=== PATIENT | male | born 1950 | race Two or more races ===

== ENCOUNTER → 2020-07-26 16:05 | Outpatient (BNVA) | payer MEDICARE, MEDICAID, SELFPAY | PROVIDERS: PCP Internal Medicine; Referring Provider Internal Medicine; Visit Provider Urology | DX: Z76.89 Persons encountering health services in other specified circumstances (principal) | CPT/HCPCS: Q3014 ==

== ENCOUNTER 2020-08-31 20:38 | Emergency (ER) | payer MEDICARE, MEDICAID, SELFPAY | END 2020-08-31 21:08 | disposition left against medical advice (07) | PROVIDERS: Emergency Provider Emergency Medicine; PCP Internal Medicine | DX: B99.9 Unspecified infectious disease (principal) | CPT/HCPCS: 99281 ==

== ENCOUNTER → 2020-09-17 11:02 | Outpatient (BNVA) | payer MEDICARE, MEDICAID, SELFPAY | PROVIDERS: PCP Internal Medicine; Visit Provider Surgery | DX: K64.4 Residual hemorrhoidal skin tags (principal); K64.8 Other hemorrhoids | CPT/HCPCS: 46600; 99202 ==

== ENCOUNTER 2020-10-23 16:45 | Emergency (ER) | payer MEDICARE, MEDICAID, SELFPAY ==
--- NOTE | 2020-10-23 | ECG_ITS ---
Test Reason : CHEST PAIN Blood Pressure : / mmHG Vent. Rate : 077 BPM Atrial Rate : 077 BPM P-R Int : 158 ms QRS Dur : 088 ms QT Int : 374 ms P-R-T Axes : 047 -12 046 degrees QTc Int : 423 ms Normal sinus rhythm Voltage criteria for left ventricular hypertrophy Abnormal ECG When compared to the previous EKG of No significant changes seen Referred By: Generic ED Physician Electronically Signed By:JENNY PERRY MD
[2020-10-23 16:52] VITALS: BP 130/76; BP 142/74; PULSE 80; PULSE 81; RESP 15; TEMP 36.7; O2SAT 98; O2SAT 99; BMI 25.9
--- NOTE | 2020-10-23 17:03 | XR_ITS ---
EXAMINATION: XR CHEST CLINICAL INFORMATION: Chest pain. COMPARISON: CT chest 09/25/2019 TECHNIQUE: Frontal view of the chest was obtained. FINDINGS: The lungs are hypoexpanded with slight prominence of interstitial markings but no acute consolidation, groundglass density congestion. Heart size and pulmonary vascularity is normal. No gross bony abnormality seen. XR/XR chest 1V IMPRESSION: Unremarkable chest exam.
[2020-10-23 17:17] LABS: MANUAL DIFF FLAG NO
--- NOTE | 2020-10-23 17:18 | PC.NURSE ---
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
--- NOTE | 2020-10-23 17:23 | ED.CHESTPAIN ---
HPI - Chest Pain General Chief Complaint: Chest Pain Stated Complaint: INTERMITTENT CP Time Seen by Provider: 10/23/20 17:23 History of Present Illness HPI narrative: Patient suffers from dementia and is not a clear historian, history was obtained by his daughter who is his waxer floor The patient went to primary doctor today for complaint of some intermittent suprapubic pain , and at the doctor's office they asked where does it hurt any pointed at his chest, he was unable to give a description of the pain, the primary doctor called EMS and he was transported to the hospital Here when asked if anything hurts he shakes his head no His daughter says he has had no nausea no vomiting no sweating no shortness of breath, no complaints of chest pain or dizziness, he is eating and drinking normally and seems to be in his normal state of health She says he was recently treated for urinary tract infection and she said she does not want him catheterized or to have any other inspection of the urine done now and her concern is the chest pain He is on Coumadin for heart valve disease Related Data Home Medications Medication Instructions Recorded Confirmed albuterol sulfate 90 mcg/actuation 1 inh INHALATION QID 07/26/20 07/26/20 aerosol inhaler allopurinol 100 mg tablet 100 mg PO DAILY 07/26/20 07/26/20 atenolol 25 mg tablet 25 mg PO DAILY 07/26/20 07/26/20 bupropion HCl 300 mg 24 hr tablet, 300 mg PO QAM 07/26/20 07/26/20 extended release ciclopirox 0.77 % topical cream 1 applic TOPICAL BID 07/26/20 07/26/20 clonazepam 0.5 mg tablet 0.25 mg PO BEDTIME 07/26/20 07/26/20 gabapentin 300 mg capsule 300 mg PO BEDTIME 07/26/20 07/26/20 memantine 10 mg tablet 10 mg PO QPM 07/26/20 07/26/20 omeprazole 20 mg capsule,delayed 20 mg PO DAILY 07/26/20 07/26/20 release pravastatin 20 mg tablet 20 mg PO BEDTIME 07/26/20 07/26/20 warfarin 7.5 mg tablet 7.5 mg PO 2XW 07/26/20 07/26/20 alfuzosin 10 mg tablet,extended 10 mg PO DAILY 08/20/20 release 24 hr azithromycin 1 % eye drops 0 drp OPHTHALMIC (EYE) 08/20/20 finasteride 5 mg tablet 5 mg PO DAILY 08/20/20 lactulose 10 gram/15 mL oral ml PO 08/20/20 solution quetiapine 50 mg tablet 50 mg PO BID 08/20/20 spironolactone 25 mg tablet 25 mg PO DAILY 08/20/20 trazodone 50 mg tablet 50 mg PO BEDTIME PRN 08/20/20 Previous Rx's Medication Instructions Recorded diaper,brief,adult,disposable #60 ea 08/01/20 docusate sodium 100 mg capsule 100 mg PO DAILY #60 cap 09/17/20 psyllium seed (sugar) oral powder 1 tbsp PO DAILY #1254 g 09/17/20 Allergies Allergy/AdvReac Type Severity Reaction Status Date / Time oxycodone [OXYCODONE] Allergy Severe Decrease BP Verified 08/20/20 14:21 Iodinated Contrast Media Allergy Intermediate CKD PER Verified 08/20/20 14:21 [IVP DYE] DAUGHTER PT IS NOT TO HAVE DUE TO KIDNEYS tramadol [TRAMADOL] Allergy Intermediate PER Verified 08/20/20 14:21 DAUGHTER PT PASSED OUT, weakness Nuts Allergy Severe GI Stomach Uncoded 08/20/20 14:21 Bleed Review of Systems Review of Systems: History was taken with assistance of his daughter Positive for chest pain negative for shortness of breath sweating fever chills fainting vomiting anorexia leg swelling PMFSH Past Medical History Source: nursing notes reviewed Medical History Acute deep vein thrombosis (DVT) Bleeding hemorrhoids Chronic anticoagulation COPD (chronic obstructive pulmonary disease) Heart valve disease Surgical History History of inguinal hernia repair Family History Family History Father History of prostate cancer Social History Social History Alcohol intake: unknown Smoking Status: Unknown if ever smoked Use of substances other than those prescribed or required for medical reasons: Unknown Advance Directives: No Advance Directives Information Provided: No Physical Exam Vital Signs: Vital Signs: Last Vital Signs Temp 98.0 F 10/23/20 19:59 Pulse 91 01/12/21 19:59 Resp 20 10/23/20 19:59 BP 137/82 10/23/20 19:59 Pulse Ox 97 10/23/20 19:59 Body Mass Index 25.9 Patient is comfortable appearing no acute distress Head is normocephalic atraumatic The neck is supple and nontender The chest is clear to auscultation bilaterally with symmetric equal breath sounds, no respiratory distress The heart rate and rhythm regular abdomen is soft and nontender Extremities there is no calf swelling or tenderness, no edema The back has no CVA tenderness Neuro the patient is moving all extremities, pupils equal round reactive to light, extraocular motions are intact Course Course Course Narrative: Patient is comfortable throughout ER visit with no evidence of chest pain or shortness of breath or abdominal pain ED EKG did not show evidence of any acute ischemic disease Initial troponin was 4.5 Repeat troponin drawn 3 hours later was 4.6 Acute UT very unlikely and patient was discharged MDM - Chest Pain Lab Data Result diagrams: 10/23/20 17:13 10/23/20 17:13 Labs: Lab Results 10/23/20 10/23/20 10/23/20 Range/Units 17:13 17:13 17:13 WBC 8.0 (4.8-10.8) X10*3/uL RBC 5.39 (4.60-5.80) X10*6/uL Hgb 15.2 (14.0-18.0) g/dl Hct 46.5 (42-52) % MCV 86.3 (80-98) fL MCH 28.2 (27.0-33.0) pg MCHC 32.7 (31.0-36.0) g/dl RDW 14.8 (11.0-16.0) % Plt Count 156 L (160-400) X10*3/uL MPV 11.2 (9.4-12.4) fL Immature Gran % (Auto) 0.4 (0.0-0.4) % Neut % (Auto) 71.0 (45-73) % Lymph % (Auto) 21.8 (20-40) % [place] % (Auto) 5.8 (2-11) % Eos % (Auto) 0.9 (0-4) % Baso % (Auto) 0.1 (0-2) % Lymph # (Auto) 1.7 (1.2-4.9) X10*3/uL [place] # (Auto) 0.5 (0.1-1.2) X10*3/uL Eos # (Auto) 0.1 (0.0-0.4) X10*3/uL Baso # (Auto) 0.0 (0.0-0.2) X10*3/uL Abs Immat Gran (auto) 0.03 (0.00-0.03) X10*3/uL Absolute Neuts (auto) 5.7 (2.0-8.3) X10*3/uL Absolute Nucleated RBC 0.000 (0.0-0.012) X10*3/uL Nucleated RBC % (auto) 0.0 (0.0-0.2) /100WBC PT 28.5 H (10.8-13.0) SEC INR 2.4 H (0.9-1.1) Hold Blue Top SEE NOTE Sodium 145 (135-145) mmol/L Potassium 3.9 (3.3-5.1) mmol/l Chloride 109 H (96-108) mmol/L Carbon Dioxide 28 (22-29) mmol/L Anion Gap 12 (12-20) BUN 24 H (9-16) mg/dL Creatinine 1.29 (0.5-1.4) mg/dL Estim Creat Clear Calc 50.5 Estimated GFR 55 Random Glucose 112 (60-115) mg/dL Calcium 8.4 (8.4-10.2) mg/dL Troponin I High Sens (<3.5-35.0) ng/L 10/23/20 10/23/20 Range/Units 17:13 20:04 WBC (4.8-10.8) X10*3/uL RBC (4.60-5.80) X10*6/uL Hgb (14.0-18.0) g/dl Hct (42-52) % MCV (80-98) fL MCH (27.0-33.0) pg MCHC (31.0-36.0) g/dl RDW (11.0-16.0) % Plt Count (160-400) X10*3/uL MPV (9.4-12.4) fL Immature Gran % (Auto) (0.0-0.4) % Neut % (Auto) (45-73) % Lymph % (Auto) (20-40) % [place] % (Auto) (2-11) % Eos % (Auto) (0-4) % Baso % (Auto) (0-2) % Lymph # (Auto) (1.2-4.9) X10*3/uL [place] # (Auto) (0.1-1.2) X10*3/uL Eos # (Auto) (0.0-0.4) X10*3/uL Baso # (Auto) (0.0-0.2) X10*3/uL Abs Immat Gran (auto) (0.00-0.03) X10*3/uL Absolute Neuts (auto) (2.0-8.3) X10*3/uL Absolute Nucleated RBC (0.0-0.012) X10*3/uL Nucleated RBC % (auto) (0.0-0.2) /100WBC PT (10.8-13.0) SEC INR (0.9-1.1) Hold Blue Top Sodium (135-145) mmol/L Potassium (3.3-5.1) mmol/l Chloride (96-108) mmol/L Carbon Dioxide (22-29) mmol/L Anion Gap (12-20) BUN (9-16) mg/dL Creatinine (0.5-1.4) mg/dL Estim Creat Clear Calc Estimated GFR Random Glucose (60-115) mg/dL Calcium (8.4-10.2) mg/dL Troponin I High Sens 4.5 4.6 (<3.5-35.0) ng/L Discharge Plan Discharge Clinical Impression: Chest pain Qualifiers: Chest pain type: unspecified Qualified Code(s): R07.9 - Chest pain, unspecified Patient Disposition: Home, Self-Care Additional Instructions: Our testing did not show any signs of acute heart attack or any emergent problem Follow with primary doctor Return to ER any time for chest pain shortness of breath any worse condition or any concerns Prescriptions: No Action warfarin 7.5 mg tablet 7.5 mg PO 2XW RF: 0 omeprazole 20 mg capsule,delayed release(DR/EC) 20 mg PO DAILY RF: 0 memantine [Namenda] 10 mg tablet 10 mg PO QPM RF: 0 clonazepam 0.5 mg tablet 0.25 mg PO BEDTIME RF: 0 ciclopirox 0.77 % cream 1 applic topical BID RF: 0 bupropion HCl 300 mg tablet extended release 24 hr 300 mg PO QAM RF: 0 atenolol 25 mg tablet 25 mg PO DAILY RF: 0 gabapentin 300 mg capsule 300 mg PO BEDTIME RF: 0 pravastatin 20 mg tablet 20 mg PO BEDTIME RF: 0 albuterol sulfate 90 mcg/actuation HFA aerosol inhaler 1 inh inhalation QID RF: 0 allopurinol 100 mg tablet 100 mg PO DAILY RF: 0 (DME) diaper,brief,adult,disposable Misc See Rx Instructions .ROUTE .MEDSUPPLY Qty: 60 RF: 11 docusate sodium [Colace] 100 mg capsule 100 mg PO DAILY Qty: 60 RF: 0 Metamucil (sugar) Powder 1 tbsp PO DAILY Qty: 1254 RF: 0
[2020-10-23 17:32] LABS: Basophils Percent Auto 0.1 % (0-2); Eosinophils Absolute Auto 0.1 X10*3/uL (0.0-0.4); Eosinophils Percent Auto 0.9 % (0-4); Hematocrit 46.5 % (42-52); Hemoglobin 15.2 g/dl (14.0-18.0); Imm Gran Abs Auto 0.03 X10*3/uL (0.00-0.03); Imm Gran Pct Auto 0.4 % (0.0-0.4); Lymphocytes Absolute Auto 1.7 X10*3/uL (1.2-4.9); Lymphocytes Percent Auto 21.8 % (20-40); Mean Corpuscular HGB Conc 32.7 g/dl (31.0-36.0); Mean Corpuscular Hemoglobin 28.2 pg (27.0-33.0); Mean Corpuscular Volume 86.3 fL (80-98); Mean Platelet Volume 11.2 fL (9.4-12.4); Monocytes Absolute Auto 0.5 X10*3/uL (0.1-1.2); Monocytes Percent Auto 5.8 % (2-11); Neutrophils Absolute Auto 5.7 X10*3/uL (2.0-8.3); Platelet Count 156 X10*3/uL (160-400); Red Blood Count 5.39 X10*6/uL (4.60-5.80); Red Cell Distribution Width 14.8 % (11.0-16.0)
[2020-10-23 17:58] LABS: Anion Gap 12 (12-20); Blood Urea Nitrogen 24 mg/dL (9-16); Calcium 8.4 mg/dL (8.4-10.2); Carbon Dioxide 28 mmol/L (22-29); Chloride 109 mmol/L (96-108); Creatinine Clr Calc Pharmacy 50.5; Estimated Glomerular Filt Rate 55; Glucose Random 112 mg/dL (60-115); Potassium 3.9 mmol/l (3.3-5.1); Sodium 145 mmol/L (135-145)
[2020-10-23 18:05] LABS: Troponin-I High Sensitivity 4.5 ng/L (<3.5-35.0)
--- NOTE | 2020-10-23 18:43 | PC.NURSE ---
lab was called to add on PTINR since blue top was already drawn
[2020-10-23 18:49] VITALS: BP 124/65; PULSE 78; RESP 18; TEMP 36.7; O2SAT 95
--- NOTE | 2020-10-23 18:50 | PC.NURSE ---
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
[2020-10-23 18:54] LABS: INTERNATIONAL NORM RATIO 2.4 (0.9-1.1); Prothrombin Time 28.5 SEC (10.8-13.0)
--- NOTE | 2020-10-23 19:14 | PC.NURSE ---
brief changed with assistance of tech
[2020-10-23 19:59] VITALS: BP 137/82; PULSE 91; RESP 20; TEMP 36.7; O2SAT 97
--- NOTE | 2020-10-23 20:16 | PC.NURSE ---
daughter was updated
[2020-10-23 20:40] LABS: Troponin-I High Sensitivity 4.6 ng/L (<3.5-35.0)
== END 2020-10-23 21:26 | disposition home or self-care (01) ==
PROVIDERS: Physician Assistant Medical; Emergency Provider Internal Medicine; PCP Internal Medicine
DX: R07.9 Chest pain, unspecified (principal); F03.90 Unspecified dementia, unspecified severity, without behavioral disturbance, psychotic disturbance, mood disturbance, and anxiety; Z86.718 Personal history of other venous thrombosis and embolism; Z79.01 Long term (current) use of anticoagulants; Z79.899 Other long term (current) drug therapy
CPT/HCPCS: 36415; 71045; 80048; 84484; 85025; 85610; 93005; 99283; 99284

== ENCOUNTER → 2020-10-29 10:31 | Outpatient (BNV) | payer MEDICARE, OTHER, MEDICAID, SELFPAY | PROVIDERS: PCP Internal Medicine; Visit Provider Internal Medicine Medical Oncology | DX: I82.401 Acute embolism and thrombosis of unspecified deep veins of right lower extremity (principal) | CPT/HCPCS: 99214; 99443 ==

== ENCOUNTER 2020-11-02 12:39 | Outpatient (REF) | payer MEDICARE, MEDICAID, SELFPAY ==
--- NOTE | 2020-11-02 12:41 | CT_ITS ---
EXAMINATION: CT CHEST WITHOUT CONTRAST CLINICAL INFORMATION: Follow-up abdominal aortic aneurysm COMPARISON: Previous chest CT September 2019 and chest x-ray October 2020 TECHNIQUE: Multidetector volumetric CT imaging of the chest was done. Axial MIP volume rendering provided. Sagittal and coronal reformatted images were obtained. This CT examination was performed using dose optimization techniques as appropriate, variously including the following: *Automated exposure control *Adjustment of mA and/or kV according to patient size (this includes techniques or standardized protocols for targeted exams where dose is matched to indication/reason for exam; i.e. extremities or head) *Use of iterative reconstruction technique DLP: 198 mGy-cm FINDINGS: LUNGS: The lungs are clear with no evidence of inflammation or nodules. MEDIASTINUM: The ascending thoracic aorta is slightly dilated measuring 4.3 cm in diameter. The aortic arch is upper normal in size measuring 3 cm. The proximal descending thoracic aorta is slightly dilated measuring 3.4 x 3.8 cm. The descending thoracic aorta is tortuous. This does not appear appreciably changed from previous exam September 2019. The heart is enlarged. There is mild coronary artery calcification. There is no pericardial effusion. The visualized thyroid gland is unremarkable. PLEURA: There is no pleural effusion. No pleural mass or thickening. AXILLA: No lymphadenopathy. UPPER ABDOMEN: The gallbladder has been removed. There are bilateral renal cysts. There is an IVC filter. OSSEOUS STRUCTURES: There are degenerative changes of the spine. CT/CT chest wo con IMPRESSION: Ectatic tortuous thoracic aorta. This is similar to September 2019 exam. Enlarged heart. Mild coronary artery patient. Stable abdominal findings.
== END 2020-11-02 12:40 | disposition home or self-care (01) ==
LOC: HO.CT 12:39
PROVIDERS: PCP Internal Medicine; Visit Provider Internal Medicine Medical Oncology
DX: I71.9 Aortic aneurysm of unspecified site, without rupture (principal)
CPT/HCPCS: 71250

== ENCOUNTER → 2021-01-09 09:40 | Outpatient (BNVA) | payer MEDICARE, MEDICAID, SELFPAY | PROVIDERS: PCP Internal Medicine; Visit Provider Hospitalist | DX: J41.0 Simple chronic bronchitis (principal); G30.9 Alzheimer's disease, unspecified; F02.80 Dementia in other diseases classified elsewhere, unspecified severity, without behavioral disturbance, psychotic disturbance, mood disturbance, and anxiety | CPT/HCPCS: Q3014 ==

== ENCOUNTER → 2021-01-10 12:06 | Outpatient (BNVA) | payer MEDICARE, MEDICAID, SELFPAY | PROVIDERS: PCP Internal Medicine; Visit Provider Internal Medicine | DX: I71.2 Thoracic aortic aneurysm, without rupture (principal); I35.1 Nonrheumatic aortic (valve) insufficiency; G30.9 Alzheimer's disease, unspecified; F02.80 Dementia in other diseases classified elsewhere, unspecified severity, without behavioral disturbance, psychotic disturbance, mood disturbance, and anxiety | CPT/HCPCS: 99202 ==

== ENCOUNTER → 2021-02-21 10:20 | Outpatient (REF) | payer MEDICARE, MEDICAID, SELFPAY ==
--- NOTE | 2021-02-21 10:25 | CA_ITS ---
Transthoracic Echocardiogram Patient (Last, First, Middle): Antoni Arriola, Gender: Male Date of : 1950 Age: 70 Procedure Date: 02/21/2021 Procedure Type: Transthoracic Echocardiogram Location: OP Height: 167.64 cm Weight: 71.22 kg BSA: 1.80 m2 Heart Rate: bpm BP: 123 / 81 mmHg Director Of Media: СЕРГЕЙ Anderson MD: Gamal Calles MD Audit Control Clerk: Lyndon King MD Symptoms: I35.1 - Nonrheumatic aortic (valve) insufficiency Study Quality: Fair ECG Rhythm: Sinus Conclusions: - 1. Normal LV systolic function with grade 1 diastolic dysfunction 2. Mild to moderate eccentric aortic regurgitation 3. Mildly dilated ascending aorta 4. No gross pericardial effusion Findings Left Ventricle Normal left ventricular size, thickness, and systolic function. The visually estimated ejection fraction is between 55-60%. Spectral Doppler is indicative of an impaired relaxation filling pattern. E/E prime ratio is <8, consistent with normal filling pressures. Evidence suggests grade I (mild) diastolic dysfunction. Right Ventricle Normal right ventricular cavity size and systolic function. Atria Both atria are normal in size. Interatrial shunt cannot be excluded. Aortic Valve The aortic valve was not well visualized. There is no aortic valve stenosis. There is mild to moderate aortic valve regurgitation. Mitral Valve Likely normal mitral valve structure and function. There is trace mitral valve regurgitation. There is no mitral valve stenosis. Pulmonic Valve The pulmonic valve was not well visualized. Tricuspid Valve The tricuspid valve was not well visualized. The right ventricular systolic pressure is not calculated. Great Vessels The pulmonary artery was not well visualized. There is mild dilatation of the ascending aorta. Venous The inferior vena cava is normal in size and collapses greater than 50% with inspiration. Pericardium/Pleural There is no evidence of pericardial effusion. Prior Study Comparison No previous study in the last 5 years for comparison Measurements 2D Linear Measurements IVSd: 0.92 0.6-0.9/0.6-1.0 cm LVIDd: 5.12 3.9-5.3/4.2-5.9 cm LVIDd Index: 2.84 2.4-3.2/2.2-3.1 cm/m2 LVIDs: 3.90 2.0-3.6 cm LVPWd: 0.92 0.7-1.1 cm Ao Root: 4.10 2.1-3.5 cm LA Diam: 2.30 2.7-3.8/3.0-4.0 cm LAIDs Index: 1.28 1.5-2.3 cm/m2 LV Mass: 210.75 67-162/88-224 g LV Mass Index: 117.08 43-95/49-115 g/m2 LVOT Diam: 2.00 3.0+(-)1.3 cm 2D Systolic Function EF 4C: 54.30 >55% EF 2C: 55.90 >55% Mitral Valve E'Lateral: 7.83 E'Medial: 6.31 Aortic Valve AoV Pk Brent: 1.49 AoV Mn Brent: 0.96 AoV VTI: 0.28 AoV Pk Grad: 9.00 Aov Mn Grad: 4.00 MINH Cont.VTI: 2.27 AI Pk Brent: 4.36 AI [place]: 3.84 LVOT LVOT Pk Brent: 1.02 LVOT Mn Brent: 0.71 LVOT VTI: 0.21 LVOT Pk Grad: 4.00 LVOT Mn Grad: 2.00 LVOT Diam: 2.00 LVOT Area: 3.14 Diastolic Function E'Medial: 6.31 E' Laterial: 7.83 Great Vessels Aorta Ao Root-2D: 4.10 2.0-3.7 cm Ao Asc: 4.10 2.1-3.4 cm Updated in Other Vendor System with Status of Final Lyndon King MD electronically signed on 02/22/2021 3:44:25 PM with status of Final
== END ==
LOC: HO.CARD 10:20
PROVIDERS: PCP Internal Medicine; Visit Provider Internal Medicine
DX: I35.1 Nonrheumatic aortic (valve) insufficiency (principal); I71.2 Thoracic aortic aneurysm, without rupture
CPT/HCPCS: 93306

== ENCOUNTER → 2021-02-28 11:35 | Outpatient (BNVA) | payer MEDICARE, MEDICAID, SELFPAY | PROVIDERS: PCP Internal Medicine; Visit Provider Internal Medicine | DX: I71.2 Thoracic aortic aneurysm, without rupture (principal); I35.1 Nonrheumatic aortic (valve) insufficiency; G30.9 Alzheimer's disease, unspecified; F02.80 Dementia in other diseases classified elsewhere, unspecified severity, without behavioral disturbance, psychotic disturbance, mood disturbance, and anxiety | CPT/HCPCS: 99212 ==

== ENCOUNTER 2021-05-03 08:14 | Outpatient (REF) | payer MEDICARE, MEDICAID, SELFPAY ==
[2021-05-03 10:56] LABS: MANUAL DIFF FLAG NO
[2021-05-03 11:03] LABS: Basophils Percent Auto 0.4 % (0-2); Eosinophils Absolute Auto 0.2 X10*3/uL (0.0-0.4); Eosinophils Percent Auto 1.9 % (0-4); Hematocrit 51.2 % (42-52); Hemoglobin 16.6 g/dl (14.0-18.0); Imm Gran Abs Auto 0.02 X10*3/uL (0.00-0.03); Imm Gran Pct Auto 0.2 % (0.0-0.4); Lymphocytes Absolute Auto 2.4 X10*3/uL (1.2-4.9); Lymphocytes Percent Auto 28.6 % (20-40); Mean Corpuscular HGB Conc 32.4 g/dl (31.0-36.0); Mean Corpuscular Hemoglobin 27.1 pg (27.0-33.0); Mean Corpuscular Volume 83.5 fL (80-98); Mean Platelet Volume 11.3 fL (9.4-12.4); Monocytes Absolute Auto 0.5 X10*3/uL (0.1-1.2); Monocytes Percent Auto 6.2 % (2-11); Neutrophils Absolute Auto 5.4 X10*3/uL (2.0-8.3); Neutrophils Percent Auto 62.7 % (45-73); Platelet Count 192 X10*3/uL (160-400); Red Blood Count 6.13 X10*6/uL (4.60-5.80); Red Cell Distribution Width 14.9 % (11.0-16.0); White Blood Count 8.5 X10*3/uL (4.8-10.8)
[2021-05-03 11:19] LABS: D Dimer < 200 NG/ML
[2021-05-03 12:00] LABS: Alanine Aminotransferase 18 U/L (0-40); Albumin Level 3.7 g/dL (3.5-5.0); Alkaline Phosphatase 61 U/L (39-117); Anion Gap 14 (12-20); Aspartate Amino Transferase 24 U/L (5-37); Bilirubin Total 0.6 mg/dL (0.0-1.0); Blood Urea Nitrogen 19 mg/dL (9-16); Calcium 9.1 mg/dL (8.4-10.2); Carbon Dioxide 25 mmol/L (22-29); Chloride 106 mmol/L (96-108); Estimated Glomerular Filt Rate 48; Glucose Random 79 mg/dL (60-115); Sodium 141 mmol/L (135-145); Total Protein 7.3 g/dL (6.5-8.0)
[2021-05-03 12:24] LABS: Prostate Specific Antigen 3.27 ng/mL (<0.05-4.0)
== END 2021-05-03 08:15 | disposition home or self-care (01) ==
LOC: HO.LHD 08:14
PROVIDERS: Visit Provider Internal Medicine Medical Oncology
DX: D64.9 Anemia, unspecified (principal); I82.401 Acute embolism and thrombosis of unspecified deep veins of right lower extremity
CPT/HCPCS: 36415; 80053; 84153; 85025; 85379

== ENCOUNTER → 2021-07-02 10:33 | Outpatient (BNVA) | payer MEDICARE, MEDICAID, SELFPAY | PROVIDERS: PCP Internal Medicine; Visit Provider Urology | DX: N40.1 Benign prostatic hyperplasia with lower urinary tract symptoms (principal); N13.8 Other obstructive and reflux uropathy; R32 Unspecified urinary incontinence | CPT/HCPCS: Q3014 ==

== ENCOUNTER 2021-10-01 06:37 | Outpatient (REF) | payer MEDICARE, MEDICAID, SELFPAY ==
[2021-10-01 09:41] LABS: MANUAL DIFF FLAG NO
[2021-10-01 09:44] LABS: Basophils Percent Auto 0.4 % (0-2); Eosinophils Absolute Auto 0.2 X10*3/uL (0.0-0.4); Eosinophils Percent Auto 1.9 % (0-4); Hematocrit 50.6 % (42.0-52.0); Hemoglobin 16.9 g/dl (14.0-18.0); Imm Gran Abs Auto 0.03 X10*3/uL (0.00-0.03); Imm Gran Pct Auto 0.4 % (0.0-0.4); Lymphocytes Absolute Auto 2.5 X10*3/uL (1.2-4.9); Lymphocytes Percent Auto 30.4 % (20-40); Mean Corpuscular HGB Conc 33.4 g/dl (31.0-36.0); Mean Corpuscular Hemoglobin 26.4 pg (27.0-33.0); Mean Corpuscular Volume 79.1 fL (80.0-98.0); Mean Platelet Volume 11.3 fL (9.4-12.4); Monocytes Absolute Auto 0.5 X10*3/uL (0.1-1.2); Monocytes Percent Auto 5.8 % (2-11); Neutrophils Percent Auto 61.1 % (45-73); Platelet Count 208 X10*3/uL (160-400); Red Cell Distribution Width 16.7 % (11.0-16.0); White Blood Count 8.1 X10*3/uL (4.8-10.8)
[2021-10-01 10:07] LABS: Alanine Aminotransferase 18 U/L (0-40); Albumin Level 3.4 g/dL (3.5-5.0); Alkaline Phosphatase 60 U/L (39-117); Anion Gap 11 (12-20); Aspartate Amino Transferase 22 U/L (5-37); Bilirubin Total 0.7 mg/dL (0.0-1.0); Blood Urea Nitrogen 17 mg/dL (9-16); Calcium 8.7 mg/dL (8.4-10.2); Carbon Dioxide 22 mmol/L (22-29); Chloride 109 mmol/L (96-108); Estimated Glomerular Filt Rate 53; Glucose Random 102 mg/dL (60-115); Potassium 4.2 mmol/L (3.3-5.1); Sodium 138 mmol/L (135-145); Total Protein 7.1 g/dL (6.5-8.0)
[2021-10-01 10:09] LABS: Cholesterol 163 mg/dL; HDL Cholesterol 34 mg/dL; LDL Cholesterol Calculated 103 mg/dl; Triglycerides 131 mg/dL
[2021-10-01 10:30] LABS: Prostate Specific Antigen 3.64 ng/mL (<0.05-4.0)
== END 2021-10-01 06:38 | disposition home or self-care (01) ==
LOC: HO.LHD 06:37
PROVIDERS: Visit Provider Internal Medicine Medical Oncology
DX: I82.401 Acute embolism and thrombosis of unspecified deep veins of right lower extremity (principal); Z12.5 Encounter for screening for malignant neoplasm of prostate
CPT/HCPCS: 36415; 80053; 80061; 84153; 85025

== ENCOUNTER 2022-04-04 15:09 | Outpatient (REF) | payer OTHER, SELFPAY ==
[2022-04-04 10:52] LABS: MANUAL DIFF FLAG NO
[2022-04-04 11:01] LABS: Basophils Percent Auto 0.3 % (0-2); Eosinophils Absolute Auto 0.1 X10*3/uL (0.0-0.4); Eosinophils Percent Auto 1.7 % (0-4); Hemoglobin 17.2 g/dl (14.0-18.0); Imm Gran Abs Auto 0.02 X10*3/uL (0.00-0.03); Imm Gran Pct Auto 0.3 % (0.0-0.4); Lymphocytes Absolute Auto 2.1 X10*3/uL (1.2-4.9); Lymphocytes Percent Auto 27.3 % (20-40); Mean Corpuscular HGB Conc 33.7 g/dl (31.0-36.0); Mean Corpuscular Hemoglobin 27.6 pg (27.0-33.0); Mean Corpuscular Volume 81.9 fL (80.0-98.0); Monocytes Absolute Auto 0.4 X10*3/uL (0.1-1.2); Monocytes Percent Auto 4.8 % (2-11); Neutrophils Absolute Auto 5.1 x10*3/uL (2.0-8.3); Neutrophils Percent Auto 65.6 % (45-73); Platelet Count 191 X10*3/uL (160-400); Red Blood Count 6.23 X10*6/uL (4.60-5.80); Red Cell Distribution Width 15.4 % (11.0-16.0); White Blood Count 7.7 X10*3/uL (4.8-10.8)
[2022-04-04 11:32] LABS: Alanine Aminotransferase 14 U/L (0-40); Albumin Level 3.5 g/dL (3.5-5.0); Alkaline Phosphatase 60 U/L (39-117); Anion Gap 15 (12-20); Aspartate Amino Transferase 21 U/L (5-37); Blood Urea Nitrogen 15 mg/dL (9-16); Calcium 8.8 mg/dL (8.4-10.2); Carbon Dioxide 19 mmol/L (22-29); Chloride 109 mmol/L (96-108); Estimated Glomerular Filt Rate 59; Glucose Random 136 mg/dL (60-115); Potassium 3.5 mmol/L (3.3-5.1); Sodium 139 mmol/L (135-145); Total Protein 6.9 g/dL (6.5-8.0)
[2022-04-04 11:55] LABS: Prostate Specific Antigen 3.56 ng/mL (<0.05-4.0)
== END 2022-04-04 15:10 | disposition home or self-care (01) ==
LOC: HO.LHD 15:09
PROVIDERS: Visit Provider Internal Medicine Medical Oncology
DX: I82.401 Acute embolism and thrombosis of unspecified deep veins of right lower extremity (principal); Z12.5 Encounter for screening for malignant neoplasm of prostate
CPT/HCPCS: 36415; 80053; 84153; 85025

== ENCOUNTER 2022-04-22 03:11 | Inpatient (IN) | payer OTHER, SELFPAY ==
[2022-04-22] VITALS (10 sets, daily range): BP systolic 98–137; BP diastolic 50–75; PULSE 84–107; RESP 18–31; TEMP 36.1–38.7; O2SAT 91–98; BMI 23.7
--- NOTE | ~2022-04-22 | CT_ITS ---
EXAMINATION: CT CHEST, ABDOMEN AND PELVIS WITHOUT CONTRAST CLINICAL INFORMATION: Fever and hypoxia COMPARISON: CT abdomen and pelvis without contrast 04/17/2020, chest CT 11/02/2020 TECHNIQUE: Multidetector volumetric imaging was performed from the thoracic inlet through the pubic symphysis. Sagittal and coronal reformatted images were obtained on the technologist's workstation. Axial MIP volume rendering provided. This CT examination was performed using dose optimization techniques as appropriate, variously including the following: *Automated exposure control *Adjustment of mA and/or kV according to patient size (this includes techniques or standardized protocols for targeted exams where dose is matched to indication/reason for exam; i.e. extremities or head) *Use of iterative reconstruction technique DLP: 1392 mGy-cm FINDINGS: CHEST: Lungs: Somewhat limited assessment due to extensive respiratory motion artifact. Mild dependent subsegmental bibasilar atelectasis. No appreciable pulmonary nodule or mass. No airspace consolidation. Central airways appear grossly clear. Mediastinum: No cardiomegaly. Three-vessel coronary artery vascular calcifications. Borderline dilated ascending thoracic aorta measuring approximately 4 cm in diameter, unchanged. Normal caliber central pulmonary trunk. No mediastinal or hilar lymphadenopathy. Pericardium/Pleura: There is no significant effusion. No pleural mass or thickening. Chest Wall/Axilla: Unremarkable. ABDOMEN/PELVIS: Liver, Gallbladder, Biliary Tree: Unchanged small low-density lesions, likely cysts in the medial segment left liver lobe and anterior segment right liver lobe. No obvious new liver lesion. Normal hepatic attenuation. Status post cholecystectomy. No biliary ductal dilation. Pancreas: Unremarkable. Spleen: Unremarkable. Adrenal Glands: Unremarkable. Kidneys and Ureters: No hydronephrosis or radiodense urinary tract calculi. No perinephric collections. Multiple bilateral low-density renal cysts, similar to prior. Largest cyst is exophytic from the left kidney measuring approximately 8.1 cm in size. Bladder: Unremarkable. Gastrointestinal Tract: No dilated bowel loops. No bowel wall thickening. Suspected small hiatal hernia. Normal appendix. No ascites or free air. Abdominal Wall: Fat-containing left inguinal hernia. Lymphovascular Structures: Lymph nodes: No lymphadenopathy. Vascular: Normal caliber abdominal aorta with mild vascular calcifications. IVC filter in place. Pelvic Viscera: Mildly enlarged prostate gland. Unremarkable seminal vesicles. OSSEOUS STRUCTURES: No acute fracture or suspicious osseous lesion. Moderate disc degenerative change at L5-S1. Mild retrolisthesis at L1-L2. Otherwise, mild multilevel degenerative disc disease throughout the thoracic and lumbar spine. 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 CT/CT abdomen pelvis wo con IMPRESSION: 1. Assessment of the lungs limited due to respiratory motion artifact. Mild bibasilar atelectasis. No consolidation or pleural effusions. 2. Borderline mild dilation of the ascending thoracic aorta measuring 4 cm in diameter, unchanged. 3. No acute intra-abdominal process. 4. Multiple additional ancillary findings, as described.
--- NOTE | ~2022-04-22 | CT_ITS ---
EXAMINATION: CT HEAD WITHOUT CONTRAST CLINICAL INFORMATION: Altered mental status COMPARISON: CT 07/01/2020 TECHNIQUE: Contiguous axial imaging was performed from the skull base to vertex without intravenous administration of contrast. This CT examination was performed using dose optimization techniques as appropriate, variously including the following: *Automated exposure control *Adjustment of mA and/or kV according to patient size (this includes techniques or standardized protocols for targeted exams where dose is matched to indication/reason for exam; i.e. extremities or head) *Use of iterative reconstruction technique DLP: 695 mGy-cm FINDINGS: There is no evidence of acute intracranial hemorrhage or territorial infarction. No abnormal mass effect or midline shift is seen. Herbert to white matter differentiation is well preserved. No extra-axial fluid collections are identified. The ventricles are moderately enlarged, appearing slightly more prominent as compared to previous. There is moderate prominence of the cortical sulci. The ventricles are enlarged slightly out of proportion to the atrophy. . Patchy deep white matter hypodensities likely reflecting chronic microangiopathic changes. No acute calvarial fracture. Sinuses and mastoid air cells evaluated. CT/CT head/brain wo con Impression: 1. No evidence of acute intracranial hemorrhage or edematous territorial infarction. 2. Atrophy with chronic small vessel ischemic changes. 3. Dilatation of the ventricles representing either cerebral atrophy or normal pressure hydrocephalus. Degree of ventricular dilatation is slightly more prominent as compared to previous. Clinically correlate
--- NOTE | ~2022-04-22 | XR_ITS ---
EXAMINATION: XR CHEST CLINICAL INFORMATION: Shortness of breath COMPARISON: Previous chest x-ray and chest CT October 2020 TECHNIQUE: Frontal view of the chest was obtained. FINDINGS: The cardiac and mediastinal contours are stable. The lung volumes are low. The lungs are clear. There is no pleural effusion or pneumothorax. There is distended bowel below the diaphragm. Visualized bony structures are unremarkable. XR/XR chest 1V IMPRESSION: Low lung volumes. Distended bowel below the diaphragm.
--- NOTE | 2022-04-22 05:56 | ECG_ITS ---
Test Reason : SOB Blood Pressure : / mmHG Vent. Rate : 105 BPM Atrial Rate : 105 BPM P-R Int : 156 ms QRS Dur : 086 ms QT Int : 326 ms P-R-T Axes : 034 -22 084 degrees QTc Int : 430 ms Sinus tachycardia Moderate voltage criteria for LVH, may be normal variant ( R in aVL , [place] product ) Nonspecific T wave abnormality Abnormal ECG When compared with ECG of 23-OCT-2020 16:59, Nonspecific T wave abnormality, worse in Lateral leads Referred By: Shanon Camacho Electronically Signed By:JENNY PERRY MD
[2022-04-22 06:16] LABS: MANUAL DIFF FLAG NO
[2022-04-22 06:19] LABS: Basophils Percent Auto 0.2 % (0-2); Eosinophils Percent Auto 0.1 % (0-4); Hemoglobin 16.7 g/dl (14.0-18.0); Imm Gran Abs Auto 0.03 X10*3/uL (0.00-0.03); Imm Gran Pct Auto 0.4 % (0.0-0.4); Lymphocytes Absolute Auto 0.6 X10*3/uL (1.2-4.9); Lymphocytes Percent Auto 6.9 % (20-40); Mean Corpuscular HGB Conc 34.1 g/dl (31.0-36.0); Mean Corpuscular Hemoglobin 27.4 pg (27.0-33.0); Mean Corpuscular Volume 80.3 fL (80.0-98.0); Mean Platelet Volume 10.5 fL (9.4-12.4); Monocytes Absolute Auto 0.8 X10*3/uL (0.1-1.2); Monocytes Percent Auto 9.6 % (2-11); Neutrophils Absolute Auto 6.8 x10*3/uL (2.0-8.3); Neutrophils Percent Auto 82.8 % (45-73); Platelet Count 177 X10*3/uL (160-400); White Blood Count 8.3 X10*3/uL (4.8-10.8)
[2022-04-22 06:34] LABS: Anion Gap 13 (12-20); Blood Urea Nitrogen 19 mg/dL (9-16); Calcium 8.5 mg/dL (8.4-10.2); Carbon Dioxide 23 mmol/L (22-29); Chloride 105 mmol/L (96-108); Creatinine Clr Calc Pharmacy 44.9; Estimated Glomerular Filt Rate 47; Glucose Random 135 mg/dL (60-115); Magnesium 1.6 mg/dL (1.6-2.6); Phosphorus 3.8 mg/dL (2.7-4.5); Potassium 3.8 mmol/L (3.3-5.1); Sodium 137 mmol/L (135-145)
[2022-04-22] MEDS: 0.9 % Sodium Chloride 1,000 ML 999 ML IV (06:35)
[2022-04-22 06:40] LABS: Troponin-I High Sensitivity 13.9 ng/L (<3.5-35.0)
[2022-04-22] MEDS: Acetaminophen Supp 650 MG SUPP.RECT PR ×2 (06:40→14:23)
[2022-04-22 06:53] LABS: Glucose, Whole Blood 136 mg/dL (60-115)
[2022-04-22 06:55] LABS: Influenza A PCR NEGATIVE (Negative); Influenza B PCR NEGATIVE (Negative); Resp Syncy Virus RNA Qual PCR NEGATIVE (Negative); SARS COV2 PCR INHOUSE POSITIVE (Negative)
--- NOTE | 2022-04-22 07:06 | ED_ITS ---
HPI - Altered Mental Status General Chief Complaint: Altered Mental Status Stated Complaint: FAMILY ?'S SZ W/VOMITING,H/O NONVERBAL DEMENTIA Time Seen by Provider: 04/22/22 05:39 History of Present Illness HPI narrative: patient is a 71-year-old male with a long history of dementia. Baseline awake alert oriented times 0. History of DVT currently on Coumadin. History of BPH with urinary obstructions in the past. Family noted an episode with the patient eyes rolled backwards. Subsequently collapsed. Then was noted to have shaking like movements. Patient was then sent to the emergency department for further evaluation. He is not vaccinated for COVID. History of COPD. History of valvular heart disease. History of ascending aortic aneurysm at 4.3 cm. Patient from home. Lives with daughter. Related Data Home Medications Medication Instructions Recorded Confirmed albuterol sulfate 90 mcg/actuation 1 inh inhalation QID 07/26/20 06/27/21 aerosol inhaler atenolol 25 mg tablet 25 mg PO DAILY 07/26/20 06/27/21 bupropion HCl 300 mg 24 hr tablet, 300 mg PO QAM 07/26/20 06/27/21 extended release ciclopirox 0.77 % topical cream 1 applic topical BID 07/26/20 06/27/21 memantine 10 mg tablet (Namenda) 10 mg PO QPM 07/26/20 06/27/21 omeprazole 20 mg capsule,delayed 20 mg PO DAILY 07/26/20 06/27/21 release azithromycin 1 % eye drops 0 drp ophthalmic (eye) NEEDED 08/20/20 06/27/21 spironolactone 25 mg tablet 25 mg PO DAILY 08/20/20 06/27/21 risperidone 0.25 mg tablet 0.5 mg PO BID 01/09/21 06/27/21 warfarin 5 mg tablet 1 tab PO DAILY 05/02/21 06/27/21 diaper,brief,adult,disposable 06/27/21 06/27/21 (Select Briefs) betamethasone valerate 0.1 % topical BID 07/02/21 topical ointment clotrimazole 1 % topical cream appl topical BID 07/02/21 naftifine 2 % topical gel (Naftin) 2 topical DAILY mycosis 07/02/21 Previous Rx's Medication Instructions Recorded docusate sodium 100 mg capsule 100 mg PO DAILY #60 caps 09/17/20 (Colace) ipratropium 0.5 mg-albuterol 3 mg 3 ml inhalation BID #60 mL 11/12/20 (2.5 mg base)/3 mL nebulization soln alfuzosin 10 mg tablet,extended 10 mg PO DAILY 90 days #90 tabs 07/02/21 release 24 hr finasteride 5 mg tablet 5 mg PO DAILY 90 days #90 tabs 07/02/21 Allergies Allergy/AdvReac Type Severity Reaction Status Date / Time oxycodone [OXYCODONE] Allergy Severe Decrease BP Verified 04/22/22 03:33 Iodinated Contrast Media Allergy Intermediate CKD PER Verified 04/22/22 03:33 [IVP DYE] DAUGHTER PT IS NOT TO HAVE DUE TO KIDNEYS tramadol [TRAMADOL] Allergy Intermediate PER Verified 04/22/22 03:33 DAUGHTER PT PASSED OUT, weakness Nuts Allergy Severe GI Stomach Uncoded 04/22/22 03:33 Bleed Review of Systems Review of Systems: Unable to obtain full review systems secondary to patient's mental condition Yes Unobtainable due to mental condition and Unobtainable due to mental status [facility] Past Medical History Attestation statement: The following information was validated with the patient. Medical History Acute deep vein thrombosis (DVT) Ascending aortic aneurysm Bleeding hemorrhoids Chronic anticoagulation CKD (chronic kidney disease) COPD (chronic obstructive pulmonary disease) Depression Heart valve disease Non-rheumatic aortic regurgitation Surgical History History of inguinal hernia repair Hx of cholecystectomy Family History Family History Father History of prostate cancer Social History Social History Alcohol intake: never Advance Directives: No Physical Exam ED Vital Signs: Vital Signs - 24 hr 04/22/22 03:28 04/22/22 04:52 04/22/22 06:02 Temperature 96.9 F 97.8 F 100.8 F H Pulse Rate 98 107 H 101 H Respiratory Rate 20 18 18 Blood Pressure 106/60 119/73 131/70 Pulse Oximetry 94 95 97 Oxygen Delivery Method Room Air Room Air Room Air BMI result Body Mass Index 23.7 Appearance: Alert. Oriented X0 . No acute distress. Eyes: Pupils equal, round and reactive to light. ENT: Pharynx normal. dry mucous membrane Neck: Normal inspection. Neck supple. No lymph nodes noted. No crepitus CVS: Normal heart rate and rhythm. Pulses normal. Normal S1 and S2 Respiratory: No respiratory distress. Breath sounds normal. increased respiratory rate.No Wheezing. No rales Abdomen: Soft and nontender. No rigidity. No distention. good BS x4 Skin: Skin warm and dry. Normal skin color. Normal skin turgor. Extremities: No lower extremity edema. Neurovascular intact to all extremities. No Lacerations. No Rash Neuro: Oriented X 0. No motor deficit. No sensory deficit. Moving all extremities MDM - Altered Mental Status MDM Narrative Medical decision making narrative: Patient had a low-grade fever of 100.8 on rectal exam. Increased respiratory rate. Chest x-ray ordered. Patient is not vaccinated for COVID. A COVID flu RSV screen was ordered. Cultures obtained patient's lactate is 2.0. No evidence for severe sepsis. 30 cc/kilos IV fluid was given because patient had increased respiratory rate and also a temperature. Will start patient on Rocephin. INR is pending. CT scan of the head is being read by Radiology. There is no gross bleeding noted. Will obtain urine to check for UTI as patie nt had a previous history of urinary tract infection in the past. Will obtain ABG to check for CO2 retention. Currently in guarded condition. Differential Diagnosis Differential diagnosis: Likely altered mental status Lab Data Result diagrams: 04/22/22 06:12 04/22/22 06:12 Labs: Lab Results 04/22/22 04/22/22 04/22/22 Range/Units 06:12 06:12 06:12 WBC 8.3 (4.8-10.8) X10*3/uL RBC 6.10 H (4.60-5.80) X10*6/uL Hgb 16.7 (14.0-18.0) g/dl Hct 49.0 (42.0-52.0) % MCV 80.3 (80.0-98.0) fL MCH 27.4 (27.0-33.0) pg MCHC 34.1 (31.0-36.0) g/dl RDW 15.0 (11.0-16.0) % Plt Count 177 (160-400) X10*3/uL MPV 10.5 (9.4-12.4) fL Immature Gran % (Auto) 0.4 (0.0-0.4) % Neut % (Auto) 82.8 H (45-73) % Lymph % (Auto) 6.9 L (20-40) % [place] % (Auto) 9.6 (2-11) % Eos % (Auto) 0.1 (0-4) % Baso % (Auto) 0.2 (0-2) % Lymph # (Auto) 0.6 L (1.2-4.9) X10*3/uL [place] # (Auto) 0.8 (0.1-1.2) X10*3/uL Eos # (Auto) 0.0 (0.0-0.4) X10*3/uL Baso # (Auto) 0.0 (0.0-0.2) X10*3/uL Abs Immat Gran (auto) 0.03 (0.00-0.03) X10*3/uL Absolute Neuts (auto) 6.8 (2.0-8.3) x10*3/uL Absolute Nucleated RBC 0.000 (0.0-0.012) X10*3/uL Nucleated RBC % (auto) 0.0 (0.0-0.2) /100WBC Sodium 137 (135-145) mmol/L Potassium 3.8 (3.3-5.1) mmol/L Chloride 105 (96-108) mmol/L Carbon Dioxide 23 (22-29) mmol/L Anion Gap 13 (12-20) BUN 19 H (9-16) mg/dL Creatinine 1.48 H (0.5-1.4) mg/dL Estim Creat Clear Calc 44.9 Estimated GFR 47 POC Glucose (60-115) mg/dL Random Glucose 135 H (60-115) mg/dL Lactic Acid (0.5-2.0) mmol/L Calcium 8.5 (8.4-10.2) mg/dL Phosphorus 3.8 (2.7-4.5) mg/dL Magnesium 1.6 (1.6-2.6) mg/dL Troponin I High Sens 13.9 (<3.5-35.0) ng/L 04/22/22 04/22/22 Range/Units 06:27 06:49 WBC (4.8-10.8) X10*3/uL RBC (4.60-5.80) X10*6/uL Hgb (14.0-18.0) g/dl Hct (42.0-52.0) % MCV (80.0-98.0) fL MCH (27.0-33.0) pg MCHC (31.0-36.0) g/dl RDW (11.0-16.0) % Plt Count (160-400) X10*3/uL MPV (9.4-12.4) fL Immature Gran % (Auto) (0.0-0.4) % Neut % (Auto) (45-73) % Lymph % (Auto) (20-40) % [place] % (Auto) (2-11) % Eos % (Auto) (0-4) % Baso % (Auto) (0-2) % Lymph # (Auto) (1.2-4.9) X10*3/uL [place] # (Auto) (0.1-1.2) X10*3/uL Eos # (Auto) (0.0-0.4) X10*3/uL Baso # (Auto) (0.0-0.2) X10*3/uL Abs Immat Gran (auto) (0.00-0.03) X10*3/uL Absolute Neuts (auto) (2.0-8.3) x10*3/uL Absolute Nucleated RBC (0.0-0.012) X10*3/uL Nucleated RBC % (auto) (0.0-0.2) /100WBC Sodium (135-145) mmol/L Potassium (3.3-5.1) mmol/L Chloride (96-108) mmol/L Carbon Dioxide (22-29) mmol/L Anion Gap (12-20) BUN (9-16) mg/dL Creatinine (0.5-1.4) mg/dL Estim Creat Clear Calc Estimated GFR POC Glucose 136 H (60-115) mg/dL Random Glucose (60-115) mg/dL Lactic Acid 2.0 (0.5-2.0) mmol/L Calcium (8.4-10.2) mg/dL Phosphorus (2.7-4.5) mg/dL Magnesium (1.6-2.6) mg/dL Troponin I High Sens (<3.5-35.0) ng/L Discharge Plan Discharge Clinical Impression: Altered mental status Patient Disposition: Still a Patient Prescriptions: No Action ipratropium-albuterol 0.5 mg-3 mg(2.5 mg base)/3 mL solution for nebulization 3 ml inhalation BID Qty: 60 11RF warfarin 5 mg tablet 1 tab PO DAILY Rx Instructions: warfarin 5mg Thursday and Thursday, 2.5mg Sat,Thu,,Thursday, (DME) Select Briefs Misc See Rx Instructions .ROUTE .MEDSUPPLY Rx Instructions: As directed- adult disposable diapers weight 162 lbs spironolactone 25 mg tablet 25 mg PO DAILY Azasite 1 % drops 0 drp ophthalmic (eye) NEEDED omeprazole 20 mg capsule,delayed release(DR/EC) 20 mg PO DAILY memantine [Namenda] 10 mg tablet 10 mg PO QPM ciclopirox 0.77 % cream 1 applic topical BID bupropion HCl 300 mg tablet extended release 24 hr 300 mg PO QAM atenolol 25 mg tablet 25 mg PO DAILY albuterol sulfate 90 mcg/actuation HFA aerosol inhaler 1 inh inhalation QID docusate sodium [Colace] 100 mg capsule 100 mg PO DAILY Qty: 60 0RF risperidone 0.25 mg tablet 0.5 mg PO BID alfuzosin 10 mg tablet extended release 24 hr 10 mg PO DAILY 90 Days Qty: 90 3RF Rx Instructions: administer after the same meal each day finasteride 5 mg tablet 5 mg PO DAILY 90 Days Qty: 90 3RF
[2022-04-22 07:47] LABS: ABG Base Excess -4.7 mmol/L; ABG HCO3 19 mmol/L (22-26); ABG pCO2 31 mmHg (32-45); ABG pH 7.38 (7.35-7.45); ABG pO2 103 mmHg (83-108)
[2022-04-22 07:48] LABS: ABG Refer to POC result
[2022-04-22 09:21] LABS: INTERNATIONAL NORM RATIO 2.1 (0.9-1.1); Prothrombin Time 25.2 SEC (10.0-13.1)
[2022-04-22] MEDS: cefTRIAXone sodium 1 GM in 0.9 % Sodium Chloride 50 ML IV (10:33)
[2022-04-22] MEDS: 0.9 % Sodium Chloride 2,121 ML 2121 ML IV (10:36)
--- NOTE | 2022-04-22 12:39 | PHA.MEDREC ---
MED REC COMPLETE, NO ISSUES Pharmacy Consult ? Medication Reconciliation Pharmacy has completed the medication reconciliation.
--- NOTE | 2022-04-22 16:49 | PC.NURSE ---
Pt nonverbal, able to track this RN in room, moaning with positional changes. Repeat temp 101.4, Dr Huffman notified at this this time. Skin is flushed, warm to touch. Sat 97% on 2lpm via nc. Tachypenic 22-26. NSR on tele rate 80s. Daughter/primary caregiver at bedside. Cleaned for urine incontinence, moderate amt.
--- NOTE | 2022-04-22 17:36 | PM.IMHP ---
History of Present Illness Date of Service: 04/22/22 Chief Complaint: hypoxic, AMS this is a 71-year-old male with past medical history of advanced Alzheimer's dementia, incontinence, history of DVT on Coumadin, ascending aortic aneurysm, CKD, COPD, heart valve disease, who presents to the hospital brought in by his daughter with altered mental status, hypoxia and tachycardia. Patient is nonverbal at baseline per daughter, he is A&Ox0 at baseline and currently pt is opbtunded and does not respond to verbal stimuli, barely grimaces on sternal rub. according to the daughter who lives with the pt and is his primary caregiver as well as HCP, at around 2 am, she was changing him when she felt that pt was having trouble breathing and noted him to be breathing too fast. She checked him with an at home oxymeter and found him to be 70% on RA with a HR in the 130s. Immediately after she noted that pt had rolling of his eyes and passed out compeltely. She reports that upon arrival of EMSpt was awake again. she was not aware of any acute illness prior to this and reports that he usually sleeps all day and is awake at night and was watching tv prior to this incident. He is not vaccinated against covid and neither is daughter. she reports that there is no way of communicating with pt and he usually unable to communicate if he has any pain or has any acute issues. vitals on 1st arrival were stable but patient is subsequently developed a fever on became tachycardic with a heart rate of 107. Patient found to be satting 94% on room air. Labs sig for WBC count of 8.3, INR of 2.1, pH of 7.38, bicarb of 23, BUN of 19, creatinine of 1.48 with baseline around 1.22, glucose of 136, lactic acid of 2.0, COVID 19 positive chest x-ray was negative for any lung pathology but did show distended bowel below the diaphragm Head CT shows no evidence of acute intracranial hemorrhage dried metastatic otorrhea infarction, there is atrophy with chronic small-vessel ischemic changes, is also dilatation of the ventricles representing either cerebral atrophy or normal pressure hydrocephalus Review of Systems Review of Systems: Yes Unobtainable due to mental condition and Unobtainable due to mental status [facility] Medical History Acute deep vein thrombosis (DVT) Ascending aortic aneurysm Bleeding hemorrhoids Chronic anticoagulation CKD (chronic kidney disease) COPD (chronic obstructive pulmonary disease) Depression Heart valve disease Non-rheumatic aortic regurgitation Family History Father History of prostate cancer Surgical History History of inguinal hernia repair Hx of cholecystectomy Social History Alcohol intake: never Advance Directives: No Meds Allergies Allergy/AdvReac Type Severity Reaction Status Date / Time oxycodone [OXYCODONE] Allergy Severe Decrease BP Verified 04/22/22 03:33 Iodinated Contrast Media Allergy Intermediate CKD PER Verified 04/22/22 03:33 [IVP DYE] DAUGHTER PT IS NOT TO HAVE DUE TO KIDNEYS tramadol [TRAMADOL] Allergy Intermediate PER Verified 04/22/22 03:33 DAUGHTER PT PASSED OUT, weakness Nuts Allergy Severe GI Stomach Uncoded 04/22/22 03:33 Bleed Home Medications Medication Instructions Recorded Confirmed Last Taken Type atenolol 25 mg tablet 25 mg PO DAILY 07/26/20 04/22/22 04/21/22 History omeprazole 20 mg capsule,delayed 20 mg PO DAILY 07/26/20 04/22/22 04/21/22 History release spironolactone 25 mg tablet 25 mg PO DAILY 08/20/20 04/22/22 04/21/22 History warfarin 5 mg tablet 5 mg PO MOFR@1800 05/02/21 04/22/22 04/21/22 History diaper,brief,adult,disposable 06/27/21 06/27/21 Unknown History (Select Briefs) naftifine 2 % topical gel (Naftin) 1 appl topical DAILY mycosis 07/02/21 04/22/22 Unknown History albuterol sulfate 2.5 mg inhalation Q4H PRN 04/22/22 04/22/22 Unknown History Respiratory Distress allopurinol 100 mg tablet 100 mg PO DAILY 04/22/22 04/22/22 04/21/22 History warfarin 2.5 mg tablet 2.5 mg PO SUTUWETHSA@1800 04/22/22 04/22/22 Unknown History Physical Exam Vital Signs and Narrative: Vital Signs: Last Vital Signs Temp 101.4 F H 04/22/22 15:46 Pulse 87 04/22/22 15:46 Resp 24 H 04/22/22 15:46 BP 115/67 04/22/22 15:46 Pulse Ox 97 04/22/22 15:46 O2 Del Method 04/22/22 15:46 O2 Flow Rate 2 04/22/22 15:46 BMI result Body Mass Index 23.7 Const: Other: patient is somnolent, groans in response to sternal rub Eyes: General: appearance normal, both eyes and all related structures Resp: Effort & Inspection: normal respiratory effort Auscultation: clear to auscultation bilaterally Cardio: Rate: regular rate Rhythm: regular rhythm GI: Other: abdomen is soft, nontender, no rebound or guarding Palpation (GI): Soft to palpation Auscultation: normal bowel sounds Skin: General skin exam: no rashes or lesions noted Extrem: General: Yes normal to inspection and Yes no pedal edema Results Labs CBC and Chem 7: 04/22/22 06:12 04/22/22 06:12 Labs: Laboratory Results - last 24 hr 04/22/22 04/22/22 04/22/22 06:12 06:12 06:12 MCV 80.3 MCH 27.4 MCHC 34.1 RDW 15.0 Plt Count 177 MPV 10.5 Immature Gran % (Auto) 0.4 Neut % (Auto) 82.8 H Lymph % (Auto) 6.9 L [place] % (Auto) 9.6 Eos % (Auto) 0.1 Baso % (Auto) 0.2 Lymph # (Auto) 0.6 L [place] # (Auto) 0.8 Eos # (Auto) 0.0 Baso # (Auto) 0.0 Abs Immat Gran (auto) 0.03 Absolute Neuts (auto) 6.8 Absolute Nucleated RBC 0.000 Nucleated RBC % (auto) 0.0 PT INR O2 Saturation ABG pH at Pt Temp ABG pCO2 at Pt Temp ABG pO2 at Pt Temp ABG HCO3 ABG Base Excess (Actual) Anion Gap 13 Estim Creat Clear Calc 44.9 Estimated GFR 47 POC Glucose Random Glucose 135 H Lactic Acid Calcium 8.5 Phosphorus 3.8 Magnesium 1.6 Troponin I High Sens 13.9 Influenza Type A (PCR) Influenza Type B (PCR) RSV RNA Qual (PCR) SARS-CoV-2 RNA (RT-PCR) 04/22/22 04/22/22 04/22/22 06:12 06:27 06:49 MCV MCH MCHC RDW Plt Count MPV Immature Gran % (Auto) Neut % (Auto) Lymph % (Auto) [place] % (Auto) Eos % (Auto) Baso % (Auto) Lymph # (Auto) [place] # (Auto) Eos # (Auto) Baso # (Auto) Abs Immat Gran (auto) Absolute Neuts (auto) Absolute Nucleated RBC Nucleated RBC % (auto) PT INR O2 Saturation ABG pH at Pt Temp ABG pCO2 at Pt Temp ABG pO2 at Pt Temp ABG HCO3 ABG Base Excess (Actual) Anion Gap Estim Creat Clear Calc Estimated GFR POC Glucose 136 H Random Glucose Lactic Acid 2.0 Calcium Phosphorus Magnesium Troponin I High Sens Influenza Type A (PCR) NEGATIVE Influenza Type B (PCR) NEGATIVE RSV RNA Qual (PCR) NEGATIVE SARS-CoV-2 RNA (RT-PCR) POSITIVE A 04/22/22 04/22/22 07:43 09:09 MCV MCH MCHC RDW Plt Count MPV Immature Gran % (Auto) Neut % (Auto) Lymph % (Auto) [place] % (Auto) Eos % (Auto) Baso % (Auto) Lymph # (Auto) [place] # (Auto) Eos # (Auto) Baso # (Auto) Abs Immat Gran (auto) Absolute Neuts (auto) Absolute Nucleated RBC Nucleated RBC % (auto) PT 25.2 H INR 2.1 H O2 Saturation 100.0 ABG pH at Pt Temp 7.38 ABG pCO2 at Pt Temp 31 L ABG pO2 at Pt Temp 103 ABG HCO3 19 L ABG Base Excess (Actual) -4.7 Anion Gap Estim Creat Clear Calc Estimated GFR POC Glucose Random Glucose Lactic Acid Calcium Phosphorus Magnesium Troponin I High Sens Influenza Type A (PCR) Influenza Type B (PCR) RSV RNA Qual (PCR) SARS-CoV-2 RNA (RT-PCR) Imaging Radiologist's Impressions: Impressions Head CT 04/22/22 06:45 Impression: 1. No evidence of acute intracranial hemorrhage or edematous territorial infarction. 2. Atrophy with chronic small vessel ischemic changes. 3. Dilatation of the ventricles representing either cerebral atrophy or normal pressure hydrocephalus. Degree of ventricular dilatation is slightly more prominent as compared to previous. Clinically correlate Chest X-Ray 04/22/22 08:17 IMPRESSION: Low lung volumes. Distended bowel below the diaphragm. 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 - baseline is A&O times 0, but daughter reports that he is usually awake, he is now more sleepy and lethargic - head CT negative for any acute pathology, abdominal CT negative, chest x-ray shows no acute findings - has no evidence of acute infection with negative UA, no CXR evidence of PNA - will treat COVID infection, IV fluids - urine drug screen, ammonia level - continue to monitor # COVID infection - not vaccinated - although daughter reports hypoxia at home, has not been hypoxic inpatient - 90% on RA - will give dexamethasone - no evidence of PNA on xray anf chest CT - conitnue to monitor resp status # Febrile - Likely due to Covid - UA negative, Chest CT shows no PNA - Tylenol PRN # [place] - likely pre-renal due to dehydraion - iv fluids - follow bmp # Alzheimers dementia - continue home meds - follow neurology op as pt has evicence of increased enlargement of ventricles concerning for normal pressure hydrocephalus DVT ppx: heparin subq Quality Stroke Does the patient have a stroke diagnosis?: No VTE Prior VTE?: No VTE Risk Level:: Medical - moderate - high VTE Device Contraindication: Treatment Not Indicated VTE Drug Contraindication: N/A - Med Ordered
[2022-04-22 18:12] LABS: ABG Refer to POC result
[2022-04-22 18:14] LABS: ABG Base Excess -6.4 mmol/L; ABG HCO3 17 mmol/L (22-26); ABG pCO2 28 mmHg (32-45); ABG pH 7.38 (7.35-7.45); ABG pO2 109 mmHg (83-108)
--- NOTE | 2022-04-22 18:15 | PC.NURSE ---
out of room for CT scan
[2022-04-22] MEDS: Heparin Sodium,Porcine 5,000 UNIT/ML VIAL 5000 UNIT SUBCUT (18:42)
[2022-04-22 18:49] LABS: Appearance Urine CLEAR; Color Urine YELLOW; Glucose Urine UA 100 MG/DL (NEG); Leukocyte Esterase Urine NEG (NEG); Nitrite Urine NEG (NEG); Urine Blood NEG (NEG); Urine Ketones NEG (NEG); Urine Protein TRACE MG/DL (NEG-TRACE)
[2022-04-22 18:52] LABS: Ammonia 28 umol/L (13-55)
--- NOTE | 2022-04-22 18:57 | PHA.PROG ---
Admission Date/Time: April 22, 2022 17:28 Indication: Sepsis Weight in k.7 kg Adjusted body weight in K.32 [place] body weight in Kg: Obesity Dosing Indication % IBW: Serum Creatinine - Last 168 Hours 04/22/22 06:12 Creatinine 1.48 H Estimated CrCl and GFR - Last 168 Hours 04/22/22 06:12 Estim Creat Clear Calc 44.9 Estimated GFR 47 Vancomycin Loading Dose: 1500mg X1 Current Vancomycin Dosing Regimen: 1000mg Q24H Vancomycin Monitoring using AUC goal of 400 - 600 range with trough as surrogate marker: 463 mg/L Date and Time for next Vancomycin Level to be drawn: true trough due 04/25/22 @1800 Pharmacist Comments on Vancomycin Plan: Pt has poor renal function and is small, want to err on the side of caution. Will continue to monitor creatinine daily and adjust dose as needed; may need to increase dose if renal function improves. Vancomycin dosing will take advantage of Ripl as a clinical decision support tool that uses Bayesian modeling to calculate individual patient's pharmacokinetic parameters and forecast the patient's drug concentration time course with the target goal AUC 24 range of 400 - 600 mg/L/hr.
[2022-04-22 19:06] LABS: Alanine Aminotransferase 30 U/L (0-40); Alkaline Phosphatase 50 U/L (39-117); Aspartate Amino Transferase 34 U/L (5-37); Bilirubin Direct 0.2 mg/dL (0.0-0.5); Bilirubin Total 0.5 mg/dL (0.0-1.0)
[2022-04-22] MEDS: Warfarin Sodium 2.5 MG TABLET PO (19:33)
[2022-04-22] MEDS: Piperacillin Sodium/Tazobactam 3.375 GM in 0.9 % Sodium Chloride 50 ML IV (19:33)
[2022-04-22] MEDS: dexAMETHasone sod phosphate 4 MG/ML VIAL 6 MG IVPUSH (19:33)
[2022-04-22] MEDS: ondansetron HCL 4 MG/2 ML VIAL IVPUSH (19:45)
[2022-04-22] MEDS: vancomycin HCL 1,500 MG in 0.9 % Sodium Chloride 500 ML 333.33 MG IV (20:29)
[2022-04-23] VITALS (9 sets, daily range): BP systolic 110–145; BP diastolic 47–80; PULSE 57–91; RESP 14–28; TEMP 36.4–37.7; O2SAT 95–100
[2022-04-23] MEDS: Piperacillin Sodium/Tazobactam 3.375 GM in 0.9 % Sodium Chloride 50 ML IV ×4 (01:28→21:28)
[2022-04-23] MEDS: 0.9 % Sodium Chloride Flush 3 ML SYRINGE IVFLUSH ×3 (01:28→16:21)
--- NOTE | 2022-04-23 02:19 | PC.NURSE ---
Changed pt from incontinence. Tried to put on a condom cath with RAJIV Johnson but was unsuccessful. Will continue to monitor for incontinence.
[2022-04-23 04:14] LABS: MANUAL DIFF FLAG NO
[2022-04-23 04:15] LABS: Hemoglobin 14.9 g/dl (14.0-18.0); Imm Gran Abs Auto 0.01 X10*3/uL (0.00-0.03); Imm Gran Pct Auto 0.2 % (0.0-0.4); Lymphocytes Absolute Auto 0.4 X10*3/uL (1.2-4.9); Mean Corpuscular HGB Conc 33.1 g/dl (31.0-36.0); Mean Corpuscular Hemoglobin 27.3 pg (27.0-33.0); Mean Corpuscular Volume 82.6 fL (80.0-98.0); Mean Platelet Volume 10.6 fL (9.4-12.4); Monocytes Absolute Auto 0.2 X10*3/uL (0.1-1.2); Monocytes Percent Auto 3.5 % (2-11); Neutrophils Absolute Auto 3.7 x10*3/uL (2.0-8.3); Neutrophils Percent Auto 86.3 % (45-73); Platelet Count 131 X10*3/uL (160-400); Red Blood Count 5.45 X10*6/uL (4.60-5.80); Red Cell Distribution Width 15.3 % (11.0-16.0); White Blood Count 4.3 X10*3/uL (4.8-10.8)
[2022-04-23 04:29] LABS: INTERNATIONAL NORM RATIO 1.8 (0.9-1.1); Prothrombin Time 21.3 SEC (10.0-13.1)
[2022-04-23 04:37] LABS: Anion Gap 12 (12-20); Blood Urea Nitrogen 16 mg/dL (9-16); Calcium 7.7 mg/dL (8.4-10.2); Carbon Dioxide 20 mmol/L (22-29); Chloride 113 mmol/L (96-108); Estimated Glomerular Filt Rate 58; Glucose Random 98 mg/dL (60-115); Sodium 141 mmol/L (135-145)
[2022-04-23] MEDS: Heparin Sodium,Porcine 5,000 UNIT/ML VIAL 5000 UNIT SUBCUT (05:46)
[2022-04-23] MEDS: Omeprazole 20 MG CAPSULE.DR PO (05:46)
--- NOTE | 2022-04-23 07:20 | HE.PHANOTE ---
DRAKE PEGUERO Continue current dose, next trough due 04/25 @1800
[2022-04-23 08:18] LABS: Amphetamine Screen Urine Not Detected (Not Detect); Barbiturates, Urine Not Detected (Not Detect); Benzodiazepines Screen Urine Not Detected (Not Detect); Cannabinoid Screen Urine Not Detected (Not Detect); Cocaine Screen Urine Not Detected (Not Detect); Fentanyl, urine Not Detected (Not Detect); Opiate Screen Urine Not Detected (Not Detect); Phencyclidine Screen Urine Not Detected (Not Detect)
[2022-04-23] MEDS: Acetaminophen Supp 650 MG SUPP.RECT PR (08:44)
[2022-04-23] MEDS: dexAMETHasone sod phosphate 4 MG/ML VIAL 6 MG IVPUSH (08:45)
[2022-04-23] MEDS: Spironolactone 25 MG TABLET PO (08:45)
[2022-04-23] MEDS: Docusate Sodium 100 MG CAPSULE PO (08:45)
[2022-04-23] MEDS: atenoloL 25 MG TABLET PO (09:31)
--- NOTE | 2022-04-23 09:31 | PC.NURSE ---
patient visibly uncomfortable , face red and grimecing . arousalable to stimuli . rectal temp 99.9 , vss . patient incontinent of urine changed and reposition . patient history of dementia appears at baseline . took medication PO with pudding . bed at lowest position .
[2022-04-23] MEDS: Clotrimazole 1 % Cream 15 GM TUBE 1 APPL TOPICAL (10:57)
--- NOTE | 2022-04-23 13:57 | HO.PM.IMPN ---
Subjective Subjective Date of Service: 04/23/22 Interval History: seen and examined asked him his name in Swedish, but does not know unable to ROS Physical Exam Vital Signs: Vital Signs: Last Vital Signs Temp 99.9 F 04/23/22 09:00 Pulse 57 04/23/22 11:56 Resp 14 04/23/22 11:56 BP 110/47 L 04/23/22 11:56 Pulse Ox 96 04/23/22 11:56 O2 Del Method 04/23/22 11:56 O2 Flow Rate 2 04/23/22 11:56 BMI result Body Mass Index 23.7 Const: Other: General - no acute distress, appears comfortable Cardiovascular - regular rate and rhythm, S1-S2 Lungs - normal respiratory effort, clear to auscultation bilaterally, no wheezing Abdomen - soft, nontender, no rebound or guarding Extremities - no edema bilaterally Neuro - disoriented to person, place and time; moving all 4 limbs on his own but unable to follow simple commands (in Swedish) Objective Data Active Medications Acetaminophen (Acetaminophen Supp 650 Mg Supp.Rect) 650 mg RI Q8H PRN PRN Reason: Pain, Mild (Pain Scale 1-3) Last Admin: 04/23/22 08:44 Dose: 650 mg Documented By: DIONISIO Atenolol (Atenolol 25 Mg Tablet) 25 mg PO DAILY [facility]; Protocol Last Admin: 04/23/22 09:31 Dose: 25 mg Documented By: DIONISIO Clotrimazole (Clotrimazole 1 % Cream 15 Gm Tube) 1 appl TOPICAL DAILY [facility] Last Admin: 04/23/22 10:57 Dose: 1 appl Documented By: DIONISIO Dexamethasone Sodium Phosphate (Dexamethasone Sod Phosphate 4 Mg/Ml Vial) 6 mg IVPUSH DAILY [facility] Last Admin: 04/23/22 08:45 Dose: 6 mg Documented By: DIONISIO Docusate Sodium (Docusate Sodium 100 Mg Capsule) 100 mg PO DAILY [facility] Last Admin: 04/23/22 08:45 Dose: 100 mg Documented By: DIONISIO Piperacillin Sod/Tazobactam (Sod 3.375 gm/ Sodium Chloride) 50 mls @ 100 mls/hr IV Q6H [facility] Last Admin: 04/23/22 13:43 Dose: 100 mls/hr Documented By: DIONISIO Vancomycin HCl 1,000 mg/ (Sodium Chloride) 270 mls @ 270 mls/hr IV Q24H [facility] Omeprazole (Omeprazole 20 Mg Capsule.Dr) 20 mg PO DAILY@0630 [facility] Last Admin: 04/23/22 05:46 Dose: 20 mg Documented By: ELIZABETH Ondansetron HCl (Ondansetron Hcl 4 Mg/2 Ml Vial) 4 mg IVPUSH Q8H PRN PRN Reason: Nausea and Vomiting Last Admin: 04/22/22 19:45 Dose: 4 mg Documented By: ELIZABETH Pharmacy Consult (Consult Rx Vancomycin Dosing) 1 each MISCELLANE DAILY PRN PRN Reason: Consult order Sodium Chloride (0.9 % Sodium Chloride Flush 3 Ml Syringe) 3 ml IVFLUSH QSHIFT [facility] Last Admin: 04/23/22 09:30 Dose: 3 ml Documented By: DIONISIO Spironolactone (Spironolactone 25 Mg Tablet) 25 mg PO DAILY [facility]; Protocol Last Admin: 04/23/22 08:45 Dose: 25 mg Documented By: DIONISIO Warfarin Sodium (Warfarin Sodium 2.5 Mg Tablet) 2.5 mg PO SUTUWETHSA@1800 [facility] Last Admin: 04/22/22 19:33 Dose: 2.5 mg Documented By: ELIZABETH Warfarin Sodium (Warfarin Sodium 5 Mg Tablet) 5 mg PO MOFR@1800 [facility] Warfarin Sodium (Warfarin Sodium 2.5 Mg Tablet) 2.5 mg PO ONCE@1800 ONE Stop: 04/23/22 18:01 Labs CBC & Chem 7: 04/23/22 03:27 04/23/22 03:27 Labs: Laboratory Results - last 24 hr 04/22/22 04/22/22 04/22/22 18:09 18:37 18:38 MCV MCH MCHC RDW Plt Count MPV Immature Gran % (Auto) Neut % (Auto) Lymph % (Auto) Simpson % (Auto) Eos % (Auto) Baso % (Auto) Lymph # (Auto) Simpson # (Auto) Eos # (Auto) Baso # (Auto) Abs Immat Gran (auto) Absolute Neuts (auto) Absolute Nucleated RBC Nucleated RBC % (auto) PT INR O2 Saturation 99.0 ABG pH at Pt Temp 7.38 ABG pCO2 at Pt Temp 28 L ABG pO2 at Pt Temp 109 H ABG HCO3 17 L ABG Base Excess (Actual) -6.4 Anion Gap Estim Creat Clear Calc Estimated GFR Random Glucose Calcium Total Bilirubin 0.5 Direct Bilirubin 0.2 AST 34 D ALT 30 Alkaline Phosphatase 50 Ammonia Total Protein 6.0 L Albumin 3.0 L Urine Color YELLOW Urine Appearance CLEAR Urine pH 6.0 Ur Specific [place] 1.020 Urine Protein TRACE Urine Glucose (UA) 100 H Urine Ketones NEG Urine Blood NEG Urine Nitrite NEG Ur Leukocyte Esterase NEG Urine RBC Cancelled Urine WBC Cancelled Urine WBC Clumps Cancelled Ur Squamous Epith Cells Cancelled Ur Renal Epithelial Cell Cancelled [place] Biurate Crystals Cancelled Calcium Carbonate Cryst Cancelled Calcium Phosphate Cryst Cancelled Calcium Oxalate Crystal Cancelled Leucine Crystals Cancelled Cystine Crystals Cancelled Uric Acid Crystals Cancelled Triple Phos Crystals Cancelled Talc Crystals Cancelled Tyrosine Crystals Cancelled Other Crystals Cancelled Amorphous Sediment Cancelled Urine Bacteria Cancelled Epithelial Casts Cancelled Fatty Casts Cancelled Hyaline Casts Cancelled Granular Casts Cancelled Waxy Casts Cancelled RBC Casts Cancelled WBC Casts Cancelled Other Casts Cancelled Urine Mucus Cancelled Urine Trichomonas Cancelled Urine Yeast Cancelled Urine Sperm Cancelled Ur Oval Fat Bodies Cancelled Urine Opiates Screen Urine Fentanyl Screen Ur Barbiturates Screen Ur Phencyclidine Scrn Ur Amphetamines Screen U Benzodiazepines Scrn Urine Cocaine Screen U Marijuana (THC) Screen 04/22/22 04/22/22 04/23/22 18:38 18:42 03:27 MCV MCH MCHC RDW Plt Count MPV Immature Gran % (Auto) Neut % (Auto) Lymph % (Auto) Simpson % (Auto) Eos % (Auto) Baso % (Auto) Lymph # (Auto) Simpson # (Auto) Eos # (Auto) Baso # (Auto) Abs Immat Gran (auto) Absolute Neuts (auto) Absolute Nucleated RBC Nucleated RBC % (auto) PT 21.3 H INR 1.8 H O2 Saturation ABG pH at Pt Temp ABG pCO2 at Pt Temp ABG pO2 at Pt Temp ABG HCO3 ABG Base Excess (Actual) Anion Gap Estim Creat Clear Calc Estimated GFR Random Glucose Calcium Total Bilirubin Direct Bilirubin AST ALT Alkaline Phosphatase Ammonia 28 Total Protein Albumin Urine Color Urine Appearance Urine pH Ur Specific [place] Urine Protein Urine Glucose (UA) Urine Ketones Urine Blood Urine Nitrite Ur Leukocyte Esterase Urine RBC Urine WBC Urine WBC Clumps Ur Squamous Epith Cells Ur Renal Epithelial Cell Neo Biurate Crystals Calcium Carbonate Cryst Calcium Phosphate Cryst Calcium Oxalate Crystal Leucine Crystals Cystine Crystals Uric Acid Crystals Triple Phos Crystals Talc Crystals Tyrosine Crystals Other Crystals Amorphous Sediment Urine Bacteria Epithelial Casts Fatty Casts Hyaline Casts Granular Casts Waxy Casts RBC Casts WBC Casts Other Casts Urine Mucus Urine Trichomonas Urine Yeast Urine Sperm Ur Oval Fat Bodies Urine Opiates Screen Not Detected Urine Fentanyl Screen Not Detected Ur Barbiturates Screen Not Detected Ur Phencyclidine Scrn Not Detected Ur Amphetamines Screen Not Detected U Benzodiazepines Scrn Not Detected Urine Cocaine Screen Not Detected U Marijuana (THC) Screen Not Detected 04/23/22 04/23/22 03:27 03:27 MCV 82.6 MCH 27.3 MCHC 33.1 RDW 15.3 Plt Count 131 L D MPV 10.6 Immature Gran % (Auto) 0.2 Neut % (Auto) 86.3 H Lymph % (Auto) 10.0 L Simpson % (Auto) 3.5 Eos % (Auto) 0.0 Baso % (Auto) 0.0 Lymph # (Auto) 0.4 L Simpson # (Auto) 0.2 Eos # (Auto) 0.0 Baso # (Auto) 0.0 Abs Immat Gran (auto) 0.01 Absolute Neuts (auto) 3.7 Absolute Nucleated RBC 0.000 Nucleated RBC % (auto) 0.0 PT INR O2 Saturation ABG pH at Pt Temp ABG pCO2 at Pt Temp ABG pO2 at Pt Temp ABG HCO3 ABG Base Excess (Actual) Anion Gap 12 Estim Creat Clear Calc 54.0 Estimated GFR 58 Random Glucose 98 Calcium 7.7 L D Total Bilirubin Direct Bilirubin AST ALT Alkaline Phosphatase Ammonia Total Protein Albumin Urine Color Urine Appearance Urine pH Ur Specific [place] Urine Protein Urine Glucose (UA) Urine Ketones Urine Blood Urine Nitrite Ur Leukocyte Esterase Urine RBC Urine WBC Urine WBC Clumps Ur Squamous Epith Cells Ur Renal Epithelial Cell [place] Biurate Crystals Calcium Carbonate Cryst Calcium Phosphate Cryst Calcium Oxalate Crystal Leucine Crystals Cystine Crystals Uric Acid Crystals Triple Phos Crystals Talc Crystals Tyrosine Crystals Other Crystals Amorphous Sediment Urine Bacteria Epithelial Casts Fatty Casts Hyaline Casts Granular Casts Waxy Casts RBC Casts WBC Casts Other Casts Urine Mucus Urine Trichomonas Urine Yeast Urine Sperm Ur Oval Fat Bodies Urine Opiates Screen Urine Fentanyl Screen Ur Barbiturates Screen Ur Phencyclidine Scrn Ur Amphetamines Screen U Benzodiazepines Scrn Urine Cocaine Screen U Marijuana (THC) Screen Microbiology Microbiology Results: Microbiology 04/22/22 06:32 Blood Culture - Preliminary Blood - Venous No growth after 24 hours. Blood Culture - Preliminary No growth after 24 hours. 04/22/22 06:32 Blood Culture - Preliminary Blood - Venous No growth after 24 hours. 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 He is noted to be febrile and covid positive. 1. Acute Respiratoray Failure with hypoxia likely due to covid / aspiration saturations in the 70s prior to ED arrival, in the 90s on 2L continue oxygen, wean as tolerated 2. COVID19 [address] due to motion artifact IV decadron d/w daughter re: remdesivir (risks/benefits/alternatives given). She is agreeable -- will start 5 day course 3. Possible aspiration pneumonia had possible syncope / seizure prior to EMS arrival -- favor syncope; empiric zosyn; on vancomcyin -- will d/c once cultures neg 4. Acute toxic/metabolic encephalopathy secondary to infectious etiology monitor 5. Renal insuffiency SCr baseline around 1.2 and presented with around 1.48 -- not a rise of 0.3, hence no [place] improved with hydration monitor 6. Advanced alzheimer's dementia baseline meds 7. HTN BP soft, hold antihyertensives 8. History of DVT on coumadin, continue -- give total 5mg today (INR 1.8) DNR/DNI (reaffirmed with daughter) DVT pptx -- coumadin Quality Stroke Does the patient have a stroke diagnosis?: No VTE Prior VTE?: No VTE Risk Level:: Medical - moderate - high VTE Device Contraindication: Treatment Not Indicated VTE Drug Contraindication: N/A - Med Ordered
[2022-04-23] MEDS: Remdesivir 200 MG in 0.9 % Sodium Chloride 210 ML 105 MG IV (16:12)
--- NOTE | 2022-04-23 18:23 | PC.NURSE ---
patient removed oxygen and maintained therapeutic level at 96 % ra . no signs or symptoms of distress noted . remains at baseline .
[2022-04-23] MEDS: Warfarin Sodium 2.5 MG TABLET PO (19:17)
--- NOTE | 2022-04-23 20:57 | PC.NURSE ---
Report given to Ying VANCE in [facility].
[2022-04-23] MEDS: vancomycin HCL 1,000 MG in 0.9 % Sodium Chloride 250 ML 270 MG IV (21:38)
--- NOTE | 2022-04-23 22:12 | PC.NURSE ---
pt provided perineal care & linen change
[2022-04-24] MEDS: Piperacillin Sodium/Tazobactam 3.375 GM in 0.9 % Sodium Chloride 50 ML IV ×4 (01:15→18:19)
--- NOTE | 2022-04-24 01:22 | PC.NURSE ---
pt provided perineal care & linen change
--- NOTE | 2022-04-24 03:01 | PC.NURSE ---
pt provided perineal care & linen change
--- NOTE | 2022-04-24 03:43 | PC.NURSE ---
pt assisted with bedpan, pt provided perineal care & line change
--- NOTE | 2022-04-24 07:09 | PC.NURSE ---
Assumed care of this pt. at 0700 and received report from Alexia Donaldson RN
[2022-04-24 07:47] LABS: Creatinine Clr Calc Pharmacy 52.7; Estimated Glomerular Filt Rate 57
--- NOTE | 2022-04-24 07:47 | PC.NURSE ---
Assisted patient with breakfast, pt ate about 75% of morning breakfast tray.
--- NOTE | 2022-04-24 07:55 | HE.PHANOTE ---
RE MARIELENA CONTINUE CURRENT DOSE. PUT IN A RANDOM FOR 1800 DUE TO AGE
[2022-04-24] MEDS: Spironolactone 25 MG TABLET PO (08:19)
[2022-04-24] MEDS: Docusate Sodium 100 MG CAPSULE PO (08:19)
[2022-04-24] MEDS: dexAMETHasone sod phosphate 4 MG/ML VIAL 6 MG IVPUSH (08:20)
[2022-04-24] MEDS: 0.9 % Sodium Chloride Flush 3 ML SYRINGE IVFLUSH ×2 (08:20→20:02)
[2022-04-24 08:31] VITALS: BP 164/86
[2022-04-24 09:17] VITALS: BP 178/85; PULSE 94; RESP 36; TEMP 36.6; O2SAT 93
[2022-04-24 10:14] LABS: INTERNATIONAL NORM RATIO 2.2 (0.9-1.1); Prothrombin Time 26.7 SEC (10.0-13.1)
--- NOTE | 2022-04-24 11:28 | HO.PM.IMPN ---
Subjective Subjective Date of Service: 04/24/22 Interval History: seen and examined spoken with in Marshallese says (translated) I'm here when asked if he knew where he is does not respond when asked his name, but shakes head yes when asked if his name is Antoni Review of Systems negative except HPI Physical Exam Vital Signs: Vital Signs: Last Vital Signs Temp 97.9 F 04/24/22 09:17 Pulse 94 04/24/22 09:17 Resp 36 H 04/24/22 09:17 BP 178/85 H 04/24/22 09:17 Pulse Ox 93 04/24/22 09:17 O2 Del Method 04/24/22 09:17 O2 Flow Rate 2 04/23/22 11:56 BMI result Body Mass Index 23.7 Const: Other: ?General - no acute distress, appears comfortable Cardiovascular - regular rate and rhythm, S1-S2 Lungs - normal respiratory effort, clear to auscultation bilaterally, no wheezing Abdomen - soft, nontender, no rebound or guarding Extremities - no edema bilaterally Neuro - disoriented to person, place and time; moving all 4 limbs on his own but unable to follow simple commands (in Marshallese) Objective Data Active Medications Acetaminophen (Acetaminophen Supp 650 Mg Supp.Rect) 650 mg MO Q8H PRN PRN Reason: Pain, Mild (Pain Scale 1-3) Last Admin: 04/23/22 08:44 Dose: 650 mg Documented By: DIONISIO Atenolol (Atenolol 25 Mg Tablet) 25 mg PO DAILY [facility]; Protocol Last Admin: 04/23/22 09:31 Dose: 25 mg Documented By: DIONISIO Clotrimazole (Clotrimazole 1 % Cream 15 Gm Tube) 1 appl TOPICAL DAILY [facility] Last Admin: 04/23/22 10:57 Dose: 1 appl Documented By: DIONISIO Dexamethasone Sodium Phosphate (Dexamethasone Sod Phosphate 4 Mg/Ml Vial) 6 mg IVPUSH DAILY [facility] Last Admin: 04/24/22 08:20 Dose: 6 mg Documented By: FRANDY Docusate Sodium (Docusate Sodium 100 Mg Capsule) 100 mg PO DAILY [facility] Last Admin: 04/24/22 08:19 Dose: 100 mg Documented By: FRANDY Piperacillin Sod/Tazobactam (Sod 3.375 gm/ Sodium Chloride) 50 mls @ 100 mls/hr IV Q6H [facility] Last Infusion: 04/24/22 09:32 Dose: 0 mls/hr Documented By: FRANDY Vancomycin HCl 1,000 mg/ (Sodium Chloride) 270 mls @ 270 mls/hr IV Q24H [facility] Last Infusion: 04/23/22 22:39 Dose: 0 mls/hr Documented By: KEEGAN Remdesivir 100 mg/ Sodium (Chloride) 230 mls @ 115 mls/hr IV Q24H [facility] Stop: 04/27/22 17:59 Omeprazole (Omeprazole 20 Mg Capsule.Dr) 20 mg PO DAILY@0630 [facility] Last Admin: 04/24/22 06:25 Dose: Not Given Documented By: KEEGAN Non-Admin Reason: Patient Refused Ondansetron HCl (Ondansetron Hcl 4 Mg/2 Ml Vial) 4 mg IVPUSH Q8H PRN PRN Reason: Nausea and Vomiting Last Admin: 04/22/22 19:45 Dose: 4 mg Documented By: ELIZABETH Pharmacy Consult (Consult Rx Vancomycin Dosing) 1 each MISCELLANE DAILY PRN PRN Reason: Consult order Sodium Chloride (0.9 % Sodium Chloride Flush 3 Ml Syringe) 3 ml IVFLUSH QSHIFT [facility] Last Admin: 04/24/22 08:20 Dose: 3 ml Documented By: FRANDY Spironolactone (Spironolactone 25 Mg Tablet) 25 mg PO DAILY [facility]; Protocol Last Admin: 04/24/22 08:19 Dose: 25 mg Documented By: FRANDY Warfarin Sodium (Warfarin Sodium 2.5 Mg Tablet) 2.5 mg PO SUTUWETHSA@1800 [facility] Last Admin: 04/23/22 19:27 Dose: Not Given Documented By: CAROLINE Non-Admin Reason: Previously Administered Warfarin Sodium (Warfarin Sodium 5 Mg Tablet) 5 mg PO MOFR@1800 [facility] Labs CBC & Chem 7: 04/23/22 03:27 04/24/22 07:14 Labs: Laboratory Results - last 24 hr 04/24/22 04/24/22 07:14 09:58 PT 26.7 H INR 2.2 H Estim Creat Clear Calc 52.7 Estimated GFR 57 Microbiology Microbiology Results: Microbiology 04/22/22 06:32 Blood Culture - Preliminary Blood - Venous No growth after 48 hours. Blood Culture - Preliminary No growth after 48 hours. 04/22/22 06:32 Blood Culture - Preliminary Blood - Venous No growth after 48 hours. 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 He is noted to be febrile and covid positive. 1. Acute Respiratoray Failure with hypoxia likely due to covid / aspiration saturations in the 70s prior to ED arrival, required 2-4L; now on RA 2. COVID19 poor [address] due to motion artifact IV decadron - day #3 Remdesivir 2 3. Possible aspiration pneumonia had possible syncope / seizure prior to EMS arrival -- favor syncope; continue zosyn d/c vancomcyin (blood cx neg @ 48h) 4. Acute toxic/metabolic encephalopathy secondary to infectious etiology monitor -- appears to be improving towards baseline 5. Renal insuffiency SCr baseline around 1.2 and presented with around 1.48 -- not a rise of 0.3, hence no [place] improved with hydration monitor 6. Advanced alzheimer's dementia baseline meds 7. HTN BP rebounding, restart home meds 8. History of DVT on coumadin, continue DNR/DNI (reaffirmed with daughter) DVT pptx -- coumadin Patient requires continued hospitalization for treatment of his COVID and aspiration. Will monitor off oxygen for 24 hours as he has just come off oxygen this morning. Quality Stroke Does the patient have a stroke diagnosis?: No VTE Prior VTE?: No VTE Risk Level:: Medical - moderate - high VTE Device Contraindication: Treatment Not Indicated VTE Drug Contraindication: N/A - Med Ordered
[2022-04-24 14:51] VITALS: BP 160/79; PULSE 87; RESP 22; TEMP 36.9; O2SAT 94
--- NOTE | 2022-04-24 15:16 | MHC.CM.PN ---
IMM addressed 04/24 with patient's daughter/HCP Devi Cruz [phone], original mailed certified mail and copy filed in chart. IMM addendum completed. Information per patient's daughter, Devi. Patient lives with his daughter, Devi and son Cedrick in an apartment. Pt has hospital bed, transport wheelchair, and bath bench. Pt is with [facility] under their Adult Foster Care program. A nurse and social work reach out to family monthly, via video chat to ensure patient is well and inquire about any needs he may have. A copy of the HCP form has been requested. PCP: Stanton Clemons. Pt not COVID vax'd, and will need BLS ambulance transport home. D/C Plan: Home without services vs Home with [facility]
[2022-04-24 16:00] VITALS: BP 172/97; PULSE 101; RESP 16; TEMP 36.6; O2SAT 97
[2022-04-24] MEDS: Remdesivir 100 MG in 0.9 % Sodium Chloride 230 ML 115 MG IV (16:27)
[2022-04-24] MEDS: Warfarin Sodium 2.5 MG TABLET PO (18:18)
[2022-04-24 18:25] LABS: Vancomycin Random 8.8 mcg/mL (15-20)
[2022-04-24 20:00] VITALS: BP 176/82; PULSE 97; RESP 19; TEMP 36.8; O2SAT 97
[2022-04-24 20:15] VITALS: BMI 25.2
[2022-04-24 20:22] LABS: Glucose, Whole Blood 117 mg/dL (60-115)
[2022-04-25] VITALS: BP 137/76; PULSE 108; RESP 16; TEMP 37; O2SAT 93
[2022-04-25] MEDS: Piperacillin Sodium/Tazobactam 3.375 GM in 0.9 % Sodium Chloride 50 ML IV ×4 (01:33→18:32)
[2022-04-25 04:00] VITALS: BP 175/90; PULSE 117; RESP 17; TEMP 37.2; O2SAT 93
[2022-04-25] MEDS: Omeprazole 20 MG CAPSULE.DR PO (05:23)
[2022-04-25 08:00] VITALS: BP 174/95; PULSE 118; RESP 17; TEMP 37.3; O2SAT 95
[2022-04-25 08:01] LABS: Glucose, Whole Blood 141 mg/dL (60-115)
[2022-04-25] MEDS: 0.9 % Sodium Chloride Flush 3 ML SYRINGE IVFLUSH ×3 (09:30→20:41)
[2022-04-25] MEDS: dexAMETHasone sod phosphate 4 MG/ML VIAL 6 MG IVPUSH (09:30)
[2022-04-25] MEDS: Spironolactone 25 MG TABLET PO (09:30)
[2022-04-25] MEDS: atenoloL 25 MG TABLET PO (09:30)
[2022-04-25 10:44] LABS: Hemoglobin 17.2 g/dl (14.0-18.0); Mean Corpuscular HGB Conc 34.4 g/dl (31.0-36.0); Mean Corpuscular Hemoglobin 27.7 pg (27.0-33.0); Mean Corpuscular Volume 80.5 fL (80.0-98.0); Mean Platelet Volume 10.5 fL (9.4-12.4); Platelet Count 141 X10*3/uL (160-400); Red Blood Count 6.21 X10*6/uL (4.60-5.80); Red Cell Distribution Width 15.7 % (11.0-16.0); White Blood Count 8.1 X10*3/uL (4.8-10.8)
[2022-04-25 11:09] LABS: C Reactive Protein 2.66 mg/dL (< or = 0.50)
[2022-04-25 11:12] LABS: Anion Gap 14 (12-20); Blood Urea Nitrogen 19 mg/dL (9-16); Calcium 8.3 mg/dL (8.4-10.2); Carbon Dioxide 20 mmol/L (22-29); Chloride 115 mmol/L (96-108); Creatinine Clr Calc Pharmacy 47.1; Estimated Glomerular Filt Rate 50; Glucose Random 160 mg/dL (60-115); Potassium 3.5 mmol/L (3.3-5.1); Sodium 145 mmol/L (135-145)
[2022-04-25 11:36] LABS: INTERNATIONAL NORM RATIO 2.7 (0.9-1.1); Prothrombin Time 32.2 SEC (10.0-13.1)
--- NOTE | 2022-04-25 11:53 | HO.PM.IMPN ---
Subjective Subjective Date of Service: 04/25/22 Interval History: seen and examined this AM no new issues reproted Physical Exam Vital Signs: Vital Signs: Last Vital Signs Temp 98.1 F 04/25/22 11:16 Pulse 106 H 04/25/22 11:16 Resp 17 04/25/22 11:16 BP 158/91 H 04/25/22 11:16 Pulse Ox 95 04/25/22 11:16 O2 Del Method 04/25/22 11:16 O2 Flow Rate 2 04/23/22 11:56 BMI result Body Mass Index 25.2 Const: Other: ?General - no acute distress, appears comfortable Cardiovascular - regular rate and rhythm, S1-S2 Lungs - normal respiratory effort, clear to auscultation bilaterally, no wheezing Abdomen - soft, nontender, no rebound or guarding Extremities - no edema bilaterally Neuro - disoriented to person, place and time; moving all 4 limbs on his own but unable to follow simple commands (in Jamaican) Objective Data Active Medications Acetaminophen (Acetaminophen Supp 650 Mg Supp.Rect) 650 mg MS Q8H PRN PRN Reason: Pain, Mild (Pain Scale 1-3) Last Admin: 04/23/22 08:44 Dose: 650 mg Documented By: DIONISIO Atenolol (Atenolol 25 Mg Tablet) 25 mg PO DAILY [facility]; Protocol Last Admin: 04/25/22 09:30 Dose: 25 mg Documented By: NACHO Clotrimazole (Clotrimazole 1 % Cream 15 Gm Tube) 1 appl TOPICAL DAILY [facility] Last Admin: 04/25/22 09:31 Dose: Not Given Documented By: ANCHO Non-Admin Reason: Med Not Available Dexamethasone Sodium Phosphate (Dexamethasone Sod Phosphate 4 Mg/Ml Vial) 6 mg IVPUSH DAILY [facility] Last Admin: 04/25/22 09:30 Dose: 6 mg Documented By: NACHO Docusate Sodium (Docusate Sodium 100 Mg Capsule) 100 mg PO DAILY [facility] Last Admin: 04/25/22 09:31 Dose: Not Given Documented By: NACHO Non-Admin Reason: cannot be crushed Piperacillin Sod/Tazobactam (Sod 3.375 gm/ Sodium Chloride) 50 mls @ 100 mls/hr IV Q6H [facility] Last Infusion: 04/25/22 09:31 Dose: 0 mls/hr Documented By: NACHO Remdesivir 100 mg/ Sodium (Chloride) 230 mls @ 115 mls/hr IV Q24H [facility] Stop: 04/27/22 17:59 Last Infusion: 04/24/22 23:11 Dose: 0 mls/hr Documented By: APURVA Omeprazole (Omeprazole 20 Mg Capsule.Dr) 20 mg PO DAILY@0630 [facility] Last Admin: 04/25/22 05:23 Dose: 20 mg Documented By: APURVA Ondansetron HCl (Ondansetron Hcl 4 Mg/2 Ml Vial) 4 mg IVPUSH Q8H PRN PRN Reason: Nausea and Vomiting Last Admin: 04/22/22 19:45 Dose: 4 mg Documented By: ELIZABETH Pharmacy Consult (Consult Rx Vancomycin Dosing) 1 each MISCELLANE DAILY PRN PRN Reason: Consult order Sodium Chloride (0.9 % Sodium Chloride Flush 3 Ml Syringe) 3 ml IVFLUSH QSHIFT [facility] Last Admin: 04/25/22 09:30 Dose: 3 ml Documented By: NACHO Spironolactone (Spironolactone 25 Mg Tablet) 25 mg PO DAILY [facility]; Protocol Last Admin: 04/25/22 09:30 Dose: 25 mg Documented By: NACHO Warfarin Sodium (Warfarin Sodium 2.5 Mg Tablet) 2.5 mg PO SUTUWETHSA@1800 [facility] Last Admin: 04/24/22 18:18 Dose: 2.5 mg Documented By: FRANDY Warfarin Sodium (Warfarin Sodium 5 Mg Tablet) 5 mg PO MOFR@1800 [facility] Labs CBC & Chem 7: 04/25/22 10:34 04/25/22 10:34 Labs: Laboratory Results - last 24 hr 04/24/22 04/24/22 04/25/22 17:38 19:56 07:48 MCV MCH MCHC RDW Plt Count MPV Absolute Nucleated RBC Nucleated RBC % (auto) PT INR Anion Gap Estim Creat Clear Calc Estimated GFR POC Glucose 117 H 141 H Random Glucose Calcium C-Reactive Protein Random Vancomycin 8.8 L 04/25/22 04/25/22 04/25/22 10:34 10:34 10:34 MCV 80.5 MCH 27.7 MCHC 34.4 RDW 15.7 Plt Count 141 L MPV 10.5 Absolute Nucleated RBC 0.000 Nucleated RBC % (auto) 0.0 PT INR Anion Gap 14 Estim Creat Clear Calc 47.1 Estimated GFR 50 POC Glucose Random Glucose 160 H D Calcium 8.3 L D C-Reactive Protein 2.66 H Random Vancomycin 04/25/22 10:34 MCV MCH MCHC RDW Plt Count MPV Absolute Nucleated RBC Nucleated RBC % (auto) PT 32.2 H INR 2.7 H Anion Gap Estim Creat Clear Calc Estimated GFR POC Glucose Random Glucose Calcium C-Reactive Protein Random Vancomycin Microbiology Microbiology Results: Microbiology 04/22/22 06:32 Blood Culture - Preliminary Blood - Venous No growth after 48 hours. Blood Culture - Preliminary No growth after 48 hours. 04/22/22 06:32 Blood Culture - Preliminary Blood - Venous No growth after 48 hours. 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 He is noted to be febrile and covid positive. 1. Acute Respiratoray Failure with hypoxia likely due to covid / aspiration saturations in the 70s prior to ED arrival, required 2-4L; now on RA 2. COVID19 poor quality CT due to motion artifact IV decadron - day #4 Remdesivir 3/ 3. Possible aspiration pneumonia had possible syncope / seizure prior to EMS arrival -- favor syncope; continue zosyn - day #4 4. Acute toxic/metabolic encephalopathy secondary to infectious etiology monitor -- appears to be improving towards baseline 5. Renal insuffiency SCr baseline around 1.2 and presented with around 1.48 -- not a rise of 0.3, hence no TR[place] improved with hydration monitor 6. Advanced alzheimer's dementia baseline meds 7. HTN BP rebounding, restart home meds 8. History of DVT on coumadin, continue DNR/DNI (reaffirmed with daughter) DVT pptx -- coumadin Patient requires continued hospitalization for treatment of his COVID and aspiration pnuemonia. Quality Stroke Does the patient have a stroke diagnosis?: No VTE Prior VTE?: No VTE Risk Level:: Medical - moderate - high VTE Device Contraindication: Treatment Not Indicated VTE Drug Contraindication: N/A - Med Ordered
[2022-04-25 12:05] VITALS: BP 158/91; PULSE 106; RESP 17; TEMP 36.7; O2SAT 95
--- NOTE | 2022-04-25 14:09 | MHC.CM.PN ---
Per ROUNDS discussion, patient not medically cleared for discharge due to COVID and Aspiration Pneumonia. D/C plan is home with or without [facility].
[2022-04-25 16:00] VITALS: BP 154/87; PULSE 92; RESP 18; TEMP 36.6; O2SAT 97
[2022-04-25] MEDS: Remdesivir 100 MG in 0.9 % Sodium Chloride 230 ML 115 MG IV (16:06)
[2022-04-25] MEDS: Warfarin Sodium 5 MG TABLET PO (18:33)
[2022-04-25 18:37] LABS: Vancomycin Trough 3.6 mcg/mL (10.0-20.0)
[2022-04-25 20:00] VITALS: BP 152/76; PULSE 76; RESP 18; TEMP 36.4; O2SAT 97
[2022-04-25 23:08] LABS: Glucose, Whole Blood 174 mg/dL (60-115)
[2022-04-26] VITALS (7 sets, daily range): BP systolic 133–157; BP diastolic 60–82; PULSE 68–102; RESP 17–20; TEMP 36.4–37.2; O2SAT 94–97
[2022-04-26] MEDS: Piperacillin Sodium/Tazobactam 3.375 GM in 0.9 % Sodium Chloride 50 ML IV ×4 (01:21→20:42)
[2022-04-26 06:36] LABS: INTERNATIONAL NORM RATIO 3.2 (0.9-1.1); Prothrombin Time 38.9 SEC (10.0-13.1)
[2022-04-26] MEDS: Spironolactone 25 MG TABLET PO (07:49)
[2022-04-26] MEDS: dexAMETHasone sod phosphate 4 MG/ML VIAL 6 MG IVPUSH (07:49)
[2022-04-26] MEDS: atenoloL 25 MG TABLET PO (07:49)
[2022-04-26] MEDS: 0.9 % Sodium Chloride Flush 3 ML SYRINGE IVFLUSH ×3 (07:50→20:42)
[2022-04-26] MEDS: Clotrimazole 1 % Cream 15 GM TUBE 1 APPL TOPICAL (07:54)
[2022-04-26] MEDS: Docusate Sodium 100 MG CAPSULE PO (09:01)
--- NOTE | 2022-04-26 12:17 | P.PNIM_ITS ---
Subjective Subjective Date of Service: 04/26/22 Interval History: seen and examined this AM no new issues reported appears comfortable Review of Systems negative except HPI Physical Exam Vital Signs: Vital Signs: Last Vital Signs Temp 97.8 F 04/26/22 11:47 Pulse 89 04/26/22 11:47 Resp 18 04/26/22 11:47 BP 142/78 H 04/26/22 11:47 Pulse Ox 97 04/26/22 11:47 O2 Del Method 04/26/22 11:47 O2 Flow Rate 2 04/23/22 11:56 BMI result Body Mass Index 25.2 Const: Other: ?General - no acute distress, appears comfortable Cardiovascular - regular rate and rhythm, S1-S2 Lungs - normal respiratory effort, clear to auscultation bilaterally, no wheezing Abdomen - soft, nontender, no rebound or guarding Extremities - no edema bilaterally Neuro - disoriented to person, place and time; moving all 4 limbs on his own but unable to follow simple commands (in Serbian) Objective Data Active Medications Acetaminophen (Acetaminophen Supp 650 Mg Supp.Rect) 650 mg MS Q8H PRN PRN Reason: Pain, Mild (Pain Scale 1-3) Last Admin: 04/23/22 08:44 Dose: 650 mg Documented By: DIONISIO Atenolol (Atenolol 25 Mg Tablet) 25 mg PO DAILY [facility]; Protocol Last Admin: 04/26/22 07:49 Dose: 25 mg Documented By: MARIFER Clotrimazole (Clotrimazole 1 % Cream 15 Gm Tube) 1 appl TOPICAL DAILY [facility] Last Admin: 04/26/22 07:54 Dose: 1 appl Documented By: MARIFER Dexamethasone Sodium Phosphate (Dexamethasone Sod Phosphate 4 Mg/Ml Vial) 6 mg IVPUSH DAILY [facility] Last Admin: 04/26/22 07:49 Dose: 6 mg Documented By: MARIFER Docusate Sodium (Docusate Sodium 100 Mg Capsule) 100 mg PO DAILY [facility] Last Admin: 04/26/22 09:01 Dose: 100 mg Documented By: MARIFER Piperacillin Sod/Tazobactam (Sod 3.375 gm/ Sodium Chloride) 50 mls @ 100 mls/hr IV Q6H [facility] Last Infusion: 04/26/22 09:29 Dose: 0 mls/hr Documented By: MARIFER Remdesivir 100 mg/ Sodium (Chloride) 230 mls @ 115 mls/hr IV Q24H [facility] Stop: 04/27/22 17:59 Last Infusion: 04/25/22 21:42 Dose: 0 mls/hr Documented By: CATHY Omeprazole (Omeprazole 20 Mg Capsule.Dr) 20 mg PO DAILY@0630 [facility] Last Admin: 04/26/22 05:23 Dose: Not Given Documented By: CATHY Non-Admin Reason: Unable to crush Ondansetron HCl (Ondansetron Hcl 4 Mg/2 Ml Vial) 4 mg IVPUSH Q8H PRN PRN Reason: Nausea and Vomiting Last Admin: 04/22/22 19:45 Dose: 4 mg Documented By: ELIZABETH Pharmacy Consult (Consult Rx Vancomycin Dosing) 1 each MISCELLANE DAILY PRN PRN Reason: Consult order Sodium Chloride (0.9 % Sodium Chloride Flush 3 Ml Syringe) 3 ml IVFLUSH QSHIFT [facility] Last Admin: 04/26/22 07:50 Dose: 3 ml Documented By: MARIFER Spironolactone (Spironolactone 25 Mg Tablet) 25 mg PO DAILY [facility]; Protocol Last Admin: 04/26/22 07:49 Dose: 25 mg Documented By: MARIFER Warfarin Sodium (Warfarin Sodium 2.5 Mg Tablet) 2.5 mg PO SUTUWETHSA@1800 [facility] Last Admin: 04/24/22 18:18 Dose: 2.5 mg Documented By: FRANDY Warfarin Sodium (Warfarin Sodium 5 Mg Tablet) 5 mg PO MOFR@1800 [facility] Last Admin: 04/25/22 18:33 Dose: 5 mg Documented By: NACHO Labs CBC & Chem 7: 04/25/22 10:34 04/25/22 10:34 Labs: Laboratory Results - last 24 hr 04/25/22 04/25/22 04/26/22 17:58 21:18 06:17 PT 38.9 H INR 3.2 H POC Glucose 174 H Vancomycin Trough 3.6 L Assessment and Plan (1) COVID: Status: Acute Plan This is a 71 M with a PMH of advanced Alzheimer's dementia, 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 He is noted to be febrile and covid positive. 1. Acute Respiratoray Failure with hypoxia likely due to covid / aspiration saturations in the 70s prior to ED arrival, required 2-4L; now on RA 2. COVID19 poor quality CT due to motion artifact IV decadron - day #5 Remdesivir 01/14 3. Possible aspiration pneumonia had possible syncope / seizure prior to EMS arrival -- favor syncope; continue zosyn - complete 5 days of therapy 4. Acute toxic/metabolic encephalopathy resolved 5. Renal insuffiency SCr baseline around 1.2 and presented with around 1.48 -- not a rise of 0.3, hence no [place] improved with hydration monitor 6. Advanced alzheimer's dementia baseline meds 7. HTN contiue meds 8. History of DVT on coumadin -- INR rising, each today; hold coumadin today and recheck INR tomorrow 9. KEHINDE on cpap at night, which the patient does not use due to his advanced dementia -- will see if we can check overnight oximetry and qualify him for o2 DNR/DNI (reaffirmed with daughter) DVT pptx -- coumadin Patient requires continued hospitalization for treatment of his COVID and aspiration pnuemonia. Quality Stroke Does the patient have a stroke diagnosis?: No VTE Prior VTE?: No VTE Risk Level:: Medical - moderate - high VTE Device Contraindication: Treatment Not Indicated VTE Drug Contraindication: N/A - Med Ordered
[2022-04-26] MEDS: Remdesivir 100 MG in 0.9 % Sodium Chloride 230 ML 115 MG IV (15:54)
[2022-04-27] VITALS (7 sets, daily range): BP systolic 112–159; BP diastolic 52–76; PULSE 76–89; RESP 18–20; TEMP 36.2–38.2; O2SAT 95–98
[2022-04-27] MEDS: Piperacillin Sodium/Tazobactam 3.375 GM in 0.9 % Sodium Chloride 50 ML IV ×3 (02:18→13:52)
[2022-04-27] MEDS: Omeprazole 20 MG CAPSULE.DR PO (05:47)
[2022-04-27 06:23] LABS: ABG Refer to POC result
[2022-04-27 06:24] LABS: ABG Base Excess 2.4 mmol/L; ABG HCO3 25 mmol/L (22-26); ABG pCO2 32 mmHg (32-45); ABG pH 7.48 (7.35-7.45); ABG pO2 90 mmHg (83-108)
[2022-04-27 07:07] LABS: INTERNATIONAL NORM RATIO 3.8 (0.9-1.1)
[2022-04-27] MEDS: Spironolactone 25 MG TABLET PO (07:55)
[2022-04-27] MEDS: Docusate Sodium 100 MG CAPSULE PO (07:56)
[2022-04-27] MEDS: 0.9 % Sodium Chloride Flush 3 ML SYRINGE IVFLUSH ×3 (07:56→22:24)
[2022-04-27] MEDS: atenoloL 25 MG TABLET PO (07:56)
[2022-04-27] MEDS: Clotrimazole 1 % Cream 15 GM TUBE 1 APPL TOPICAL (07:56)
[2022-04-27] MEDS: dexAMETHasone sod phosphate 4 MG/ML VIAL 6 MG IVPUSH (07:57)
--- NOTE | 2022-04-27 08:54 | HO.PM.IMPN ---
Subjective Subjective Date of Service: 04/27/22 Interval History: seen and examined this AM no issues reported Review of Systems negative except HPI Physical Exam Vital Signs: Vital Signs: Last Vital Signs Temp 97.8 F 04/27/22 04:00 Pulse 76 04/27/22 04:00 Resp 20 04/27/22 04:00 BP 136/72 04/27/22 04:00 Pulse Ox 98 04/27/22 04:00 O2 Del Method 04/27/22 04:00 O2 Flow Rate 2 04/23/22 11:56 BMI result Body Mass Index 25.2 Const: Other: ?General - no acute distress, appears comfortable Cardiovascular - regular rate and rhythm, S1-S2 Lungs - normal respiratory effort, clear to auscultation bilaterally, no wheezing Abdomen - soft, nontender, no rebound or guarding Extremities - no edema bilaterally Neuro - disoriented to person, place and time; moving all 4 limbs on his own but unable to follow simple commands (in [place]ibian) Objective Data Active Medications Acetaminophen (Acetaminophen Supp 650 Mg Supp.Rect) 650 mg CO Q8H PRN PRN Reason: Pain, Mild (Pain Scale 1-3) Last Admin: 04/23/22 08:44 Dose: 650 mg Documented By: DIONISIO Atenolol (Atenolol 25 Mg Tablet) 25 mg PO DAILY [facility]; Protocol Last Admin: 04/27/22 07:56 Dose: 25 mg Documented By: MARIFER Clotrimazole (Clotrimazole 1 % Cream 15 Gm Tube) 1 appl TOPICAL DAILY [facility] Last Admin: 04/27/22 07:56 Dose: 1 appl Documented By: MARIFER Dexamethasone Sodium Phosphate (Dexamethasone Sod Phosphate 4 Mg/Ml Vial) 6 mg IVPUSH DAILY [facility] Last Admin: 04/27/22 07:57 Dose: 6 mg Documented By: MARIFER Docusate Sodium (Docusate Sodium 100 Mg Capsule) 100 mg PO DAILY [facility] Last Admin: 04/27/22 07:56 Dose: 100 mg Documented By: MARIFER Piperacillin Sod/Tazobactam (Sod 3.375 gm/ Sodium Chloride) 50 mls @ 100 mls/hr IV Q6H [facility] Stop: 04/27/22 13:29 Last Infusion: 04/27/22 08:29 Dose: 0 mls/hr Documented By: MARIFER Remdesivir 100 mg/ Sodium (Chloride) 230 mls @ 115 mls/hr IV Q24H [facility] Stop: 04/27/22 17:59 Last Infusion: 04/26/22 18:45 Dose: 0 mls/hr Documented By: MARIFER Omeprazole (Omeprazole 20 Mg Capsule.) 20 mg PO DAILY@0630 [facility] Last Admin: 04/27/22 05:47 Dose: 20 mg Documented By: CNADICE Ondansetron HCl (Ondansetron Hcl 4 Mg/2 Ml Vial) 4 mg IVPUSH Q8H PRN PRN Reason: Nausea and Vomiting Last Admin: 04/22/22 19:45 Dose: 4 mg Documented By: ELIZABETH Pharmacy Consult (Consult Rx Vancomycin Dosing) 1 each MISCELLANE DAILY PRN PRN Reason: Consult order Sodium Chloride (0.9 % Sodium Chloride Flush 3 Ml Syringe) 3 ml IVFLUSH QSHIFT [facility] Last Admin: 04/27/22 07:56 Dose: 3 ml Documented By: MARIFER Spironolactone (Spironolactone 25 Mg Tablet) 25 mg PO DAILY [facility]; Protocol Last Admin: 04/27/22 07:55 Dose: 25 mg Documented By: MARIFER Warfarin Sodium (Warfarin Sodium 2.5 Mg Tablet) 2.5 mg PO SUTUWETHSA@1800 [facility] Last Admin: 04/24/22 18:18 Dose: 2.5 mg Documented By: FRANDY Warfarin Sodium (Warfarin Sodium 5 Mg Tablet) 5 mg PO MOFR@1800 [facility] Last Admin: 04/25/22 18:33 Dose: 5 mg Documented By: NACHO Labs CBC & Chem 7: 04/25/22 10:34 04/25/22 10:34 Labs: Laboratory Results - last 24 hr 04/27/22 04/27/22 05:33 06:19 PT 46.0 H INR 3.8 H O2 Saturation 98.0 ABG pH at Pt Temp 7.48 H ABG pCO2 at Pt Temp 32 ABG pO2 at Pt Temp 90 ABG HCO3 25 ABG Base Excess (Actual) 2.4 Microbiology Microbiology Results: Microbiology 04/22/22 06:32 Blood Culture - Final Blood - Venous No growth after 5 days. Blood Culture - Final No growth after 5 days. 04/22/22 06:32 Blood Culture - Final Blood - Venous No growth after 5 days. 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 He is noted to be febrile and covid positive. 1. Acute Respiratoray Failure with hypoxia likely due to covid / aspiration saturations in the 70s prior to ED arrival, required 2-4L; now on RA 2. COVID19 poor [address] due to motion artifact IV decadron - day #6 Remdesivir 02/13 3. Possible aspiration pneumonia had possible syncope / seizure prior to EMS arrival -- favor syncope; continue zosyn - complete 5 days of therapy (to be completed today) 4. Acute toxic/metabolic encephalopathy resolved 5. Renal insuffiency SCr baseline around 1.2 and presented with around 1.48 -- not a rise of 0.3, hence no [place] improved with hydration monitor 6. Advanced alzheimer's dementia baseline meds 7. HTN contiue meds 8. History of DVT INR continues to rise (likely due to med interaction) hold coumadin; daily INR 9. KEHINDE on cpap at night, which the patient does not use due to his advanced dementia -- will see if we can check overnight oximetry and qualify him for o2 DNR/DNI (reaffirmed with daughter) DVT pptx -- coumadin Patient requires continued hospitalization for treatment of his COVID and aspiration pnuemonia. Helen d/c tomorrow Quality Stroke Does the patient have a stroke diagnosis?: No VTE Prior VTE?: No VTE Risk Level:: Medical - moderate - high VTE Device Contraindication: Treatment Not Indicated VTE Drug Contraindication: N/A - Med Ordered
[2022-04-27] MEDS: Remdesivir 100 MG in 0.9 % Sodium Chloride 230 ML 115 MG IV (16:11)
[2022-04-28 03:50] VITALS: BP 139/72; PULSE 90; RESP 16; TEMP 36.9; O2SAT 97
[2022-04-28 07:13] LABS: INTERNATIONAL NORM RATIO 3.7 (0.9-1.1); Prothrombin Time 45.2 SEC (10.0-13.1)
[2022-04-28 07:52] VITALS: BP 158/83; PULSE 86; RESP 16; TEMP 36.1; O2SAT 97
[2022-04-28] MEDS: atenoloL 25 MG TABLET PO (09:49)
[2022-04-28] MEDS: dexAMETHasone sod phosphate 4 MG/ML VIAL 6 MG IVPUSH (09:49)
[2022-04-28] MEDS: 0.9 % Sodium Chloride Flush 3 ML SYRINGE IVFLUSH (09:49)
[2022-04-28] MEDS: Clotrimazole 1 % Cream 15 GM TUBE 1 APPL TOPICAL (09:49)
[2022-04-28] MEDS: Spironolactone 25 MG TABLET PO (09:49)
--- NOTE | 2022-04-28 11:06 | P.DS_ITS ---
DS: Providers Provider Date of Service: 04/28/22 Date of admission: 04/22/22 17:28 Primary care physician: Stanton Clemons III, MD DS: Diagnosis Discharge Diagnosis (1) COVID: Status: Acute DS: Summary Hospital Course Hospital Course: HPI From the admission H&P: 'this is a 71-year-old male with past medical history of advanced Alzheimer's dementia, incontinence, history of DVT on Coumadin, ascending aortic aneurysm, CKD, COPD, heart valve disease, who presents to the hospital brought in by his daughter with altered mental status, hypoxia and tachycardia.? Patient is nonverbal at baseline? per daughter, he is? A&Ox0 at baseline and currently pt is opbtunded and does not respond to verbal stimuli, barely grimaces on sternal rub. according to the daughter who lives with the pt and is his primary caregiver as well as HCP, at around 2 am, she was changing him when she felt that pt was having trouble breathing and noted him to be breathing too fast. She checked him with an at home oxymeter and found him to be 70% on RA with a HR in the 130s. Immediately after she noted that pt had rolling of his eyes and passed out compeltely. She reports that upon arrival of EMSpt was awake again. she was not aware of any acute illness prior to this and reports that he usually sleeps all day and is awake at night and was watching tv prior to this incident. He is not vaccinated against covid and neither is daughter. she reports that there is no way of communicating with pt and he usually unable to communicate if he has any pain or has any acute issues. ?vitals on 1st arrival were stable but patient is subsequently developed a fever on became tachycardic with a heart rate of 107.? Patient found to be satting? 94% on room air. Labs sig for ? WBC count of 8.3, INR of 2.1, pH of 7.38, bicarb of? 23, BUN of 19, creatinine of 1.48 with baseline around 1.22, glucose of 136, lactic acid of 2.0, COVID 19 positive ?chest x-ray was negative for any lung pathology but did show distended bowel below the diaphragm Head CT shows no evidence of acute intracranial hemorrhage dried metastatic otorrhea infarction, there is atrophy with chronic small-vessel ischemic changes,? is also dilatation of the ventricles representing either cerebral atrophy or normal pressure hydrocephalus Hospital Course: Patient was admitted for acute respiratory failure with hypoxia due to COVID-19 read pneumonia with the possibility of aspiration pneumonia as well. He was treated with 5 days remdesivir per protocol. He was also initiated on IV Decadron for total of 10 days. He has 3 more days of Decadron left. He completed 5 days IV Zosyn for his presumed aspiration pneumonia. The patient's hypoxia, during the daytime quickly resolved and he has been on room for greater than 3 days prior to discharge. The patient does have a history of KEHINDE and is noncompliant with his CPAP due to advanced dementia. Hence and overnight oximetry was completed in the hospital any qualified for 2L while asleep. Additionally patient's presentation of his eyes rolling and subsequent loss of consciousness in the setting of hypoxia was likely syncope due to hypoxia. There was no further evidence of the same in the hospital. There was no evidence of seizures in the hospital. Finally, on the evening prior to discharge, patient had a measured temperature of 100.7 degrees. This was a measurement error as a BP temperature within several minutes of this showed normal readings. Patient has been afebrile for multiple days prior to discharge. In regards to the patient's Coumadin, his INR was slowly rising and is 3.7 on the day of discharge. He has not received Coumadin for the previous 2 days. Likely cause of elevated INR was interactions with remdesivir and/or Zosyn. The patient's daughter reported that she checks his INR at home. She has been advised to repeat his INR when he arrives home and if it is between 2 and 3 to give half the dose of his usual amount. She should check his INR the day after discharge and discussed with the Coumadin team on dosing. Time Spent with Patient Time attestation: Total time spent providing and/or coordinating discharge services: Discharge coordination time: Greater than 30 minutes Quality: Safe Use of Opioids Does Pt have an Active Cancer Diagnosis on the Problem List?: No Quality: Stroke Does the patient have a stroke diagnosis?: No Physical Exam Vital Signs: Vital Signs: Last Vital Signs Temp 97.0 F 04/28/22 07:52 Pulse 86 04/28/22 07:52 Resp 16 04/28/22 07:52 BP 158/83 H 04/28/22 07:52 Pulse Ox 97 04/28/22 07:52 O2 Del Method 04/28/22 07:52 O2 Flow Rate 2 04/23/22 11:56 BMI result Body Mass Index 25.2 Const: Other: General - no acute distress, appears comfortable, minimally verbal Cardiovascular - regular rate and rhythm, S1-S2 Lungs - normal respiratory effort, clear to auscultation bilaterally, no wheezi ng Abdomen - soft, nontender, no rebound or guarding Extremities - no edema bilaterally Neuro - awake and alert, minimally verbal, unable to follow commands (which is baseline) DS: Data Data Completed and Pending Labs on day of discharge: Laboratory Results - last 24 hr 04/28/22 06:57 PT 45.2 H INR 3.7 H Discharge Plan Discharge Patient Disposition: Hospice - Home Discharge Diagnosis: COVID 19 Referrals: Stanton Clemons III, MD [Primary Care Provider] - 1 Week Discharge Medications: New dexamethasone [Decadron] 6 mg tablet 6 mg PO DAILY Qty: 3 0RF Continued warfarin 5 mg tablet 5 mg PO MOFR@1800 Rx Instructions: warfarin 5mg Thursday and Thursday, 2.5mg Sat,Sun,,Thursday, (DME) Select Briefs Misc See Rx Instructions .ROUTE .MEDSUPPLY Rx Instructions: As directed- adult disposable diapers weight 162 lbs allopurinol 100 mg Tablet 100 mg PO DAILY warfarin 2.5 mg Tablet 2.5 mg PO SUTUWETHSA@1800 albuterol sulfate 2.5 mg /3 mL (0.083 %) Solution For Nebulization 2.5 mg INHALATION Q4H PRN (Reason: Respiratory Distress) spironolactone 25 mg tablet 25 mg PO DAILY omeprazole 20 mg capsule,delayed release(DR/EC) 20 mg PO DAILY atenolol 25 mg tablet 25 mg PO DAILY docusate sodium [Colace] 100 mg capsule 100 mg PO DAILY Qty: 60 0RF Rx Instructions: HOLD FOR DIARRHEA Naftin 2 % gel 1 appl topical DAILY Discharge Orders: Discharge Order (Routine); Ordered 04/28/22 Ordered By: Tan Abel Diet: Advance to usual diet Activity on Discharge: As tolerated Stand Alone Forms: Patient Portal Discharge page Care Plan Goals: To stay healthy and out of the hospital. Health Concerns: COVID KEHINDE Plan of Treatment: Take 3 more days of decadron. Maintain self isolation per CDC guidelines Use 2 liters of oxygen while sleeping Your INR is slightly elevated at 3.7; When you get home today, check your INR. If it is between 2-3, take 1/2 the dose of coumadin that you normally take. Check your INR tomorrow and d/w your coumadin team on the dosing. Assessment: see discharge summary
[2022-04-28 11:50] VITALS: BP 137/74; PULSE 77; RESP 16; TEMP 36.9; O2SAT 99
--- NOTE | 2022-04-28 14:17 | MHC.CM.PN ---
PT MEDICALLY CLEARED FOR D/C HOME W/RESUMP OF ADULT [facility] CARE, [facility] AND NEW O2 AT [facility] W/APRBERTIN, ACTION FOR BLS TRANSPORT
[2022-04-28 16:00] VITALS: BP 185/86; PULSE 74; RESP 16; TEMP 36.2; O2SAT 96
--- NOTE | 2022-04-29 15:00 | W.MHC.F2F ---
Service Date Service Date: 04/29/22 Encounter Date of encounter: 04/28/22 Reasons for Services Signs and symptoms assessed: hypoxia, respiratory status, med mgmt Reason for correction: other (hypoxia, respiratory status, med mgmt) Overseeing Care: Stanton Clemons III Homebound: Leaving the home is medically contraindicated at this time without the asist of a device and/or another person due th the listed conditions above and below. Reason homebound: bedbound/chairbound and cognitively impaired / unsafe Certification: Based on the above findings, I certify that this patient is confined to the home and needs intermittent correction care, physical therapy and/or speech therapy, or continues to need occupational therapy. The patient is under my care, and I have initiated the establishment of the plan of care. The patient will be followed by a physician who will periodically review the plan of care.
--- NOTE | 2022-04-29 16:10 | MHC.CM.PN ---
POST D/C NOTE, CM SETTING UP [facility] FOR SN PER REQUEST OF HOSPITALIST AND DTR DEMARYS, [facility] TO PROVIDE SERVICE FOR PT.
== END 2022-04-28 18:25 | disposition home or self-care (01) | DRG 177 ==
LOC: HO.ED 11:27 → HO.EDOVER 17:40 → HO.IMC 04-24 12:06 → HO.EDOVER 04-24 12:14 → HO.IMC 04-24 17:21
PROVIDERS: Admitting Provider Internal Medicine; Emergency Provider Emergency Medicine Emergency Medical Services; PCP Internal Medicine; Visit Provider Family Medicine
DX: U07.1 COVID-19 (principal); G92.8 Other toxic encephalopathy; J69.0 Pneumonitis due to inhalation of food and vomit; J96.01 Acute respiratory failure with hypoxia; Z66 Do not resuscitate; G30.9 Alzheimer's disease, unspecified; F02.80 Dementia in other diseases classified elsewhere, unspecified severity, without behavioral disturbance, psychotic disturbance, mood disturbance, and anxiety; E86.0 Dehydration; N28.9 Disorder of kidney and ureter, unspecified; N18.30 Chronic kidney disease, stage 3 unspecified; F32.A Depression, unspecified; I35.1 Nonrheumatic aortic (valve) insufficiency; G47.33 Obstructive sleep apnea (adult) (pediatric); Z28.310 Unvaccinated for COVID-19; Z86.718 Personal history of other venous thrombosis and embolism; Z91.041 Radiographic dye allergy status; Z88.5 Allergy status to narcotic agent; Z79.01 Long term (current) use of anticoagulants; Z79.899 Other long term (current) drug therapy
CPT/HCPCS: 0241U; 36415; 36600; 51798; 70450; 71045; 71250; 74176; 80048; 80076; 80202; 80307; 81003; 82140; 82565; 82803; 82947; 83605; 83735; 84100; 84484; 85025; 85027; 85610; 86140; 87040; 93005; 94762; 96361; 96374; 99285; J0248; J0696; J1100; J2405; J2543; J3370

== ENCOUNTER 2022-05-13 15:20 | Outpatient (REF) | payer MEDICARE, MEDICAID, SELFPAY ==
[2022-05-13 15:30] LABS: MANUAL DIFF FLAG NO
[2022-05-13 15:36] LABS: Basophils Percent Auto 0.3 % (0-2); Eosinophils Absolute Auto 0.1 X10*3/uL (0.0-0.4); Eosinophils Percent Auto 1.3 % (0-4); Hematocrit 45.6 % (42.0-52.0); Hemoglobin 15.6 g/dl (14.0-18.0); Imm Gran Abs Auto 0.04 X10*3/uL (0.00-0.03); Imm Gran Pct Auto 0.4 % (0.0-0.4); Lymphocytes Absolute Auto 1.2 X10*3/uL (1.2-4.9); Lymphocytes Percent Auto 11.8 % (20-40); Mean Corpuscular HGB Conc 34.2 g/dl (31.0-36.0); Mean Corpuscular Hemoglobin 28.9 pg (27.0-33.0); Mean Corpuscular Volume 84.6 fL (80.0-98.0); Monocytes Absolute Auto 0.8 X10*3/uL (0.1-1.2); Monocytes Percent Auto 7.5 % (2-11); Neutrophils Percent Auto 78.7 % (45-73); Platelet Count 160 X10*3/uL (160-400); Red Blood Count 5.39 X10*6/uL (4.60-5.80); Red Cell Distribution Width 18.1 % (11.0-16.0); White Blood Count 10.1 X10*3/uL (4.8-10.8)
[2022-05-13 17:16] LABS: Alanine Aminotransferase 35 U/L (0-40); Albumin Level 2.9 g/dL (3.5-5.0); Alkaline Phosphatase 71 U/L (39-117); Anion Gap 15 (12-20); Aspartate Amino Transferase 26 U/L (5-37); Bilirubin Total 1.1 mg/dL (0.0-1.0); Blood Urea Nitrogen 23 mg/dL (9-16); Carbon Dioxide 23 mmol/L (22-29); Chloride 100 mmol/L (96-108); Estimated Glomerular Filt Rate > 60; Glucose Random 102 mg/dL (60-115); Potassium 4.4 mmol/L (3.3-5.1); Sodium 134 mmol/L (135-145); Total Protein 5.9 g/dL (6.5-8.0)
== END 2022-05-13 15:21 | disposition home or self-care (01) ==
LOC: HO.HVNA 15:20
PROVIDERS: Visit Provider Internal Medicine Medical Oncology
DX: J44.0 Chronic obstructive pulmonary disease with (acute) lower respiratory infection (principal); U07.1 COVID-19; J12.82 Pneumonia due to coronavirus disease 2019; G47.34 Idiopathic sleep related nonobstructive alveolar hypoventilation
CPT/HCPCS: 36415; 80053; 85025

== ENCOUNTER 2022-05-21 07:40 | Emergency (ER) | payer MEDICARE, MEDICAID, SELFPAY ==
--- NOTE | ~2022-05-21 | XR_ITS ---
EXAMINATION: XR CHEST CLINICAL INFORMATION: Fever. COMPARISON: 04/22/[address] CT scan. TECHNIQUE: Frontal view of the chest was obtained. Kyphotic positioning and low lung volumes limit evaluation. FINDINGS: No significant abnormality is noted involving the heart, lungs, mediastinum, bony thorax or soft tissues. XR/XR chest 1V IMPRESSION: No acute cardiopulmonary process. If symptoms persist or worsen, PA and lateral views of the chest are recommended.
[2022-05-21 07:49] VITALS: BP 137/80; BP 146/92; PULSE 86; PULSE 88; RESP 20; TEMP 37.2; O2SAT 98; O2SAT 99; BMI 25.2
--- NOTE | 2022-05-21 08:09 | ED_ITS ---
HPI - General Adult General Chief complaint: Weakness Stated complaint: GENERAL WEAKNESS Time Seen by Provider: 05/21/22 07:59 Source: family Mode of arrival: EMS Limitations: altered mental status History of Present Illness HPI narrative: Patient has severe dementia nonverbal brought by his daughter for fever off and on for last 1 week with increased lethargic and weakness. No significant cough patient was seen by home dispatcher footed the urine which shows UTI started on Keflex last week last intake called and told them that patient has a different bacteria and wanted to give him ciprofloxacin which she has not received yet. Daughter noted patient has fever off and on T-max was 102 degrees no vomiting patient was COVID positive on 04/22 Related Data Home Medications Medication Instructions Recorded Confirmed atenolol 25 mg tablet 25 mg PO BEDTIME 07/26/20 05/21/22 omeprazole 20 mg capsule,delayed 20 mg PO DAILY@0630 07/26/20 05/21/22 release spironolactone 25 mg tablet 25 mg PO DAILY 08/20/20 05/21/22 warfarin 5 mg tablet 5 mg PO SUTUFRSA@1800 05/02/21 05/21/22 naftifine 2 % topical gel (Naftin) 1 appl topical DAILY mycosis 07/02/21 05/21/22 albuterol sulfate 2.5 mg/3 mL 2.5 mg inhalation Q4H PRN 04/22/22 05/21/22 (0.083 %) solution for nebulization Respiratory Distress allopurinol 100 mg tablet 100 mg PO DAILY 04/22/22 05/21/22 warfarin 2.5 mg tablet 2.5 mg PO MOWETH@1800 04/22/22 05/21/22 diaper,brief,adult,disposable 05/12/22 (Select Briefs) acetaminophen 325 mg tablet 650 mg PO Q6H PRN Fever 05/21/22 05/21/22 (Tylenol) docusate sodium 50 mg capsule 50 mg PO DAILY PRN Constipation 05/21/22 05/21/22 Allergies Allergy/AdvReac Type Severity Reaction Status Date / Time oxycodone [OXYCODONE] Allergy Severe Decrease BP Verified 04/22/22 03:33 Iodinated Contrast Media Allergy Intermediate CKD PER Verified 04/22/22 03:33 [IVP DYE] DAUGHTER PT IS NOT TO HAVE DUE TO KIDNEYS tramadol [TRAMADOL] Allergy Intermediate PER Verified 04/22/22 03:33 DAUGHTER PT PASSED OUT, weakness Nuts Allergy Severe GI Stomach Uncoded 04/22/22 03:33 Bleed Review of Systems Review of Systems: Yes Unobtainable due to mental status [facility] Past Medical History Medical History Acute deep vein thrombosis (DVT) Altered mental status Ascending aortic aneurysm Bleeding hemorrhoids Chronic anticoagulation CKD (chronic kidney disease) COPD (chronic obstructive pulmonary disease) COVID Depression Encephalopathy Febrile Heart valve disease Non-rheumatic aortic regurgitation Surgical History History of inguinal hernia repair Hx of cholecystectomy Family History Family History Father History of prostate cancer Social History Social History Household Members: Unknown / Unable to assess Unable to assess alcohol history related to: Unable to respond Alcohol intake: never Patient Tobacco Use Status: Tobacco use Unknown Smoked in Last 30 Days: No Use of substances other than those prescribed or required for medical reasons: No Advance Directives: No service: No Current occupational status: disabled Physical Exam ED Vital Signs: Vital Signs - 24 hr 05/21/22 07:49 05/21/22 09:19 05/21/22 10:24 Temperature 99.0 F 97.2 F Pulse Rate 86 84 81 Respiratory Rate 20 19 22 H Blood Pressure 137/80 156/75 H 135/71 Pulse Oximetry 99 96 98 Oxygen Delivery Method Nasal Cannula Room Air Nasal Cannula Oxygen Flow Rate 2 05/21/22 12:01 Temperature 99.0 F Pulse Rate 84 Respiratory Rate 28 H Blood Pressure 124/66 Pulse Oximetry 98 Oxygen Delivery Method Nasal Cannula Oxygen Flow Rate 2 BMI result Body Mass Index 25.2 Appearance: Alert. Nonverbal No acute distress. Eyes: Pupils normal size and reaction, No Nystagmus ENT: Pharynx normal. Oral Mucosa moist no significant dental caries or gum swelling Neck: Normal inspection. Neck supple. CVS: Normal heart rate and rhythm. Pulses normal. Respiratory: No respiratory distress. Equal air entry bilateral, no wheezing/rales/rhonchi Abdomen: Soft and nontender. Bowel sounds are present, Skin: Skin warm and dry. Normal skin color. Normal skin turgor. Extremities: No lower extremity edema. No calf tenderness Neuro: Alert and awake. Contracted posture moving all 4 extremities Medical Decision Making MDM Narrative Medical decision making narrative: 10:15 Patient has increased weakness with fever for last few days urine culture report reviewed which was done as outpatient on 05/15/2022 grew 2 bacteria C coli and enterococcal faecalis both sensitive to Levaquin patient still tested positive for COVID-19 chest x-ray without any acute infiltrate 10;40 patient daughter prefer patient to be discharged does not want to keep the patient in the hospital patient vitals are stable will re-evaluate after IV Levaquin Lab Data Lab results reviewed: Yes I reviewed the patient's lab results. Result diagrams: 05/21/22 08:20 05/21/22 08:20 Labs: Lab Results 05/21/22 05/21/22 05/21/22 Range/Units 08:14 08:20 08:20 WBC 8.2 (4.8-10.8) X10*3/uL RBC 5.86 H (4.60-5.80) X10*6/uL Hgb 16.5 (14.0-18.0) g/dl Hct 48.8 (42.0-52.0) % MCV 83.3 (80.0-98.0) fL MCH 28.2 (27.0-33.0) pg MCHC 33.8 (31.0-36.0) g/dl RDW 17.2 H (11.0-16.0) % Plt Count 228 D (160-400) X10*3/uL MPV 10.0 (9.4-12.4) fL Immature Gran % (Auto) 1.6 H (0.0-0.4) % Neut % (Auto) 65.6 (45-73) % Lymph % (Auto) 23.4 (20-40) % [place] % (Auto) 6.7 (2-11) % Eos % (Auto) 2.3 (0-4) % Baso % (Auto) 0.4 (0-2) % Lymph # (Auto) 1.9 (1.2-4.9) X10*3/uL [place] # (Auto) 0.6 (0.1-1.2) X10*3/uL Eos # (Auto) 0.2 (0.0-0.4) X10*3/uL Baso # (Auto) 0.0 (0.0-0.2) X10*3/uL Abs Immat Gran (auto) 0.13 H (0.00-0.03) X10*3/uL Absolute Neuts (auto) 5.4 (2.0-8.3) x10*3/uL Absolute Nucleated RBC 0.000 (0.0-0.012) X10*3/uL Nucleated RBC % (auto) 0.0 (0.0-0.2) /100WBC Sodium 138 (135-145) mmol/L Potassium 4.7 D (3.3-5.1) mmol/L Chloride 104 (96-108) mmol/L Carbon Dioxide 24 (22-29) mmol/L Anion Gap 15 (12-20) BUN 25 H (9-16) mg/dL Creatinine 0.89 (0.5-1.4) mg/dL Estim Creat Clear Calc 69.6 Estimated GFR > 60 Random Glucose 108 (60-115) mg/dL Lactic Acid (0.5-2.0) mmol/L Calcium 8.7 (8.4-10.2) mg/dL Total Bilirubin 0.4 (0.0-1.0) mg/dL AST 39 H (5-37) U/L ALT 53 H (0-40) U/L Alkaline Phosphatase 84 D (39-117) U/L Total Protein 6.7 (6.5-8.0) g/dL Albumin 3.0 L (3.5-5.0) g/dL Urine Color Urine Appearance Urine pH (5.0-8.0) Ur Specific [place] (1.005-1.025) Urine Protein (NEG-TRACE) MG/DL Urine Glucose (UA) (NEG) MG/DL Urine Ketones (NEG) MG/DL Urine Blood (NEG) Urine Nitrite (NEG) Ur Leukocyte Esterase (NEG) Urine RBC (0) /HPF Urine WBC (0-4) /HPF Urine WBC Clumps Ur Squamous Epith Cells /LPF Urine Bacteria /LPF Ur Oval Fat Bodies (NONE) COVID-19 (KESHAV) Positive A (Negative) COVID-19 Clin Com See Note 05/21/22 05/21/22 Range/Units 08:20 10:46 WBC (4.8-10.8) X10*3/uL RBC (4.60-5.80) X10*6/uL Hgb (14.0-18.0) g/dl Hct (42.0-52.0) % MCV (80.0-98.0) fL MCH (27.0-33.0) pg MCHC (31.0-36.0) g/dl RDW (11.0-16.0) % Plt Count (160-400) X10*3/uL MPV (9.4-12.4) fL Immature Gran % (Auto) (0.0-0.4) % Neut % (Auto) (45-73) % Lymph % (Auto) (20-40) % [place] % (Auto) (2-11) % Eos % (Auto) (0-4) % Baso % (Auto) (0-2) % Lymph # (Auto) (1.2-4.9) X10*3/uL [place] # (Auto) (0.1-1.2) X10*3/uL Eos # (Auto) (0.0-0.4) X10*3/uL Baso # (Auto) (0.0-0.2) X10*3/uL Abs Immat Gran (auto) (0.00-0.03) X10*3/uL Absolute Neuts (auto) (2.0-8.3) x10*3/uL Absolute Nucleated RBC (0.0-0.012) X10*3/uL Nucleated RBC % (auto) (0.0-0.2) /100WBC Sodium (135-145) mmol/L Potassium (3.3-5.1) mmol/L Chloride (96-108) mmol/L Carbon Dioxide (22-29) mmol/L Anion Gap (12-20) BUN (9-16) mg/dL Creatinine (0.5-1.4) mg/dL Estim Creat Clear Calc Estimated GFR Random Glucose (60-115) mg/dL Lactic Acid 1.2 (0.5-2.0) mmol/L Calcium (8.4-10.2) mg/dL Total Bilirubin (0.0-1.0) mg/dL AST (5-37) U/L ALT (0-40) U/L Alkaline Phosphatase (39-117) U/L Total Protein (6.5-8.0) g/dL Albumin (3.5-5.0) g/dL Urine Color YELLOW Urine Appearance CLEAR Urine pH 6.0 (5.0-8.0) Ur Specific [place] 1.010 (1.005-1.025) Urine Protein NEG (NEG-TRACE) MG/DL Urine Glucose (UA) NEG (NEG) MG/DL Urine Ketones NEG (NEG) MG/DL Urine Blood NEG (NEG) Urine Nitrite NEG (NEG) Ur Leukocyte Esterase 1+ H (NEG) Urine RBC 0 (0) /HPF Urine WBC 10-14 H (0-4) /HPF Urine WBC Clumps NOTED Ur Squamous Epith Cells NONE /LPF Urine Bacteria NONE /LPF Ur Oval Fat Bodies NOTED (NONE) COVID-19 (KESHAV) (Negative) COVID-19 Clin Com Discharge Plan Discharge Clinical Impression: UTI (urinary tract infection), Weakness Patient Disposition: Home, Self-Care Instructions: Urinary Tract Infection in Men (ED), Weakness (ED) Additional Instructions: Give patient a lot of fluids Continue Cipro as prescribed b yyour PCP Follow-up with PCP if not better Prescriptions: No [facility] (DME) Select Briefs Misc See Rx Instructions .ROUTE .MEDSUPPLY Label Comments: pt is requesting size XL diapers Rx Instructions: As directed- adult disposable diapers weight 162 lbs warfarin 5 mg tablet 5 mg PO SUTUFRSA@1800 allopurinol 100 mg Tablet 100 mg PO DAILY warfarin 2.5 mg Tablet 2.5 mg PO MOWETH@1800 albuterol sulfate 2.5 mg /3 mL (0.083 %) Solution For Nebulization 2.5 mg INHALATION Q4H PRN (Reason: Respiratory Distress) acetaminophen [Tylenol] 325 mg Tablet 650 mg PO Q6H PRN (Reason: Fever) docusate sodium 50 mg Capsule 50 mg PO DAILY PRN (Reason: Constipation) spironolactone 25 mg tablet 25 mg PO DAILY omeprazole 20 mg capsule,delayed release(DR/EC) 20 mg PO DAILY@0630 atenolol 25 mg tablet 25 mg PO BEDTIME Naftin 2 % gel 1 appl topical DAILY
[2022-05-21] MEDS: 0.9 % Sodium Chloride 1,000 ML 999 ML IV (08:23)
[2022-05-21 08:26] LABS: MANUAL DIFF FLAG NO
[2022-05-21 08:38] LABS: Lactic Acid 1.2 mmol/L (0.5-2.0)
[2022-05-21 08:41] LABS: Basophils Percent Auto 0.4 % (0-2); Eosinophils Absolute Auto 0.2 X10*3/uL (0.0-0.4); Eosinophils Percent Auto 2.3 % (0-4); Hematocrit 48.8 % (42.0-52.0); Hemoglobin 16.5 g/dl (14.0-18.0); Imm Gran Abs Auto 0.13 X10*3/uL (0.00-0.03); Imm Gran Pct Auto 1.6 % (0.0-0.4); Lymphocytes Absolute Auto 1.9 X10*3/uL (1.2-4.9); Lymphocytes Percent Auto 23.4 % (20-40); Mean Corpuscular HGB Conc 33.8 g/dl (31.0-36.0); Mean Corpuscular Hemoglobin 28.2 pg (27.0-33.0); Mean Corpuscular Volume 83.3 fL (80.0-98.0); Monocytes Absolute Auto 0.6 X10*3/uL (0.1-1.2); Monocytes Percent Auto 6.7 % (2-11); Neutrophils Absolute Auto 5.4 x10*3/uL (2.0-8.3); Neutrophils Percent Auto 65.6 % (45-73); Platelet Count 228 X10*3/uL (160-400); Red Blood Count 5.86 X10*6/uL (4.60-5.80); Red Cell Distribution Width 17.2 % (11.0-16.0); White Blood Count 8.2 X10*3/uL (4.8-10.8)
[2022-05-21 08:43] LABS: COVID-19 Test Positive (Negative); IDNOW Serial# 16C4AD1C
[2022-05-21 09:10] LABS: Alanine Aminotransferase 53 U/L (0-40); Alkaline Phosphatase 84 U/L (39-117); Anion Gap 15 (12-20); Aspartate Amino Transferase 39 U/L (5-37); Bilirubin Total 0.4 mg/dL (0.0-1.0); Blood Urea Nitrogen 25 mg/dL (9-16); Calcium 8.7 mg/dL (8.4-10.2); Carbon Dioxide 24 mmol/L (22-29); Chloride 104 mmol/L (96-108); Creatinine Clr Calc Pharmacy 69.6; Estimated Glomerular Filt Rate > 60; Glucose Random 108 mg/dL (60-115); Potassium 4.7 mmol/L (3.3-5.1); Sodium 138 mmol/L (135-145); Total Protein 6.7 g/dL (6.5-8.0)
[2022-05-21 09:19] VITALS: BP 156/75; PULSE 84; RESP 19; O2SAT 96
[2022-05-21] MEDS: levoFLOXacin/D5W 500 MG/100 ML PIGGYBACK 100 MG IV (10:21)
[2022-05-21 10:24] VITALS: BP 135/71; PULSE 81; RESP 22; TEMP 36.2; O2SAT 98
[2022-05-21 10:57] LABS: Appearance Urine CLEAR; Color Urine YELLOW; Glucose Urine UA NEG (NEG); Leukocyte Esterase Urine 1+ (NEG); Nitrite Urine NEG (NEG); UACC Culture Trigger YES; Urine Blood NEG (NEG); Urine Ketones NEG (NEG); Urine Protein NEG (NEG-TRACE)
--- NOTE | 2022-05-21 11:00 | PHA.MEDREC ---
Pharmacy Consult ? Medication Reconciliation Pharmacy has completed the medication reconciliation. Patient's daughter at bedside confirmed med list. Stated that she takes a daily INR and the coumadin clinic doses weekly. Patient currently on 2.5mg Mon, Wed, [place] and 5mg all other days. Patient's daughter stated ciproflocaxin was to be started tomorrow 05/22/22.
[2022-05-21 11:06] LABS: WBC Clumps Urine NOTED
[2022-05-21 11:07] LABS: Oval Fat Bodies Urine NOTED
[2022-05-21 11:08] LABS: RBC Urine 0 /HPF (0)
[2022-05-21 12:01] VITALS: BP 124/66; PULSE 84; RESP 28; TEMP 37.2; O2SAT 98
== END 2022-05-21 14:05 | disposition home or self-care (01) ==
PROVIDERS: Emergency Provider Internal Medicine; PCP Internal Medicine
DX: U07.1 COVID-19 (principal); N39.0 Urinary tract infection, site not specified; B96.5 Pseudomonas (aeruginosa) (mallei) (pseudomallei) as the cause of diseases classified elsewhere; R53.1 Weakness; G30.9 Alzheimer's disease, unspecified; Z86.718 Personal history of other venous thrombosis and embolism; Z79.01 Long term (current) use of anticoagulants
CPT/HCPCS: 36415; 71045; 80053; 81001; 83605; 85025; 87040; 87086; 87088; 87186; 87635; 96361; 96365; 99284; J1956

== ENCOUNTER 2022-05-28 20:53 | Emergency (ER) | payer MEDICARE, MEDICAID, SELFPAY ==
--- NOTE | ~2022-05-28 | XR_ITS ---
EXAMINATION: XR CHEST CLINICAL INFORMATION: Fever COMPARISON: None TECHNIQUE: Frontal view of the chest was obtained. FINDINGS: Cardiac leads overlie the chest. Lung volumes are low. No consolidation, edema, or effusion. No pneumothorax. The cardiomediastinal silhouette is normal in size. No acute osseous abnormality. XR/XR chest 1V IMPRESSION: No acute pulmonary finding.
--- NOTE | ~2022-05-28 | CT_ITS ---
EXAMINATION: CT ABDOMEN AND PELVIS WITHOUT CONTRAST CLINICAL INFORMATION: Abdominal distention and pain. COMPARISON: None TECHNIQUE: Multidetector volumetric imaging was performed from the superior aspect of the liver through the pubic symphysis. Sagittal and coronal reformatted images were obtained on the technologist's workstation. This CT examination was performed using dose optimization techniques as appropriate, variously including the following: *Automated exposure control *Adjustment of mA and/or kV according to patient size (this includes techniques or standardized protocols for targeted exams where dose is matched to indication/reason for exam; i.e. extremities or head) *Use of iterative reconstruction technique DLP: 805 mGy-cm FINDINGS: LUNG BASES: Minimal bibasilar atelectasis. Coronary artery calcifications. LIVER, GALLBLADDER, AND BILIARY TREE: The liver is normal in size, shape, and attenuation. No focal hepatic lesion or biliary ductal dilatation is present. Cholecystectomy. PANCREAS: Unremarkable. SPLEEN: Unremarkable. ADRENAL GLANDS: Unremarkable. KIDNEYS AND URETERS: The kidneys are normal in size, shape, and attenuation. No hydronephrosis, hydroureter, or calculi seen. No perinephric stranding. Bilateral simple renal cysts. No follow-up imaging recommended. BLADDER: Unremarkable. GASTROINTESTINAL TRACT: The stomach is unremarkable. Normal caliber small bowel. No obstruction. No colonic wall thickening or inflammation. Mild to moderate colonic stool burden. No free air or free fluid. ABDOMINAL WALL: There is a prominent fat-containing left inguinal hernia. LYMPH NODES: Normal. VASCULAR: Normal caliber aorta. IVC filter. PELVIC VISCERA: The prostate and seminal vesicles are unremarkable. OSSEOUS STRUCTURES: No acute or suspicious osseous abnormality. Mild degenerative change throughout the spine. Advanced degenerative change of the right hip. CT/CT abdomen pelvis wo con IMPRESSION: No acute finding in the abdomen or pelvis. No bowel obstruction. Mild to moderate colonic stool burden. Fleischner guidelines were followed.
[2022-05-28 21:06] VITALS: BP 146/74; BP 151/86; PULSE 104; PULSE 113; RESP 18; O2SAT 97; O2SAT 99; BMI 24.5
[2022-05-28 21:21] VITALS: BP 151/86; PULSE 104; RESP 16; TEMP 36.3; O2SAT 97
[2022-05-28] MEDS: 0.9 % Sodium Chloride 1,000 ML 999 ML IVCONT (22:18)
--- NOTE | 2022-05-28 22:19 | ED_ITS ---
HPI - General Adult General Chief complaint: General Medical Stated complaint: weakness Time Seen by Provider: 05/28/22 21:02 Source: family and EMS Mode of arrival: EMS Limitations: no limitations History of Present Illness HPI narrative: Patient comes to the emergency room via EMS accompanied by his daughter. Alo rosenberg has been treated for UTI for over a week, taking ciprofloxacin. The patient's daughter is concerned that the patient has abdominal distension, low- grade fever, clammy/diaphoretic at home. Also, patient had 1 episode of diarrhea. Patient has advanced Alzheimer's dementia and he is unable to provide any history. Related Data Previous Rx's Medication Instructions Recorded cephalexin 250 mg/5 mL oral 250 mg (5 mL) PO TID 10 days #150 05/29/22 suspension mL Allergies Allergy/AdvReac Type Severity Reaction Status Date / Time Unable to Assess Allergy Unverified 05/28/22 21:25 Review of Systems Review of Systems: Yes Unobtainable due to mental status [facility] Past Medical History Medical History (Updated 05/29/22 @ 01:28 by Chantal Echeverria MD) Alzheimer's dementia Social History Social History Advance Directives: No Advance Directives Information Provided: No Physical Exam ED Vital Signs: Vital Signs - 24 hr 05/28/22 21:06 05/28/22 21:21 Temperature 97.4 F Pulse Rate 104 H 104 H Respiratory Rate 18 16 Blood Pressure 151/86 H 151/86 H Pulse Oximetry 99 97 Oxygen Delivery Method Room Air Nasal Cannula Oxygen Flow Rate 2 BMI result Body Mass Index 24.5 Const Other: Appearance: Alert. No acute distress. Eyes: Pupils equal, round and reactive to light. ENT: Pharynx normal. Neck: Normal inspection. Neck supple. No lymph nodes noted. No crepitus CVS: Normal heart rate and rhythm. Pulses normal. Normal S1 and S2 Respiratory: No respiratory distress. Breath sounds normal. No Wheezing. No rales Abdomen: Soft , mildly distended, unclear if he has abdominal tenderness or not, but does not seem to have any significant pain when I press on his abdomen Skin: Skin warm and dry. Normal skin color. Normal skin turgor. Extremities: No lower extremity edema, chronic contracture of the right hip Neuro: No motor deficit. No sensory deficit. Moving all extremities. No slurred speech. CN 2 through 12 grossly intact Psych: calm, cooperative, normal affect Course Course Course Narrative: I discussed the labs and imaging with the patient's daughter, no significant acute findings. Patient has a very mild UTI. Patient just finished taking his last dose of ciprofloxacin. Patient being given 1 dose of ceftriaxone and patient discharged with liquid form of cephalexin , patient cannot swallow tablets Medical Decision Making Lab Data Result diagrams: 05/28/22 22:15 05/28/22 22:15 Labs: Lab Results 05/28/22 05/28/22 05/28/22 Range/Units 22:14 22:14 22:15 WBC 13.2 H (4.8-10.8) X10*3/uL RBC 5.40 (4.60-5.80) X10*6/uL Hgb 15.9 (14.0-18.0) g/dl Hct 46.0 (42.0-52.0) % MCV 85.2 (80.0-98.0) fL MCH 29.4 (27.0-33.0) pg MCHC 34.6 (31.0-36.0) g/dl RDW 18.0 H (11.0-16.0) % Plt Count 294 D (160-400) X10*3/uL MPV 10.0 (9.4-12.4) fL Immature Gran % (Auto) 0.6 H (0.0-0.4) % Neut % (Auto) 82.0 H (45-73) % Lymph % (Auto) 10.8 L (20-40) % [place] % (Auto) 5.9 (2-11) % Eos % (Auto) 0.4 (0-4) % Baso % (Auto) 0.3 (0-2) % Lymph # (Auto) 1.4 (1.2-4.9) X10*3/uL [place] # (Auto) 0.8 (0.1-1.2) X10*3/uL Eos # (Auto) 0.1 (0.0-0.4) X10*3/uL Baso # (Auto) 0.0 (0.0-0.2) X10*3/uL Abs Immat Gran (auto) 0.08 H (0.00-0.03) X10*3/uL Absolute Neuts (auto) 10.8 H (2.0-8.3) x10*3/uL Absolute Nucleated RBC 0.000 (0.0-0.012) X10*3/uL Nucleated RBC % (auto) 0.0 (0.0-0.2) /100WBC PT 26.8 H (10.0-13.1) SEC INR 2.3 H (0.9-1.1) Sodium (135-145) mmol/L Potassium (3.3-5.1) mmol/L Chloride (96-108) mmol/L Carbon Dioxide (22-29) mmol/L Anion Gap (12-20) BUN (9-16) mg/dL Creatinine (0.5-1.4) mg/dL Estim Creat Clear Calc Estimated GFR Random Glucose (60-115) mg/dL Lactic Acid 0.9 (0.5-2.0) mmol/L Calcium (8.4-10.2) mg/dL Magnesium (1.6-2.6) mg/dL Total Bilirubin (0.0-1.0) mg/dL Direct Bilirubin (0.0-0.5) mg/dL AST (5-37) U/L ALT (0-40) U/L Alkaline Phosphatase (39-117) U/L Total Protein (6.5-8.0) g/dL Albumin (3.5-5.0) g/dL Lipase (8-78) U/L Urine Color Urine Appearance Urine pH (5.0-8.0) Ur Specific [place] (1.005-1.025) Urine Protein (Neg-Trace) mg/dL Urine Glucose (UA) (Negative) mg/dL Urine Ketones (Negative) mg/dL Urine Blood (Negative) Urine Nitrite (Negative) Ur Leukocyte Esterase (Negative) Urine RBC (0-2) /HPF Urine WBC (0-5) /HPF Ur Squamous Epith Cells (0-2) /HPF Urine Bacteria (None Seen) Hyaline Casts (0-2) /LPF COVID-19 (KESHAV) (Negative) COVID-19 Clin Com 05/28/22 05/28/22 05/28/22 Range/Units 22:15 22:15 23:56 WBC (4.8-10.8) X10*3/uL RBC (4.60-5.80) X10*6/uL Hgb (14.0-18.0) g/dl Hct (42.0-52.0) % MCV (80.0-98.0) fL MCH (27.0-33.0) pg MCHC (31.0-36.0) g/dl RDW (11.0-16.0) % Plt Count (160-400) X10*3/uL MPV (9.4-12.4) fL Immature Gran % (Auto) (0.0-0.4) % Neut % (Auto) (45-73) % Lymph % (Auto) (20-40) % [place] % (Auto) (2-11) % Eos % (Auto) (0-4) % Baso % (Auto) (0-2) % Lymph # (Auto) (1.2-4.9) X10*3/uL [place] # (Auto) (0.1-1.2) X10*3/uL Eos # (Auto) (0.0-0.4) X10*3/uL Baso # (Auto) (0.0-0.2) X10*3/uL Abs Immat Gran (auto) (0.00-0.03) X10*3/uL Absolute Neuts (auto) (2.0-8.3) x10*3/uL Absolute Nucleated RBC (0.0-0.012) X10*3/uL Nucleated RBC % (auto) (0.0-0.2) /100WBC PT (10.0-13.1) SEC INR (0.9-1.1) Sodium 140 (135-145) mmol/L Potassium 4.2 (3.3-5.1) mmol/L Chloride 108 (96-108) mmol/L Carbon Dioxide 21 L (22-29) mmol/L Anion Gap 15 (12-20) BUN 24 H (9-16) mg/dL Creatinine 0.92 (0.5-1.4) mg/dL Estim Creat Clear Calc 67.4 Estimated GFR > 60 Random Glucose 109 (60-115) mg/dL Lactic Acid (0.5-2.0) mmol/L Calcium 8.3 L (8.4-10.2) mg/dL Magnesium 1.8 (1.6-2.6) mg/dL Total Bilirubin 0.7 (0.0-1.0) mg/dL Direct Bilirubin 0.4 (0.0-0.5) mg/dL AST 34 (5-37) U/L ALT 44 H (0-40) U/L Alkaline Phosphatase 63 (39-117) U/L Total Protein 6.6 (6.5-8.0) g/dL Albumin 3.1 L (3.5-5.0) g/dL Lipase 62 (8-78) U/L Urine Color Yellow Urine Appearance Clear Urine pH 5.5 (5.0-8.0) Ur Specific [place] 1.015 (1.005-1.025) Urine Protein Negative (Neg-Trace) mg/dL Urine Glucose (UA) Negative (Negative) mg/dL Urine Ketones Negative (Negative) mg/dL Urine Blood Negative (Negative) Urine Nitrite Negative (Negative) Ur Leukocyte Esterase Trace H (Negative) Urine RBC 0-2 (0-2) /HPF Urine WBC 6-10 H (0-5) /HPF Ur Squamous Epith Cells 0-2 (0-2) /HPF Urine Bacteria None Seen (None Seen) Hyaline Casts 3-5 (0-2) /LPF COVID-19 (KESHAV) Negative (Negative) COVID-19 Clin Com See Note Discharge Plan Discharge Clinical Impression: Acute UTI, Acute viral syndrome Patient Disposition: Home, Self-Care Instructions: Urinary Tract Infection in Men (ED) Additional Instructions: Please follow-up with your primary care physician tomorrow. If you have any worsening or new symptoms, please return to the emergency room or call 911 Prescriptions: New cephalexin 250 mg/5 mL suspension for reconstitution 250 mg PO TID 10 Days Qty: 150 0RF
[2022-05-28 22:20] LABS: MANUAL DIFF FLAG NO
[2022-05-28 22:22] LABS: Basophils Percent Auto 0.3 % (0-2); Eosinophils Absolute Auto 0.1 X10*3/uL (0.0-0.4); Eosinophils Percent Auto 0.4 % (0-4); Hemoglobin 15.9 g/dl (14.0-18.0); Imm Gran Abs Auto 0.08 X10*3/uL (0.00-0.03); Imm Gran Pct Auto 0.6 % (0.0-0.4); Lymphocytes Absolute Auto 1.4 X10*3/uL (1.2-4.9); Lymphocytes Percent Auto 10.8 % (20-40); Mean Corpuscular HGB Conc 34.6 g/dl (31.0-36.0); Mean Corpuscular Hemoglobin 29.4 pg (27.0-33.0); Mean Corpuscular Volume 85.2 fL (80.0-98.0); Monocytes Absolute Auto 0.8 X10*3/uL (0.1-1.2); Monocytes Percent Auto 5.9 % (2-11); Neutrophils Absolute Auto 10.8 x10*3/uL (2.0-8.3); Platelet Count 294 X10*3/uL (160-400); White Blood Count 13.2 X10*3/uL (4.8-10.8)
[2022-05-28 22:33] LABS: Lactic Acid 0.9 mmol/L (0.5-2.0)
[2022-05-28 22:38] LABS: COVID-19 Test Negative (Negative)
[2022-05-28 22:40] LABS: Alanine Aminotransferase 44 U/L (0-40); Albumin Level 3.1 g/dL (3.5-5.0); Alkaline Phosphatase 63 U/L (39-117); Anion Gap 15 (12-20); Aspartate Amino Transferase 34 U/L (5-37); Bilirubin Direct 0.4 mg/dL (0.0-0.5); Bilirubin Total 0.7 mg/dL (0.0-1.0); Blood Urea Nitrogen 24 mg/dL (9-16); Calcium 8.3 mg/dL (8.4-10.2); Carbon Dioxide 21 mmol/L (22-29); Chloride 108 mmol/L (96-108); Creatinine Clr Calc Pharmacy 67.4; Estimated Glomerular Filt Rate > 60; Glucose Random 109 mg/dL (60-115); Lipase 62 U/L (8-78); Magnesium 1.8 mg/dL (1.6-2.6); Potassium 4.2 mmol/L (3.3-5.1); Sodium 140 mmol/L (135-145); Total Protein 6.6 g/dL (6.5-8.0)
[2022-05-28 22:44] LABS: INTERNATIONAL NORM RATIO 2.3 (0.9-1.1); Prothrombin Time 26.8 SEC (10.0-13.1)
[2022-05-29 00:13] LABS: Appearance Urine Clear; Color Urine Yellow; Glucose Urine UA Negative (Negative); Leukocyte Esterase Urine Trace (Negative); Nitrite Urine Negative (Negative); PH 5.5 (5.0-8.0); Specific Gravity - Urine 1.015 (1.005-1.025); Urine Blood Negative (Negative); Urine Ketones Negative (Negative); Urine Protein Negative (Neg-Trace)
[2022-05-29 00:19] LABS: Bacteria Urine None Seen (None Seen); RBC Urine 0-2 /HPF (0-2); Squamous Epithelial Cell Urine 0-2 /HPF (0-2); UACC Culture Trigger YES
[2022-05-29] MEDS: cefTRIAXone sodium 1 GM in 0.9 % Sodium Chloride 50 ML IV (01:35)
--- NOTE | 2022-05-29 02:36 | PC.NURSE ---
This US/Pct called [facility] at 0214 for a BLS transfer home,ETA 30mins.RN and Charge Aware
[2022-05-29 02:42] VITALS: BP 155/107; PULSE 101; RESP 18; TEMP 37.6; O2SAT 98
== END 2022-05-29 02:44 | disposition home or self-care (01) ==
PROVIDERS: Emergency Provider Emergency Medicine; PCP Internal Medicine
DX: B34.9 Viral infection, unspecified (principal); N39.0 Urinary tract infection, site not specified; Z20.822 Contact with and (suspected) exposure to COVID-19; G30.9 Alzheimer's disease, unspecified; F02.80 Dementia in other diseases classified elsewhere, unspecified severity, without behavioral disturbance, psychotic disturbance, mood disturbance, and anxiety; Z86.718 Personal history of other venous thrombosis and embolism; Z79.01 Long term (current) use of anticoagulants
CPT/HCPCS: 36415; 71045; 74176; 80048; 80076; 81001; 83605; 83690; 83735; 85025; 85610; 87040; 87086; 87147; 87205; 87635; 96361; 96374; 99284; J0696

== ENCOUNTER 2022-06-20 12:51 | Outpatient (REF) | payer MEDICARE, MEDICAID, SELFPAY ==
[2022-06-20 13:28] LABS: Appearance Urine Cloudy; Color Urine Yellow; Glucose Urine UA Negative (Negative); Leukocyte Esterase Urine Large (3+) (Negative); Nitrite Urine Negative (Negative); PH 5.5 (5.0-9.0); Specific Gravity - Urine 1.015 (1.005-1.025); Urine Blood Trace (Negative); Urine Ketones Negative (Negative); Urine Protein Negative (Neg-Trace)
[2022-06-20 13:31] LABS: Bacteria Urine None Seen (None Seen); Hyaline Casts Urine 0-2 /LPF (0-2); RBC Urine 0-2 /HPF (0-2); Squamous Epithelial Cell Urine 0-2 /HPF (0-2); WBC Urine >50 /HPF (0-5)
== END 2022-06-20 12:52 | disposition home or self-care (01) ==
LOC: HO.LAB 12:51
PROVIDERS: Visit Provider Urology
DX: N40.1 Benign prostatic hyperplasia with lower urinary tract symptoms (principal); N13.8 Other obstructive and reflux uropathy
CPT/HCPCS: 81001; 87086; 87088; 87186

== ENCOUNTER 2022-06-25 21:54 | Inpatient (IN) | payer MEDICARE, MEDICAID, SELFPAY ==
--- NOTE | ~2022-06-25 | CT_ITS ---
EXAMINATION: CT CHEST WITHOUT CONTRAST CT ABDOMEN AND PELVIS WITHOUT CONTRAST CLINICAL INFORMATION: Fever. Altered mental status. UTI. Follow-up x-ray. COMPARISON: Radiograph 06/25/2022. CT 04/22/2022. TECHNIQUE: Multidetector volumetric imaging was performed through the chest, abdomen and pelvis without contrast. Sagittal and coronal reformatted images were obtained on the technologist's workstation. Axial MIP volume rendering provided. This CT examination was performed using dose optimization techniques as appropriate, variously including the following: *Automated exposure control *Adjustment of mA and/or kV according to patient size (this includes techniques or standardized protocols for targeted exams where dose is matched to indication/reason for exam; i.e. extremities or head) *Use of iterative reconstruction technique DLP: 1086 mGy-cm. FINDINGS: CHEST: Lungs: Motion limited evaluation of the lungs. The central airways are patent. Mild reticulation in the lungs with subtle groundglass opacities. No significant septal thickening seen. No pleural effusion or pneumothorax. There is a right upper lobe 0.3 cm nodule on series 7 image 135. This is not definitively seen on previous imaging. Mediastinum: The heart is prominent with coronary artery calcification. There is no pericardial effusion. Central vascular structures are unremarkable. No hilar or mediastinal lymphadenopathy. Chest Wall/Axilla: No lymphadenopathy. No chest wall mass. ABDOMEN/PELVIS: Liver, Gallbladder, Biliary Tree: The liver is normal in size, shape, and attenuation. Cyst noted at the dome of the right lobe. No biliary ductal dilatation is present. Cholecystectomy. Pancreas: Unremarkable. Spleen: Unremarkable. Adrenal Glands: Unremarkable. Kidneys and Ureters: The kidneys are normal in size, shape, and attenuation. No hydronephrosis, hydroureter or calculi seen. No perinephric stranding. Simple bilateral renal cysts. The largest is seen exophytic from the left kidney measuring 8.2 cm. No follow-up imaging specifically recommended. Bladder: Decompressed with no gross abnormality. Gastrointestinal Tract: The stomach and small bowel appear unremarkable. No dilated loops of bowel or evidence of obstruction. No diverticulosis. No colonic wall thickening or adjacent inflammatory changes. No free air or free fluid. The appendix is not seen. There is no pericecal inflammation to suggest acute appendicitis. Abdominal Wall: Fat-containing left inguinal hernia. Lymphovascular Structures: Lymph nodes: Normal. Vascular: Normal caliber aorta with minimal atherosclerotic calcification. IVC filter noted. Pelvic Viscera: The prostate and seminal vesicles are unremarkable. OSSEOUS STRUCTURES: No suspicious sclerotic or lytic bone lesions are identified. Severe degenerative changes of the right hip flattening of the femoral head and joint space narrowing. Irregularity along the articular surface. Mild degenerative change of the left hip. CT/CT abdomen pelvis wo IV con IMPRESSION: Scattered subtle groundglass opacity in the lungs with mild reticulation. No significant septal thickening. Motion in the lungs limits the evaluation. The appearance favors infectious/inflammatory process. Edema possible. 0.3 cm right upper lobe pulmonary nodule. According to the UPDATED 2017 Fleischner Society recommendations, the advised follow-up imaging for solid nodules < 6 mm is: LOW RISK PATIENT: No routine follow-up. HIGH RISK PATIENT: Optional CT at 12 months. No suspicious findings in the abdomen or pelvis.
--- NOTE | ~2022-06-25 | XR_ITS ---
EXAMINATION: XR CHEST CLINICAL INFORMATION: Shortness of breath COMPARISON: 06/25/2022 TECHNIQUE: Portable semiupright 8:30 AM view of the chest was obtained. FINDINGS: Heart size remains borderline prominent. Low lung volumes with diffuse increased lung markings. And correlated to older studies going back to 2019, this appears more prominent suggesting an acute atypical infectious pattern. No pleural effusion. No major zones of consolidation. No ectopic air. IVC stent noted as well as clips right upper quadrant. XR/XR chest 1V IMPRESSION: Findings favor atypical infection as above.
--- NOTE | ~2022-06-25 | US_ITS ---
EXAMINATION: US VENOUS ULTRASOUND WITH DOPPLER LOWER EXTREMITY, RIGHT CLINICAL INFORMATION: Edema COMPARISON: None TECHNIQUE: Ultrasound of the deep veins is performed from the hip to the calf with compression sonography and color and pulse Doppler assessment. Spectral analysis with color-flow imaging is performed. FINDINGS: This exam is nondiagnostic. Many of this patient's veins are not visualized including the common femoral vein, parts of the superficial femoral vein. Flow is seen within the popliteal. Peroneal and posterior tibial veins appear patent Note is made of superficial thrombophlebitis US/US venous duplex LE RT IMPRESSION: Nondiagnostic study. Many of this patient's deep veins are not adequately visualized. DVT cannot be excluded. There is superficial thrombophlebitis seen in the mid to distal calf
--- NOTE | ~2022-06-25 | XR_ITS ---
EXAMINATION: XR CHEST CLINICAL INFORMATION: Fever COMPARISON: Chest x-ray 06/27/2022 TECHNIQUE: Frontal view of the chest was obtained. FINDINGS: No airspace consolidation. No pleural effusion or pneumothorax. Increased reticular markings in both lungs, similar to prior. Unchanged cardiomediastinal silhouette. No acute osseous injury. Gaseous distention of bowel loops and the stomach noted. IVC filter an surgical clips project in the right upper quadrant. XR/XR chest 1V IMPRESSION: 1. No airspace consolidation or effusions. 2. Increased reticular markings within both lungs, similar to prior, possibly due to atypical infection.
--- NOTE | ~2022-06-25 | US_ITS ---
EXAMINATION: US RETROPERITONEAL LIMITED (RENAL ONLY) CLINICAL INFORMATION: UTI. COMPARISON: CT abdomen and pelvis 06/26/2022. Ultrasound abdomen complete 02/21/2019. X-ray abdomen 11/25/2016 and 11/24/2016. TECHNIQUE: Real-time imaging of the kidneys. Limited due to patient inability to suspend respirations. FINDINGS: RIGHT KIDNEY: 10.3 x 5.7 x 5.2 cm (SAG x AP x TRV). The kidney is normal in size, contour, and echogenicity. Renal cortical thickness is normal. There are multiple small cysts, largest measuring 2.3 x 2.4 cm. No renal calculi or hydronephrosis. LEFT KIDNEY: 8.2 x 6.5 x 2.1 cm (SAG x AP x TRV). The kidney is normal in size, contour, and echogenicity. Renal cortical thickness is normal. There is a 9.9 x 7.5 x 8.3 cm cyst in the upper pole. No renal calculi or hydronephrosis. US/US renal BI IMPRESSION: Bilateral renal cysts.
--- NOTE | ~2022-06-25 | XR_ITS ---
EXAMINATION: XR CHEST CLINICAL INFORMATION: Fever. COMPARISON: 05/28/2022 chest radiograph. TECHNIQUE: Frontal view of the chest was obtained. FINDINGS: Increased pulmonary vascular and interstitial markings are seen. The heart is mildly enlarged. The mediastinal structures are unremarkable. XR/XR chest 1V IMPRESSION: Cardiopulmonary findings are nonspecific, but suggest CHF. Atypical infection would be less likely but cannot be excluded given the patient's history. Correlate clinically. This represents interval worsening from the previous study.
[2022-06-25 21:44] VITALS: BP 129/80; PULSE 97; O2SAT 98
--- NOTE | 2022-06-25 22:01 | ED_ITS ---
HPI - General Adult General Chief complaint: Fever Stated complaint: fever Time Seen by Provider: 06/25/22 22:00 Source: family Mode of arrival: ambulatory Limitations: other (patient has a hx of alzheimer's, is nonverbal) History of Present Illness HPI narrative: 71-year-old male with a PMHx of Alzheimer's, aortic regurgitation, aortic aneurysm, COPD on oxygen presenting to the emergency department for evaluation of fever. Patient's daughter tells me the the patient has been dealing with a complicated UTI for the past few weeks. He has completed 2 courses of antibiotics, Keflex and ciprofloxacin, he is now on Levofloxacin. The patient had a fever tonight to 101 F and was treated with Tylenol but the fever did not break. The patient's daughter tells me that the patient is unable to communicate pain the by his facial expressions she thinks that he is in pain. He is on Coumadin. Related Data Home Medications Medication Instructions Recorded Confirmed atenolol 25 mg tablet 25 mg PO BEDTIME 07/26/20 06/09/22 omeprazole 20 mg capsule,delayed 20 mg PO DAILY@0630 07/26/20 06/09/22 release spironolactone 25 mg tablet 25 mg PO DAILY 08/20/20 06/09/22 warfarin 5 mg tablet 5 mg PO SUTUFRSA@1800 05/02/21 06/09/22 naftifine 2 % topical gel (Naftin) 1 appl topical DAILY mycosis 07/02/21 06/09/22 albuterol sulfate 2.5 mg/3 mL 2.5 mg inhalation Q4H PRN 04/22/22 06/09/22 (0.083 %) solution for nebulization Respiratory Distress allopurinol 100 mg tablet 100 mg PO DAILY 04/22/22 06/09/22 diaper,brief,adult,disposable 05/12/22 06/09/22 (Select Briefs) acetaminophen 325 mg tablet 650 mg PO Q6H PRN Fever 05/21/22 06/09/22 (Tylenol) docusate sodium 50 mg capsule 50 mg PO DAILY PRN Constipation 05/21/22 06/09/22 Previous Rx's Medication Instructions Recorded cephalexin 250 mg/5 mL oral 250 mg (5 mL) PO TID 10 days #150 05/29/22 suspension mL disposable gloves (Biobrane Gloves #200 ea 06/17/22 Medium) levofloxacin 500 mg tablet 500 mg PO DAILY 14 days #14 tabs 06/24/22 Allergies Allergy/AdvReac Type Severity Reaction Status Date / Time oxycodone [OXYCODONE] Allergy Severe Decrease BP Verified 05/29/22 07:01 Iodinated Contrast Media Allergy Intermediate CKD PER Verified 05/29/22 07:01 [IVP DYE] DAUGHTER PT IS NOT TO HAVE DUE TO KIDNEYS tramadol [TRAMADOL] Allergy Intermediate PER Verified 05/29/22 07:01 DAUGHTER PT PASSED OUT, weakness Nuts Allergy Severe GI Stomach Uncoded 05/29/22 07:01 Bleed Review of Systems Review of Systems: Yes Unobtainable due to mental status [facility] Past Medical History Attestation statement: The following information was validated with the patient. Source: old records reviewed and nursing notes reviewed Medical History Acute deep vein thrombosis (DVT) Altered mental status Ascending aortic aneurysm Bleeding hemorrhoids Chronic anticoagulation CKD (chronic kidney disease) COPD (chronic obstructive pulmonary disease) COVID Depression Encephalopathy Febrile Heart valve disease Non-rheumatic aortic regurgitation Surgical History History of inguinal hernia repair Hx of cholecystectomy Family History Family History Father History of prostate cancer Social History Social History (System 05/29/22 @ 07:01 by Cammy Franklin) Household Members: Unknown / Unable to assess Unable to assess alcohol history related to: Unable to respond Alcohol intake: never Patient Tobacco Use Status: Tobacco use Unknown Advance Directives: No Advance Directives Information Provided: No service: No Current occupational status: disabled Physical Exam ED Vital Signs: Vital Signs - 24 hr 06/25/22 22:17 06/25/22 23:31 Temperature 99.5 F 100.9 F H Pulse Rate 93 95 Respiratory Rate 16 18 Blood Pressure 149/87 H 133/70 Pulse Oximetry 93 98 Oxygen Delivery Method Nasal Cannula Nasal Cannula BMI result Body Mass Index 25.0 VSS Appearance: Alert. No acute distress.? Head: Normocephalic, atraumatic, no step-offs or deformities Eyes: Pupils equal, round and reactive to light.? Neck: Normal inspection.? Neck supple.? CVS: Normal heart rate and rhythm.? Pulses normal.? Respiratory: No respiratory distress.? Breath sounds normal.? Abdomen: Soft and nontender.? Skin: Skin warm and dry.? Normal skin color.? Normal skin turgor.? Extremities: No lower extremity edema.? No calf ttp. Global weakness. Back: No midline tenderness, no C-spine tenderness, full range of motion, no CVA tenderness bilaterally Neuro: Alert, awake. Nonverbal at baseline. No motor deficit.? No sensory deficit. Course Reevaluation(s) Reevaluation #1: CBC within normal limits. Chemistry with no acute findings, normal lactic. Troponin negative, BNP within normal limits, unlikely CHF. UTI on UA will give levofloxacin. CT of the abdomen pelvis with no acute findings, unlikely pyelon ephritis. No signs of obstructing uropathy. Chest CT with scattered subtle ground-glass opacities however patient without upper respiratory symptoms. At this time patient will be admitted to the hospitalist team for further intervention and treatment as he has has failed outpatient therapy of p.o. antibiotics. Time: 01:26 Medical Decision Making [facility] Narrative Medical decision making narrative: 22:05 71 y/o M presenting with fever, concern for ongoing UTI. Diagnosed with a UTI 2 weeks ago, completed a course of Keflex and Cipro, currently on Levaquin. PE appears to be at patient's baseline. Afebrile on arrival, will obtain rectal temperature. Upon chart review, patient's urine culture showed p. aeruginosa and e. faecalis, susceptible to levofloxacin. Likely UTI. I do not suspect pneumonia or PE on this patient, patient is anticoagulated. Patient not complaining of URI symptoms. Will rule out viral infection such as COVID. Unlikely pyelo based off of exam. Plan to obtain basic labs, UA, lactic acid, blood cultures, Mg, COVID-19 testing. Suspect persistent UTI, less likely sepsis, pyelonephritis, viral infection. Medical Records Medical records reviewed: Yes I reviewed the patient's medical records. Lab Data Lab results reviewed: Yes I reviewed the patient's lab results. Result diagrams: 06/25/22 22:09 06/25/22 22:09 Labs: Lab Results 06/25/22 06/25/22 06/25/22 Range/Units 22:09 22:09 22:09 WBC 8.2 (4.8-10.8) X10*3/uL RBC 5.60 (4.60-5.80) X10*6/uL Hgb 15.7 (14.0-18.0) g/dl Hct 47.0 (42.0-52.0) % MCV 83.9 (80.0-98.0) fL MCH 28.0 (27.0-33.0) pg MCHC 33.4 (31.0-36.0) g/dl RDW 16.6 H (11.0-16.0) % Plt Count 226 (160-400) X10*3/uL MPV 10.6 (9.4-12.4) fL Immature Gran % (Auto) 0.4 (0.0-0.4) % Neut % (Auto) 73.8 H (45-73) % Lymph % (Auto) 17.3 L (20-40) % [place] % (Auto) 6.6 (2-11) % Eos % (Auto) 1.5 (0-4) % Baso % (Auto) 0.4 (0-2) % Lymph # (Auto) 1.4 (1.2-4.9) X10*3/uL [place] # (Auto) 0.5 (0.1-1.2) X10*3/uL Eos # (Auto) 0.1 (0.0-0.4) X10*3/uL Baso # (Auto) 0.0 (0.0-0.2) X10*3/uL Abs Immat Gran (auto) 0.03 (0.00-0.03) X10*3/uL Absolute Neuts (auto) 6.0 (2.0-8.3) x10*3/uL Absolute Nucleated RBC 0.000 (0.0-0.012) X10*3/uL Nucleated RBC % (auto) 0.0 (0.0-0.2) /100WBC Sodium 138 (135-145) mmol/L Potassium 4.7 (3.3-5.1) mmol/L Chloride 102 (96-108) mmol/L Carbon Dioxide 26 (22-29) mmol/L Anion Gap 15 (12-20) BUN 16 (9-16) mg/dL Creatinine 0.92 (0.5-1.4) mg/dL Estim Creat Clear Calc 67.4 Estimated GFR > 60 Random Glucose 120 H (60-115) mg/dL Lactic Acid 1.5 (0.5-2.0) mmol/L Calcium 9.0 D (8.4-10.2) mg/dL Magnesium 1.6 (1.6-2.6) mg/dL Total Bilirubin 0.6 (0.0-1.0) mg/dL AST 28 (5-37) U/L ALT 22 (0-40) U/L Alkaline Phosphatase 61 (39-117) U/L Troponin I High Sens (<3.5-35.0) ng/L B-Natriuretic Peptide (<100) pg/mL Total Protein 6.9 (6.5-8.0) g/dL Albumin 3.1 L (3.5-5.0) g/dL Urine Color Urine Appearance Urine pH (5.0-9.0) Ur Specific [place] (1.005-1.025) Urine Protein (Neg-Trace) mg/dL Urine Glucose (UA) (Negative) mg/dL Urine Ketones (Negative) mg/dL Urine Blood (Negative) Urine Nitrite (Negative) Ur Leukocyte Esterase (Negative) COVID-19 (KESHAV) (Negative) COVID-19 Clin Com 06/25/22 06/25/22 06/26/22 Range/Units 22:09 22:09 00:48 WBC (4.8-10.8) X10*3/uL RBC (4.60-5.80) X10*6/uL Hgb (14.0-18.0) g/dl Hct (42.0-52.0) % MCV (80.0-98.0) fL MCH (27.0-33.0) pg MCHC (31.0-36.0) g/dl RDW (11.0-16.0) % Plt Count (160-400) X10*3/uL MPV (9.4-12.4) fL Immature Gran % (Auto) (0.0-0.4) % Neut % (Auto) (45-73) % Lymph % (Auto) (20-40) % [place] % (Auto) (2-11) % Eos % (Auto) (0-4) % Baso % (Auto) (0-2) % Lymph # (Auto) (1.2-4.9) X10*3/uL [place] # (Auto) (0.1-1.2) X10*3/uL Eos # (Auto) (0.0-0.4) X10*3/uL Baso # (Auto) (0.0-0.2) X10*3/uL Abs Immat Gran (auto) (0.00-0.03) X10*3/uL Absolute Neuts (auto) (2.0-8.3) x10*3/uL Absolute Nucleated RBC (0.0-0.012) X10*3/uL Nucleated RBC % (auto) (0.0-0.2) /100WBC Sodium (135-145) mmol/L Potassium (3.3-5.1) mmol/L Chloride (96-108) mmol/L Carbon Dioxide (22-29) mmol/L Anion Gap (12-20) BUN (9-16) mg/dL Creatinine (0.5-1.4) mg/dL Estim Creat Clear Calc Estimated GFR Random Glucose (60-115) mg/dL Lactic Acid (0.5-2.0) mmol/L Calcium (8.4-10.2) mg/dL Magnesium (1.6-2.6) mg/dL Total Bilirubin (0.0-1.0) mg/dL AST (5-37) U/L ALT (0-40) U/L Alkaline Phosphatase (39-117) U/L Troponin I High Sens 4.9 D (<3.5-35.0) ng/L B-Natriuretic Peptide 18 (<100) pg/mL Total Protein (6.5-8.0) g/dL Albumin (3.5-5.0) g/dL Urine Color Yellow Urine Appearance Turbid Urine pH 5.5 (5.0-9.0) Ur Specific [place] 1.015 (1.005-1.025) Urine Protein 30 (1+) H (Neg-Trace) mg/dL Urine Glucose (UA) Negative (Negative) mg/dL Urine Ketones Negative (Negative) mg/dL Urine Blood Moderate (2+) H (Negative) Urine Nitrite Negative (Negative) Ur Leukocyte Esterase Large (3+) H (Negative) COVID-19 (KESHAV) Negative (Negative) COVID-19 Clin Com See Note Critical Care Time Critical Care Time Critical Care Time: No Discharge Plan Discharge Clinical Impression: UTI (urinary tract infection), Weakness Patient Disposition: Admitted As Inpatient Prescriptions: No Action (DME) Select Briefs Misc See Rx Instructions .ROUTE .MEDSUPPLY Label Comments: pt is requesting size XL diapers Rx Instructions: As directed- adult disposable diapers weight 162 lbs (DME) disposable gloves [Biobrane Gloves Medium] Misc See Rx Instructions .Route Qty: 200 1RF Rx Instructions: As directed levofloxacin 500 mg tablet 500 mg PO DAILY 14 Days Qty: 14 0RF warfarin 5 mg tablet 5 mg PO SUTUFRSA@1800 allopurinol 100 mg Tablet 100 mg PO DAILY albuterol sulfate 2.5 mg /3 mL (0.083 %) Solution For Nebulization 2.5 mg INHALATION Q4H PRN (Reason: Respiratory Distress) acetaminophen [Tylenol] 325 mg Tablet 650 mg PO Q6H PRN (Reason: Fever) docusate sodium 50 mg Capsule 50 mg PO DAILY PRN (Reason: Constipation) cephalexin 250 mg/5 mL suspension for reconstitution 250 mg PO TID 10 Days Qty: 150 0RF spironolactone 25 mg tablet 25 mg PO DAILY omeprazole 20 mg capsule,delayed release(DR/EC) 20 mg PO DAILY@0630 atenolol 25 mg tablet 25 mg PO BEDTIME Naftin 2 % gel 1 appl topical DAILY
[2022-06-25 22:14] LABS: MANUAL DIFF FLAG NO
[2022-06-25 22:16] LABS: Basophils Percent Auto 0.4 % (0-2); Eosinophils Absolute Auto 0.1 X10*3/uL (0.0-0.4); Eosinophils Percent Auto 1.5 % (0-4); Hemoglobin 15.7 g/dl (14.0-18.0); Imm Gran Abs Auto 0.03 X10*3/uL (0.00-0.03); Imm Gran Pct Auto 0.4 % (0.0-0.4); Lymphocytes Absolute Auto 1.4 X10*3/uL (1.2-4.9); Lymphocytes Percent Auto 17.3 % (20-40); Mean Corpuscular HGB Conc 33.4 g/dl (31.0-36.0); Mean Corpuscular Volume 83.9 fL (80.0-98.0); Mean Platelet Volume 10.6 fL (9.4-12.4); Monocytes Absolute Auto 0.5 X10*3/uL (0.1-1.2); Monocytes Percent Auto 6.6 % (2-11); Neutrophils Percent Auto 73.8 % (45-73); Platelet Count 226 X10*3/uL (160-400); Red Cell Distribution Width 16.6 % (11.0-16.0); White Blood Count 8.2 X10*3/uL (4.8-10.8)
[2022-06-25 22:17] VITALS: BP 149/87; PULSE 93; RESP 16; TEMP 37.5; O2SAT 93; BMI 25.0
--- NOTE | 2022-06-25 22:19 | PC.NURSE ---
PATIENT IS UNABLE TO KEEP TERMOTHER IN HIS MOUTH ,AND DAUGHTER REFUSED RECTAL TEMP .
[2022-06-25 22:28] LABS: Lactic Acid 1.5 mmol/L (0.5-2.0)
[2022-06-25 22:32] LABS: Alanine Aminotransferase 22 U/L (0-40); Albumin Level 3.1 g/dL (3.5-5.0); Alkaline Phosphatase 61 U/L (39-117); Anion Gap 15 (12-20); Aspartate Amino Transferase 28 U/L (5-37); Bilirubin Total 0.6 mg/dL (0.0-1.0); Blood Urea Nitrogen 16 mg/dL (9-16); Carbon Dioxide 26 mmol/L (22-29); Chloride 102 mmol/L (96-108); Creatinine Clr Calc Pharmacy 67.4; Estimated Glomerular Filt Rate > 60; Glucose Random 120 mg/dL (60-115); Magnesium 1.6 mg/dL (1.6-2.6); Potassium 4.7 mmol/L (3.3-5.1); Sodium 138 mmol/L (135-145); Total Protein 6.9 g/dL (6.5-8.0)
[2022-06-25 22:39] LABS: COVID-19 Test Negative (Negative); IDNOW Serial# 55D5AD1C
[2022-06-25 23:28] LABS: B Type Natriuretic Peptide 18 pg/mL (<100); Troponin-I High Sensitivity 4.9 ng/L (<3.5-35.0)
[2022-06-25 23:31] VITALS: BP 133/70; PULSE 95; RESP 18; TEMP 38.3; O2SAT 98
--- NOTE | 2022-06-25 23:32 | PC.NURSE ---
PATIENT WAS CHANGE INTO HOSPITAL ATTIRE BY THIS PCT AND FAMILY MEMBER .
[2022-06-26] VITALS (10 sets, daily range): BP systolic 112–139; BP diastolic 61–79; PULSE 87–111; RESP 15–30; TEMP 36.3–37.8; O2SAT 96–99
[2022-06-26] MEDS: Acetaminophen 325 MG TABLET 650 MG PO ×3 (00:45→20:44)
[2022-06-26 01:06] LABS: Appearance Urine Turbid; Color Urine Yellow; Glucose Urine UA Negative (Negative); Leukocyte Esterase Urine Large (3+) (Negative); Nitrite Urine Negative (Negative); PH 5.5 (5.0-9.0); Specific Gravity - Urine 1.015 (1.005-1.025); UMIC TRIGGER UACC YES; Urine Blood Moderate (2+) (Negative); Urine Ketones Negative (Negative); Urine Protein 30 (1+) mg/dL (Neg-Trace)
[2022-06-26 01:20] LABS: Bacteria Urine 4+ (None Seen); Hyaline Casts Urine 0-2 /LPF (0-2); UACC Culture Trigger YES; WBC Urine >50 /HPF (0-5)
--- NOTE | 2022-06-26 01:26 | ECG_ITS ---
Test Reason : fever Blood Pressure : / mmHG Vent. Rate : 089 BPM Atrial Rate : 089 BPM P-R Int : 150 ms QRS Dur : 086 ms QT Int : 372 ms P-R-T Axes : 011 -33 037 degrees QTc Int : 452 ms Normal sinus rhythm Left axis deviation Moderate voltage criteria for LVH, may be normal variant ( R in aVL , [place] product ) Abnormal ECG When compared with ECG of 22-APR-2022 06:26, No significant change was found Referred By: Sonia Trejo Electronically Signed By:GILBERT YANES
[2022-06-26] MEDS: levoFLOXacin/D5W 750 MG/150 ML PIGGYBACK 100 MG IV (01:27)
[2022-06-26 01:28] LABS: INTERNATIONAL NORM RATIO 2.7 (0.9-1.1); Prothrombin Time 32.9 SEC (10.0-13.1)
[2022-06-26] MEDS: 0.9 % Sodium Chloride 1,000 ML 999 ML IV (01:29)
[2022-06-26 02:23] LABS: Amphetamine Screen Urine Not Detected (Not Detect); Barbiturates, Urine Not Detected (Not Detect); Benzodiazepines Screen Urine Not Detected (Not Detect); Cannabinoid Screen Urine Not Detected (Not Detect); Cocaine Screen Urine Not Detected (Not Detect); Fentanyl, urine Not Detected (Not Detect); Opiate Screen Urine Not Detected (Not Detect); Phencyclidine Screen Urine Not Detected (Not Detect)
--- NOTE | 2022-06-26 02:49 | PM.IMHP ---
History of Present Illness Date of Service: 06/26/22 Chief Complaint: Fever 71-year-old male with a past medical history of dementia, nonverbal, bedbound, history of recurrent UTIs, ascending aortic aneurysm, DVT on Coumadin, COPD, CKD stage 3, depression, history of valvular heart disease; presented to the hospital today with a chief complaint of fevers. Most of the history obtained from the patient's daughter at bedside. Reportedly patient has had recurrent urinary tract infections. Was on cephalexin about a week ago; over the past 2 days he started developed fevers again; was started on levofloxacin by his PCP. Even on levofloxacin for past 2 days he continued to have fevers; subsequently patient's PCP asked him to go to the ER for further evaluation. Denies patient complaining of any abdominal pain. Usually takes pureed diet. Denies having cough or sputum production. Denies any concerns for aspiration currently. Denies any decubitus ulcers. Denies any falls or trauma. Review of all other systems is negative except mentioned above ER course: Per ER team patient on presentation noted to be febrile; urinalysis abnormal consistent with UTI. Given levofloxacin. Admitted to the hospital for further management. [facility] Medical History Acute deep vein thrombosis (DVT) Altered mental status Ascending aortic aneurysm Bleeding hemorrhoids Chronic anticoagulation CKD (chronic kidney disease) COPD (chronic obstructive pulmonary disease) COVID Depression Encephalopathy Febrile Heart valve disease Non-rheumatic aortic regurgitation Family History Father History of prostate cancer Surgical History History of inguinal hernia repair Hx of cholecystectomy Social History (System 05/29/22 @ 07:01 by Cammy Franklin) Household Members: Unknown / Unable to assess Unable to assess alcohol history related to: Unable to respond Alcohol intake: never Patient Tobacco Use Status: Tobacco use Unknown Advance Directives: No Advance Directives Information Provided: No service: No Current occupational status: disabled Meds Allergies Allergy/AdvReac Type Severity Reaction Status Date / Time oxycodone [OXYCODONE] Allergy Severe Decrease BP Verified 05/29/22 07:01 Iodinated Contrast Media Allergy Intermediate CKD PER Verified 05/29/22 07:01 [IVP DYE] DAUGHTER PT IS NOT TO HAVE DUE TO KIDNEYS tramadol [TRAMADOL] Allergy Intermediate PER Verified 05/29/22 07:01 DAUGHTER PT PASSED OUT, weakness Nuts Allergy Severe GI Stomach Uncoded 05/29/22 07:01 Bleed Active Medications: Current Medications Acetaminophen (Acetaminophen 325 Mg Tablet) 650 mg PO Q6H PRN PRN Reason: Pain, Mild (Pain Scale 1-3) Heparin Sodium (Porcine) (Heparin Sodium,Porcine 5,000 Unit/Ml Vial) 5,000 unit SUBCUT Q12H THOMAS Levofloxacin (Levaquin) 750 mg in 150 mls @ 100 mls/hr IV ONCE ONE Stop: 06/26/22 02:50 Last Admin: 06/26/22 01:27 Dose: 100 mls/hr Dextrose/Sodium Chloride (D5ns) 1,000 mls @ 50 mls/hr IVCONT .Q20H [facility]OMAS Meropenem 1 gm/ Sodium (Chloride) 100 mls @ 200 mls/hr IV Q12H [facility]OMAS Melatonin (Melatonin 3 Mg Tablet) 6 mg PO BEDTIME PRN PRN Reason: Insomnia Pharmacy Consult (Consult Rx Perform Med Rec) 1 each MISCELLANE ONCE PRN PRN Reason: Consult order Senna (Sennosides 8.6 Mg Tablet) 17.2 mg PO BEDTIME PRN PRN Reason: Constipation Sodium Chloride (0.9 % Sodium Chloride Flush 3 Ml Syringe) 3 ml IVFLUSH QSHIFT [facility] Home Medications Medication Instructions Recorded Confirmed Last Taken Type atenolol 25 mg tablet 25 mg PO BEDTIME 07/26/20 06/09/22 05/20/22 History omeprazole 20 mg capsule,delayed 20 mg PO DAILY@0630 07/26/20 06/09/22 05/20/22 History release spironolactone 25 mg tablet 25 mg PO DAILY 08/20/20 06/09/22 05/20/22 History warfarin 5 mg tablet 5 mg PO SUTUFRSA@1800 05/02/21 06/09/22 05/20/22 History naftifine 2 % topical gel (Naftin) 1 appl topical DAILY mycosis 07/02/21 06/09/22 05/20/22 History albuterol sulfate 2.5 mg/3 mL 2.5 mg inhalation Q4H PRN 04/22/22 06/09/22 Unknown History (0.083 %) solution for nebulization Respiratory Distress allopurinol 100 mg tablet 100 mg PO DAILY 04/22/22 06/09/22 05/20/22 History diaper,brief,adult,disposable 05/12/22 06/09/22 Unknown History (Select Briefs) acetaminophen 325 mg tablet 650 mg PO Q6H PRN Fever 05/21/22 06/09/22 Unknown History (Tylenol) docusate sodium 50 mg capsule 50 mg PO DAILY PRN Constipation 05/21/22 06/09/22 Unknown History Physical Exam Vital Signs and Narrative: Vital Signs: Last Vital Signs Temp 99.3 F 06/26/22 02:00 Pulse 87 06/26/22 02:00 Resp 20 06/26/22 02:00 BP 121/65 06/26/22 02:00 Pulse Ox 99 06/26/22 02:00 O2 Del Method 06/26/22 02:00 O2 Flow Rate 2 06/26/22 02:00 Oxygen Flow Rate 2 06/25/22 22:17 BMI result Body Mass Index 25.0 Gen: Appears be in no acute distress. Lying comfortably in the bed. HEENT: NCAT, Moist mucosa. Pulmonary: Vesicular breath sounds, fair air entry CVS: Normal S1-S2 Abdomen: BS+, Soft, Nontender Extremities: Warm well perfused Neuro: Alert and awake. Contracted. Results Labs CBC and Chem 7: 06/25/22 22:09 06/25/22 22:09 Labs: Laboratory Results - last 24 hr 06/25/22 06/25/22 06/25/22 22:09 22:09 22:09 MCV 83.9 MCH 28.0 MCHC 33.4 RDW 16.6 H Plt Count 226 MPV 10.6 Immature Gran % (Auto) 0.4 Neut % (Auto) 73.8 H Lymph % (Auto) 17.3 L [place] % (Auto) 6.6 Eos % (Auto) 1.5 Baso % (Auto) 0.4 Lymph # (Auto) 1.4 [place] # (Auto) 0.5 Eos # (Auto) 0.1 Baso # (Auto) 0.0 Abs Immat Gran (auto) 0.03 Absolute Neuts (auto) 6.0 Absolute Nucleated RBC 0.000 Nucleated RBC % (auto) 0.0 PT INR Anion Gap 15 Estim Creat Clear Calc 67.4 Estimated GFR > 60 Random Glucose 120 H Lactic Acid 1.5 Calcium 9.0 D Magnesium 1.6 Total Bilirubin 0.6 AST 28 ALT 22 Alkaline Phosphatase 61 B-Natriuretic Peptide Total Protein 6.9 Albumin 3.1 L Urine Color Urine Appearance Urine pH Ur Specific [place] Urine Protein Urine Glucose (UA) Urine Ketones Urine Blood Urine Nitrite Ur Leukocyte Esterase Urine RBC Urine WBC Ur Squamous Epith Cells Urine Bacteria Hyaline Casts Urine Yeast Urine Opiates Screen Urine Fentanyl Screen Ur Barbiturates Screen Ur Phencyclidine Scrn Ur Amphetamines Screen U Benzodiazepines Scrn Urine Cocaine Screen U Marijuana (THC) Screen COVID-19 (KESHAV) COVID-19 TabUp Com 06/25/22 06/25/22 06/26/22 22:09 22:09 00:48 MCV MCH MCHC RDW Plt Count MPV Immature Gran % (Auto) Neut % (Auto) Lymph % (Auto) [place] % (Auto) Eos % (Auto) Baso % (Auto) Lymph # (Auto) [place] # (Auto) Eos # (Auto) Baso # (Auto) Abs Immat Gran (auto) Absolute Neuts (auto) Absolute Nucleated RBC Nucleated RBC % (auto) PT INR Anion Gap Estim Creat Clear Calc Estimated GFR Random Glucose Lactic Acid Calcium Magnesium Total Bilirubin AST ALT Alkaline Phosphatase B-Natriuretic Peptide 18 Total Protein Albumin Urine Color Yellow Urine Appearance Turbid Urine pH 5.5 Ur Specific [place] 1.015 Urine Protein 30 (1+) H Urine Glucose (UA) Negative Urine Ketones Negative Urine Blood Moderate (2+) H Urine Nitrite Negative Ur Leukocyte Esterase Large (3+) H Urine RBC 11-20 H Urine WBC >50 H Ur Squamous Epith Cells 3-5 Urine Bacteria 4+ Hyaline Casts 0-2 Urine Yeast Present Urine Opiates Screen Urine Fentanyl Screen Ur Barbiturates Screen Ur Phencyclidine Scrn Ur Amphetamines Screen U Benzodiazepines Scrn Urine Cocaine Screen U Marijuana (THC) Screen COVID-19 (KESHAV) Negative COVID-19 TabUp Com See Note 06/26/22 06/26/22 00:48 01:13 MCV MCH MCHC RDW Plt Count MPV Immature Gran % (Auto) Neut % (Auto) Lymph % (Auto) [place] % (Auto) Eos % (Auto) Baso % (Auto) Lymph # (Auto) [place] # (Auto) Eos # (Auto) Baso # (Auto) Abs Immat Gran (auto) Absolute Neuts (auto) Absolute Nucleated RBC Nucleated RBC % (auto) PT 32.9 H INR 2.7 H Anion Gap Estim Creat Clear Calc Estimated GFR Random Glucose Lactic Acid Calcium Magnesium Total Bilirubin AST ALT Alkaline Phosphatase B-Natriuretic Peptide Total Protein Albumin Urine Color Urine Appearance Urine pH Ur Specific [place] Urine Protein Urine Glucose (UA) Urine Ketones Urine Blood Urine Nitrite Ur Leukocyte Esterase Urine RBC Urine WBC Ur Squamous Epith Cells Urine Bacteria Hyaline Casts Urine Yeast Urine Opiates Screen Not Detected Urine Fentanyl Screen Not Detected Ur Barbiturates Screen Not Detected Ur Phencyclidine Scrn Not Detected Ur Amphetamines Screen Not Detected U Benzodiazepines Scrn Not Detected Urine Cocaine Screen Not Detected U Marijuana (THC) Screen Not Detected COVID-19 (KESHAV) COVID-19 Clin Com Imaging Radiologist's Impressions: Impressions Chest X-Ray 06/25/22 21:50 IMPRESSION: Cardiopulmonary findings are nonspecific, but suggest CHF. Atypical infection would be less likely but cannot be excluded given the patient's history. Correlate clinically. This represents interval worsening from the previous study. Abdomen/Pelvis CT 06/26/22 00:49 IMPRESSION: Scattered subtle groundglass opacity in the lungs with mild reticulation. No significant septal thickening. Motion in the lungs limits the evaluation. The appearance favors infectious/inflammatory process. Edema possible. 0.3 cm right upper lobe pulmonary nodule. According to the UPDATED 2017 Fleischner Society recommendations, the advised follow-up imaging for solid nodules < 6 mm is: LOW RISK PATIENT: No routine follow-up. HIGH RISK PATIENT: Optional CT at 12 months. No suspicious findings in the abdomen or pelvis. Chest CT 06/26/22 00:49 IMPRESSION: Scattered subtle groundglass opacity in the lungs with mild reticulation. No significant septal thickening. Motion in the lungs limits the evaluation. The appearance favors infectious/inflammatory process. Edema possible. 0.3 cm right upper lobe pulmonary nodule. According to the UPDATED 2017 Fleischner Society recommendations, the advised follow-up imaging for solid nodules < 6 mm is: LOW RISK PATIENT: No routine follow-up. HIGH RISK PATIENT: Optional CT at 12 months. No suspicious findings in the abdomen or pelvis. Assessment and Plan (1) UTI (urinary tract infection): Status: Acute Plan 71-year-old male with a past medical history of dementia, nonverbal, bedbound, history of recurrent UTIs, ascending aortic aneurysm, DVT on Coumadin, COPD, CKD stage 3, depression, history of valvular heart disease; presented to the hospital today with a chief complaint of fevers. Noted to have UTI. Admitted for further management. Recurrent UTI: Patient was on ciprofloxacin/cephalexin/levofloxacin recently. Patient developed fevers while on levofloxacin. Will give the patient on IV meropenem. Id consult Follow-up cultures Renal ultrasound History of dementia/nonverbal/bed-bound/dysphagia: Patient on pureed Diet. Aspiration precautions. Speech and swallow follow-up. History of DVT: Continue home Coumadin. Follow-up INR. DVT prophylaxis: Subcu heparin. Code status: DNR/DNI. Confirmed with the patient's daughter at bedside Quality Stroke Does the patient have a stroke diagnosis?: No VTE Prior VTE?: No VTE Risk Level:: Medical - moderate - high VTE Device Contraindication: Treatment Not Indicated VTE Drug Contraindication: N/A - Med Ordered
[2022-06-26] MEDS: Heparin Sodium,Porcine 5,000 UNIT/ML VIAL 5000 UNIT SUBCUT (03:28)
[2022-06-26] MEDS: Dextrose 5 % and 0.9 % NaCl 1,000 ML 50 ML IVCONT ×2 (03:29→21:15)
[2022-06-26 06:43] LABS: MANUAL DIFF FLAG NO
[2022-06-26 06:57] LABS: Basophils Percent Auto 0.1 % (0-2); Eosinophils Absolute Auto 0.1 X10*3/uL (0.0-0.4); Eosinophils Percent Auto 1.8 % (0-4); Hematocrit 43.2 % (42.0-52.0); Hemoglobin 14.3 g/dl (14.0-18.0); Imm Gran Abs Auto 0.03 X10*3/uL (0.00-0.03); Imm Gran Pct Auto 0.4 % (0.0-0.4); Lymphocytes Absolute Auto 1.3 X10*3/uL (1.2-4.9); Lymphocytes Percent Auto 18.2 % (20-40); Mean Corpuscular HGB Conc 33.1 g/dl (31.0-36.0); Mean Corpuscular Volume 84.7 fL (80.0-98.0); Mean Platelet Volume 11.3 fL (9.4-12.4); Monocytes Absolute Auto 0.6 X10*3/uL (0.1-1.2); Monocytes Percent Auto 7.8 % (2-11); Neutrophils Absolute Auto 5.1 x10*3/uL (2.0-8.3); Neutrophils Percent Auto 71.7 % (45-73); Platelet Count 211 X10*3/uL (160-400); Red Cell Distribution Width 16.2 % (11.0-16.0); White Blood Count 7.1 X10*3/uL (4.8-10.8)
[2022-06-26 07:00] LABS: INTERNATIONAL NORM RATIO 3.1 (0.9-1.1); Prothrombin Time 36.9 SEC (10.0-13.1)
[2022-06-26 07:07] LABS: Anion Gap 14 (12-20); Blood Urea Nitrogen 12 mg/dL (9-16); Calcium 8.4 mg/dL (8.4-10.2); Carbon Dioxide 23 mmol/L (22-29); Chloride 105 mmol/L (96-108); Creatinine Clr Calc Pharmacy 80.5; Estimated Glomerular Filt Rate > 60; Glucose Random 95 mg/dL (60-115); Potassium 4.1 mmol/L (3.3-5.1); Sodium 138 mmol/L (135-145)
--- NOTE | 2022-06-26 08:34 | PHA.MEDREC ---
Pharmacy Consult ? Medication Reconciliation Pharmacy has completed the medication reconciliation.
--- NOTE | 2022-06-26 12:00 | MHC.SL.SWA ---
Speech Pathologist Impression: Risk of Aspiration Due to: Medically Fragile Reduced Cognition Dysphasia Diet Status: Mild oral pharyngeal dysphagia. Ground/Mechanical/Altered (NDD2) with THIN liquids, Pills CRUSHED in puree. Liquid Consistency and Strategies for Safe Swallow: Liquid Intake Recommendation: Thin Liquid Intake Strategies: Small Sips Solid Food Consistency: Dietary Recommendations: Grnd/Mech Altered (NDD2) Additional Modifications to Solid Foods: Patient needs 1-1 assist with meals. Patient tolerates head of bed at 70 Degrees, evidences pain if head elevated any further. Patient is able to drink with straw, however closely monitor to keep from taking large chain sips. Oral Medication Intake: Crushed with Puree Please contact the pharmacy regarding appropriate crushable or liquid drug formulations that are available whenever modified delivery is recommended. Compensatory Strategies and Precautions to be Taken for Safe Swallow: Liquids from Cup Liquids from Straw Small Bites and Sips Alternate Liquids/Solids Supervision While Eating and Drinking for Safe Swallow: Total Assistance (1:1) Foods to Avoid: Avoid mixed consistencies (e.g. cereal and milk), blend in sauces and gravies. Swallowing Recommended Treatments: Compens. Strategy Educat. Recommendation for Speech: Inpatient Speech Therapy Comment: Patient presents with a mild oral pharyngeal dysphagia characterized by mild delay of oral phase and mild delay initiating swallow on solid consistencies. Patient tolerates thin liquids well, is able to tolerate by straw with supervision to keep from chain sipping/gulping liquid. Patient reportedly will pocket pills orally if given whole. Recommend UPGRADE/START diet of Ground/Mechanical/Altered (NDD2) with THIN liquids, Pills CRUSHED in puree. Per daughter this is patients baseline. NOTE: Patient is only able to tolerate head of bed at 70 degrees at maximum due to previous hip injure, contracted legs. Patient requires 1-1 feed. , RD notified of recommendations by secure text, discussed with RN in person. MCAT INSTRUCTOR will continue to follow to assess toleration of diet, re-assess swallow. Frequency/Duration: M-F while inpatient. Date Range for Service Req: Timeline to reassess: Phototypesetter Operator Clinican/Clinical Fellow: No Supervisory Statement: I have reviewed and agree with the student/clinical fellow's documentation: N/A Speech Language Pathologist: Sidra Mcclain M.A., [facility]-MCAT INSTRUCTOR
--- NOTE | 2022-06-26 12:08 | PM.EVENT ---
Event Note Date of Service: 06/26/22 Event Note: Patient seen and examined. Agree with the H&P as outlined. Await ID consult
[2022-06-26] MEDS: Warfarin Sodium 5 MG TABLET PO (18:16)
[2022-06-26] MEDS: atenoloL 25 MG TABLET PO (20:44)
[2022-06-26] MEDS: Melatonin 3 MG TABLET 6 MG PO (20:44)
[2022-06-27 03:39] VITALS: BP 114/68; PULSE 65; RESP 17; TEMP 36.5; O2SAT 96
[2022-06-27] MEDS: Omeprazole 20 MG CAPSULE.DR PO (05:58)
[2022-06-27 06:50] LABS: MANUAL DIFF FLAG NO
[2022-06-27 06:54] LABS: Basophils Percent Auto 0.3 % (0-2); Eosinophils Absolute Auto 0.1 X10*3/uL (0.0-0.4); Eosinophils Percent Auto 1.4 % (0-4); Hematocrit 42.1 % (42.0-52.0); Hemoglobin 14.2 g/dl (14.0-18.0); Imm Gran Abs Auto 0.03 X10*3/uL (0.00-0.03); Imm Gran Pct Auto 0.4 % (0.0-0.4); Lymphocytes Percent Auto 13.5 % (20-40); Mean Corpuscular HGB Conc 33.7 g/dl (31.0-36.0); Mean Corpuscular Hemoglobin 28.6 pg (27.0-33.0); Mean Corpuscular Volume 84.9 fL (80.0-98.0); Mean Platelet Volume 11.3 fL (9.4-12.4); Monocytes Absolute Auto 0.5 X10*3/uL (0.1-1.2); Monocytes Percent Auto 6.3 % (2-11); Neutrophils Percent Auto 78.1 % (45-73); Platelet Count 209 X10*3/uL (160-400); Red Blood Count 4.96 X10*6/uL (4.60-5.80); Red Cell Distribution Width 16.4 % (11.0-16.0); White Blood Count 7.6 X10*3/uL (4.8-10.8)
[2022-06-27 07:01] LABS: INTERNATIONAL NORM RATIO 4.2 (0.9-1.1); Prothrombin Time 51.5 SEC (10.0-13.1)
[2022-06-27 07:31] LABS: Alanine Aminotransferase 18 U/L (0-40); Albumin Level 2.7 g/dL (3.5-5.0); Alkaline Phosphatase 56 U/L (39-117); Anion Gap 14 (12-20); Aspartate Amino Transferase 22 U/L (5-37); Bilirubin Total 0.4 mg/dL (0.0-1.0); Blood Urea Nitrogen 12 mg/dL (9-16); Calcium 8.3 mg/dL (8.4-10.2); Carbon Dioxide 21 mmol/L (22-29); Chloride 108 mmol/L (96-108); Creatinine Clr Calc Pharmacy 81.6; Estimated Glomerular Filt Rate > 60; Glucose Fasting 142 mg/dL (60-99); Potassium 3.9 mmol/L (3.3-5.1); Sodium 139 mmol/L (135-145); Total Protein 5.9 g/dL (6.5-8.0)
[2022-06-27 08:00] VITALS: BP 132/71; PULSE 97; RESP 13; TEMP 37; O2SAT 97
--- NOTE | 2022-06-27 10:01 | MHC.SL.SWA ---
Speech Pathologist Impression: Oropharyngeal dysphagia Risk of Aspiration Due to: Medically Fragile Reduced Cognition Dysphasia Diet Status: Upgrade liquids, maintain pureed recc Liquid Consistency and Strategies for Safe Swallow: Liquid Intake Recommendation: Thin Liquid Intake Strategies: Small Sips No Straws Solid Food Consistency: Dietary Recommendations: Pureed (NDD1) Additional Modifications to Solid Foods: Pt to be seated in utmost position pt can tolerate for intake of PO. Pt requires total 1:1 assistance feeding, close monitoring for any s/s of aspiration, strict aspiration precautions. Oral Medication Intake: Crushed with Puree Please contact the pharmacy regarding appropriate crushable or liquid drug formulations that are available whenever modified delivery is recommended. Compensatory Strategies and Precautions to be Taken for Safe Swallow: Sitting Upright (90 deg) No Straw Liquids from Cup Liquids from Spoon Small Bites and Sips Rate of Ingestion Change Oral Check Supervision While Eating and Drinking for Safe Swallow: Total Assistance (1:1) Foods to Avoid: Avoid mixed consistencies (e.g. cereal and milk) Swallowing Recommended Treatments: Compens. Strategy Educat. Recommendation for Speech: Inpatient Speech Therapy Stencil Typist Clinican/Clinical Fellow: No Supervisory Statement: I have reviewed and agree with the student/clinical fellow's documentation: N/A Speech Language Pathologist: Ginny Wright M.A., CCC-[employer]ER
[2022-06-27] MEDS: allopurinoL 100 MG TABLET PO (11:11)
[2022-06-27] MEDS: Spironolactone 25 MG TABLET PO (11:11)
--- NOTE | 2022-06-27 12:39 | P.PNIM_ITS ---
Subjective Subjective Date of Service: 06/27/22 Interval History: No acute issues overnight Review of Systems Unable to obtain Physical Exam Vital Signs: Vital Signs: Last Vital Signs Temp 98.6 F 06/27/22 08:00 Pulse 97 06/27/22 08:00 Resp 13 06/27/22 08:00 BP 132/71 06/27/22 08:00 Pulse Ox 97 06/27/22 08:00 O2 Del Method 06/27/22 08:00 O2 Flow Rate 2.0 06/27/22 08:00 Oxygen Flow Rate 2 06/25/22 22:17 BMI result Body Mass Index 25.0 Const: Other: Awake nonverbal Resp: Other: Scant crackles left base Cardio: Other: No S4; positive S1-S2; no S3 murmurs rubs or gallops GI: Other: Soft nontender nondistended normoactive bowel sounds Extrem: Other: No edema bilaterally Objective Data Active Medications Acetaminophen (Acetaminophen 325 Mg Tablet) 650 mg PO Q6H PRN PRN Reason: Pain, Mild (Pain Scale 1-3) Last Admin: 06/26/22 20:44 Dose: 650 mg Documented By: LEE ANN Acetaminophen (Acetaminophen 325 Mg Tablet) 650 mg PO Q6H PRN PRN Reason: Fever Albuterol Sulfate (Albuterol Sulfate (0.083%) 2.5 Mg/3 Ml Vial.Neb) 2.5 mg INHALE Q4H PRN PRN Reason: Respiratory Distress Allopurinol (Allopurinol 100 Mg Tablet) 100 mg PO DAILY [facility] Last Admin: 06/27/22 11:11 Dose: 100 mg Documented By: VICENTE Atenolol (Atenolol 25 Mg Tablet) 25 mg PO BEDTIME [facility]; Protocol Last Admin: 06/26/22 20:44 Dose: 25 mg Documented By: LEE ANN Docusate Sodium (Docusate Sodium 100 Mg/10 Ml Liquid) 50 mg PO DAILY PRN PRN Reason: Constipation Dextrose/Sodium Chloride (D5ns) 1,000 mls @ 50 mls/hr IVCONT .Q20H [facility] Last Admin: 06/26/22 21:15 Dose: 50 mls/hr Documented By: LEE ANN Meropenem 1 gm/ Sodium (Chloride) 100 mls @ 200 mls/hr IV Q12H [facility] Last Infusion: 06/27/22 05:01 Dose: 0 mls/hr Documented By: LEE ANN Melatonin (Melatonin 3 Mg Tablet) 6 mg PO BEDTIME PRN PRN Reason: Insomnia Last Admin: 06/26/22 20:44 Dose: 6 mg Documented By: LEE ANN Omeprazole (Omeprazole 20 Mg Capsule.Dr) 20 mg PO DAILY@0630 [facility] Last Admin: 06/27/22 05:58 Dose: 20 mg Documented By: LEE ANN Pharmacy Consult (Consult Rx Perform Med Rec) 1 each MISCELLANE ONCE PRN PRN Reason: Consult order Senna (Sennosides 8.6 Mg Tablet) 17.2 mg PO BEDTIME PRN PRN Reason: Constipation Sodium Chloride (0.9 % Sodium Chloride Flush 3 Ml Syringe) 3 ml IVFLUSH QSHIFT [facility] Last Admin: 06/27/22 07:57 Dose: Not Given Documented By: VICENTE Non-Admin Reason: IV Running Spironolactone (Spironolactone 25 Mg Tablet) 25 mg PO DAILY [facility]; Protocol Last Admin: 06/27/22 11:11 Dose: 25 mg Documented By: VICENTE Warfarin Sodium (Warfarin Sodium 5 Mg Tablet) 5 mg PO SuTuThSa@1800 [facility] Last Admin: 06/26/22 18:16 Dose: 5 mg Documented By: REGIS Labs CBC & Chem 7: 06/27/22 05:56 06/27/22 05:56 Labs: Laboratory Results - last 24 hr 06/27/22 06/27/22 06/27/22 05:56 05:56 05:56 MCV 84.9 MCH 28.6 MCHC 33.7 RDW 16.4 H Plt Count 209 MPV 11.3 Immature Gran % (Auto) 0.4 Neut % (Auto) 78.1 H Lymph % (Auto) 13.5 L [place] % (Auto) 6.3 Eos % (Auto) 1.4 Baso % (Auto) 0.3 Lymph # (Auto) 1.0 L [place] # (Auto) 0.5 Eos # (Auto) 0.1 Baso # (Auto) 0.0 Abs Immat Gran (auto) 0.03 Absolute Neuts (auto) 6.0 Absolute Nucleated RBC 0.000 Nucleated RBC % (auto) 0.0 PT 51.5 H INR 4.2 H Anion Gap 14 Estim Creat Clear Calc 81.6 Estimated GFR > 60 Fasting Glucose 142 H Calcium 8.3 L Total Bilirubin 0.4 AST 22 ALT 18 Alkaline Phosphatase 56 Total Protein 5.9 L Albumin 2.7 L Microbiology Microbiology Results: Microbiology 06/26/22 08:11 Urine Culture - Preliminary Urine clean catch - Clean Catch Midstream Yeast 06/25/22 22:09 Blood Culture - Preliminary Blood - Venous Prelim: GPC Gram Stain only 06/25/22 22:09 Blood Culture - Preliminary Blood - Venous No growth after 24 hours. Assessment and Plan (1) UTI (urinary tract infection): Status: Acute (2) Alzheimer's dementia: Status: Acute (3) Right leg DVT: Status: Acute Plan 71-year-old male with a past medical history of dementia, nonverbal, bedbound, history of recurrent UTIs, ascending aortic aneurysm, DVT on Coumadin, COPD, CKD stage 3, depression, history of valvular heart disease; presented to the hospital today with a chief complaint of fevers. Noted to have UTI. Admitted for further management. 1.Recurrent UTI: -continue meropenem pending cultures -await ID input 2.Dementia(Alzheimer's type) -pureed diet/thin liquids per daughter -continue conservative care (patient bedbound nonverbal) 3.History of DVT -Coumadin as ordered -daily INRs 4.Atypical infiltrates -empirical Azithomycin Coumadin DNR DNI Patient requires ongoing hospitalization for IV antibiotics to treat urine pending culture an ID Quality Stroke Does the patient have a stroke diagnosis?: No VTE Prior VTE?: No VTE Risk Level:: Medical - moderate - high VTE Device Contraindication: Treatment Not Indicated VTE Drug Contraindication: N/A - Med Ordered
--- NOTE | 2022-06-27 12:41 | MHC.CM.PN ---
CM MET WITH PTS DAUGHTER, RIANA, AT BEDSIDE SHE REPORTS SHE AND HER BROTHER PROVIDE 24 HOUR CARE FOR THE PT PART OF THE [employer] PROGRAM SHE REPORTS THERE IS ALSO A NURSE AND STUNT PERFORMER THAT CHECK IN AT LEAST ONCE MONTHLY SHE SAYS HER FATHER IS NOW BED BOUND HCP ON FILE NOT COVID VACCINATED PCP: ROBYN DANIELS IMM DELIVERED CURRENT DC PLAN IS HOME WITH RESUMPTION OF SERVICES BLS TRANSPORT NEEDED
[2022-06-27 15:33] VITALS: BP 151/74; PULSE 97; RESP 16; TEMP 36.7; O2SAT 98
--- NOTE | 2022-06-27 16:12 | MHC.CLN ---
NUTRITION CONSULT FOR IMPAIRED SKIN INTEGRITY. ONEYDA=15. REDNESS TO GROIN, DRY HEELS. NO OPEN AREAS NOTED. DIET=PUREE. INTAKE VARIABLE. NO ADDITIONAL NUTRITION INTERVENTIONS AT THIS TIME.
[2022-06-27] MEDS: Azithromycin 500 MG in 0.9 % Sodium Chloride 250 ML 125 MG IV (16:18)
--- NOTE | 2022-06-27 16:24 | P.CNID_ITS ---
History of Present Illness Data of Consult Service Date: 06/27/22 Requesting physician: Leonard Jewell Primary Care Provider: Sara Joel MD HPI Reason for consult: fever of unknown origin He presents with fever of unknown origin to ER. He has been treated with Keflex reportedly for reported UTI. He has some lower areas lung bases atelectasis/infiltrate Review of Systems Review of Systems: Yes Unobtainable due to mental status PMFSH Past Medical History Medical History Acute deep vein thrombosis (DVT) Altered mental status Alzheimer's dementia Ascending aortic aneurysm Bleeding hemorrhoids Chronic anticoagulation CKD (chronic kidney disease) COPD (chronic obstructive pulmonary disease) COVID Depression Encephalopathy Febrile Heart valve disease Non-rheumatic aortic regurgitation Family History Family History Father History of prostate cancer Family history: reviewed and not pertinent Surgical History Surgical History History of inguinal hernia repair Hx of cholecystectomy Social History Social History Household Members: Family Housing: Apartment Do you presently have visiting nurse or other home services: No Unable to assess alcohol history related to: Unable to respond Alcohol intake: never Patient Tobacco Use Status: Tobacco use Unknown service: No Current occupational status: disabled Meds Allergies Allergy/AdvReac Type Severity Reaction Status Date / Time nut - unspecified Allergy Severe GI Stomach Verified 06/27/22 10:58 Bleed oxycodone [OXYCODONE] Allergy Severe Decrease BP Verified 05/29/22 07:01 Iodinated Contrast Media Allergy Intermediate CKD PER Verified 05/29/22 07:01 [IVP DYE] DAUGHTER PT IS NOT TO HAVE DUE TO KIDNEYS Sulfa (Sulfonamide Allergy Intermediate Rash Verified 06/26/22 10:37 Antibiotics) tramadol [TRAMADOL] Allergy Intermediate PER Verified 05/29/22 07:01 DAUGHTER PT PASSED OUT, weakness Active Medications: Current Medications Acetaminophen (Acetaminophen 325 Mg Tablet) 650 mg PO Q6H PRN PRN Reason: Pain, Mild (Pain Scale 1-3) Last Admin: 06/26/22 20:44 Dose: 650 mg Acetaminophen (Acetaminophen 325 Mg Tablet) 650 mg PO Q6H PRN PRN Reason: Fever Albuterol Sulfate (Albuterol Sulfate (0.083%) 2.5 Mg/3 Ml Vial.Neb) 2.5 mg INHALE Q4H PRN PRN Reason: Respiratory Distress Allopurinol (Allopurinol 100 Mg Tablet) 100 mg PO DAILY [facility] Last Admin: 06/27/22 11:11 Dose: 100 mg Atenolol (Atenolol 25 Mg Tablet) 25 mg PO BEDTIME [facility]; Protocol Last Admin: 06/26/22 20:44 Dose: 25 mg Docusate Sodium (Docusate Sodium 100 Mg/10 Ml Liquid) 50 mg PO DAILY PRN PRN Reason: Constipation Dextrose/Sodium Chloride (D5ns) 1,000 mls @ 50 mls/hr IVCONT .Q20H [facility] Last Admin: 06/26/22 21:15 Dose: 50 mls/hr Azithromycin 500 mg/ Sodium (Chloride) 250 mls @ 125 mls/hr IV ONCE ONE Stop: 06/27/22 17:33 Melatonin (Melatonin 3 Mg Tablet) 6 mg PO BEDTIME PRN PRN Reason: Insomnia Last Admin: 06/26/22 20:44 Dose: 6 mg Omeprazole (Omeprazole 20 Mg Capsule.) 20 mg PO DAILY@0630 [facility] Last Admin: 06/27/22 05:58 Dose: 20 mg Pharmacy Consult (Consult Rx Perform Med Rec) 1 each MISCELLANE ONCE PRN PRN Reason: Consult order Senna (Sennosides 8.6 Mg Tablet) 17.2 mg PO BEDTIME PRN PRN Reason: Constipation Sodium Chloride (0.9 % Sodium Chloride Flush 3 Ml Syringe) 3 ml IVFLUSH QSHIFT [facility] Last Admin: 06/27/22 15:33 Dose: Not Given Spironolactone (Spironolactone 25 Mg Tablet) 25 mg PO DAILY [facility]; Protocol Last Admin: 06/27/22 11:11 Dose: 25 mg Warfarin Sodium (Warfarin Sodium 5 Mg Tablet) 5 mg PO SuTuThSa@1800 [facility] Last Admin: 06/26/22 18:16 Dose: 5 mg Home Medications Medication Instructions Recorded Confirmed Last Taken Type atenolol 25 mg tablet 25 mg PO BEDTIME 07/26/20 06/26/22 05/20/22 History omeprazole 20 mg capsule,delayed 20 mg PO DAILY@0630 07/26/20 06/26/22 05/20/22 History release spironolactone 25 mg tablet 25 mg PO DAILY 08/20/20 06/26/22 05/20/22 History warfarin 5 mg tablet 5 mg PO SUTUFRSA@1800 05/02/21 06/26/22 05/20/22 History naftifine 2 % topical gel (Naftin) 1 appl topical DAILY mycosis 07/02/21 06/26/22 05/20/22 History albuterol sulfate 2.5 mg/3 mL 2.5 mg inhalation Q4H PRN 04/22/22 06/26/22 Unknown History (0.083 %) solution for nebulization Respiratory Distress allopurinol 100 mg tablet 100 mg PO DAILY 04/22/22 06/26/22 05/20/22 History diaper,brief,adult,disposable 05/12/22 06/26/22 Unknown History (Select Briefs) acetaminophen 325 mg tablet 650 mg PO Q6H PRN Fever 05/21/22 06/26/22 Unknown History (Tylenol) docusate sodium 50 mg capsule 50 mg PO DAILY PRN Constipation 05/21/22 06/26/22 Unknown History levofloxacin 250 mg/10 mL oral 20 ml PO DAILY 06/26/22 06/26/22 Unknown History solution Physical Exam Vital Signs: Vital Signs: Last Vital Signs Temp 98.1 F 06/27/22 15:33 Pulse 97 06/27/22 15:33 Resp 16 06/27/22 15:33 BP 151/74 H 06/27/22 15:33 Pulse Ox 98 06/27/22 15:33 O2 Del Method 06/27/22 15:33 O2 Flow Rate 2 06/27/22 15:33 Oxygen Flow Rate 2 06/25/22 22:17 BMI result Body Mass Index 25.0 Const: General: cooperative HEENT: Head: Yes normal to inspection Face and sinus: Yes normal facial exam Mouth: Normal oral and palatal mucosa present Teeth and gingiva: dentition normal Eyes: General: appearance normal, both eyes and all related structures Pupils: Equal, round and reactive pupils present Resp: Effort & Inspection: normal respiratory effort Cardio: Rate: regular rate Rhythm: regular rhythm GI: Palpation (GI): Soft to palpation and nontender : General: Yes no CVA tenderness Back/Spine/Pelvis: Back: no CVA tenderness Skin: General skin exam: no rashes or lesions noted Neuro: General: moves all extremities Cranial nerves: Yes Equal, round and reactive pupils present Extrem: General: Yes normal to inspection Psych: Other: mute Appearance: grossly normal Results Labs CBC & Chem 7: 06/27/22 05:56 06/27/22 05:56 Labs: Short CBC 06/27/22 Range/Units 05:56 WBC 7.6 (4.8-10.8) X10*3/uL Hgb 14.2 (14.0-18.0) g/dl Hct 42.1 (42.0-52.0) % Plt Count 209 (160-400) X10*3/uL BMP 06/27/22 05:56 Sodium 139 Potassium 3.9 Chloride 108 Carbon Dioxide 21 L BUN 12 Creatinine 0.76 Calcium 8.3 L Liver Function 06/27/22 Range/Units 05:56 Total Bilirubin 0.4 (0.0-1.0) mg/dL AST 22 (5-37) U/L ALT 18 (0-40) U/L Alkaline Phosphatase 56 (39-117) U/L Albumin 2.7 L (3.5-5.0) g/dL Microbiology Microbiology Results: Microbiology 06/26/22 08:11 Urine clean catch - Clean Catch Midstream Urine Culture - Preliminary Yeast 06/25/22 22:09 Blood - Venous Blood Culture - Preliminary Prelim: GPC Gram Stain only 06/25/22 22:09 Blood - Venous Blood Culture - Preliminary No growth after 24 hours. Assessment and Plan (1) Weakness: Status: Acute Likely he has some basilar pneumonia/aspiration He has also received multiple antibiotics and they and the aspiration may be causing fevers (2) COPD (chronic obstructive pulmonary disease): Qualifiers: COPD type: chronic bronchitis Chronic bronchitis type: simple Qualified Code(s): J41.0 - Simple chronic bronchitis Status: Acute Plan Continue Merem for 3-5 days and then po Doxycycline 100 mg po bid for seven days or zithromax cover atypical also.
[2022-06-27] MEDS: Dextrose 5 % and 0.9 % NaCl 1,000 ML 50 ML IVCONT (18:23)
[2022-06-27 19:45] VITALS: BP 155/79; PULSE 104; RESP 16; TEMP 37.1; O2SAT 97
[2022-06-27] MEDS: atenoloL 25 MG TABLET PO (20:43)
[2022-06-27] MEDS: Docusate Sodium 100 MG/10 ML LIQUID 50 MG PO (20:43)
[2022-06-27] MEDS: Acetaminophen 325 MG TABLET 650 MG PO (20:43)
[2022-06-28] VITALS: BP 158/67; PULSE 98; RESP 18; TEMP 36.9; O2SAT 98
[2022-06-28] MEDS: Acetaminophen 325 MG TABLET 650 MG PO ×2 (05:51→19:58)
[2022-06-28] MEDS: Omeprazole 20 MG CAPSULE.DR PO (05:51)
[2022-06-28 06:07] LABS: MANUAL DIFF FLAG NO
[2022-06-28 06:11] LABS: Basophils Percent Auto 0.3 % (0-2); Eosinophils Absolute Auto 0.1 X10*3/uL (0.0-0.4); Eosinophils Percent Auto 1.8 % (0-4); Hematocrit 43.4 % (42.0-52.0); Hemoglobin 14.3 g/dl (14.0-18.0); Imm Gran Abs Auto 0.04 X10*3/uL (0.00-0.03); Imm Gran Pct Auto 0.5 % (0.0-0.4); Lymphocytes Absolute Auto 1.7 X10*3/uL (1.2-4.9); Lymphocytes Percent Auto 21.8 % (20-40); Mean Corpuscular HGB Conc 32.9 g/dl (31.0-36.0); Mean Corpuscular Hemoglobin 27.6 pg (27.0-33.0); Mean Corpuscular Volume 83.6 fL (80.0-98.0); Monocytes Absolute Auto 0.6 X10*3/uL (0.1-1.2); Monocytes Percent Auto 7.4 % (2-11); Neutrophils Absolute Auto 5.3 x10*3/uL (2.0-8.3); Neutrophils Percent Auto 68.2 % (45-73); Platelet Count 207 X10*3/uL (160-400); Red Blood Count 5.19 X10*6/uL (4.60-5.80); Red Cell Distribution Width 16.3 % (11.0-16.0); White Blood Count 7.8 X10*3/uL (4.8-10.8)
[2022-06-28 06:18] LABS: INTERNATIONAL NORM RATIO 3.6 (0.9-1.1); Prothrombin Time 43.1 SEC (10.0-13.1)
[2022-06-28 06:33] LABS: Alanine Aminotransferase 19 U/L (0-40); Albumin Level 2.8 g/dL (3.5-5.0); Alkaline Phosphatase 52 U/L (39-117); Anion Gap 13 (12-20); Aspartate Amino Transferase 23 U/L (5-37); Bilirubin Total 0.7 mg/dL (0.0-1.0); Blood Urea Nitrogen 9 mg/dL (9-16); Calcium 8.3 mg/dL (8.4-10.2); Carbon Dioxide 22 mmol/L (22-29); Chloride 110 mmol/L (96-108); Creatinine Clr Calc Pharmacy 82.7; Estimated Glomerular Filt Rate > 60; Glucose Fasting 115 mg/dL (60-99); Sodium 141 mmol/L (135-145)
[2022-06-28 07:37] VITALS: BP 137/74; PULSE 97; RESP 18; TEMP 36.6; O2SAT 99
[2022-06-28] MEDS: Spironolactone 25 MG TABLET PO (09:43)
[2022-06-28] MEDS: allopurinoL 100 MG TABLET PO (09:43)
--- NOTE | 2022-06-28 11:29 | P.PNIM_ITS ---
Subjective Subjective Date of Service: 06/28/22 Interval History: Remains afebrile. Review of Systems Unable to obtain Physical Exam Vital Signs: Vital Signs: Last Vital Signs Temp 97.9 F 06/28/22 07:37 Pulse 97 06/28/22 07:37 Resp 18 06/28/22 07:37 BP 137/74 06/28/22 07:37 Pulse Ox 99 06/28/22 07:37 O2 Del Method 06/28/22 07:37 O2 Flow Rate 2 06/28/22 07:37 Oxygen Flow Rate 2 06/25/22 22:17 BMI result Body Mass Index 25.0 Const: Other: Awake nonverbal Resp: Other: Scant crackles left base Cardio: Other: No S4; positive S1-S2; no S3 murmurs rubs or gallops GI: Other: Soft nontender nondistended normoactive bowel sounds Extrem: Other: No edema bilaterally Objective Data Active Medications Acetaminophen (Acetaminophen 325 Mg Tablet) 650 mg PO Q6H PRN PRN Reason: Pain, Mild (Pain Scale 1-3) Last Admin: 06/28/22 05:51 Dose: 650 mg Documented By: EVA Acetaminophen (Acetaminophen 325 Mg Tablet) 650 mg PO Q6H PRN PRN Reason: Fever Albuterol Sulfate (Albuterol Sulfate (0.083%) 2.5 Mg/3 Ml Vial.Neb) 2.5 mg INHALE Q4H PRN PRN Reason: Respiratory Distress Allopurinol (Allopurinol 100 Mg Tablet) 100 mg PO DAILY [facility] Last Admin: 06/28/22 09:43 Dose: 100 mg Documented By: KRISTAN Atenolol (Atenolol 25 Mg Tablet) 25 mg PO BEDTIME [facility]; Protocol Last Admin: 06/27/22 20:43 Dose: 25 mg Documented By: EVA Docusate Sodium (Docusate Sodium 100 Mg/10 Ml Liquid) 50 mg PO DAILY PRN PRN Reason: Constipation Last Admin: 06/27/22 20:43 Dose: 50 mg Documented By: EVA Meropenem 1 gm/ Sodium (Chloride) 100 mls @ 200 mls/hr IV Q8H [facility] Last Infusion: 06/28/22 10:24 Dose: 0 mls/hr Documented By: SACHIN Melatonin (Melatonin 3 Mg Tablet) 6 mg PO BEDTIME PRN PRN Reason: Insomnia Last Admin: 06/26/22 20:44 Dose: 6 mg Documented By: LEE ANN Omeprazole (Omeprazole 20 Mg Capsule.) 20 mg PO DAILY@0630 [facility] Last Admin: 06/28/22 05:51 Dose: 20 mg Documented By: EVA Pharmacy Consult (Consult Rx Perform Med Rec) 1 each MISCELLANE ONCE PRN PRN Reason: Consult order Senna (Sennosides 8.6 Mg Tablet) 17.2 mg PO BEDTIME PRN PRN Reason: Constipation Sodium Chloride (0.9 % Sodium Chloride Flush 3 Ml Syringe) 3 ml IVFLUSH QSHIFT [facility] Last Admin: 06/28/22 09:45 Dose: Not Given Documented By: KRISTAN Non-Admin Reason: IV Running Spironolactone (Spironolactone 25 Mg Tablet) 25 mg PO DAILY [facility]; Protocol Last Admin: 06/28/22 09:43 Dose: 25 mg Documented By: KRISTAN Warfarin Sodium (Warfarin Sodium 5 Mg Tablet) 5 mg PO SuTuThSa@1800 [facility] Last Admin: 06/26/22 18:16 Dose: 5 mg Documented By: REGIS Labs CBC & Chem 7: 06/28/22 06:03 06/28/22 06:03 Labs: Laboratory Results - last 24 hr 06/28/22 06/28/22 06/28/22 06:03 06:03 06:03 MCV 83.6 MCH 27.6 MCHC 32.9 RDW 16.3 H Plt Count 207 MPV 10.0 Immature Gran % (Auto) 0.5 H Neut % (Auto) 68.2 Lymph % (Auto) 21.8 [place] % (Auto) 7.4 Eos % (Auto) 1.8 Baso % (Auto) 0.3 Lymph # (Auto) 1.7 [place] # (Auto) 0.6 Eos # (Auto) 0.1 Baso # (Auto) 0.0 Abs Immat Gran (auto) 0.04 H Absolute Neuts (auto) 5.3 Absolute Nucleated RBC 0.000 Nucleated RBC % (auto) 0.0 PT 43.1 H INR 3.6 H Anion Gap 13 Estim Creat Clear Calc 82.7 Estimated GFR > 60 Fasting Glucose 115 H Calcium 8.3 L Total Bilirubin 0.7 AST 23 ALT 19 Alkaline Phosphatase 52 Total Protein 6.0 L Albumin 2.8 L Microbiology Microbiology Results: Microbiology 06/25/22 22:09 Blood Culture - Final Blood - Venous Coag negative Staphylococcus 06/25/22 22:09 Blood Culture - Preliminary Blood - Venous No growth after 48 hours. 06/26/22 08:11 Urine Culture - Preliminary Urine clean catch - Clean Catch Midstream Yeast Assessment and Plan (1) UTI (urinary tract infection): Status: Acute (2) Alzheimer's dementia: Status: Acute (3) Right leg DVT: Status: Acute Plan 71-year-old male with a past medical history of dementia, nonverbal, bedbound, history of recurrent UTIs, ascending aortic aneurysm, DVT on Coumadin, COPD, CKD stage 3, depression, history of valvular heart disease; presented to the hospital today with a chief complaint of fevers. Noted to have UTI. Admitted for further management. 1.Recurrent UTI: -continue meropenem ...LD 06/30/22 -switch to Doxy upon DC 2.Dementia(Alzheimer's type) -pureed diet/thin liquids per daughter -continue conservative care (patient bedbound nonverbal) 3.History of DVT -Coumadin as ordered -daily INRs 4.Atypical infiltrates -empirical Azithomycin Coumadin DNR DNI Patient requires ongoing hospitalization for IV antibiotics to treat urine pending culture an ID Quality Stroke Does the patient have a stroke diagnosis?: No VTE Prior VTE?: No VTE Risk Level:: Medical - moderate - high VTE Device Contraindication: Treatment Not Indicated VTE Drug Contraindication: N/A - Med Ordered
[2022-06-28 15:49] VITALS: BP 118/71; PULSE 100; RESP 20; TEMP 37.1; O2SAT 97
[2022-06-28] MEDS: Lactated Ringers 1,000 ML 100 ML IVCONT (16:45)
[2022-06-28] MEDS: atenoloL 25 MG TABLET PO (19:57)
[2022-06-28] MEDS: Docusate Sodium 100 MG/10 ML LIQUID 50 MG PO (19:57)
[2022-06-28 21:07] VITALS: BP 127/79; PULSE 115; RESP 20; TEMP 37.1; O2SAT 95
[2022-06-28] MEDS: 0.9 % Sodium Chloride Flush 3 ML SYRINGE IVFLUSH (23:51)
[2022-06-29] VITALS: BP 133/61; PULSE 110; RESP 18; TEMP 36.8; O2SAT 97
[2022-06-29] MEDS: Lactated Ringers 1,000 ML 100 ML IVCONT ×3 (03:18→21:24)
[2022-06-29] MEDS: Omeprazole 20 MG CAPSULE.DR PO (05:49)
[2022-06-29 06:19] LABS: MANUAL DIFF FLAG NO
[2022-06-29 06:21] LABS: Basophils Percent Auto 0.3 % (0-2); Eosinophils Absolute Auto 0.2 X10*3/uL (0.0-0.4); Eosinophils Percent Auto 2.7 % (0-4); Hematocrit 40.7 % (42.0-52.0); Hemoglobin 13.9 g/dl (14.0-18.0); Imm Gran Abs Auto 0.02 X10*3/uL (0.00-0.03); Imm Gran Pct Auto 0.3 % (0.0-0.4); Lymphocytes Absolute Auto 1.5 X10*3/uL (1.2-4.9); Lymphocytes Percent Auto 20.3 % (20-40); Mean Corpuscular HGB Conc 34.2 g/dl (31.0-36.0); Mean Corpuscular Hemoglobin 28.5 pg (27.0-33.0); Mean Corpuscular Volume 83.4 fL (80.0-98.0); Mean Platelet Volume 10.2 fL (9.4-12.4); Monocytes Absolute Auto 0.5 X10*3/uL (0.1-1.2); Monocytes Percent Auto 6.8 % (2-11); Neutrophils Absolute Auto 5.1 x10*3/uL (2.0-8.3); Neutrophils Percent Auto 69.6 % (45-73); Platelet Count 208 X10*3/uL (160-400); Red Blood Count 4.88 X10*6/uL (4.60-5.80); White Blood Count 7.3 X10*3/uL (4.8-10.8)
[2022-06-29 06:26] LABS: INTERNATIONAL NORM RATIO 2.8 (0.9-1.1); Prothrombin Time 33.9 SEC (10.0-13.1)
[2022-06-29 06:47] LABS: Alanine Aminotransferase 27 U/L (0-40); Albumin Level 2.7 g/dL (3.5-5.0); Alkaline Phosphatase 52 U/L (39-117); Anion Gap 13 (12-20); Aspartate Amino Transferase 29 U/L (5-37); Bilirubin Total 0.7 mg/dL (0.0-1.0); Blood Urea Nitrogen 12 mg/dL (9-16); Calcium 8.2 mg/dL (8.4-10.2); Carbon Dioxide 23 mmol/L (22-29); Chloride 109 mmol/L (96-108); Creatinine Clr Calc Pharmacy 88.6; Estimated Glomerular Filt Rate > 60; Glucose Fasting 101 mg/dL (60-99); Potassium 3.9 mmol/L (3.3-5.1); Sodium 141 mmol/L (135-145); Total Protein 5.8 g/dL (6.5-8.0)
[2022-06-29] MEDS: allopurinoL 100 MG TABLET PO (07:42)
[2022-06-29] MEDS: 0.9 % Sodium Chloride Flush 3 ML SYRINGE IVFLUSH (07:43)
[2022-06-29] MEDS: Spironolactone 25 MG TABLET PO (07:43)
[2022-06-29 08:00] VITALS: BP 149/77; PULSE 96; RESP 18; TEMP 36.8; O2SAT 97
--- NOTE | 2022-06-29 14:04 | P.PNIM_ITS ---
Subjective Subjective Date of Service: 06/29/22 Interval History: Remains afebrile. Review of Systems Unable to obtain Physical Exam Vital Signs: Vital Signs: Last Vital Signs Temp 98.3 F 06/29/22 08:00 Pulse 96 06/29/22 08:00 Resp 18 06/29/22 08:00 BP 149/77 H 06/29/22 08:00 Pulse Ox 97 06/29/22 08:00 O2 Del Method 06/29/22 08:00 O2 Flow Rate 2 06/29/22 08:00 Oxygen Flow Rate 2 06/25/22 22:17 BMI result Body Mass Index 25.0 Const: Other: Awake nonverbal Resp: Other: Scant crackles left base Cardio: Other: No S4; positive S1-S2; no S3 murmurs rubs or gallops GI: Other: Soft nontender nondistended normoactive bowel sounds Extrem: Other: No edema bilaterally Objective Data Active Medications Acetaminophen (Acetaminophen 325 Mg Tablet) 650 mg PO Q6H PRN PRN Reason: Pain, Mild (Pain Scale 1-3) Last Admin: 06/28/22 19:58 Dose: 650 mg Documented By: EVA Acetaminophen (Acetaminophen 325 Mg Tablet) 650 mg PO Q6H PRN PRN Reason: Fever Albuterol Sulfate (Albuterol Sulfate (0.083%) 2.5 Mg/3 Ml Vial.Neb) 2.5 mg INHALE Q4H PRN PRN Reason: Respiratory Distress Allopurinol (Allopurinol 100 Mg Tablet) 100 mg PO DAILY [facility] Last Admin: 06/29/22 07:42 Dose: 100 mg Documented By: KRISTAN Atenolol (Atenolol 25 Mg Tablet) 25 mg PO BEDTIME [facility]; Protocol Last Admin: 06/28/22 19:57 Dose: 25 mg Documented By: EVA Docusate Sodium (Docusate Sodium 100 Mg/10 Ml Liquid) 50 mg PO DAILY PRN PRN Reason: Constipation Last Admin: 06/28/22 19:57 Dose: 50 mg Documented By: EVA Meropenem 1 gm/ Sodium (Chloride) 100 mls @ 200 mls/hr IV Q8H [facility] Last Infusion: 06/29/22 08:37 Dose: 0 mls/hr Documented By: KRISTAN Lactated Ringer's (Lr) 1,000 mls @ 100 mls/hr IVCONT .Q10H [facility] Last Admin: 06/29/22 12:32 Dose: 100 mls/hr Documented By: KRISTAN Melatonin (Melatonin 3 Mg Tablet) 6 mg PO BEDTIME PRN PRN Reason: Insomnia Last Admin: 06/26/22 20:44 Dose: 6 mg Documented By: LEE ANN Omeprazole (Omeprazole 20 Mg Capsule.Dr) 20 mg PO DAILY@0630 [facility] Last Admin: 06/29/22 05:49 Dose: 20 mg Documented By: EVA Pharmacy Consult (Consult Rx Perform Med Rec) 1 each MISCELLANE ONCE PRN PRN Reason: Consult order Senna (Sennosides 8.6 Mg Tablet) 17.2 mg PO BEDTIME PRN PRN Reason: Constipation Sodium Chloride (0.9 % Sodium Chloride Flush 3 Ml Syringe) 3 ml IVFLUSH QSHIFT [facility] Last Admin: 06/29/22 07:43 Dose: 3 ml Documented By: KRISTAN Spironolactone (Spironolactone 25 Mg Tablet) 25 mg PO DAILY [facility]; Protocol Last Admin: 06/29/22 07:43 Dose: 25 mg Documented By: KRISTAN Warfarin Sodium (Warfarin Sodium 5 Mg Tablet) 5 mg PO SuTuThSa@1800 [facility] Last Admin: 06/26/22 18:16 Dose: 5 mg Documented By: REGIS Labs CBC & Chem 7: 06/29/22 06:00 06/29/22 06:00 Labs: Laboratory Results - last 24 hr 06/29/22 06/29/22 06/29/22 06:00 06:00 06:00 MCV 83.4 MCH 28.5 MCHC 34.2 RDW 16.0 Plt Count 208 MPV 10.2 Immature Gran % (Auto) 0.3 Neut % (Auto) 69.6 Lymph % (Auto) 20.3 [place] % (Auto) 6.8 Eos % (Auto) 2.7 Baso % (Auto) 0.3 Lymph # (Auto) 1.5 [place] # (Auto) 0.5 Eos # (Auto) 0.2 Baso # (Auto) 0.0 Abs Immat Gran (auto) 0.02 Absolute Neuts (auto) 5.1 Absolute Nucleated RBC 0.000 Nucleated RBC % (auto) 0.0 PT 33.9 H INR 2.8 H Anion Gap 13 Estim Creat Clear Calc 88.6 Estimated GFR > 60 Fasting Glucose 101 H Calcium 8.2 L Total Bilirubin 0.7 AST 29 ALT 27 Alkaline Phosphatase 52 Total Protein 5.8 L Albumin 2.7 L Microbiology Microbiology Results: Microbiology 06/26/22 08:11 Urine Culture - Final Urine clean catch - Clean Catch Midstream Tash tropicalis 06/25/22 22:09 Blood Culture - Preliminary Blood - Venous Prelim: GPC Gram Stain only Assessment and Plan (1) UTI (urinary tract infection): Status: Acute (2) Alzheimer's dementia: Status: Acute (3) Right leg DVT: Status: Acute Plan 71-year-old male with a past medical history of dementia, nonverbal, bedbound, history of recurrent UTIs, ascending aortic aneurysm, DVT on Coumadin, COPD, CKD stage 3, depression, history of valvular heart disease; presented to the hospital today with a chief complaint of fevers. Noted to have UTI. Admitted for further management. 1.Recurrent UTI: -continue meropenem ...LD 06/30/22 -switch to Doxy upon DC 2.Dementia(Alzheimer's type) -pureed diet/thin liquids per daughter -continue conservative care (patient bedbound nonverbal) 3.History of DVT -Coumadin as ordered -daily INRs...stable 4.Atypical infiltrates -empirical Azithomycin Coumadin DNR DNI Patient requires ongoing hospitalization for IV antibiotics to treat urine pending culture an ID Quality Stroke Does the patient have a stroke diagnosis?: No VTE Prior VTE?: No VTE Risk Level:: Medical - moderate - high VTE Device Contraindication: Treatment Not Indicated VTE Drug Contraindication: N/A - Med Ordered
[2022-06-29 16:00] VITALS: BP 135/89; PULSE 95; RESP 16; TEMP 37.2; O2SAT 99
[2022-06-29] MEDS: Warfarin Sodium 2.5 MG TABLET PO (17:44)
[2022-06-29 21:21] VITALS: BP 131/75; PULSE 100; RESP 20; TEMP 38.2; O2SAT 97
[2022-06-29] MEDS: atenoloL 25 MG TABLET PO (21:23)
[2022-06-29] MEDS: Acetaminophen 325 MG TABLET 650 MG PO (21:29)
[2022-06-29 23:56] VITALS: BP 156/70; PULSE 94; RESP 18; TEMP 37.1; O2SAT 98
[2022-06-30] MEDS: Omeprazole 20 MG CAPSULE.DR PO (05:26)
[2022-06-30 06:34] LABS: Prothrombin Time 23.3 SEC (10.0-13.1)
[2022-06-30 07:05] VITALS: BP 146/76; PULSE 94; RESP 18; TEMP 36.1; O2SAT 96
[2022-06-30] MEDS: allopurinoL 100 MG TABLET PO (08:43)
[2022-06-30] MEDS: Spironolactone 25 MG TABLET PO (08:43)
[2022-06-30] MEDS: 0.9 % Sodium Chloride Flush 3 ML SYRINGE IVFLUSH ×2 (08:44→15:53)
--- NOTE | 2022-06-30 09:14 | PM.DS ---
DS: Providers Provider Date of Service: 06/30/22 Date of admission: 06/26/22 01:25 Date of discharge: 06/30/22 Primary care physician: Sara Joel MD Consults: 06/26/22 01:23 Consult to Infectious Diseases Routine Consulting Provider: Aracelis Koo Reason for consultation: Rec UTI 06/26/22 02:48 Consult to Infectious Diseases Routine Consulting Provider: Aracelis Koo Reason for consultation: Rec UTI; 06/28/22 07:36 Consult to Infectious Diseases Routine Consulting Provider: Aracelis Koo Reason for consultation: pneumonia Has provider been notified: Yes DS: Diagnosis Discharge Diagnosis (1) UTI (urinary tract infection): Status: Acute (2) Alzheimer's dementia: Status: Acute (3) Right leg DVT: Status: Acute DS: Summary Hospital Course Hospital Course: 71-year-old male with a past medical history of dementia, nonverbal, bedbound, history of recurrent UTIs, ascending aortic aneurysm, DVT on Coumadin, COPD, CKD stage 3, depression, history of valvular heart disease; presented to the hospital today with a chief complaint of fevers.? Most of the history obtained from the patient's daughter at bedside.? Reportedly patient has had recurrent urinary tract infections.? Was on cephalexin about a week ago; over the past 2 days he started developed fevers again; was started on levofloxacin by his PCP.? Even on levofloxacin for past 2 days he continued to have fevers; subsequently patient's PCP asked him to go to the ER for further evaluation.? Hospital Course Admitted to general medical floor placed on meropenem. Urine culture grew out yeast; repeat blood cultures were negative. On 06/27 chest x-ray demonstrated atypical pneumonia. Id was consulted who is stated to complete 3-5 days of meropenem and discharged with doxycycline. He has completed his meropenem his exam has improved and he will be discharged home with his family on doxycycline 100 mg twice daily for 1 week. Time Spent with Patient Time attestation: Total time spent providing and/or coordinating discharge services: Discharge coordination time: Greater than 30 minutes Quality: Safe Use of Opioids Does Pt have an Active Cancer Diagnosis on the Problem List?: No Quality: Stroke Does the patient have a stroke diagnosis?: No Physical Exam Vital Signs: Vital Signs: Last Vital Signs Temp 97 F 06/30/22 07:05 Pulse 94 06/30/22 07:05 Resp 18 06/30/22 07:05 BP 146/76 H 06/30/22 07:05 Pulse Ox 96 06/30/22 07:05 O2 Del Method 06/30/22 07:05 O2 Flow Rate 3 06/30/22 07:05 Oxygen Flow Rate 2 06/25/22 22:17 BMI result Body Mass Index 25.0 Const: Other: Awake nonverbal Resp: Other: Clear to auscultation bilaterally no rales rhonchi or wheezes Cardio: Other: No S4; positive S1-S2; no S3 murmurs rubs or gallops GI: Other: Soft nontender nondistended normoactive bowel sounds Extrem: Other: No edema bilaterally DS: Data Data Completed and Pending Completed studies during hospitalization [Text1]: Procedures Introduction of Remdesivir Anti-infective into Peripheral Vein, Percutaneous Approach, [employer] 5 (04/22/22) Labs on day of discharge: Laboratory Results - last 24 hr 06/30/22 05:17 PT 23.3 H INR 2.0 H Preliminary micro results at discharge 06/25/22 22:09 Blood Culture - Preliminary Blood - Venous Prelim: GPC Gram Stain only Discharge Plan Discharge Patient Disposition: Home, Self-Care Discharge Diagnosis: Recurrent UTI Referrals: Sara Joel MD [Primary Care Provider] - 1 Week Discharge Medications: New doxycycline hyclate 100 mg tablet 100 mg PO BID Qty: 14 0RF Continued (DME) Select Briefs Misc See Rx Instructions .ROUTE .MEDSUPPLY Label Comments: pt is requesting size XL diapers Rx Instructions: As directed- adult disposable diapers weight 162 lbs (DME) disposable gloves [Biobrane Gloves Medium] Misc See Rx Instructions .Route Qty: 200 1RF Rx Instructions: As directed warfarin 5 mg tablet 5 mg PO DIRECTED Rx Instructions: Thursday and Thursday allopurinol 100 mg Tablet 100 mg PO DAILY albuterol sulfate 2.5 mg /3 mL (0.083 %) Solution For Nebulization 2.5 mg INHALATION Q4H PRN (Reason: Respiratory Distress) warfarin 2.5 mg 2.5 mg PO DIRECTED Rx Instructions: Sun, Tues, Weds, Th, Fri acetaminophen [Tylenol] 325 mg Tablet 650 mg PO Q6H PRN (Reason: Fever) docusate sodium 50 mg Capsule 50 mg PO DAILY PRN (Reason: Constipation) spironolactone 25 mg tablet 25 mg PO DAILY omeprazole 20 mg capsule,delayed release(DR/EC) 20 mg PO DAILY@0630 atenolol 25 mg tablet 25 mg PO BEDTIME Naftin 2 % gel 1 appl topical DAILY Discontinued levofloxacin 250 mg/10 mL solution 20 ml PO DAILY Discharge Orders: Discharge Order (Routine); Ordered 06/30/22 Ordered By: Leonard Jewell Diet: Advance to usual diet Activity on Discharge: As tolerated Stand Alone Forms: Patient Portal Discharge page Care Plan Goals: Complete course of doxycycline twice daily for 7 days Health Concerns: Resume all previous medicines Plan of Treatment: Resume Coumadin dosing as before hospital. Assessment: See discharge summary
--- NOTE | 2022-06-30 10:19 | MHC.CM.PN ---
Addendum entered by Libra Rincon 06/30/22 13:38: PT IS BOOKED NEXT AVAILABLE WITH [facility] DAUGHTER IS AWARE WELL NURSE Original Note: PT CLEARED TO DC HOME TODAY WITH RESUMPTION OF HIS ADULT [facility] PT WILL NEED BLS TRANSPORT HOME HOWEVER AND THUS FAR THERE ARE NO COMPANIES THAT CAN ACCOMMODATE
--- NOTE | 2022-06-30 13:49 | MHC.SLORD ---
Speech Language Pathology Order Status: Checked in with RN- RN reported pt tolerating diet without concerns. Recommend continue PUREED diet (NDD1) and thin liquids. Pt's daughter was present when pt was last seen by UNDERGROUND REPAIRER and reported this is his baseline. Per CM note, pt cleared to be discharged today.
--- NOTE | 2022-06-30 15:33 | PM.EVENT ---
Event Note Date of Service: 06/30/22 Event Note: Patient developed low-grade fever prior to discharge. Blood work drawn along with blood cultures time 2. Portable chest x-ray taken. Asked Dr. Koo to take another look at patient. Continue meropenem until she sees patient
[2022-06-30 15:57] VITALS: BP 160/106; PULSE 111; RESP 18; TEMP 36.6; O2SAT 97
[2022-06-30 16:07] LABS: MANUAL DIFF FLAG NO
[2022-06-30 16:10] LABS: Basophils Percent Auto 0.2 % (0-2); Eosinophils Absolute Auto 0.2 X10*3/uL (0.0-0.4); Eosinophils Percent Auto 2.1 % (0-4); Hematocrit 41.9 % (42.0-52.0); Hemoglobin 14.3 g/dl (14.0-18.0); Imm Gran Abs Auto 0.02 X10*3/uL (0.00-0.03); Imm Gran Pct Auto 0.2 % (0.0-0.4); Lymphocytes Absolute Auto 1.2 X10*3/uL (1.2-4.9); Lymphocytes Percent Auto 12.7 % (20-40); Mean Corpuscular HGB Conc 34.1 g/dl (31.0-36.0); Mean Corpuscular Hemoglobin 28.7 pg (27.0-33.0); Mean Platelet Volume 10.1 fL (9.4-12.4); Monocytes Absolute Auto 0.6 X10*3/uL (0.1-1.2); Monocytes Percent Auto 6.9 % (2-11); Neutrophils Absolute Auto 7.1 x10*3/uL (2.0-8.3); Neutrophils Percent Auto 77.9 % (45-73); Platelet Count 236 X10*3/uL (160-400); Red Blood Count 4.99 X10*6/uL (4.60-5.80); White Blood Count 9.1 X10*3/uL (4.8-10.8)
[2022-06-30 16:27] LABS: Alanine Aminotransferase 24 U/L (0-40); Albumin Level 2.8 g/dL (3.5-5.0); Alkaline Phosphatase 57 U/L (39-117); Anion Gap 15 (12-20); Aspartate Amino Transferase 26 U/L (5-37); Bilirubin Total 0.8 mg/dL (0.0-1.0); Blood Urea Nitrogen 9 mg/dL (9-16); Calcium 8.8 mg/dL (8.4-10.2); Carbon Dioxide 22 mmol/L (22-29); Chloride 105 mmol/L (96-108); Creatinine Clr Calc Pharmacy 86.1; Estimated Glomerular Filt Rate > 60; Glucose Fasting 114 mg/dL (60-99); Potassium 3.8 mmol/L (3.3-5.1); Sodium 138 mmol/L (135-145); Total Protein 6.2 g/dL (6.5-8.0)
[2022-06-30] MEDS: Lactated Ringers 1,000 ML 100 ML IVCONT (16:35)
--- NOTE | 2022-06-30 16:40 | PM.EVENT ---
Event Note Date of Service: 06/30/22 Event Note: patient temperature before discharge on Doxycycline Would continue Merem Check another COVID test
[2022-06-30] MEDS: Warfarin Sodium 5 MG TABLET PO (18:35)
[2022-06-30 19:39] LABS: COVID-19 Test Negative (Negative); IDNOW Serial# 55D5AD1C
[2022-06-30 19:53] VITALS: BP 142/79; PULSE 104; RESP 19; TEMP 38.6; O2SAT 98
[2022-06-30] MEDS: atenoloL 25 MG TABLET PO (20:24)
[2022-06-30] MEDS: Fluconazole in NaCl,Iso-Osm 200 MG/100 ML PIGGYBACK 100 MG IV (23:38)
[2022-07-01] VITALS: BP 117/58; PULSE 98; RESP 18; TEMP 36.6; O2SAT 98
[2022-07-01] MEDS: 0.9 % Sodium Chloride Flush 3 ML SYRINGE IVFLUSH ×4 (00:59→23:47)
[2022-07-01] MEDS: Lactated Ringers 1,000 ML 100 ML IVCONT ×2 (01:38→12:57)
[2022-07-01] MEDS: Omeprazole 20 MG CAPSULE.DR PO (06:31)
[2022-07-01 06:59] VITALS: BP 137/65; PULSE 86; RESP 18; TEMP 36.6; O2SAT 96
[2022-07-01] MEDS: Spironolactone 25 MG TABLET PO (08:43)
[2022-07-01] MEDS: allopurinoL 100 MG TABLET PO (08:43)
[2022-07-01 10:30] LABS: INTERNATIONAL NORM RATIO 1.8 (0.9-1.1); Prothrombin Time 20.7 SEC (10.0-13.1)
[2022-07-01 11:07] VITALS: BMI 25.0
[2022-07-01 14:06] LABS: Adenovirus PCR Not Detected (Not Detect.); Bordetella parapertussis PCR Not Detected (Not Detect.); Bordetella pertussis PCR Not Detected (Not Detect.); Chlamydia pneumoniae PCR Not Detected (Not Detect.); Coronavirus 229E PCR Not Detected (Not Detect.); Coronavirus HKU1 PCR Not Detected (Not Detect.); Coronavirus NL63 PCR Not Detected (Not Detect.); Coronavirus OC43 PCR Not Detected (Not Detect.); Human metapneumovirus PCR Not Detected (Not Detect.); Influenza A PCR Not Detected (Not Detect.); Influenza B PCR Not Detected (Not Detect.); Mycoplasma pneumoniae PCR Not Detected (Not Detect.); Parainfluenza 1 PCR Not Detected (Not Detect.); Parainfluenza 2 PCR Not Detected (Not Detect.); Parainfluenza 3 PCR Not Detected (Not Detect.); Parainfluenza 4 PCR Not Detected (Not Detect.); RSV PCR Not Detected (Not Detect.); Rhino/Enterovirus PCR Not Detected (Not Detect.); SARS-CoV-2 PCR Not Detected (Not Detect.)
[2022-07-01 15:36] VITALS: BP 142/63; PULSE 96; RESP 19; TEMP 36.4; O2SAT 98
--- NOTE | 2022-07-01 15:58 | P.PNIM_ITS ---
Subjective Subjective Date of Service: 07/02/22 Interval History: intermittent fevers Review of Systems seems improving Physical Exam Vital Signs: Vital Signs: Last Vital Signs Temp 97.5 F 07/01/22 15:36 Pulse 96 07/01/22 15:36 Resp 19 07/01/22 15:36 BP 142/63 H 07/01/22 15:36 Pulse Ox 98 07/01/22 15:36 O2 Del Method 07/01/22 15:36 O2 Flow Rate 1.5 07/01/22 15:36 Oxygen Flow Rate 2 06/25/22 22:17 BMI result Body Mass Index 25.0 Appearance: Awake ,nonverbal cvs: rrr, [id number] . res: clear to auscultation ,no rhonchii or wheezing abd: no rebound or guarding ,nt, bs present. ext pulses present , no cyanosis . neuro: axo3 , nonfocal. Objective Data Active Medications Acetaminophen (Acetaminophen 325 Mg Tablet) 650 mg PO Q6H PRN PRN Reason: Pain, Mild (Pain Scale 1-3) Last Admin: 06/28/22 19:58 Dose: 650 mg Documented By: EVA Acetaminophen (Acetaminophen 325 Mg Tablet) 650 mg PO Q6H PRN PRN Reason: Fever Last Admin: 06/29/22 21:29 Dose: 650 mg Documented By: CASTILBoogie Albuterol Sulfate (Albuterol Sulfate (0.083%) 2.5 Mg/3 Ml Vial.Neb) 2.5 mg INHALE Q4H PRN PRN Reason: Respiratory Distress Allopurinol (Allopurinol 100 Mg Tablet) 100 mg PO DAILY [facility] Last Admin: 07/01/22 08:43 Dose: 100 mg Documented By: GEOFF Atenolol (Atenolol 25 Mg Tablet) 25 mg PO BEDTIME [facility]; Protocol Last Admin: 06/30/22 20:24 Dose: 25 mg Documented By: CHAD Docusate Sodium (Docusate Sodium 100 Mg/10 Ml Liquid) 50 mg PO DAILY PRN PRN Reason: Constipation Last Admin: 06/28/22 19:57 Dose: 50 mg Documented By: EVA Meropenem 1 gm/ Sodium (Chloride) 100 mls @ 200 mls/hr IV Q8H [facility] Last Infusion: 07/01/22 09:25 Dose: 0 mls/hr Documented By: ALISA Lactated Ringer's (Lr) 1,000 mls @ 100 mls/hr IVCONT .Q10H [facility] Last Admin: 07/01/22 12:57 Dose: 100 mls/hr Documented By: GEOFF Fluconazole (Diflucan) 200 mg in 100 mls @ 100 mls/hr IV Q24H [facility] Last Infusion: 07/01/22 00:51 Dose: 0 mls/hr Documented By: ANDRE Melatonin (Melatonin 3 Mg Tablet) 6 mg PO BEDTIME PRN PRN Reason: Insomnia Last Admin: 06/26/22 20:44 Dose: 6 mg Documented By: LEE ANN Omeprazole (Omeprazole 20 Mg Capsule.) 20 mg PO DAILY@0630 [facility] Last Admin: 07/01/22 06:31 Dose: 20 mg Documented By: ANDRE Pharmacy Consult (Consult Rx Perform Med Rec) 1 each MISCELLANE ONCE PRN PRN Reason: Consult order Senna (Sennosides 8.6 Mg Tablet) 17.2 mg PO BEDTIME PRN PRN Reason: Constipation Sodium Chloride (0.9 % Sodium Chloride Flush 3 Ml Syringe) 3 ml IVFLUSH QSHIFT [facility] Last Admin: 07/01/22 08:45 Dose: 3 ml Documented By: GEOFF Spironolactone (Spironolactone 25 Mg Tablet) 25 mg PO DAILY [facility]; Protocol Last Admin: 07/01/22 08:43 Dose: 25 mg Documented By: GEOFF Warfarin Sodium (Warfarin Sodium 5 Mg Tablet) 5 mg PO MOSA@1800 [facility] Last Admin: 06/30/22 18:35 Dose: 5 mg Documented By: CHAD Warfarin Sodium (Warfarin Sodium 3 Mg Tablet) 3 mg PO SUTUWETHFR@1800 [facility] Labs CBC & Chem 7: 06/30/22 16:01 06/30/22 16:01 Labs: Laboratory Results - last 24 hr 06/30/22 06/30/22 06/30/22 16:01 16:01 18:40 MCV 84.0 MCH 28.7 MCHC 34.1 RDW 16.0 Plt Count 236 MPV 10.1 Immature Gran % (Auto) 0.2 Neut % (Auto) 77.9 H Lymph % (Auto) 12.7 L [place] % (Auto) 6.9 Eos % (Auto) 2.1 Baso % (Auto) 0.2 Lymph # (Auto) 1.2 [place] # (Auto) 0.6 Eos # (Auto) 0.2 Baso # (Auto) 0.0 Abs Immat Gran (auto) 0.02 Absolute Neuts (auto) 7.1 Absolute Nucleated RBC 0.000 Nucleated RBC % (auto) 0.0 PT INR Anion Gap 15 Estim Creat Clear Calc 86.1 Estimated GFR > 60 Fasting Glucose 114 H Calcium 8.8 D Total Bilirubin 0.8 AST 26 ALT 24 Alkaline Phosphatase 57 Total Protein 6.2 L Albumin 2.8 L Respiratory Panel [place] Adenovirus (Rapid PCR) B.pert (TEM-PCR) B.parapertussis DNA PCR C. pneumoniae DNA (PCR) Coronavirus OC43 (PCR) Coronavirus HKU1 (PCR) Coronavirus 229E (PCR) COVID-19 (KESHAV) Negative COVID-19 Clin Com See Note Coronavirus NL63 (PCR) Human Metapneumovir PCR Influenza A (RT-PCR) Influenza B (RT-PCR) M. pneumoniae (PCR) Parainfluenza 1 (PCR) Parainfluenza 2 (PCR) Parainfluenza 3 (PCR) Parainfluenza 4 (PCR) RSV (PCR) Entero/Rhino (PCR) SARS-CoV-2 RNA (RT-PCR) 07/01/22 07/01/22 09:59 11:24 MCV MCH MCHC RDW Plt Count MPV Immature Gran % (Auto) Neut % (Auto) Lymph % (Auto) [place] % (Auto) Eos % (Auto) Baso % (Auto) Lymph # (Auto) [place] # (Auto) Eos # (Auto) Baso # (Auto) Abs Immat Gran (auto) Absolute Neuts (auto) Absolute Nucleated RBC Nucleated RBC % (auto) PT 20.7 H INR 1.8 H Anion Gap Estim Creat Clear Calc Estimated GFR Fasting Glucose Calcium Total Bilirubin AST ALT Alkaline Phosphatase Total Protein Albumin Respiratory Panel [place] See Note Adenovirus (Rapid PCR) Not Detected B.pert (TEM-PCR) Not Detected B.parapertussis DNA PCR Not Detected C. pneumoniae DNA (PCR) Not Detected Coronavirus OC43 (PCR) Not Detected Coronavirus HKU1 (PCR) Not Detected Coronavirus 229E (PCR) Not Detected COVID-19 (KESHAV) COVID-19 Clin Com Coronavirus NL63 (PCR) Not Detected Human Metapneumovir PCR Not Detected Influenza A (RT-PCR) Not Detected Influenza B (RT-PCR) Not Detected M. pneumoniae (PCR) Not Detected Parainfluenza 1 (PCR) Not Detected Parainfluenza 2 (PCR) Not Detected Parainfluenza 3 (PCR) Not Detected Parainfluenza 4 (PCR) Not Detected RSV (PCR) Not Detected Entero/Rhino (PCR) Not Detected SARS-CoV-2 RNA (RT-PCR) Not Detected Microbiology Microbiology Results: Microbiology 06/25/22 22:09 Blood Culture - Final Blood - Venous Coag negative Staphylococcus 06/25/22 22:09 Blood Culture - Final Blood - Venous Coag negative Staphylococcus Assessment and Plan (1) UTI (urinary tract infection): Status: Acute (2) Aspiration pneumonia: Status: Acute (3) Right leg DVT: Status: Acute Plan 71-year-old male with a past medical history of dementia, nonverbal, bedbound, history of recurrent UTIs, ascending aortic aneurysm, DVT on Coumadin, COPD, CKD stage 3, depression, history of valvular heart disease; presented to the hospital today with a chief complaint of fevers.? Noted to have UTI.? Admitted for further management.? 1.Recurrent UTI and possible bibasilar aspiration pneumonia: -continue doxy and meropenem .LD 06/30/22 fevers improving blood culture pending swallow saw the patient-pureed diet/thin liquids. 2.Dementia(Alzheimer's type) -pureed diet/thin liquids per daughter -continue conservative care (patient bedbound nonverbal) 3.History of DVT dupplex on 06/28/22?There is superficial thrombophlebitis seen in the mid to distal calf. -Coumadin as ordered -daily INRs-slightly boderline 1.8 ,continue to moniter 4.Atypical infiltrates -empirical Azithomycin 5. scrotal swellin:seems to be improving added urology eval Coumadin DNR DNI Quality Stroke Does the patient have a stroke diagnosis?: No VTE Prior VTE?: No VTE Risk Level:: Medical - moderate - high VTE Device Contraindication: Treatment Not Indicated VTE Drug Contraindication: N/A - Med Ordered
[2022-07-01] MEDS: Warfarin Sodium 3 MG TABLET PO (17:44)
[2022-07-01 19:37] VITALS: BP 147/71; PULSE 117; RESP 19; TEMP 36.7; O2SAT 99
[2022-07-01] MEDS: atenoloL 25 MG TABLET PO (19:46)
[2022-07-01 22:02] VITALS: PULSE 87
[2022-07-01] MEDS: Fluconazole in NaCl,Iso-Osm 200 MG/100 ML PIGGYBACK 100 MG IV (22:03)
[2022-07-02] VITALS: BP 146/69; PULSE 100; RESP 18; TEMP 36.4; O2SAT 99
[2022-07-02] MEDS: Lactated Ringers 1,000 ML 100 ML IVCONT ×2 (00:22→11:58)
[2022-07-02] MEDS: Omeprazole 20 MG CAPSULE.DR PO (06:00)
[2022-07-02 06:51] VITALS: BP 149/72; PULSE 96; RESP 16; TEMP 36.6; O2SAT 98
[2022-07-02] MEDS: 0.9 % Sodium Chloride Flush 3 ML SYRINGE IVFLUSH ×2 (07:49→21:14)
[2022-07-02] MEDS: Spironolactone 25 MG TABLET PO (07:49)
[2022-07-02] MEDS: allopurinoL 100 MG TABLET PO (07:49)
--- NOTE | 2022-07-02 10:00 | MHC.SLORD ---
Speech Language Pathology Order Status: Per MD, order for COLD MEAT CHEF consult entered in error this morning. MD stated he will d/c.
--- NOTE | 2022-07-02 13:20 | P.CONWO_ITS ---
History of Present Illness Data of Consult Service Date: 07/02/22 Requesting physician: Harjinder Mancera Primary Care Provider: Stanton Clemons III, MD HPI Reason for consult: Heel pressure injury 71-year-old male with complicated past medical history including dementia, nonverbal, ascending aortic aneurysm, COPD, aortic regurgitation, admitted for treatment of a recurrent UTI. He was noted to have a right heel pressure injury and evaluation was requested. As noted, he is nonverbal. His son was present during my visit and reported that a right heel pressure injury was noted during this hospitalization and that it has improved. Review of Systems Review of Systems: Yes Unobtainable due to mental condition [facility] Medical History Acute deep vein thrombosis (DVT) Altered mental status Alzheimer's dementia Ascending aortic aneurysm Bleeding hemorrhoids Chronic anticoagulation CKD (chronic kidney disease) COPD (chronic obstructive pulmonary disease) COVID Depression Encephalopathy Febrile Heart valve disease Non-rheumatic aortic regurgitation Family History Father History of prostate cancer Surgical History History of inguinal hernia repair Hx of cholecystectomy Social History Household Members: Family Housing: Apartment Do you presently have visiting nurse or other home services: No Unable to assess alcohol history related to: Unable to respond Alcohol intake: never Patient Tobacco Use Status: Tobacco use Unknown service: No Current occupational status: disabled Meds Allergies Allergy/AdvReac Type Severity Reaction Status Date / Time nut - unspecified Allergy Severe GI Stomach Verified 06/27/22 10:58 Bleed oxycodone [OXYCODONE] Allergy Severe Decrease BP Verified 05/29/22 07:01 Iodinated Contrast Media Allergy Intermediate CKD PER Verified 05/29/22 07:01 [IVP DYE] DAUGHTER PT IS NOT TO HAVE DUE TO KIDNEYS Sulfa (Sulfonamide Allergy Intermediate Rash Verified 06/26/22 10:37 Antibiotics) tramadol [TRAMADOL] Allergy Intermediate PER Verified 05/29/22 07:01 DAUGHTER PT PASSED OUT, weakness Active Medications: Current Medications Acetaminophen (Acetaminophen 325 Mg Tablet) 650 mg PO Q6H PRN PRN Reason: Pain, Mild (Pain Scale 1-3) Last Admin: 06/28/22 19:58 Dose: 650 mg Acetaminophen (Acetaminophen 325 Mg Tablet) 650 mg PO Q6H PRN PRN Reason: Fever Last Admin: 06/29/22 21:29 Dose: 650 mg Albuterol Sulfate (Albuterol Sulfate (0.083%) 2.5 Mg/3 Ml Vial.Neb) 2.5 mg INHALE Q4H PRN PRN Reason: Respiratory Distress Allopurinol (Allopurinol 100 Mg Tablet) 100 mg PO DAILY [facility] Last Admin: 07/02/22 07:49 Dose: 100 mg Atenolol (Atenolol 25 Mg Tablet) 25 mg PO BEDTIME [facility]; Protocol Last Admin: 07/01/22 19:46 Dose: 25 mg Docusate Sodium (Docusate Sodium 100 Mg/10 Ml Liquid) 50 mg PO DAILY PRN PRN Reason: Constipation Last Admin: 06/28/22 19:57 Dose: 50 mg Meropenem 1 gm/ Sodium (Chloride) 100 mls @ 200 mls/hr IV Q8H [facility] Last Infusion: 07/02/22 09:38 Dose: Infused Lactated Ringer's (Lr) 1,000 mls @ 100 mls/hr IVCONT .Q10H [facility] Last Admin: 07/02/22 11:58 Dose: 100 mls/hr Fluconazole (Diflucan) 200 mg in 100 mls @ 100 mls/hr IV Q24H [facility] Last Infusion: 07/01/22 23:05 Dose: Infused Melatonin (Melatonin 3 Mg Tablet) 6 mg PO BEDTIME PRN PRN Reason: Insomnia Last Admin: 06/26/22 20:44 Dose: 6 mg Omeprazole (Omeprazole 20 Mg Capsule.Dr) 20 mg PO DAILY@0630 [facility] Last Admin: 07/02/22 06:00 Dose: 20 mg Pharmacy Consult (Consult Rx Perform Med Rec) 1 each MISCELLANE ONCE PRN PRN Reason: Consult order Senna (Sennosides 8.6 Mg Tablet) 17.2 mg PO BEDTIME PRN PRN Reason: Constipation Sodium Chloride (0.9 % Sodium Chloride Flush 3 Ml Syringe) 3 ml IVFLUSH QSHIFT [facility] Last Admin: 07/02/22 07:49 Dose: 3 ml Spironolactone (Spironolactone 25 Mg Tablet) 25 mg PO DAILY [facility]; Protocol Last Admin: 07/02/22 07:49 Dose: 25 mg Warfarin Sodium (Warfarin Sodium 5 Mg Tablet) 5 mg PO MOSA@1800 [facility] Last Admin: 06/30/22 18:35 Dose: 5 mg Warfarin Sodium (Warfarin Sodium 3 Mg Tablet) 3 mg PO SUTUWETHFR@1800 [facility] Last Admin: 07/01/22 17:44 Dose: 3 mg Home Medications Medication Instructions Recorded Confirmed Last Taken Type atenolol 25 mg tablet 25 mg PO BEDTIME 07/26/20 06/26/22 05/20/22 History omeprazole 20 mg capsule,delayed 20 mg PO DAILY@0630 07/26/20 06/26/22 05/20/22 History release spironolactone 25 mg tablet 25 mg PO DAILY 08/20/20 06/26/22 05/20/22 History warfarin 5 mg tablet 5 mg PO DIRECTED 05/02/21 06/28/22 05/20/22 History naftifine 2 % topical gel (Naftin) 1 appl topical DAILY mycosis 07/02/21 06/26/22 05/20/22 History albuterol sulfate 2.5 mg/3 mL 2.5 mg inhalation Q4H PRN 04/22/22 06/26/22 Unknown History (0.083 %) solution for nebulization Respiratory Distress allopurinol 100 mg tablet 100 mg PO DAILY 04/22/22 06/26/22 05/20/22 History diaper,brief,adult,disposable 05/12/22 06/26/22 Unknown History (Select Briefs) acetaminophen 325 mg tablet 650 mg PO Q6H PRN Fever 05/21/22 06/26/22 Unknown History (Tylenol) docusate sodium 50 mg capsule 50 mg PO DAILY PRN Constipation 05/21/22 06/26/22 Unknown History warfarin 2.5 mg PO DIRECTED 06/28/22 06/28/22 Unknown History Physical Exam Vital Signs and Narrative: Vital Signs: Last Vital Signs Temp 98 F 07/02/22 06:51 Pulse 96 07/02/22 06:51 Resp 16 07/02/22 06:51 BP 149/72 H 07/02/22 06:51 Pulse Ox 98 07/02/22 06:51 O2 Del Method 07/02/22 06:51 O2 Flow Rate 2 07/02/22 00:00 Oxygen Flow Rate 2 06/25/22 22:17 BMI result Body Mass Index 25.0 Const: Other: Awake, calm, maintains eye contact but does not respond to questions. Skin: Other: Right foot is warm, no edema or erythema. Along the posterior medial aspect, a rim of superficial eschar remain. The skin is intact. Results Labs CBC and Chem 7: 06/30/22 16:01 06/30/22 16:01 Labs: Laboratory Results - last 24 hr 07/01/22 07/02/22 11:24 06:05 PT 24.0 H INR 2.0 H Respiratory Panel [place] See Note Adenovirus (Rapid PCR) Not Detected B.pert (TEM-PCR) Not Detected B.parapertussis DNA PCR Not Detected C. pneumoniae DNA (PCR) Not Detected Coronavirus OC43 (PCR) Not Detected Coronavirus HKU1 (PCR) Not Detected Coronavirus 229E (PCR) Not Detected Coronavirus NL63 (PCR) Not Detected Human Metapneumovir PCR Not Detected Influenza A (RT-PCR) Not Detected Influenza B (RT-PCR) Not Detected M. pneumoniae (PCR) Not Detected Parainfluenza 1 (PCR) Not Detected Parainfluenza 2 (PCR) Not Detected Parainfluenza 3 (PCR) Not Detected Parainfluenza 4 (PCR) Not Detected RSV (PCR) Not Detected Entero/Rhino (PCR) Not Detected SARS-CoV-2 RNA (RT-PCR) Not Detected Assessment and Plan (1) Pressure ulcer, heel: Status: Acute (2) Alzheimer's dementia: Status: Acute Plan 71-year-old male with Alzheimer's dementia, nonverbal, admitted for treatment of recurrent UTI and noted to have an eschar of the medial aspect of the right heel. The eschar is lifting off and only a small portion remains. The underlying skin is intact. Recommend protective cream, Alevyn foam dressings until eschar completely resolved, Foam boots. Will sign off. Please call if Wound Care service can be of further assistance.
--- NOTE | 2022-07-02 14:20 | HO.PM.IMPN ---
Subjective Subjective Date of Service: 07/02/22 Interval History: no new c/o from yesterday Review of Systems no fevers overnight Physical Exam Vital Signs: Vital Signs: Last Vital Signs Temp 98 F 07/02/22 06:51 Pulse 96 07/02/22 06:51 Resp 16 07/02/22 06:51 BP 149/72 H 07/02/22 06:51 Pulse Ox 98 07/02/22 06:51 O2 Del Method 07/02/22 06:51 O2 Flow Rate 2 07/02/22 00:00 Oxygen Flow Rate 2 06/25/22 22:17 BMI result Body Mass Index 25.0 Appearance: Awake ,nonverbal cvs: rrr, [id number] . res: clear to auscultation ,no rhonchii or wheezing abd: no rebound or guarding ,nt, bs present. ext pulses present , no cyanosis . heel -mostly dry , no discharge Objective Data Active Medications Acetaminophen (Acetaminophen 325 Mg Tablet) 650 mg PO Q6H PRN PRN Reason: Pain, Mild (Pain Scale 1-3) Last Admin: 06/28/22 19:58 Dose: 650 mg Documented By: EVA Acetaminophen (Acetaminophen 325 Mg Tablet) 650 mg PO Q6H PRN PRN Reason: Fever Last Admin: 06/29/22 21:29 Dose: 650 mg Documented By: DUANE Albuterol Sulfate (Albuterol Sulfate (0.083%) 2.5 Mg/3 Ml Vial.Neb) 2.5 mg INHALE Q4H PRN PRN Reason: Respiratory Distress Allopurinol (Allopurinol 100 Mg Tablet) 100 mg PO DAILY [facility] Last Admin: 07/02/22 07:49 Dose: 100 mg Documented By: SANDY Atenolol (Atenolol 25 Mg Tablet) 25 mg PO BEDTIME [facility]; Protocol Last Admin: 07/01/22 19:46 Dose: 25 mg Documented By: CHAD Docusate Sodium (Docusate Sodium 100 Mg/10 Ml Liquid) 50 mg PO DAILY PRN PRN Reason: Constipation Last Admin: 06/28/22 19:57 Dose: 50 mg Documented By: EVA Meropenem 1 gm/ Sodium (Chloride) 100 mls @ 200 mls/hr IV Q8H [facility] Last Infusion: 07/02/22 09:38 Dose: 0 mls/hr Documented By: SANDY Lactated Ringer's (Lr) 1,000 mls @ 100 mls/hr IVCONT .Q10H [facility] Last Admin: 07/02/22 11:58 Dose: 100 mls/hr Documented By: SANDY Fluconazole (Diflucan) 200 mg in 100 mls @ 100 mls/hr IV Q24H [facility] Last Infusion: 07/01/22 23:05 Dose: 0 mls/hr Documented By: ANDRE Melatonin (Melatonin 3 Mg Tablet) 6 mg PO BEDTIME PRN PRN Reason: Insomnia Last Admin: 06/26/22 20:44 Dose: 6 mg Documented By: LEE ANN Omeprazole (Omeprazole 20 Mg Capsule.) 20 mg PO DAILY@0630 [facility] Last Admin: 07/02/22 06:00 Dose: 20 mg Documented By: ANDRE Pharmacy Consult (Consult Rx Perform Med Rec) 1 each MISCELLANE ONCE PRN PRN Reason: Consult order Senna (Sennosides 8.6 Mg Tablet) 17.2 mg PO BEDTIME PRN PRN Reason: Constipation Sodium Chloride (0.9 % Sodium Chloride Flush 3 Ml Syringe) 3 ml IVFLUSH QSHIFT [facility] Last Admin: 07/02/22 07:49 Dose: 3 ml Documented By: SANDY Spironolactone (Spironolactone 25 Mg Tablet) 25 mg PO DAILY [facility]; Protocol Last Admin: 07/02/22 07:49 Dose: 25 mg Documented By: SANDY Warfarin Sodium (Warfarin Sodium 5 Mg Tablet) 5 mg PO MOSA@1800 [facility] Last Admin: 06/30/22 18:35 Dose: 5 mg Documented By: CHAD Warfarin Sodium (Warfarin Sodium 3 Mg Tablet) 3 mg PO SUTUWETHFR@1800 [facility] Last Admin: 07/01/22 17:44 Dose: 3 mg Documented By: CHAD Labs CBC & Chem 7: 06/30/22 16:01 06/30/22 16:01 Labs: Laboratory Results - last 24 hr 07/02/22 06:05 PT 24.0 H INR 2.0 H Microbiology Microbiology Results: Microbiology 06/30/22 16:01 Blood Culture - Preliminary Blood - Venous No growth after 24 hours. 06/30/22 16:01 Blood Culture - Preliminary Blood - Venous No growth after 24 hours. Assessment and Plan (1) Pressure ulcer, heel: Status: Acute (2) Aspiration pneumonia: Status: Acute (3) Right leg DVT: Status: Acute (4) Scrotal swelling: Status: Acute Plan 71-year-old male with a past medical history of dementia, nonverbal, bedbound, history of recurrent UTIs, ascending aortic aneurysm, DVT on Coumadin, COPD, CKD stage 3, depression, history of valvular heart disease; presented to the hospital today with a chief complaint of fevers.? Noted to have UTI.? Admitted for further management.? 1.Recurrent UTI and possible bibasilar aspiration pneumonia: -continue doxy and meropenem .LD 06/30/22 fevers improving blood culture pending swallow saw the patient-pureed diet/thin liquids. 2.Dementia(Alzheimer's type) -pureed diet/thin liquids per daughter -continue conservative care (patient bedbound nonverbal) 3.History of DVT dupplex on 06/28/22?There is superficial thrombophlebitis seen in the mid to distal calf. -Coumadin as ordered -daily INRs-2 ,continue to moniter 4. scrotal swellin:seems to be improving urology eval pending 5. Right heel ulcer -continue wound care, added wound care eval Coumadin DNR DNI inpatient need:Recurrent UTI and possible bibasilar aspiration pneumonia-need iv antibiotics ,blood culture pending, Quality Stroke Does the patient have a stroke diagnosis?: No VTE Prior VTE?: No VTE Risk Level:: Medical - moderate - high VTE Device Contraindication: Treatment Not Indicated VTE Drug Contraindication: N/A - Med Ordered
--- NOTE | 2022-07-02 14:45 | MHC.CM.PN ---
UROLOGY CONSULT PENDING NO PLAN FOR DC TODAY
[2022-07-02 15:27] VITALS: BP 104/62; PULSE 72; RESP 18; TEMP 36.5; O2SAT 94
--- NOTE | 2022-07-02 15:52 | MHC.CLN ---
F/U PATIENT WITH STAGE II PI TO RIGHT HEEL. DIET=2 GRAM SODIUM, PUREE. SUPPLEMENT ENSURE TID PROVIDES ADDITIONAL 1050 KCALS, 60 G PROTEIN. SUPPLEMENT TO PROMOTE WOUND HEALING. INTAKE APPEARS GOOD, WITH MOST MEALS 50-100%. FOLLOW FOR INTAKE AND WOUND HEALING.
[2022-07-02] MEDS: Warfarin Sodium 3 MG TABLET PO (17:19)
[2022-07-02] MEDS: Doxycycline Hyclate 100 MG in 0.9 % Sodium Chloride 250 ML 166.67 MG IV (17:19)
[2022-07-02 19:13] VITALS: BP 131/76; PULSE 105; RESP 18; TEMP 36.5; O2SAT 96
[2022-07-02] MEDS: diphenhydrAMINE HCL 50 MG/ML VIAL 25 MG IVPUSH (19:28)
--- NOTE | 2022-07-02 19:54 | PC.NURSE ---
Pt family reported pt not looking well at 1845. Pt noted to have redness on chest and upper extremities, diaphoretic, and tremors to fallon upper extremities. Infusion was stopped. VS were WNL except for a HR of 103. POC BG was 117. MDs made aware and received order for IV benedryl. Pt appears to be improving since infusion was stopped except had an episode of diarrhea.
[2022-07-02 20:24] LABS: Glucose, Whole Blood 117 mg/dL (60-115)
[2022-07-02] MEDS: atenoloL 25 MG TABLET PO (21:11)
[2022-07-02 21:14] VITALS: BP 133/73; PULSE 96; RESP 16
[2022-07-03] VITALS: BP 116/74; PULSE 91; RESP 18; TEMP 36.6; O2SAT 98
[2022-07-03] MEDS: Fluconazole in NaCl,Iso-Osm 200 MG/100 ML PIGGYBACK 100 MG IV (00:06)
[2022-07-03] MEDS: Omeprazole 20 MG CAPSULE.DR PO (06:08)
[2022-07-03 06:33] LABS: INTERNATIONAL NORM RATIO 2.2 (0.9-1.1); Prothrombin Time 25.6 SEC (10.0-13.1)
[2022-07-03 07:49] VITALS: BP 133/72; PULSE 90; RESP 20; TEMP 36.2; O2SAT 98
[2022-07-03] MEDS: allopurinoL 100 MG TABLET PO (08:19)
[2022-07-03] MEDS: 0.9 % Sodium Chloride Flush 3 ML SYRINGE IVFLUSH (08:19)
[2022-07-03] MEDS: Spironolactone 25 MG TABLET PO (08:19)
[2022-07-03 10:22] LABS: Blood Urea Nitrogen 12 mg/dL (9-16); Creatinine Clr Calc Pharmacy 76.5; Estimated Glomerular Filt Rate > 60
--- NOTE | 2022-07-03 10:56 | MHC.CDI.CONC ---
CDI Concurrent Query Documentation Clarification: PHYSICIAN'S DOCUMENTATION REQUEST Date of Query: 07/03/22 1058 Patient Name: Antoni Kitchen Admit Date: 06/26/22 Dear Doctor, A review of the medical record indicates additional documentation may be needed. Please review below and update the documentation accordingly. Clinical Indicators: Is there a diagnosis that correlates with these lab findings: Risk Factors/Clinical Indicators/Treatments Lab findings: Albumin 2.7 L 2.8 L Based on the above, could you clarify in the Progress Notes the appropriate diagnosis, if significant, that supports the above abnormalities and additional evaluation, monitoring, and/or treatment rendered: Hypoalbuminemia or other etiology of lab findings Labs indicate a diagnosis of (please specify) Other (please specify) Unable to determine Use of terms such as suspected, likely, concern for, or probable (associated with a specific diagnosis that is being evaluated, monitored, or treated as if it exists) are acceptable and can be coded in the inpatient setting, when documented at the time of discharge. Thank you, Alexandria Peña [facility], [facility]IS Extension: [phone] Please use your independent medical judgment in providing your response. THIS QUERY IS PART OF THE PERMANENT MEDICAL RECORD Provider Response: Other Other Diagnosis: Hypo albuminemia possibly related to poor oral intake.
--- NOTE | 2022-07-03 13:56 | HO.PM.IMPN ---
Subjective Subjective Date of Service: 07/03/22 Interval History: Possible allergic reaction to to doxycycline. Review of Systems seems somewhat improvin itching/red area on ext -seems imprving Physical Exam Vital Signs: Vital Signs: Last Vital Signs Temp 97.2 F 07/03/22 07:49 Pulse 90 07/03/22 07:49 Resp 20 07/03/22 07:49 BP 133/72 07/03/22 07:49 Pulse Ox 98 07/03/22 07:49 O2 Del Method 07/03/22 07:49 O2 Flow Rate 2 07/03/22 00:00 Oxygen Flow Rate 2 06/25/22 22:17 BMI result Body Mass Index 25.0 Appearance: Awake ,nonverbal cvs: rrr, [id number] . res: clear to auscultation ,no rhonchii or wheezing abd: no rebound or guarding ,nt, bs present. ext pulses present , no cyanosis red patches-ext -seems improving scrotalswelling improving heel -mostly dry , no discharge Objective Data Active Medications Acetaminophen (Acetaminophen 325 Mg Tablet) 650 mg PO Q6H PRN PRN Reason: Pain, Mild (Pain Scale 1-3) Last Admin: 06/28/22 19:58 Dose: 650 mg Documented By: EVA Acetaminophen (Acetaminophen 325 Mg Tablet) 650 mg PO Q6H PRN PRN Reason: Fever Last Admin: 06/29/22 21:29 Dose: 650 mg Documented By: DUANE Albuterol Sulfate (Albuterol Sulfate (0.083%) 2.5 Mg/3 Ml Vial.Neb) 2.5 mg INHALE Q4H PRN PRN Reason: Respiratory Distress Allopurinol (Allopurinol 100 Mg Tablet) 100 mg PO DAILY [facility] Last Admin: 07/03/22 08:19 Dose: 100 mg Documented By: SANDY Atenolol (Atenolol 25 Mg Tablet) 25 mg PO BEDTIME [facility]; Protocol Last Admin: 07/02/22 21:11 Dose: 25 mg Documented By: APURVA Diphenhydramine HCl (Diphenhydramine Hcl 50 Mg/Ml Vial) 25 mg IVPUSH Q6H PRN PRN Reason: Allergic Reaction Last Admin: 07/02/22 19:28 Dose: 25 mg Documented By: SANDY Docusate Sodium (Docusate Sodium 100 Mg/10 Ml Liquid) 50 mg PO DAILY PRN PRN Reason: Constipation Last Admin: 06/28/22 19:57 Dose: 50 mg Documented By: EVA Meropenem 1 gm/ Sodium (Chloride) 100 mls @ 200 mls/hr IV Q8H [facility] Last Infusion: 07/03/22 09:30 Dose: 0 mls/hr Documented By: SANDY Fluconazole (Diflucan) 200 mg in 100 mls @ 100 mls/hr IV Q24H [facility] Last Infusion: 07/03/22 02:16 Dose: 0 mls/hr Documented By: YOU Melatonin (Melatonin 3 Mg Tablet) 6 mg PO BEDTIME PRN PRN Reason: Insomnia Last Admin: 06/26/22 20:44 Dose: 6 mg Documented By: LEE ANN Omeprazole (Omeprazole 20 Mg Capsule.) 20 mg PO DAILY@0630 [facility] Last Admin: 07/03/22 06:08 Dose: 20 mg Documented By: BERTHA Pharmacy Consult (Consult Rx Perform Med Rec) 1 each MISCELLANE ONCE PRN PRN Reason: Consult order Prednisone (Prednisone 20 Mg Tablet) 40 mg PO DAILY [facility] Last Admin: 07/03/22 08:37 Dose: Not Given Documented By: SANDY Non-Admin Reason: Physician Held Med Senna (Sennosides 8.6 Mg Tablet) 17.2 mg PO BEDTIME PRN PRN Reason: Constipation Sodium Chloride (0.9 % Sodium Chloride Flush 3 Ml Syringe) 3 ml IVFLUSH QSHIFT [facility] Last Admin: 07/03/22 08:19 Dose: 3 ml Documented By: SANDY Spironolactone (Spironolactone 25 Mg Tablet) 25 mg PO DAILY [facility]; Protocol Last Admin: 07/03/22 08:19 Dose: 25 mg Documented By: SANDY Warfarin Sodium (Warfarin Sodium 5 Mg Tablet) 5 mg PO MOSA@1800 [facility] Last Admin: 06/30/22 18:35 Dose: 5 mg Documented By: CHAD Warfarin Sodium (Warfarin Sodium 3 Mg Tablet) 3 mg PO SUTUWETHFR@1800 [facility] Last Admin: 07/02/22 17:19 Dose: 3 mg Documented By: SANDY Labs CBC & Chem 7: 06/30/22 16:01 07/03/22 05:33 Labs: Laboratory Results - last 24 hr 07/02/22 07/03/22 07/03/22 18:59 05:33 05:33 PT 25.6 H INR 2.2 H Estim Creat Clear Calc 76.5 Estimated GFR > 60 POC Glucose 117 H Microbiology Microbiology Results: Microbiology 06/30/22 16:01 Blood Culture - Preliminary Blood - Venous No growth after 48 hours. 06/30/22 16:01 Blood Culture - Preliminary Blood - Venous No growth after 48 hours. Assessment and Plan (1) Scrotal swelling: Status: Acute (2) Pressure ulcer, heel: Status: Acute (3) Aspiration pneumonia: Status: Acute (4) UTI (urinary tract infection): Status: Acute (5) Allergic reaction: Status: Acute Plan 71-year-old male with a past medical history of dementia, nonverbal, bedbound, history of recurrent UTIs, ascending aortic aneurysm, DVT on Coumadin, COPD, CKD stage 3, depression, history of valvular heart disease; presented to the hospital today with a chief complaint of fevers.? Noted to have UTI.? Admitted for further management.? 1.Recurrent UTI and possible bibasilar aspiration pneumonia: -continue doxy and meropenem .LD 06/30/22 fevers improving blood culture neg @48hrs swallow saw the patient-pureed diet/thin liquids. Id follow up 2.Dementia(Alzheimer's type) -pureed diet/thin liquids per daughter -continue conservative care (patient bedbound nonverbal) 3.History of DVT dupplex on 06/28/22?There is superficial thrombophlebitis seen in the mid to distal calf. -Coumadin as ordered -daily INRs-2 ,continue to moniter 4. scrotal swellin: d/w urology-no new symptoms ,swelling improved ,no intervention . 5. Right heel ulcer -continue wound care input apreciated. 6.possible allergic reaction to possible doxycycline: Continue Benadryl Family defer steroids currently. Coumadin DNR DNI inpatient need:Recurrent UTI and possible bibasilar aspiration pneumonia-need iv antibiotics ,allergic recation to doxy Quality Stroke Does the patient have a stroke diagnosis?: No VTE Prior VTE?: No VTE Risk Level:: Medical - moderate - high VTE Device Contraindication: Treatment Not Indicated VTE Drug Contraindication: N/A - Med Ordered
--- NOTE | 2022-07-03 14:13 | PM.UROCN ---
History of Present Illness Consult details Consult date: 07/02/22 Narrative: 71-year-old male with a PMHx of Alzheimer's, aortic regurgitation, aortic aneurysm, He is on Coumadin, COPD on oxygen admitted to the hospital 06/25/22 for fever.? He has been on antibiotics for complicated UTI for the past few weeks.? He has completed 2 courses of antibiotics, Keflex and ciprofloxacin, he is now on Levofloxacin.? Called to evaluate for scrotal swelling. The patient was evaluated on 07/02/22, the exam and history reviewed with the patient's son who was at the bedside. On exam there was mild erythema, mild swelling, no evidence of cellulitis. Recommend continue to elevate and follow in the urology office post discharge as scheduled. Review of Systems Review of Systems: 10 point ROS negative other than stated in the [facility] Past Medical History Medical History Acute deep vein thrombosis (DVT) Altered mental status Alzheimer's dementia Ascending aortic aneurysm Bleeding hemorrhoids Chronic anticoagulation CKD (chronic kidney disease) COPD (chronic obstructive pulmonary disease) COVID Depression Encephalopathy Febrile Heart valve disease Non-rheumatic aortic regurgitation Family History Family History Father History of prostate cancer Family history: reviewed and not pertinent Surgical History Surgical History History of inguinal hernia repair Hx of cholecystectomy Social History Social History Household Members: Family Housing: Apartment Do you presently have visiting nurse or other home services: No Unable to assess alcohol history related to: Unable to respond Alcohol intake: never Patient Tobacco Use Status: Tobacco use Unknown service: No Current occupational status: disabled Meds Allergies Allergy/AdvReac Type Severity Reaction Status Date / Time doxycycline Allergy Severe Rash Verified 07/03/22 14:13 nut - unspecified Allergy Severe GI Stomach Verified 06/27/22 10:58 Bleed oxycodone [OXYCODONE] Allergy Severe Decrease BP Verified 05/29/22 07:01 Iodinated Contrast Media Allergy Intermediate CKD PER Verified 05/29/22 07:01 [IVP DYE] DAUGHTER PT IS NOT TO HAVE DUE TO KIDNEYS Sulfa (Sulfonamide Allergy Intermediate Rash Verified 06/26/22 10:37 Antibiotics) tramadol [TRAMADOL] Allergy Intermediate PER Verified 05/29/22 07:01 DAUGHTER PT PASSED OUT, weakness Active Medications: Current Medications Acetaminophen (Acetaminophen 325 Mg Tablet) 650 mg PO Q6H PRN PRN Reason: Pain, Mild (Pain Scale 1-3) Last Admin: 06/28/22 19:58 Dose: 650 mg Acetaminophen (Acetaminophen 325 Mg Tablet) 650 mg PO Q6H PRN PRN Reason: Fever Last Admin: 06/29/22 21:29 Dose: 650 mg Albuterol Sulfate (Albuterol Sulfate (0.083%) 2.5 Mg/3 Ml Vial.Neb) 2.5 mg INHALE Q4H PRN PRN Reason: Respiratory Distress Allopurinol (Allopurinol 100 Mg Tablet) 100 mg PO DAILY [facility] Last Admin: 07/03/22 08:19 Dose: 100 mg Atenolol (Atenolol 25 Mg Tablet) 25 mg PO BEDTIME [facility]; Protocol Last Admin: 07/02/22 21:11 Dose: 25 mg Diphenhydramine HCl (Diphenhydramine Hcl 50 Mg/Ml Vial) 25 mg IVPUSH Q6H PRN PRN Reason: Allergic Reaction Last Admin: 07/02/22 19:28 Dose: 25 mg Docusate Sodium (Docusate Sodium 100 Mg/10 Ml Liquid) 50 mg PO DAILY PRN PRN Reason: Constipation Last Admin: 06/28/22 19:57 Dose: 50 mg Meropenem 1 gm/ Sodium (Chloride) 100 mls @ 200 mls/hr IV Q8H [facility] Last Infusion: 07/03/22 09:30 Dose: Infused Fluconazole (Diflucan) 200 mg in 100 mls @ 100 mls/hr IV Q24H [facility] Last Infusion: 07/03/22 02:16 Dose: Infused Melatonin (Melatonin 3 Mg Tablet) 6 mg PO BEDTIME PRN PRN Reason: Insomnia Last Admin: 06/26/22 20:44 Dose: 6 mg Omeprazole (Omeprazole 20 Mg Capsule.) 20 mg PO DAILY@0630 [facility] Last Admin: 07/03/22 06:08 Dose: 20 mg Pharmacy Consult (Consult Rx Perform Med Rec) 1 each MISCELLANE ONCE PRN PRN Reason: Consult order Prednisone (Prednisone 20 Mg Tablet) 40 mg PO DAILY [facility] Last Admin: 07/03/22 08:37 Dose: Not Given Senna (Sennosides 8.6 Mg Tablet) 17.2 mg PO BEDTIME PRN PRN Reason: Constipation Sodium Chloride (0.9 % Sodium Chloride Flush 3 Ml Syringe) 3 ml IVFLUSH QSHIFT [facility] Last Admin: 07/03/22 08:19 Dose: 3 ml Spironolactone (Spironolactone 25 Mg Tablet) 25 mg PO DAILY [facility]; Protocol Last Admin: 07/03/22 08:19 Dose: 25 mg Warfarin Sodium (Warfarin Sodium 5 Mg Tablet) 5 mg PO MOSA@1800 [facility] Last Admin: 06/30/22 18:35 Dose: 5 mg Warfarin Sodium (Warfarin Sodium 3 Mg Tablet) 3 mg PO SUTUWETHFR@1800 [facility] Last Admin: 07/02/22 17:19 Dose: 3 mg Home Medications Medication Instructions Recorded Confirmed Last Taken Type atenolol 25 mg tablet 25 mg PO BEDTIME 07/26/20 06/26/22 05/20/22 History omeprazole 20 mg capsule,delayed 20 mg PO DAILY@0630 07/26/20 06/26/22 05/20/22 History release spironolactone 25 mg tablet 25 mg PO DAILY 08/20/20 06/26/22 05/20/22 History warfarin 5 mg tablet 5 mg PO DIRECTED 05/02/21 06/28/22 05/20/22 History naftifine 2 % topical gel (Naftin) 1 appl topical DAILY mycosis 07/02/21 06/26/22 05/20/22 History albuterol sulfate 2.5 mg/3 mL 2.5 mg inhalation Q4H PRN 04/22/22 06/26/22 Unknown History (0.083 %) solution for nebulization Respiratory Distress allopurinol 100 mg tablet 100 mg PO DAILY 04/22/22 06/26/22 05/20/22 History diaper,brief,adult,disposable 05/12/22 06/26/22 Unknown History (Select Briefs) acetaminophen 325 mg tablet 650 mg PO Q6H PRN Fever 05/21/22 06/26/22 Unknown History (Tylenol) docusate sodium 50 mg capsule 50 mg PO DAILY PRN Constipation 05/21/22 06/26/22 Unknown History warfarin 2.5 mg PO DIRECTED 06/28/22 06/28/22 Unknown History Physical Exam Vital Signs: Vital Signs: Last Vital Signs Temp 97.2 F 07/03/22 07:49 Pulse 90 07/03/22 07:49 Resp 20 07/03/22 07:49 BP 133/72 07/03/22 07:49 Pulse Ox 98 07/03/22 07:49 O2 Del Method 07/03/22 07:49 O2 Flow Rate 2 07/03/22 00:00 Oxygen Flow Rate 2 06/25/22 22:17 BMI result Body Mass Index 25.0 Const: General: no acute distress and alert Orientation/consciousness: oriented to person HEENT: Head: Yes normocephalic Eyes: Conjunctivae: conjunctivae normal Neck: Neck: Yes normal visual inspection Chest: Chest palpation & inspection: normal inspection of the chest Resp: Effort & Inspection: normal respiratory effort Cardio: Rate: regular rate : General: No CVA tenderness and Yes no CVA tenderness Back/Spine/Pelvis: Back: no CVA tenderness and No CVA tenderness Skin: General skin exam: no rashes or lesions noted Neuro: General: oriented to person Results Labs Result diagrams: 06/30/22 16:01 07/03/22 05:33 Labs: Abnormal lab results 07/02/22 07/03/22 Range/Units 18:59 05:33 PT 25.6 H (10.0-13.1) SEC INR 2.2 H (0.9-1.1) POC Glucose 117 H (60-115) mg/dL BMP 07/03/22 05:33 BUN 12 Creatinine 0.81 Urine 06/26/22 Range/Units 00:48 Urine Color Yellow Urine Appearance Turbid Urine pH 5.5 (5.0-9.0) Ur Specific [place] 1.015 (1.005-1.025) Urine Protein 30 (1+) H (Neg-Trace) mg/dL Urine Glucose (UA) Negative (Negative) mg/dL All other labs normal. Imaging Additional studies: CT Chest/abd/pelvis 06/26/22: Pertinent findings: ABDOMEN/PELVIS: Adrenal Glands: Unremarkable.? Kidneys and Ureters: The kidneys are normal in size, shape, and attenuation. No hydronephrosis, hydroureter or calculi seen. No perinephric stranding. Simple bilateral renal cysts. The largest is seen exophytic from the left kidney measuring 8.2 cm. No follow-up imaging specifically recommended. Bladder: Decompressed with no gross abnormality.? Gastrointestinal Tract: The stomach and small bowel appear unremarkable. No dilated loops of bowel or evidence of obstruction. No diverticulosis. No colonic wall thickening or adjacent inflammatory changes. No free air or free fluid. The appendix is not seen. There is no pericecal inflammation to suggest acute appendicitis.? Abdominal Wall: Fat-containing left inguinal hernia.? Lymphovascular Structures:? Lymph nodes: Normal. Vascular: Normal caliber aorta with minimal atherosclerotic calcification. IVC filter noted. Pelvic Viscera: The prostate and seminal vesicles are unremarkable.? No suspicious findings in the abdomen or pelvis. ? Assessment and Plan (1) Scrotal swelling: Status: Acute Plan Conservative Therapy, scrotal elevation, keep scheduled out patient appointment with Urology dept. Procedures Date of Service Date of Service: 07/02/22
[2022-07-03 15:21] VITALS: BP 129/71; PULSE 109; RESP 16; TEMP 37.6; O2SAT 97
[2022-07-03] MEDS: Warfarin Sodium 3 MG TABLET PO (17:51)
[2022-07-03] MEDS: atenoloL 25 MG TABLET PO (21:29)
[2022-07-03] MEDS: Fluconazole in NaCl,Iso-Osm 100 MG in Container,Empty 0 ML 50 MG IV (23:00)
[2022-07-03 23:30] VITALS: BP 129/92; PULSE 107; RESP 17; TEMP 37.4; O2SAT 98
[2022-07-04] MEDS: 0.9 % Sodium Chloride Flush 3 ML SYRINGE IVFLUSH ×2 (00:16→09:25)
[2022-07-04] MEDS: Omeprazole 20 MG CAPSULE.DR PO (05:33)
[2022-07-04 06:55] LABS: INTERNATIONAL NORM RATIO 2.2 (0.9-1.1); Prothrombin Time 26.4 SEC (10.0-13.1)
[2022-07-04 07:50] VITALS: BP 132/71; PULSE 97; RESP 18; TEMP 36.3; O2SAT 100
[2022-07-04] MEDS: allopurinoL 100 MG TABLET PO (09:24)
[2022-07-04] MEDS: Spironolactone 25 MG TABLET PO (09:24)
--- NOTE | 2022-07-04 09:34 | MHC.CM.PN ---
PT CLEARED TO DC HOME TODAY WITH RESUMPTION OF 24/7 CARE AND NEW [facility] FOR WOUND CARE CM MET WITH PTS DAUGHTER AT [facility] WHO REPORTS SHE CAN MANAGE THE WOUND CARE BUT WOULD NEED A NURSE FOR TEACHINGS SHE REPORTS SHE WOULD NOT WANT ANYTHING MORE THAN THE WOUND CARE DUE TO POTENTIAL COVID EXPOSURE. REFERRAL PLACED TO COMFORT PLUS PT WILL NEED BLS TRANSPORT
[2022-07-04] MEDS: Amoxicillin/Potassium Clav 875 MG TABLET PO (11:11)
--- NOTE | 2022-07-04 12:32 | W.MHC.F2F ---
Service Date Service Date: 07/04/22 Encounter Date of encounter: 07/04/22 Encounter: heel ulcer , pneumonia ,uti Reasons for Services Signs and symptoms assessed: Shortness of breath or abdominal pain or fever. Reason for snf: monitoring of PT/INR, medication management, medication treatment and teach disease management MD Overseeing Care: Stanton Clemons III Homebound: Leaving the home is medically contraindicated at this time without the asist of a device and/or another person due th the listed conditions above and below. Reason homebound: weakness related to hospital stay Homebound supporting statement: Patient is generalized weak has multiple comorbidities including aspiration pneumonia, UTI, also need help to go to appointments. Certification: Based on the above findings, I certify that this patient is confined to the home and needs intermittent snf care, physical therapy and/or speech therapy, or continues to need occupational therapy. The patient is under my care, and I have initiated the establishment of the plan of care. The patient will be followed by a physician who will periodically review the plan of care.
--- NOTE | 2022-07-04 12:34 | PM.DS ---
DS: Providers Provider Date of Service: 07/04/22 Date of admission: 06/26/22 01:25 Primary care physician: Stanton Clemons III, MD Consults: 06/26/22 01:23 Consult to Infectious Diseases Routine Consulting Provider: Aracelis Koo Reason for consultation: Rec UTI 06/26/22 02:48 Consult to Infectious Diseases Routine Consulting Provider: Aracelis Koo Reason for consultation: Rec UTI; 06/28/22 07:36 Consult to Infectious Diseases Routine Consulting Provider: Aracelis Koo Reason for consultation: pneumonia Has provider been notified: Yes 07/02/22 07:34 Consult to Urology Routine Consulting Provider: Myles Gomez Reason for consultation: scrotal /penis swelling Has provider been notified: No 07/02/22 09:34 Consult to Wound Care Routine Consulting Provider: [facility] Wound Care Management Reason for consultation: heel pressure injury Has provider been notified: No DS: Diagnosis Discharge Diagnosis (1) Scrotal swelling: Status: Acute (2) Allergic reaction: Status: Acute (3) Pressure ulcer, heel: Status: Acute (4) Aspiration pneumonia: Status: Acute (5) UTI (urinary tract infection): Status: Acute DS: Summary Hospital Course Hospital Course: 71-year-old male with a past medical history of dementia, nonverbal, bedbound, history of recurrent UTIs, ascending aortic aneurysm, DVT on Coumadin, COPD, CKD stage 3, depression, history of valvular heart disease; presented to the hospital today with a chief complaint of fevers.? Most of the history obtained from the patient's daughter at bedside.? Reportedly patient has had recurrent urinary tract infections.? Was on cephalexin about a week ago; over the past 2 days he started developed fevers again; was started on levofloxacin by his PCP.? Even on levofloxacin for past 2 days he continued to have fevers; subsequently patient's PCP asked him to go to the ER for further evaluation.? Hospital Course: Admitted to hospital -concern of reccurrent uti -started on iv antiobiotics ,blood and urine culture sent, Urine culture grew out yeast; intial blood cultures -coagulase negative staph but repeat blood cultures were negative. On 06/27 chest x-ray demonstrated atypical pneumonia. Id was consulted who is stated to complete 3-5 days of meropenem -seems to be improved significantly now patient is going home with p.o. antibiotics. intial blood cultures coagulase neg staph and repeated Blood culture negative.patient developed allergic recation to doxycline -which improved with benadryl. d/w ID -going home with fluconazole and augmentin. in addition venous dupplex of leg was done due to swleling-There is superficial thrombophlebitis seen in the mid to distal calf. continue warfarin ,inr therpeutic ,leg swelling seems improved significantly. scrotal swelling is improved, asymptomatic, use scrotalelevation. Urology recommended no acute intervention.follow up outpatient. Patient heel ulcer navarro continue current dressing and going home with VNA, follow-up outpatient wound care as per pcp. wound care Recommend protective cream, Alevyn foam dressings until eschar completely resolved,? Foam boots. in addition Cta incidental findin.3 cm right upper lobe pulmonary nodule. According to the UPDATED 2017 Fleischner Society recommendations, the advised follow-up imaging for solid nodules < 6 mm is: ?? LOW RISK PATIENT: No routine follow-up. ?? HIGH RISK PATIENT: Optional CT at 12 months. follow up with pcp outpatient. assessment and plan coodination time spent 50min , above is d/w his daughter in detail at bedside. Time Spent with Patient Time attestation: Total time spent providing and/or coordinating discharge services: Discharge coordination time: Greater than 30 minutes Quality: Safe Use of Opioids Does Pt have an Active Cancer Diagnosis on the Problem List?: No Quality: Stroke Does the patient have a stroke diagnosis?: No Physical Exam Vital Signs: Vital Signs: Last Vital Signs Temp 97.4 F 07/04/22 07:50 Pulse 97 07/04/22 07:50 Resp 18 07/04/22 07:50 BP 132/71 07/04/22 07:50 Pulse Ox 100 07/04/22 07:50 O2 Del Method 07/04/22 07:50 O2 Flow Rate 2 07/04/22 07:50 Oxygen Flow Rate 2 06/25/22 22:17 BMI result Body Mass Index 25.0 Appearance: Awake ,nonverbal cvs: rrr, [id number] . res: clear to auscultation ,no rhonchii or wheezing abd: no rebound or guarding ,nt, bs present. ext pulses present , no cyanosis, no rash scrotalswelling improving heel -mostly dry , no discharge DS: Data Data Completed and Pending Completed studies during hospitalization [Text1]: Procedures Introduction of Remdesivir Anti-infective into Peripheral Vein, Percutaneous Approach, [employer] 5 (04/22/22) Labs on day of discharge: Laboratory Results - last 24 hr 07/04/22 05:50 PT 26.4 H INR 2.2 H Preliminary micro results at discharge 06/30/22 16:01 Blood Culture - Preliminary Blood - Venous No growth after 48 hours. 06/30/22 16:01 Blood Culture - Preliminary Blood - Venous No growth after 48 hours. US/US venous duplex LE RT IMPRESSION: Nondiagnostic study. Many of this patient's deep veins are not adequately visualized. DVT cannot be excluded. There is superficial thrombophlebitis seen in the mid to distal calf. ?XR/XR chest 1V IMPRESSION: ? 1. No airspace consolidation or effusions. 2. Increased reticular markings within both lungs, similar to prior, possibly due to atypical infection. ?CT/CT chest wo IV con IMPRESSION: Scattered subtle groundglass opacity in the lungs with mild reticulation. No significant septal thickening. Motion in the lungs limits the evaluation. The appearance favors infectious/inflammatory process. Edema possible.? ? 0.3 cm right upper lobe pulmonary nodule. According to the UPDATED 2017 Fleischner Society recommendations, the advised follow-up imaging for solid nodules < 6 mm is: ?? LOW RISK PATIENT: No routine follow-up. ?? HIGH RISK PATIENT: Optional CT at 12 months. Discharge Plan Discharge Patient Disposition: Home Health Service Discharge Diagnosis: Recurrent UTI, aspiritional penumonia Referrals: [facility] [Outside] - 1 Week Sara Joel MD [Physician] - 1 Week Discharge Medications: New fluconazole 100 mg Tablet 100 mg PO Q24H Qty: 4 0RF amoxicillin-pot clavulanate 875-125 mg tablet 1 tab PO BID Qty: 6 0RF Continued (DME) Select Briefs Misc See Rx Instructions .ROUTE .MEDSUPPLY Label Comments: pt is requesting size XL diapers Rx Instructions: As directed- adult disposable diapers weight 162 lbs (DME) disposable gloves [Biobrane Gloves Medium] Misc See Rx Instructions .Route Qty: 200 1RF Rx Instructions: As directed warfarin 5 mg tablet 5 mg PO DIRECTED Rx Instructions: Thursday and Thursday allopurinol 100 mg Tablet 100 mg PO DAILY albuterol sulfate 2.5 mg /3 mL (0.083 %) Solution For Nebulization 2.5 mg INHALATION Q4H PRN (Reason: Respiratory Distress) warfarin 2.5 mg 2.5 mg PO DIRECTED Rx Instructions: Sun, , Weds, Th, Fri acetaminophen [Tylenol] 325 mg Tablet 650 mg PO Q6H PRN (Reason: Fever) docusate sodium 50 mg Capsule 50 mg PO DAILY PRN (Reason: Constipation) spironolactone 25 mg tablet 25 mg PO DAILY omeprazole 20 mg capsule,delayed release(DR/EC) 20 mg PO DAILY@0630 atenolol 25 mg tablet 25 mg PO BEDTIME Naftin 2 % gel 1 appl topical DAILY Discontinued levofloxacin 250 mg/10 mL solution 20 ml PO DAILY Discharge Orders: Discharge Order (Routine); Ordered 07/04/22 Ordered By: Harjinder Mancera Diet: Advance to usual diet Activity on Discharge: As tolerated Stand Alone Forms: Patient Portal Discharge page Care Plan Goals: Patient came to the hospital-initially admitted for concern of UTI-started on IV antibiotics, in hospital course also found to have possible aspiration pneumonia-received antibiotics IV for pneumonia also-seems to be improved significantly now patient is going home with p.o. antibiotics. intial blood cultures coagulase neg staph and repeated Blood culture negative. scrotal swelling is improved, asymptomatic. Urology recommended no acute intervention. Patient heel ulcer navarro continue current dressing and going home with VNA, follow-up outpatient wound care. wound care Recommend protective cream, Alevyn foam dressings until eschar completely resolved,? Foam boots. Health Concerns: Resume all previous medicines, a patient condition worsen or new fever or new symptoms abdominal pain or for shortness of breath go to nearest emergency room for further evaluation. Plan of Treatment: Resume Coumadin dosing . Monitor INR Monitor CBC, BMP, LFTs in 1 week with PCP. Follow-up outpatient with PCP Assessment: See discharge summary
--- NOTE | 2022-07-04 13:12 | MHC.CM.PN ---
PATIENT WILL NOW BE TRANSPORTED HOME [facility] FOR 1600 RN AWARE DAUGHTER (IN ROOM) ALSO AWARE.
== END 2022-07-04 16:52 | disposition home health service (06) | DRG 727 ==
LOC: HO.ED 06-26 01:28 → HO.EDOVER 06-26 01:46 → HO.S3 06-26 08:08
PROVIDERS: Hospitalist; Internal Medicine; Physician Assistant; Admitting Provider Hospitalist; Emergency Provider Emergency Medicine Emergency Medical Services; PCP Internal Medicine; Visit Provider Internal Medicine
DX: B37.41 Candidal cystitis and urethritis (principal); J69.0 Pneumonitis due to inhalation of food and vomit; F32.A Depression, unspecified; Z66 Do not resuscitate; E88.09 Other disorders of plasma-protein metabolism, not elsewhere classified; I71.2 Thoracic aortic aneurysm, without rupture; G30.9 Alzheimer's disease, unspecified; F02.80 Dementia in other diseases classified elsewhere, unspecified severity, without behavioral disturbance, psychotic disturbance, mood disturbance, and anxiety; J41.0 Simple chronic bronchitis; N18.30 Chronic kidney disease, stage 3 unspecified; R91.1 Solitary pulmonary nodule; R23.4 Changes in skin texture; N50.89 Other specified disorders of the male genital organs; L29.9 Pruritus, unspecified; T36.4X5A Adverse effect of tetracyclines, initial encounter; I35.1 Nonrheumatic aortic (valve) insufficiency; Z20.822 Contact with and (suspected) exposure to COVID-19; Z99.81 Dependence on supplemental oxygen; Z74.01 Bed confinement status; Z87.440 Personal history of urinary (tract) infections; Z86.718 Personal history of other venous thrombosis and embolism; Z91.041 Radiographic dye allergy status; Z88.1 Allergy status to other antibiotic agents; Z88.2 Allergy status to sulfonamides; Z88.5 Allergy status to narcotic agent; Z79.01 Long term (current) use of anticoagulants; Z79.899 Other long term (current) drug therapy
CPT/HCPCS: 36415; 71045; 71250; 74176; 76775; 80048; 80053; 80307; 81001; 81003; 82565; 82947; 83605; 83735; 83880; 84484; 84520; 85025; 85610; 87040; 87086; 87088; 87147; 87205; 87633; 87635; 92526; 92610; 93005; 93971; 99285; J0456; J1200; J1450; J1956; J2185

== ENCOUNTER 2022-06-27 06:24 | Outpatient (REF) | payer MEDICARE, MEDICAID, SELFPAY | END 2022-06-27 06:25 | disposition home or self-care (01) | LOC: HO.LHD 06:24 | PROVIDERS: Visit Provider Internal Medicine Medical Oncology | DX: Z13.89 Encounter for screening for other disorder (principal) ==

== ENCOUNTER 2022-07-10 08:36 | Outpatient (REF) | payer MEDICARE, MEDICAID, SELFPAY | END 2022-07-10 08:37 | disposition home or self-care (01) | LOC: HO.LAB 08:36 | PROVIDERS: PCP Internal Medicine; Visit Provider Urology | DX: Z13.89 Encounter for screening for other disorder (principal) | CPT/HCPCS: Q3014 ==

== ENCOUNTER 2022-07-18 13:18 | Outpatient (REF) | payer MEDICARE, MEDICAID, SELFPAY ==
[2022-07-18 13:40] LABS: Appearance Urine Cloudy; Color Urine Yellow; Glucose Urine UA Negative (Negative); Leukocyte Esterase Urine Large (3+) (Negative); Nitrite Urine Negative (Negative); PH 5.5 (5.0-9.0); Specific Gravity - Urine 1.015 (1.005-1.025); UMIC TRIGGER UA YES; Urine Blood Negative (Negative); Urine Ketones Negative (Negative); Urine Protein Negative (Neg-Trace)
[2022-07-18 13:45] LABS: Bacteria Urine None Seen (None Seen); Hyaline Casts Urine 0-2 /LPF (0-2); RBC Urine 0-2 /HPF (0-2); Squamous Epithelial Cell Urine 0-2 /HPF (0-2); WBC Urine >50 /HPF (0-5)
== END 2022-07-18 13:19 | disposition home or self-care (01) ==
LOC: HO.LNP 13:18
PROVIDERS: Visit Provider Urology
DX: Z13.89 Encounter for screening for other disorder (principal)
CPT/HCPCS: 81001; 87086

== ENCOUNTER 2022-07-21 00:56 | Inpatient (IN) | payer MEDICARE, MEDICAID, SELFPAY ==
[2022-07-21] VITALS (12 sets, daily range): BP systolic 106–133; BP diastolic 68–86; PULSE 96–117; RESP 16–35; TEMP 36.2–37.7; O2SAT 93–100; BMI 24.8
--- NOTE | ~2022-07-21 | XR_ITS ---
EXAMINATION: XR ABDOMEN KUB CLINICAL INDICATION: Nausea and vomiting COMPARISON: Previous CT of the abdomen and pelvis most recent June 2022 TECHNIQUE: AP view of the abdomen. FINDINGS: The stomach is slightly distended and filled with air. There are air-filled distended loops of small bowel. Small bowel loops appear more dilated than previous CT 06/26/2022. There is air in normal caliber colon. No free air is seen. There is an IVC filter. No suspicious calcifications. Degenerative changes of the spine and hip joints. XR/XR KUB IMPRESSION: Increasing stomach and small bowel dilatation probably representing an ileus.
--- NOTE | ~2022-07-21 | XR_ITS ---
EXAMINATION: XR CHEST CLINICAL INFORMATION: Question aspiration pneumonia COMPARISON: 06/30/2022 TECHNIQUE: Frontal view of the chest was obtained. FINDINGS: Lungs are mildly hypoinflated. No focal consolidation is seen. No evidence of pneumothorax, significant pleural effusion, or overt pulmonary edema. Central peribronchial thickening is noted. The cardiomediastinal contour is unremarkable. No acute osseous findings are seen. Gaseous distention of stomach and bowel in the upper abdomen, similar to prior. XR/XR chest 1V IMPRESSION: No focal consolidation identified. Central peribronchial thickening suggesting airways disease.
--- NOTE | ~2022-07-21 | CT_ITS ---
EXAMINATION: CT ABDOMEN AND PELVIS WITHOUT CONTRAST CLINICAL INFORMATION: Abdominal swelling, question obstruction COMPARISON: 06/26/2022 TECHNIQUE: Multidetector volumetric imaging was performed from the superior aspect of the liver through the pubic symphysis. Sagittal and coronal reformatted images were obtained on the technologist's workstation. This CT examination was performed using dose optimization techniques as appropriate, variously including the following: *Automated exposure control *Adjustment of mA and/or kV according to patient size (this includes techniques or standardized protocols for targeted exams where dose is matched to indication/reason for exam; i.e. extremities or head) *Use of iterative reconstruction technique DLP: 708 mGy-cm FINDINGS: LUNG BASES: The visualized lung bases are unremarkable. LIVER, GALLBLADDER, AND BILIARY TREE: The liver is normal in size, shape, and attenuation. No focal hepatic lesion or biliary ductal dilatation is identified. Status post cholecystectomy. PANCREAS: Unremarkable. SPLEEN: Unremarkable. ADRENAL GLANDS: Unremarkable. KIDNEYS AND URETERS: No hydronephrosis or obstructing calculus bilaterally. Redemonstrated bilateral renal cysts, largest on the left; no follow-up recommended. BLADDER: Collapsed and not adequately evaluated. GASTROINTESTINAL TRACT: The stomach is distended with gas and fluid. Gas is present in the wall of the stomach, seen most prominently at the gastric body and fundus. There is distention of multiple segments of small bowel with gas and fluid, without convincing evidence for obstruction, as there is also gas within segments of large bowel. No significant bowel wall thickening is seen. No free fluid or free air is seen. ABDOMINAL WALL: Fat-containing left inguinal hernia. LYMPH NODES: Normal. VASCULAR: Scattered atherosclerotic calcifications. Suprarenal IVC filter noted. PELVIC VISCERA: Unremarkable. OSSEOUS STRUCTURES: Scattered degenerative changes in the spine. Degenerative changes are present in the spine and hips. CT/CT abdomen pelvis wo IV con IMPRESSION: 1. Gas within the wall of the stomach consistent with gastric emphysema. Possible etiologies include emphysematous gastritis, ischemia, perforated gastric ulcer, or sequelae of increased intraluminal pressure given the history of recent vomiting. 2. Moderately distended bowel loops without convincing evidence for obstruction. Ileus is a possibility. This critical result was discussed with Kay Gonzales on 07/22/2022 12:51 AM, and it was ascertained that the content and urgency of the report was understood at the time of direct communication.
--- NOTE | 2022-07-21 01:40 | ECG_ITS ---
Test Reason : N/V Blood Pressure : / mmHG Vent. Rate : 115 BPM Atrial Rate : 115 BPM P-R Int : 158 ms QRS Dur : 078 ms QT Int : 318 ms P-R-T Axes : 047 -26 080 degrees QTc Int : 439 ms Sinus tachycardia Moderate voltage criteria for LVH, may be normal variant ( R in aVL , Cal product ) RSR' or QR pattern in V1 suggests right ventricular conduction delay Abnormal ECG When compared with ECG of 26-JUN-2022 02:35, Nonspecific T wave abnormality no longer evident in Inferior leads Referred By: Chantal Echeverria Electronically Signed By:TAM CUNNINGHAM MD
--- NOTE | 2022-07-21 01:45 | ED.NAVMDI ---
HPI - Nausea/Vomiting/Diarrhea General Chief complaint: Nausea/Vomiting/Diarrhea Stated complaint: N/V/D Time Seen by Provider: 07/21/22 01:23 Source: family Mode of arrival: EMS Limitations: no limitations History of Present Illness HPI Narrative: Patient comes to the emergency room via EMS. Patient is nonverbal. Patient comes because earlier today patient had 1 episode of brown vomitus, patient's daughter is concerned he may have aspirated patient was recently admitted in the last month for pneumonia and complicated UTI. Patient's oxygen saturation has remained stable according to the family. Patient uses oxygen at home. Family reports that the patient had a normal bowel movement today, no black stool or blood. Related Data Home Medications Medication Instructions Recorded Confirmed atenolol 25 mg tablet 25 mg PO BEDTIME 07/26/20 07/10/22 omeprazole 20 mg capsule,delayed 20 mg PO DAILY@0630 07/26/20 07/10/22 release spironolactone 25 mg tablet 25 mg PO DAILY 08/20/20 07/10/22 warfarin 5 mg tablet 5 mg PO DIRECTED 05/02/21 07/10/22 naftifine 2 % topical gel (Naftin) 1 appl topical DAILY mycosis 07/02/21 07/10/22 albuterol sulfate 2.5 mg/3 mL 2.5 mg inhalation Q4H PRN 04/22/22 07/10/22 (0.083 %) solution for nebulization Respiratory Distress allopurinol 100 mg tablet 100 mg PO DAILY 04/22/22 07/10/22 diaper,brief,adult,disposable 05/12/22 07/10/22 (Select Briefs) acetaminophen 325 mg tablet 650 mg PO Q6H PRN Fever 05/21/22 07/10/22 (Tylenol) docusate sodium 50 mg capsule 50 mg PO DAILY PRN Constipation 05/21/22 07/10/22 warfarin 2.5 mg PO DIRECTED 06/28/22 07/10/22 levofloxacin 500 mg tablet 500 mg PO DAILY 07/07/22 07/10/22 Previous Rx's Medication Instructions Recorded disposable gloves (Biobrane Gloves #200 ea 06/17/22 Medium) amoxicillin 875 mg-potassium 1 tab PO BID #6 tabs 07/04/22 clavulanate 125 mg tablet fluconazole 100 mg tablet 100 mg PO Q24H #4 tabs 07/04/22 finasteride 5 mg tablet 5 mg PO DAILY 90 days #90 tabs 07/10/22 Allergies Allergy/AdvReac Type Severity Reaction Status Date / Time doxycycline Allergy Severe Rash Verified 07/07/22 12:54 nut - unspecified Allergy Severe GI Stomach Verified 07/07/22 12:54 Bleed oxycodone [OXYCODONE] Allergy Severe Decrease BP Verified 07/07/22 12:54 Iodinated Contrast Media Allergy Intermediate CKD PER Verified 07/07/22 12:54 [IVP DYE] DAUGHTER PT IS NOT TO HAVE DUE TO KIDNEYS Sulfa (Sulfonamide Allergy Intermediate Rash Verified 07/07/22 12:54 Antibiotics) tramadol [TRAMADOL] Allergy Intermediate PER Verified 07/07/22 12:54 DAUGHTER PT PASSED OUT, weakness Review of Systems Review of Systems: Yes Unobtainable due to mental condition [facility] Past Medical History Medical History Acute deep vein thrombosis (DVT) Altered mental status Alzheimer's dementia Ascending aortic aneurysm Bleeding hemorrhoids Chronic anticoagulation CKD (chronic kidney disease) COPD (chronic obstructive pulmonary disease) COVID Depression Encephalopathy Febrile Heart valve disease Non-rheumatic aortic regurgitation Surgical History History of inguinal hernia repair Hx of cholecystectomy Family History Family History Father History of prostate cancer Social History Social History Household Members: Family Housing: Apartment Do you presently have visiting nurse or other home services: No Unable to assess alcohol history related to: Unable to respond Alcohol intake: never Patient Tobacco Use Status: Tobacco use Unknown Advance Directives: No Advance Directives Information Provided: No service: No Current occupational status: disabled Physical Exam Vital Signs: Vital Signs: Last Vital Signs Temp 98.2 F 07/21/22 02:22 Pulse 117 H 07/21/22 02:22 Resp 35 H 07/21/22 02:22 BP 133/86 07/21/22 02:22 Pulse Ox 100 07/21/22 02:22 O2 Del Method 07/21/22 02:22 O2 Flow Rate 2 07/21/22 02:22 Oxygen Flow Rate 2 07/21/22 01:15 BMI result Body Mass Index 24.8 Const: Other: Appearance: Alert. No acute distress. Nonverbal, ill-appearing, weak Eyes: Pupils equal, round and reactive to light. ENT: Pharynx normal. Neck: Normal inspection. Neck supple. No lymph nodes noted. No crepitus CVS: Normal heart rate and rhythm. Pulses normal. Normal S1 and S2 Respiratory: No respiratory distress. Breath sounds normal. No Wheezing. No rales Abdomen: Soft and nontender. No rigidity. No distention. Skin: Skin warm and dry. Normal skin color. Normal skin turgor. Extremities: No lower extremity edema. No Lacerations. No Rash Neuro unable to participating cranial nerve assessment Psych: calm Course Course Course Narrative: Patient was discharged from the hospital 2 weeks ago, patient was diagnosed with scrotal swelling, pressure ulcer in the heel, aspiration pneumonia and UTI. Of patient's labs and imaging pending. Given the report the patient was throwing up possible coffee-ground emesis. We will go ahead and obtain a guaiac test. Wake test was negative. Patient's white blood cell count is elevated 16.6 likely secondary to diarrhea. At this time, C diff PCR test is pending. Respiratory navarro, patient has no shortness of breath, chest x-ray does not show pneumonia. However, patient did test positive for COVID-19. Oxygen saturation remains 99% room air. Lactic acid, blood pressure within normal limits, no fever. Sepsis not suspected. Diarrhea is likely secondary to viral infection/COVID. PCR for C diff still pending Patient has significant past medical history, he has fragile looking. At this time, I do not think it would be safe to discharge patient, as he is at high risk of decompensating. Patient being slowly hydrated. I discussed the patient with Dr. Dowd, pt being admitted MDM - Nausea/Vomiting/Diarrhea Lab Data Result diagrams: 07/21/22 02:38 07/21/22 02:33 Labs: Lab Results 07/21/22 07/21/22 07/21/22 Range/Units 02:33 02:33 02:33 WBC (4.8-10.8) X10*3/uL RBC (4.60-5.80) X10*6/uL Hgb (14.0-18.0) g/dl Hct (42.0-52.0) % MCV (80.0-98.0) fL MCH (27.0-33.0) pg MCHC (31.0-36.0) g/dl RDW (11.0-16.0) % Plt Count (160-400) X10*3/uL MPV (9.4-12.4) fL Immature Gran % (Auto) (0.0-0.4) % Neut % (Auto) (45-73) % Lymph % (Auto) (20-40) % Glynn % (Auto) (2-11) % Eos % (Auto) (0-4) % Baso % (Auto) (0-2) % Lymph # (Auto) (1.2-4.9) X10*3/uL Glynn # (Auto) (0.1-1.2) X10*3/uL Eos # (Auto) (0.0-0.4) X10*3/uL Baso # (Auto) (0.0-0.2) X10*3/uL Abs Immat Gran (auto) (0.00-0.03) X10*3/uL Absolute Neuts (auto) (2.0-8.3) x10*3/uL Absolute Nucleated RBC (0.0-0.012) X10*3/uL Nucleated RBC % (auto) (0.0-0.2) /100WBC PT (10.0-13.1) SEC INR (0.9-1.1) Sodium 137 (135-145) mmol/L Potassium 4.6 D (3.3-5.1) mmol/L Chloride 102 (96-108) mmol/L Carbon Dioxide 21 L (22-29) mmol/L Anion Gap 19 (12-20) BUN 23 H D (9-16) mg/dL Creatinine 1.03 (0.5-1.4) mg/dL Estim Creat Clear Calc 59.3 Estimated GFR > 60 Random Glucose 124 H (60-115) mg/dL Lactic Acid (0.5-2.0) mmol/L Calcium 9.8 D (8.4-10.2) mg/dL Total Bilirubin 1.0 (0.0-1.0) mg/dL Direct Bilirubin 0.4 (0.0-0.5) mg/dL AST 26 (5-37) U/L ALT 24 (0-40) U/L Alkaline Phosphatase 70 D (39-117) U/L Troponin I High Sens 4.9 (<3.5-35.0) ng/L Total Protein 7.9 D (6.5-8.0) g/dL Albumin 3.8 D (3.5-5.0) g/dL Lipase 59 (8-78) U/L Stool Occult Blood (NEGATIVE) COVID-19 ([facility]) Positive A (Negative) COVID-19 Clin Com See Note 07/21/22 07/21/22 07/21/22 Range/Units 02:33 02:38 02:38 WBC 16.6 H (4.8-10.8) X10*3/uL RBC 6.01 H D (4.60-5.80) X10*6/uL Hgb 17.2 D (14.0-18.0) g/dl Hct 49.7 (42.0-52.0) % MCV 82.7 (80.0-98.0) fL MCH 28.6 (27.0-33.0) pg MCHC 34.6 (31.0-36.0) g/dl RDW 16.7 H (11.0-16.0) % Plt Count 304 D (160-400) X10*3/uL MPV 10.8 (9.4-12.4) fL Immature Gran % (Auto) 0.5 H (0.0-0.4) % Neut % (Auto) 85.5 H (45-73) % Lymph % (Auto) 8.7 L (20-40) % Glynn % (Auto) 5.0 (2-11) % Eos % (Auto) 0.1 (0-4) % Baso % (Auto) 0.2 (0-2) % Lymph # (Auto) 1.4 (1.2-4.9) X10*3/uL Glynn # (Auto) 0.8 (0.1-1.2) X10*3/uL Eos # (Auto) 0.0 (0.0-0.4) X10*3/uL Baso # (Auto) 0.0 (0.0-0.2) X10*3/uL Abs Immat Gran (auto) 0.09 H (0.00-0.03) X10*3/uL Absolute Neuts (auto) 14.2 H (2.0-8.3) x10*3/uL Absolute Nucleated RBC 0.000 (0.0-0.012) X10*3/uL Nucleated RBC % (auto) 0.0 (0.0-0.2) /100WBC PT 22.3 H (10.0-13.1) SEC INR 1.9 H (0.9-1.1) Sodium (135-145) mmol/L Potassium (3.3-5.1) mmol/L Chloride (96-108) mmol/L Carbon Dioxide (22-29) mmol/L Anion Gap (12-20) BUN (9-16) mg/dL Creatinine (0.5-1.4) mg/dL Estim Creat Clear Calc Estimated GFR Random Glucose (60-115) mg/dL Lactic Acid 1.5 (0.5-2.0) mmol/L Calcium (8.4-10.2) mg/dL Total Bilirubin (0.0-1.0) mg/dL Direct Bilirubin (0.0-0.5) mg/dL AST (5-37) U/L ALT (0-40) U/L Alkaline Phosphatase (39-117) U/L Troponin I High Sens (<3.5-35.0) ng/L Total Protein (6.5-8.0) g/dL Albumin (3.5-5.0) g/dL Lipase (8-78) U/L Stool Occult Blood (NEGATIVE) COVID-19 ([facility]) (Negative) COVID-19 Clin Com 07/21/22 Range/Units 03:29 WBC (4.8-10.8) X10*3/uL RBC (4.60-5.80) X10*6/uL Hgb (14.0-18.0) g/dl Hct (42.0-52.0) % MCV (80.0-98.0) fL MCH (27.0-33.0) pg MCHC (31.0-36.0) g/dl RDW (11.0-16.0) % Plt Count (160-400) X10*3/uL MPV (9.4-12.4) fL Immature Gran % (Auto) (0.0-0.4) % Neut % (Auto) (45-73) % Lymph % (Auto) (20-40) % Glynn % (Auto) (2-11) % Eos % (Auto) (0-4) % Baso % (Auto) (0-2) % Lymph # (Auto) (1.2-4.9) X10*3/uL Glynn # (Auto) (0.1-1.2) X10*3/uL Eos # (Auto) (0.0-0.4) X10*3/uL Baso # (Auto) (0.0-0.2) X10*3/uL Abs Immat Gran (auto) (0.00-0.03) X10*3/uL Absolute Neuts (auto) (2.0-8.3) x10*3/uL Absolute Nucleated RBC (0.0-0.012) X10*3/uL Nucleated RBC % (auto) (0.0-0.2) /100WBC PT (10.0-13.1) SEC INR (0.9-1.1) Sodium (135-145) mmol/L Potassium (3.3-5.1) mmol/L Chloride (96-108) mmol/L Carbon Dioxide (22-29) mmol/L Anion Gap (12-20) BUN (9-16) mg/dL Creatinine (0.5-1.4) mg/dL Estim Creat Clear Calc Estimated GFR Random Glucose (60-115) mg/dL Lactic Acid (0.5-2.0) mmol/L Calcium (8.4-10.2) mg/dL Total Bilirubin (0.0-1.0) mg/dL Direct Bilirubin (0.0-0.5) mg/dL AST (5-37) U/L ALT (0-40) U/L Alkaline Phosphatase (39-117) U/L Troponin I High Sens (<3.5-35.0) ng/L Total Protein (6.5-8.0) g/dL Albumin (3.5-5.0) g/dL Lipase (8-78) U/L Stool Occult Blood NEGATIVE (NEGATIVE) COVID-19 ([facility]) (Negative) COVID-19 Clin Com Discharge Plan Discharge Clinical Impression: COVID-19, Diarrhea, Acute dehydration Patient Disposition: Admitted As Inpatient Prescriptions: No Action (DME) Select Briefs Misc See Rx Instructions .ROUTE .MEDSUPPLY Label Comments: pt is requesting size XL diapers Rx Instructions: As directed- adult disposable diapers weight 162 lbs (DME) disposable gloves [Biobrane Gloves Medium] Misc See Rx Instructions .Route Qty: 200 1RF Rx Instructions: As directed warfarin 5 mg tablet 5 mg PO DIRECTED Rx Instructions: Thursday and Thursday allopurinol 100 mg Tablet 100 mg PO DAILY albuterol sulfate 2.5 mg /3 mL (0.083 %) Solution For Nebulization 2.5 mg INHALATION Q4H PRN (Reason: Respiratory Distress) warfarin 2.5 mg 2.5 mg PO DIRECTED Rx Instructions: Sun, , Thus, , Thu fluconazole 100 mg Tablet 100 mg PO Q24H Qty: 4 0RF amoxicillin-pot clavulanate 875-125 mg tablet 1 tab PO BID Qty: 6 0RF acetaminophen [Tylenol] 325 mg Tablet 650 mg PO Q6H PRN (Reason: Fever) docusate sodium 50 mg Capsule 50 mg PO DAILY PRN (Reason: Constipation) spironolactone 25 mg tablet 25 mg PO DAILY omeprazole 20 mg capsule,delayed release(DR/EC) 20 mg PO DAILY@0630 atenolol 25 mg tablet 25 mg PO BEDTIME Naftin 2 % gel 1 appl topical DAILY levofloxacin 500 mg tablet 500 mg PO DAILY finasteride 5 mg tablet 5 mg PO DAILY 90 Days Qty: 90 3RF
[2022-07-21 02:42] LABS: MANUAL DIFF FLAG NO
[2022-07-21 02:48] LABS: Basophils Percent Auto 0.2 % (0-2); Eosinophils Percent Auto 0.1 % (0-4); Hematocrit 49.7 % (42.0-52.0); Hemoglobin 17.2 g/dl (14.0-18.0); Imm Gran Abs Auto 0.09 X10*3/uL (0.00-0.03); Imm Gran Pct Auto 0.5 % (0.0-0.4); Lymphocytes Absolute Auto 1.4 X10*3/uL (1.2-4.9); Lymphocytes Percent Auto 8.7 % (20-40); Mean Corpuscular HGB Conc 34.6 g/dl (31.0-36.0); Mean Corpuscular Hemoglobin 28.6 pg (27.0-33.0); Mean Corpuscular Volume 82.7 fL (80.0-98.0); Mean Platelet Volume 10.8 fL (9.4-12.4); Monocytes Absolute Auto 0.8 X10*3/uL (0.1-1.2); Neutrophils Absolute Auto 14.2 x10*3/uL (2.0-8.3); Neutrophils Percent Auto 85.5 % (45-73); Platelet Count 304 X10*3/uL (160-400); Red Blood Count 6.01 X10*6/uL (4.60-5.80); Red Cell Distribution Width 16.7 % (11.0-16.0); White Blood Count 16.6 X10*3/uL (4.8-10.8)
[2022-07-21 02:51] LABS: INTERNATIONAL NORM RATIO 1.9 (0.9-1.1); Prothrombin Time 22.3 SEC (10.0-13.1)
[2022-07-21 02:55] LABS: Lactic Acid 1.5 mmol/L (0.5-2.0)
[2022-07-21 02:58] LABS: COVID-19 Test Positive (Negative)
[2022-07-21 03:01] LABS: Alanine Aminotransferase 24 U/L (0-40); Albumin Level 3.8 g/dL (3.5-5.0); Alkaline Phosphatase 70 U/L (39-117); Anion Gap 19 (12-20); Aspartate Amino Transferase 26 U/L (5-37); Bilirubin Direct 0.4 mg/dL (0.0-0.5); Blood Urea Nitrogen 23 mg/dL (9-16); Calcium 9.8 mg/dL (8.4-10.2); Carbon Dioxide 21 mmol/L (22-29); Chloride 102 mmol/L (96-108); Creatinine Clr Calc Pharmacy 59.3; Estimated Glomerular Filt Rate > 60; Glucose Random 124 mg/dL (60-115); Lipase 59 U/L (8-78); Potassium 4.6 mmol/L (3.3-5.1); Sodium 137 mmol/L (135-145); Total Protein 7.9 g/dL (6.5-8.0)
[2022-07-21 03:03] LABS: Troponin-I High Sensitivity 4.9 ng/L (<3.5-35.0)
[2022-07-21 03:36] LABS: OBS Int Ctl Valid YES; OBS1 NEGATIVE (NEGATIVE)
[2022-07-21] MEDS: ondansetron HCL 4 MG/2 ML VIAL IVPUSH (03:37)
[2022-07-21] MEDS: 0.9 % Sodium Chloride 1,000 ML 999 ML IVCONT (03:38)
--- NOTE | 2022-07-21 06:46 | P.HPHOSP_ITS ---
History of Present Illness Date of Service: 07/21/22 Chief Complaint: N/V, weakness 72-year-old female with an extensive past medical history including DVT, Alzheimer's dementia, nonverbal at baseline, bed-bound, CKD, COPD on chronic oxygen 2 L, COVID infection in April, brought in by his daughter who is his health lacquer machine feeder and is very involved in her health due to cough, nausea, vomiting, episode of diarrhea that all occurred the night prior, patient's daughter is very concerned because she she feels that has increased weakness, and that he may contracted COVID from his recent admission to the hospital. He is A&O times 0 a baseline Patient is nonverbal, is drowsy but arousable, unable to give much history or review of system. Of note patient was recently discharged from the hospital on after being managed for UTI and atypical pneumonia On arrival to the ED patient hemodynamically stable with no significant abnormal vitals satting 96% on 2 L of oxygen baseline oxygen requirement with a respir atory rate of 26 Labs are significant for WBC count of 16.6, hemoglobin of 17.2, hematocrit foot 9.7, INR of 1.9, BUN of 23, creatinine of 1.03 with a baseline of 0.8, COVID-19 positive Review of Systems Review of Systems: Yes Unobtainable due to mental status [facility] Medical History Acute deep vein thrombosis (DVT) Altered mental status Alzheimer's dementia Ascending aortic aneurysm Bleeding hemorrhoids Chronic anticoagulation CKD (chronic kidney disease) COPD (chronic obstructive pulmonary disease) COVID Depression Encephalopathy Febrile Heart valve disease Non-rheumatic aortic regurgitation Family History Father History of prostate cancer Surgical History History of inguinal hernia repair Hx of cholecystectomy Social History Household Members: Family Housing: Apartment Do you presently have visiting nurse or other home services: No Unable to assess alcohol history related to: Unable to respond Alcohol intake: never Patient Tobacco Use Status: Tobacco use Unknown Advance Directives: No Advance Directives Information Provided: No service: No Current occupational status: disabled Meds Allergies Allergy/AdvReac Type Severity Reaction Status Date / Time doxycycline Allergy Severe Rash Verified 07/07/22 12:54 nut - unspecified Allergy Severe GI Stomach Verified 07/07/22 12:54 Bleed oxycodone [OXYCODONE] Allergy Severe Decrease BP Verified 07/07/22 12:54 Iodinated Contrast Media Allergy Intermediate CKD PER Verified 07/07/22 12:54 [IVP DYE] DAUGHTER PT IS NOT TO HAVE DUE TO KIDNEYS Sulfa (Sulfonamide Allergy Intermediate Rash Verified 07/07/22 12:54 Antibiotics) tramadol [TRAMADOL] Allergy Intermediate PER Verified 07/07/22 12:54 DAUGHTER PT PASSED OUT, weakness Active Medications: Current Medications Acetaminophen (Acetaminophen 325 Mg Tablet) 650 mg PO Q6H PRN PRN Reason: Pain, Mild (Pain Scale 1-3) Docusate Sodium (Docusate Sodium 100 Mg Capsule) 100 mg PO DAILY PRN PRN Reason: Constipation Heparin Sodium (Porcine) (Heparin Sodium,Porcine 5,000 Unit/Ml Vial) 5,000 unit SUBCUT Q12H [facility] Ondansetron HCl (Ondansetron Hcl 4 Mg/2 Ml Vial) 4 mg IVPUSH Q8H PRN PRN Reason: Nausea and Vomiting Sodium Chloride (0.9 % Sodium Chloride Flush 3 Ml Syringe) [facility] Medications Medication Instructions Recorded Confirmed Last Taken Type atenolol 25 mg tablet 25 mg PO BEDTIME 07/26/20 07/10/22 05/20/22 History omeprazole 20 mg capsule,delayed 20 mg PO DAILY@0630 07/26/20 07/10/22 05/20/22 History release spironolactone 25 mg tablet 25 mg PO DAILY 08/20/20 07/10/22 05/20/22 History warfarin 5 mg tablet 5 mg PO DIRECTED 05/02/21 07/10/22 05/20/22 History naftifine 2 % topical gel (Naftin) 1 appl topical DAILY mycosis 07/02/21 07/10/22 05/20/22 History albuterol sulfate 2.5 mg/3 mL 2.5 mg inhalation Q4H PRN 04/22/22 07/10/22 Unknown History (0.083 %) solution for nebulization Respiratory Distress allopurinol 100 mg tablet 100 mg PO DAILY 04/22/22 07/10/22 05/20/22 History diaper,brief,adult,disposable 05/12/22 07/10/22 Unknown History (Select Briefs) acetaminophen 325 mg tablet 650 mg PO Q6H PRN Fever 05/21/22 07/10/22 Unknown History (Tylenol) docusate sodium 50 mg capsule 50 mg PO DAILY PRN Constipation 05/21/22 07/10/22 Unknown History warfarin 2.5 mg PO DIRECTED 06/28/22 07/10/22 Unknown History levofloxacin 500 mg tablet 500 mg PO DAILY 07/07/22 07/10/22 Unknown History Physical Exam Vital Signs and Narrative: Vital Signs: Last Vital Signs Temp 99.5 F 07/21/22 03:51 Pulse 108 H 07/21/22 05:22 Resp 27 H 07/21/22 05:22 BP 126/75 07/21/22 05:22 Pulse Ox 95 07/21/22 05:22 O2 Del Method 07/21/22 05:22 O2 Flow Rate 2 07/21/22 05:22 Oxygen Flow Rate 2 07/21/22 01:15 BMI result Body Mass Index 24.8 Const: Other: Patient is somnolent but arousable patient is A&O times 0 at baseline, nonverbal, does not participate in history or physical exam General: cooperative and no acute distress Eyes: General: appearance normal, both eyes and all related structures Resp: Effort & Inspection: normal respiratory effort Cardio: Rate: regular rate Rhythm: regular rhythm GI: Palpation (GI): Soft to palpation Auscultation: normal bowel sounds Skin: General skin exam: no rashes or lesions noted Extrem: General: Yes normal to inspection and Yes no pedal edema Results Labs CBC and Chem 7: 07/21/22 02:38 07/21/22 02:33 Labs: Laboratory Results - last 24 hr 07/21/22 07/21/22 07/21/22 02:33 02:33 02:33 MCV MCH MCHC RDW Plt Count MPV Immature Gran % (Auto) Neut % (Auto) Lymph % (Auto) [place] % (Auto) Eos % (Auto) Baso % (Auto) Lymph # (Auto) [place] # (Auto) Eos # (Auto) Baso # (Auto) Abs Immat Gran (auto) Absolute Neuts (auto) Absolute Nucleated RBC Nucleated RBC % (auto) PT INR Anion Gap 19 Estim Creat Clear Calc 59.3 Estimated GFR > 60 Random Glucose 124 H Lactic Acid Calcium 9.8 D Total Bilirubin 1.0 Direct Bilirubin 0.4 AST 26 ALT 24 Alkaline Phosphatase 70 D Troponin I High Sens 4.9 Total Protein 7.9 D Albumin 3.8 D Lipase 59 Stool Occult Blood COVID-19 (KESHAV) Positive A COVID-19 Clin Com See Note 07/21/22 07/21/22 07/21/22 02:33 02:38 02:38 MCV 82.7 MCH 28.6 MCHC 34.6 RDW 16.7 H Plt Count 304 D MPV 10.8 Immature Gran % (Auto) 0.5 H Neut % (Auto) 85.5 H Lymph % (Auto) 8.7 L [place] % (Auto) 5.0 Eos % (Auto) 0.1 Baso % (Auto) 0.2 Lymph # (Auto) 1.4 [place] # (Auto) 0.8 Eos # (Auto) 0.0 Baso # (Auto) 0.0 Abs Immat Gran (auto) 0.09 H Absolute Neuts (auto) 14.2 H Absolute Nucleated RBC 0.000 Nucleated RBC % (auto) 0.0 PT 22.3 H INR 1.9 H Anion Gap Estim Creat Clear Calc Estimated GFR Random Glucose Lactic Acid 1.5 Calcium Total Bilirubin Direct Bilirubin AST ALT Alkaline Phosphatase Troponin I High Sens Total Protein Albumin Lipase Stool Occult Blood COVID-19 (KESHAV) COVID-19 Clin Com 07/21/22 03:29 MCV MCH MCHC RDW Plt Count MPV Immature Gran % (Auto) Neut % (Auto) Lymph % (Auto) [place] % (Auto) Eos % (Auto) Baso % (Auto) Lymph # (Auto) [place] # (Auto) Eos # (Auto) Baso # (Auto) Abs Immat Gran (auto) Absolute Neuts (auto) Absolute Nucleated RBC Nucleated RBC % (auto) PT INR Anion Gap Estim Creat Clear Calc Estimated GFR Random Glucose Lactic Acid Calcium Total Bilirubin Direct Bilirubin AST ALT Alkaline Phosphatase Troponin I High Sens Total Protein Albumin Lipase Stool Occult Blood NEGATIVE COVID-19 (KESHAV) COVID-19 Clin Com Imaging Radiologist's Impressions: Impressions Chest X-Ray 07/21/22 01:50 IMPRESSION: No focal consolidation identified. Central peribronchial thickening suggesting airways disease. Assessment and Plan (1) COVID-19: Status: Acute (2) Diarrhea: Status: Acute (3) Acute dehydration: Status: Acute (4) Encephalopathy due to COVID-19 virus: Status: Acute (5) Nausea vomiting and diarrhea: Status: Acute Plan 72-year-old male with past medical history of advanced Alzheimer's dementia presents to the hospital after an episode of nausea vomiting, diarrhea as well as coughing found to have COVID-19 infection # COVID-19 encephalopathy - with diarrhea, nausea vomiting -no hypoxia at this point - monitor respiratory status - supportive care # acute dehydration/[place] - has elevated BUN creatinine from his baseline - likely secondary to dehydration in setting of nausea vomiting diarrhea secondary to COVID-19 infection - IV fluids - follow BMP # nausea vomiting/diarrhea - likely secondary to COVID infection - will obtain KUB - abdominal exam benign - monitor for bowel movements - antiemetics - IV fluids # Alzheimer's dementia - continue medications # hypothyroidism - continue levothyroxine # hypertension - stable - continue antihypertensives DVT prophylaxis: Warfarin Pt will require a minimum 2 night hospital stay for COVID-19 cephalopathy, acute dehydration requiring IV fluids, patient will do poorly of patient Quality Stroke Does the patient have a stroke diagnosis?: No VTE Prior VTE?: No VTE Risk Level:: Medical - moderate - high VTE Device Contraindication: Treatment Not Indicated VTE Drug Contraindication: N/A - Med Ordered
[2022-07-21] MEDS: Heparin Sodium,Porcine 5,000 UNIT/ML VIAL 5000 UNIT SUBCUT (09:04)
[2022-07-21] MEDS: Lactated Ringers 1,000 ML 100 ML IVCONT ×2 (09:14→20:22)
--- NOTE | 2022-07-21 09:27 | PC.NURSE ---
pt alert but non-verbal at baseline, slightly warm to touch, rectal temp at 99.9, ls clear, respirations even and unlabored vs stable, attempted to reposition the pt but the daughter states that the pt only likes to be on his left side also called the pharmacy to do a med rec
[2022-07-21 09:28] LABS: Glucose, Whole Blood 107 mg/dL (60-115)
--- NOTE | 2022-07-21 09:41 | PM.EVENT ---
Event Note Date of Service: 07/21/22 Event Note: Patient seen/examined, here with encephalopathy, covid +, A/P per H and P from this morning. covid without hypoxia
--- NOTE | 2022-07-21 10:37 | PHA.MEDREC ---
Pharmacy Consult ? Medication Reconciliation Pharmacy has completed the medication reconciliation. Spoke with daughter in ED. Patient takes warfarin 2.5 mg daily
--- NOTE | 2022-07-21 12:38 | PC.NURSE ---
Pt incontinent of urine, cleaned up, new pad placed @1200
[2022-07-21 14:13] LABS: INTERNATIONAL NORM RATIO 2.1 (0.9-1.1); Prothrombin Time 24.6 SEC (10.0-13.1)
--- NOTE | 2022-07-21 16:12 | PC.NURSE ---
pharmacy contacted regarding changing medication over to crushable/liquid medications.
[2022-07-21] MEDS: atenoloL 25 MG TABLET PO (17:09)
[2022-07-21] MEDS: Spironolactone 25 MG TABLET PO (17:10)
[2022-07-21] MEDS: allopurinoL 100 MG TABLET PO (17:10)
--- NOTE | 2022-07-21 18:51 | PC.NURSE ---
Patient was incontinent of loose amount of stool ,care given pads change ,patient daughter is at bedside ,patient is moving to overflow .
--- NOTE | 2022-07-21 20:02 | PC.NURSE ---
patient vomited brown liquid on admission to ED overflow,daughter tested patient for Covid with her own test which came back negative,Dr. Paris Hospitalist notified ,also made Dr. Paris aware that daughter is requesting CT.
[2022-07-21] MEDS: Warfarin Sodium 2.5 MG TABLET PO (20:23)
[2022-07-21] MEDS: Acetaminophen 325 MG TABLET 650 MG PO (23:45)
[2022-07-22] VITALS (7 sets, daily range): BP systolic 110–124; BP diastolic 55–69; PULSE 79–100; RESP 16–20; TEMP 35.6–36.9; O2SAT 95–100
--- NOTE | 2022-07-22 05:48 | PC.NURSE ---
daughter at beside, very involved in care. noted that pt received an abrasion to (L)-hip while get being rolled to be placed on sliding boarding while in overflow. She notes that she reported it and was told that she would be contacted by supervisor fireworks assembly. Pictured of pt skin was taken and placed in chart, P.M. supervisor fireworks assembly notified. pt skin is also sensitive to the warm wipes, daughter has home wipes present at bedside.
[2022-07-22] MEDS: Lactated Ringers 1,000 ML 100 ML IVCONT ×2 (06:42→22:44)
[2022-07-22 08:49] LABS: MANUAL DIFF FLAG NO
[2022-07-22 08:52] LABS: Basophils Percent Auto 0.1 % (0-2); Eosinophils Absolute Auto 0.1 X10*3/uL (0.0-0.4); Hematocrit 41.1 % (42.0-52.0); Hemoglobin 13.8 g/dl (14.0-18.0); Imm Gran Abs Auto 0.04 X10*3/uL (0.00-0.03); Imm Gran Pct Auto 0.5 % (0.0-0.4); Lymphocytes Absolute Auto 1.7 X10*3/uL (1.2-4.9); Lymphocytes Percent Auto 18.9 % (20-40); Mean Corpuscular HGB Conc 33.6 g/dl (31.0-36.0); Mean Corpuscular Hemoglobin 28.5 pg (27.0-33.0); Mean Corpuscular Volume 84.9 fL (80.0-98.0); Mean Platelet Volume 11.7 fL (9.4-12.4); Monocytes Absolute Auto 0.6 X10*3/uL (0.1-1.2); Monocytes Percent Auto 7.1 % (2-11); Neutrophils Absolute Auto 6.4 x10*3/uL (2.0-8.3); Neutrophils Percent Auto 72.4 % (45-73); Platelet Count 191 X10*3/uL (160-400); Red Blood Count 4.84 X10*6/uL (4.60-5.80); Red Cell Distribution Width 16.1 % (11.0-16.0); White Blood Count 8.8 X10*3/uL (4.8-10.8)
[2022-07-22 09:05] LABS: INTERNATIONAL NORM RATIO 2.2 (0.9-1.1); Prothrombin Time 25.7 SEC (10.0-13.1)
[2022-07-22 09:11] LABS: Anion Gap 12 (12-20); Blood Urea Nitrogen 23 mg/dL (9-16); Carbon Dioxide 23 mmol/L (22-29); Chloride 109 mmol/L (96-108); Creatinine Clr Calc Pharmacy 75.4; Estimated Glomerular Filt Rate > 60; Glucose Random 86 mg/dL (60-115); Potassium 4.3 mmol/L (3.3-5.1); Sodium 140 mmol/L (135-145)
[2022-07-22] MEDS: 0.9 % Sodium Chloride Flush 3 ML SYRINGE IVFLUSH ×3 (09:20→20:16)
[2022-07-22] MEDS: atenoloL 25 MG TABLET PO (09:20)
[2022-07-22] MEDS: allopurinoL 100 MG TABLET PO (09:20)
[2022-07-22] MEDS: Spironolactone 25 MG TABLET PO (09:20)
[2022-07-22 09:27] LABS: Calcium 8.5 mg/dL (8.4-10.2)
--- NOTE | 2022-07-22 11:46 | HO.PM.IMPN ---
Subjective Subjective Date of Service: 07/23/22 Interval History: Seen in f/u for encephalopathy interval history: at baseline mental status, non-verbal, no yumiko n/v since last evening. Daughter at bedside. Ate breakfast this morning without problem Review of Systems Review of Systems: Yes Unobtainable due to mental status Physical Exam Vital Signs: Vital Signs: Last Vital Signs Temp 97.8 F 07/22/22 08:00 Pulse 87 07/22/22 08:00 Resp 16 07/22/22 08:00 BP 117/66 07/22/22 08:00 Pulse Ox 99 07/22/22 08:00 O2 Del Method 07/22/22 08:00 O2 Flow Rate 2 07/22/22 03:39 Oxygen Flow Rate 2 07/21/22 01:15 BMI result Body Mass Index 24.8 Const: Other: General: non verbal Resp: CTA bilateral CVS: S1,S2,RRR GI: +BS, NT, no distention Skin: No rash Neuro: motor grossly intact Psych: appropriate affect Objective Data Active Medications Acetaminophen (Acetaminophen 325 Mg Tablet) 650 mg PO Q6H PRN PRN Reason: Fever Last Admin: 07/21/22 23:45 Dose: 650 mg Documented By: NIYA Albuterol Sulfate (Albuterol Sulfate (0.083%) 2.5 Mg/3 Ml Vial.Neb) 2.5 mg INHALE Q4H PRN PRN Reason: Respiratory Distress Allopurinol (Allopurinol 100 Mg Tablet) 100 mg PO DAILY [facility] Last Admin: 07/22/22 09:20 Dose: 100 mg Documented By: RICARDO Atenolol (Atenolol 25 Mg Tablet) 25 mg PO DAILY [facility]; Protocol Last Admin: 07/22/22 09:20 Dose: 25 mg Documented By: RICARDO Docusate Sodium (Docusate Sodium 100 Mg/10 Ml Liquid) 50 mg PO DAILY PRN PRN Reason: Constipation Lactated Ringer's (Lr) 1,000 mls @ 100 mls/hr IVCONT .Q10H THOMAS Last Admin: 07/22/22 06:42 Dose: 100 mls/hr Documented By: NIYA Non-Formulary Medication (Naftifine [Naftin]) 1 appl TOPICAL DAILY THOMAS Omeprazole (Omeprazole 20 Mg/10 Ml Susp.Recon) 20 mg PO DAILY@0630 [facility] Last Admin: 07/22/22 06:37 Dose: 20 mg Documented By: NIYA Ondansetron HCl (Ondansetron Hcl 4 Mg/2 Ml Vial) 4 mg IVPUSH Q8H PRN PRN Reason: Nausea and Vomiting Pharmacy Consult (Consult Rx Perform Med Rec) 1 each MISCELLANE ONCE PRN PRN Reason: Consult order Sodium Chloride (0.9 % Sodium Chloride Flush 3 Ml Syringe) 3 ml IVFLUSH QSHIFT [facility] Last Admin: 07/22/22 09:20 Dose: 3 ml Documented By: RICARDO Spironolactone (Spironolactone 25 Mg Tablet) 25 mg PO DAILY [facility]; Protocol Last Admin: 07/22/22 09:20 Dose: 25 mg Documented By: RICARDO Warfarin Sodium (Warfarin Sodium 2.5 Mg Tablet) 2.5 mg PO DAILY@1800 [facility] Last Admin: 07/21/22 20:23 Dose: 2.5 mg Documented By: CHAD Labs CBC & Chem 7: 07/22/22 08:37 07/22/22 08:37 Labs: Laboratory Results - last 24 hr 07/21/22 07/22/22 07/22/22 14:03 08:37 08:37 MCV 84.9 MCH 28.5 MCHC 33.6 RDW 16.1 H Plt Count 191 D MPV 11.7 Immature Gran % (Auto) 0.5 H Neut % (Auto) 72.4 Lymph % (Auto) 18.9 L [place] % (Auto) 7.1 Eos % (Auto) 1.0 Baso % (Auto) 0.1 Lymph # (Auto) 1.7 [place] # (Auto) 0.6 Eos # (Auto) 0.1 Baso # (Auto) 0.0 Abs Immat Gran (auto) 0.04 H Absolute Neuts (auto) 6.4 Absolute Nucleated RBC 0.000 Nucleated RBC % (auto) 0.0 PT 24.6 H INR 2.1 H Anion Gap 12 Estim Creat Clear Calc 75.4 Estimated GFR > 60 Random Glucose 86 Calcium 8.5 D 07/22/22 08:37 MCV MCH MCHC RDW Plt Count MPV Immature Gran % (Auto) Neut % (Auto) Lymph % (Auto) [place] % (Auto) Eos % (Auto) Baso % (Auto) Lymph # (Auto) [place] # (Auto) Eos # (Auto) Baso # (Auto) Abs Immat Gran (auto) Absolute Neuts (auto) Absolute Nucleated RBC Nucleated RBC % (auto) PT 25.7 H INR 2.2 H Anion Gap Estim Creat Clear Calc Estimated GFR Random Glucose Calcium Microbiology Microbiology Results: Microbiology 07/21/22 02:50 Blood Culture - Preliminary Blood - Venous No growth after 24 hours. 07/21/22 02:50 Blood Culture - Preliminary Blood - Venous No growth after 24 hours. Assessment and Plan (1) Nausea vomiting and diarrhea: Status: Acute (2) Encephalopathy: Status: Acute Plan 72-year-old male with past medical history of advanced Alzheimer's dementia presents to the hospital after an episode of nausea vomiting, diarrhea as well as coughing found to have COVID-19 infection # encephalopathy ? covid, dehydration -seems better #covid positive assymptomatic, daughter is convinced he's not positive, she has done a home test that is negative. Will repeat by PCR to be sure # acute dehydration/[place] d/t dehydration, resolved with IVF # nausea vomiting/diarrhea--unclear, CT suggest posssible ileus, there is also intestinal emphasyma of unclear significance and will check [facility] # Alzheimer's dementia - continue medications #? hypothyroidism - continue levothyroxine # hypertension - stable - continue antihypertensives DVT prophylaxis: Warfarin Need for inaptient; encephalopathy, dehydration, nausea and vomitting Quality Stroke Does the patient have a stroke diagnosis?: No VTE Prior VTE?: No VTE Risk Level:: Medical - moderate - high VTE Device Contraindication: Treatment Not Indicated VTE Drug Contraindication: N/A - Med Ordered
--- NOTE | 2022-07-22 12:34 | PM.CNGS ---
History of Present Illness Consult details Consult date: 07/22/22 Requesting physician: Jenaro Todd Narrative: 72-year-old male patient with multiple medical problems including COVID-19 infection, right leg DVT, on Coumadin, status post IVC filter, COPD, Alzheimer's dementia, and aspiration pneumonia presenting with several episodes of coffee-ground emesis while at home and while in the hospital. He has a prior history of small-bowel obstructions and has undergone previous abdominal surgery including appendectomy. He has been having bowel movements both solid and liquid. Upon presentation to the emergency department yesterday he was noted to have an elevated WBC of 16.6. A CT abdomen and pelvis obtained revealed gas within the wall of the stomach consistent with emphysema possibly due to emphysematous gastritis, ischemia, perforated gastric ulcer or sequelae of increased intraluminal pressure given the history of recent vomiting. Moderately distended small bowel loops without convincing evidence of obstruction; ileus is a possibility. Review of Systems Review of Systems: Yes Unobtainable due to mental status PMFSH Past Medical History Medical History Acute deep vein thrombosis (DVT) Altered mental status Alzheimer's dementia Ascending aortic aneurysm Bleeding hemorrhoids Chronic anticoagulation CKD (chronic kidney disease) COPD (chronic obstructive pulmonary disease) COVID Depression Encephalopathy Febrile Heart valve disease Non-rheumatic aortic regurgitation Family History Family History Father History of prostate cancer Surgical History Surgical History History of inguinal hernia repair Hx of cholecystectomy Social History Social History Household Members: Children Housing: House Do you presently have visiting nurse or other home services: Yes (nurse and licensed clinical social worker) Unable to assess alcohol history related to: Unable to respond Alcohol intake: never Patient Tobacco Use Status: Never used Tobacco service: No Current occupational status: disabled Meds Allergies Allergy/AdvReac Type Severity Reaction Status Date / Time doxycycline Allergy Severe Rash Verified 07/07/22 12:54 nut - unspecified Allergy Severe GI Stomach Verified 07/07/22 12:54 Bleed oxycodone [OXYCODONE] Allergy Severe Decrease BP Verified 07/07/22 12:54 Iodinated Contrast Media Allergy Intermediate CKD PER Verified 07/07/22 12:54 [IVP DYE] DAUGHTER PT IS NOT TO HAVE DUE TO KIDNEYS Sulfa (Sulfonamide Allergy Intermediate Rash Verified 07/07/22 12:54 Antibiotics) tramadol [TRAMADOL] Allergy Intermediate PER Verified 07/07/22 12:54 DAUGHTER PT PASSED OUT, weakness Active Medications: Current Medications Acetaminophen (Acetaminophen 325 Mg Tablet) 650 mg PO Q6H PRN PRN Reason: Fever Last Admin: 07/21/22 23:45 Dose: 650 mg Albuterol Sulfate (Albuterol Sulfate (0.083%) 2.5 Mg/3 Ml Vial.Neb) 2.5 mg INHALE Q4H PRN PRN Reason: Respiratory Distress Allopurinol (Allopurinol 100 Mg Tablet) 100 mg PO DAILY [facility] Last Admin: 07/22/22 09:20 Dose: 100 mg Atenolol (Atenolol 25 Mg Tablet) 25 mg PO DAILY [facility]; Protocol Last Admin: 07/22/22 09:20 Dose: 25 mg Docusate Sodium (Docusate Sodium 100 Mg/10 Ml Liquid) 50 mg PO DAILY PRN PRN Reason: Constipation Lactated Ringer's (Lr) 1,000 mls @ 100 mls/hr IVCONT .Q10H [facility] Last Admin: 07/22/22 06:42 Dose: 100 mls/hr Non-Formulary Medication (Naftifine [Naftin]) 1 appl TOPICAL DAILY [facility] Omeprazole (Omeprazole 20 Mg/10 Ml Susp.Recon) 20 mg PO DAILY@0630 [facility] Last Admin: 07/22/22 06:37 Dose: 20 mg Ondansetron HCl (Ondansetron Hcl 4 Mg/2 Ml Vial) 4 mg IVPUSH Q8H PRN PRN Reason: Nausea and Vomiting Pharmacy Consult (Consult Rx Perform Med Rec) 1 each MISCELLANE ONCE PRN PRN Reason: Consult order Sodium Chloride (0.9 % Sodium Chloride Flush 3 Ml Syringe) 3 ml IVFLUSH QSHIFT [facility] Last Admin: 07/22/22 09:20 Dose: 3 ml Spironolactone (Spironolactone 25 Mg Tablet) 25 mg PO DAILY [facility]; Protocol Last Admin: 07/22/22 09:20 Dose: 25 mg Warfarin Sodium (Warfarin Sodium 2.5 Mg Tablet) 2.5 mg PO DAILY@1800 [facility] Last Admin: 07/21/22 20:23 Dose: 2.5 mg Home Medications Medication Instructions Recorded Confirmed Last Taken Type atenolol 25 mg tablet 25 mg PO DAILY 07/26/20 07/21/22 07/20/22 History omeprazole 20 mg capsule,delayed 20 mg PO DAILY@0630 07/26/20 07/21/22 07/20/22 History release spironolactone 25 mg tablet 25 mg PO DAILY 08/20/20 07/21/22 07/20/22 History warfarin 5 mg tablet 2.5 mg PO DAILY@1800 05/02/21 07/21/22 07/20/22 History naftifine 2 % topical gel (Naftin) 1 appl topical DAILY mycosis 07/02/21 07/21/22 07/20/22 History albuterol sulfate 2.5 mg/3 mL 2.5 mg inhalation Q4H PRN 04/22/22 07/21/22 07/20/22 History (0.083 %) solution for nebulization Respiratory Distress allopurinol 100 mg tablet 100 mg PO DAILY 04/22/22 07/21/22 07/20/22 History diaper,brief,adult,disposable 05/12/22 07/10/22 07/20/22 History (Select Briefs) acetaminophen 325 mg tablet 650 mg PO Q6H PRN Fever 05/21/22 07/21/22 07/20/22 History (Tylenol) docusate sodium 50 mg capsule 50 mg PO DAILY PRN Constipation 05/21/22 07/21/22 Unknown History warfarin 2.5 mg PO DIRECTED 06/28/22 07/10/22 Unknown History Physical Exam Vital Signs: Vital Signs: Last Vital Signs Temp 98.5 F 07/22/22 12:00 Pulse 94 07/22/22 12:00 Resp 16 07/22/22 12:00 BP 122/66 07/22/22 12:00 Pulse Ox 95 07/22/22 12:00 O2 Del Method 07/22/22 12:00 O2 Flow Rate 2 07/22/22 03:39 Oxygen Flow Rate 2 07/21/22 01:15 BMI result Body Mass Index 24.8 Const: General: ill appearing and patient obtunded Nutritional Appearance: thin Orientation/consciousness: patient obtunded Resp: Effort & Inspection: normal respiratory effort and uses accessory muscles GI: Inspection: Yes scar and No visible herniation Palpation (GI): Firmness to palpation present (GI), nontender, no guarding and not rigid Percussion: Yes tympanic to percussion Rectal Exam - Male: Yes deferred Abdomen image: 1. Skin: Other: Warm, erythematous Neuro: General: patient obtunded Extrem: Other: No cyanosis Brisk capillary refill Results Labs Result diagrams: 07/22/22 08:37 07/22/22 08:37 Labs: Abnormal lab results 07/21/22 07/22/22 07/22/22 Range/Units 14:03 08:37 08:37 Hgb 13.8 L (14.0-18.0) g/dl Hct 41.1 L (42.0-52.0) % RDW 16.1 H (11.0-16.0) % Immature Gran % (Auto) 0.5 H (0.0-0.4) % Lymph % (Auto) 18.9 L (20-40) % Abs Immat Gran (auto) 0.04 H (0.00-0.03) X10*3/uL PT 24.6 H (10.0-13.1) SEC INR 2.1 H (0.9-1.1) Chloride 109 H (96-108) mmol/L BUN 23 H (9-16) mg/dL 07/22/22 Range/Units 08:37 Hgb (14.0-18.0) g/dl Hct (42.0-52.0) % RDW (11.0-16.0) % Immature Gran % (Auto) (0.0-0.4) % Lymph % (Auto) (20-40) % Abs Immat Gran (auto) (0.00-0.03) X10*3/uL PT 25.7 H (10.0-13.1) SEC INR 2.2 H (0.9-1.1) Chloride (96-108) mmol/L BUN (9-16) mg/dL Short CBC 07/22/22 Range/Units 08:37 WBC 8.8 (4.8-10.8) X10*3/uL Hgb 13.8 L (14.0-18.0) g/dl Hct 41.1 L (42.0-52.0) % Plt Count 191 D (160-400) X10*3/uL [facility] 07/22/22 08:37 Sodium 140 Potassium 4.3 Chloride 109 H Carbon Dioxide 23 BUN 23 H Creatinine 0.81 Calcium 8.5 D All other labs normal. Assessment and Plan (1) Nausea vomiting and diarrhea: Status: Acute (2) COVID-19: Status: Acute Plan 72-year-old male patient with multiple medical problems found to have emphysematous changes to the stomach and intestine. Patient's laboratories initially showed elevated WBC however today's WBC is normal. Lactate is normal as well. No portal venous air is identified by CT. CT findings may be related to a low-flow state due to dehydration verses a gastritis as noted in the CT report. The stomach is quite distended on CT and would certainly benefit from nasogastric tube decompression however the patient is unlikely to tolerate this as he is pulling at his tubes during my examination. Recommend supportive care to maintain blood pressure and keep NPO for now. Will follow during this hospitalization. Procedures Date of Service Date of Service: 07/22/22
[2022-07-22 15:12] LABS: Influenza A PCR NEGATIVE (Negative); Influenza B PCR NEGATIVE (Negative); Resp Syncy Virus RNA Qual PCR NEGATIVE (Negative); SARS COV2 PCR INHOUSE NEGATIVE (Negative)
[2022-07-22] MEDS: Warfarin Sodium 2.5 MG TABLET PO (16:43)
[2022-07-23 03:10] VITALS: BP 126/60; PULSE 88; RESP 20; TEMP 36.9; O2SAT 99
[2022-07-23 03:27] LABS: Glucose, Whole Blood 79 mg/dL (60-115)
[2022-07-23 03:27] LABS: Glucose, Whole Blood 74 mg/dL (60-115)
[2022-07-23 06:37] LABS: INTERNATIONAL NORM RATIO 2.3 (0.9-1.1); Prothrombin Time 27.5 SEC (10.0-13.1)
[2022-07-23 07:11] LABS: Glucose, Whole Blood 75 mg/dL (60-115)
--- NOTE | 2022-07-23 07:42 | MHC.CM.PN ---
IMM 07/22/22 Male 72 DX COVID Patient has Alzheimers disease. He lives with his dtr, Devi. She is his STAFF NUCLEAR MEDICINE TECHNOLOGIST and HCP. A copy of the HCP has been requested. The patient is non verbal and bed bound. He is total care per [facility]. She complained about staff in ER. [employer] notified of the complaint r/t the LAB. The patient has not been vaccinated for Covid. 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 Transport will be provided by S at discharge.
[2022-07-23] MEDS: Dextrose 5 % 1,000 ML 100 ML IVCONT ×2 (08:35→17:07)
[2022-07-23] MEDS: allopurinoL 100 MG TABLET PO (08:35)
[2022-07-23] MEDS: Spironolactone 25 MG TABLET PO (08:35)
[2022-07-23] MEDS: atenoloL 25 MG TABLET PO (08:35)
--- NOTE | 2022-07-23 12:53 | HO.PM.IMPN ---
Subjective Subjective Date of Service: 07/23/22 Interval History: Seen in f/u for encephalopathy interval history: more alert, non verbal, daughter at bedside states no vomitting yesterday even after meal Review of Systems unable to obtained Physical Exam Vital Signs: Vital Signs: Last Vital Signs Temp 98.4 F 07/23/22 03:10 Pulse 88 07/23/22 03:10 Resp 20 07/23/22 03:10 BP 126/60 07/23/22 03:10 Pulse Ox 99 07/23/22 03:10 O2 Del Method 07/23/22 03:10 O2 Flow Rate 2 07/23/22 03:10 Oxygen Flow Rate 2 07/21/22 01:15 BMI result Body Mass Index 24.8 Const: Other: General: non verbal Resp: CTA bilateral CVS: S1,S2,RRR GI: +BS, NT, no distention Skin: No rash Neuro: motor grossly intact Psych: appropriate affect Objective Data Active Medications Acetaminophen (Acetaminophen 325 Mg Tablet) 650 mg PO Q6H PRN PRN Reason: Fever Last Admin: 07/21/22 23:45 Dose: 650 mg Documented By: NIYA Albuterol Sulfate (Albuterol Sulfate (0.083%) 2.5 Mg/3 Ml Vial.Neb) 2.5 mg INHALE Q4H PRN PRN Reason: Respiratory Distress Allopurinol (Allopurinol 100 Mg Tablet) 100 mg PO DAILY [facility] Last Admin: 07/23/22 08:35 Dose: 100 mg Documented By: KILLIAN Atenolol (Atenolol 25 Mg Tablet) 25 mg PO DAILY [facility]; Protocol Last Admin: 07/23/22 08:35 Dose: 25 mg Documented By: KILLIAN Clotrimazole (Clotrimazole 1 % Cream 15 Gm Tube) 1 appl TOPICAL DAILY [facility] Docusate Sodium (Docusate Sodium 100 Mg/10 Ml Liquid) 50 mg PO DAILY PRN PRN Reason: Constipation Dextrose (D5w) 1,000 mls @ 100 mls/hr IVCONT .Q10H [facility] Last Admin: 07/23/22 08:35 Dose: 100 mls/hr Documented By: KILLIAN Omeprazole (Omeprazole 20 Mg/10 Ml Susp.Recon) 20 mg PO DAILY@0630 [facility] Last Admin: 07/23/22 05:56 Dose: 20 mg Documented By: TAY Ondansetron HCl (Ondansetron Hcl 4 Mg/2 Ml Vial) 4 mg IVPUSH Q8H PRN PRN Reason: Nausea and Vomiting Pharmacy Consult (Consult Rx Perform Med Rec) 1 each MISCELLANE ONCE PRN PRN Reason: Consult order Sodium Chloride (0.9 % Sodium Chloride Flush 3 Ml Syringe) 3 ml IVFLUSH QSHIFT [facility] Last Admin: 07/23/22 08:38 Dose: Not Given Documented By: KILLIAN Non-Admin Reason: IV Running Spironolactone (Spironolactone 25 Mg Tablet) 25 mg PO DAILY [facility]; Protocol Last Admin: 07/23/22 08:35 Dose: 25 mg Documented By: KILLIAN Warfarin Sodium (Warfarin Sodium 2.5 Mg Tablet) 2.5 mg PO DAILY@1800 [facility] Last Admin: 07/22/22 16:43 Dose: 2.5 mg Documented By: RICARDO Labs CBC & Chem 7: 07/22/22 08:37 07/22/22 08:37 Labs: Laboratory Results - last 24 hr 07/22/22 07/22/22 07/22/22 12:48 14:00 22:46 PT INR POC Glucose 79 Influenza Type A (PCR) Cancelled NEGATIVE Influenza Type B (PCR) Cancelled NEGATIVE RSV RNA Qual (PCR) Cancelled NEGATIVE SARS-CoV-2 RNA (RT-PCR) Cancelled NEGATIVE 07/23/22 07/23/22 07/23/22 03:21 06:21 06:21 PT 27.5 H INR 2.3 H POC Glucose 74 75 Influenza Type A (PCR) Influenza Type B (PCR) RSV RNA Qual (PCR) SARS-CoV-2 RNA (RT-PCR) Microbiology Microbiology Results: Microbiology 07/21/22 02:50 Blood Culture - Preliminary Blood - Venous No growth after 48 hours. 07/21/22 02:50 Blood Culture - Preliminary Blood - Venous No growth after 48 hours. Assessment and Plan (1) Nausea vomiting and diarrhea: Status: Acute (2) Encephalopathy: Status: Acute Plan 72-year-old male with past medical history of advanced Alzheimer's dementia presents to the hospital after an episode of nausea vomiting, diarrhea as well as coughing found to have COVID-19 infection # encephalopathy --likely from dehydration and back to baseine #? covid positive assymptomatic, daughter is convinced he's not positive, she has done a home test that is negative. Will repeat by PCR to be sure..Patient had bedside home test by daughter negative and covid PCR is negative therefore initial test likely false positive. No known exposure, and no symptoms # acute dehydration/[place] d/t dehydration, resolved with IVF # nausea vomiting/diarrhea--unclear, CT suggest posssible ileus, and likely intestinal ischemia.. Seen by Dr. Hauser, irma reed for intervention. NPO for now, will discuss advancing diet with dr. Hauser # Alzheimer's dementia - continue medications #? hypothyroidism - continue levothyroxine # hypertension - stable - continue antihypertensives DVT prophylaxis: Warfarin Need for inaptient; encephalopathy, dehydration, nausea and vomitting and intestinal ischemia on IVF Quality Stroke Does the patient have a stroke diagnosis?: No VTE Prior VTE?: No VTE Risk Level:: Medical - moderate - high VTE Device Contraindication: Treatment Not Indicated VTE Drug Contraindication: N/A - Med Ordered
[2022-07-23 13:06] VITALS: BP 125/59; PULSE 82; RESP 14
[2022-07-23 16:39] VITALS: BP 122/60; PULSE 82; RESP 18; TEMP 36.7; O2SAT 99
[2022-07-23] MEDS: Warfarin Sodium 2.5 MG TABLET PO (17:09)
[2022-07-23 20:00] VITALS: BP 133/65; PULSE 84; RESP 17; TEMP 37.2; O2SAT 98
[2022-07-23] MEDS: 0.9 % Sodium Chloride Flush 3 ML SYRINGE IVFLUSH (21:03)
[2022-07-24] VITALS (7 sets, daily range): BP systolic 112–129; BP diastolic 62–73; PULSE 78–91; RESP 18; TEMP 36.3–37.3; O2SAT 96–100
[2022-07-24] MEDS: Dextrose 5 % 1,000 ML 100 ML IVCONT ×2 (04:45→15:52)
[2022-07-24 07:26] LABS: INTERNATIONAL NORM RATIO 2.4 (0.9-1.1); Prothrombin Time 28.4 SEC (10.0-13.1)
[2022-07-24] MEDS: 0.9 % Sodium Chloride Flush 3 ML SYRINGE IVFLUSH ×2 (09:53→15:52)
[2022-07-24] MEDS: Spironolactone 25 MG TABLET PO (09:53)
[2022-07-24] MEDS: atenoloL 25 MG TABLET PO (09:53)
[2022-07-24] MEDS: allopurinoL 100 MG TABLET PO (09:53)
[2022-07-24 10:49] LABS: Hematocrit 40.4 % (42.0-52.0); Hemoglobin 13.6 g/dl (14.0-18.0); Mean Corpuscular HGB Conc 33.7 g/dl (31.0-36.0); Mean Corpuscular Hemoglobin 28.6 pg (27.0-33.0); Mean Corpuscular Volume 84.9 fL (80.0-98.0); Mean Platelet Volume 11.8 fL (9.4-12.4); Platelet Count 169 X10*3/uL (160-400); Red Blood Count 4.76 X10*6/uL (4.60-5.80); Red Cell Distribution Width 15.9 % (11.0-16.0)
[2022-07-24 11:01] LABS: Anion Gap 15 (12-20); Blood Urea Nitrogen 8 mg/dL (9-16); Calcium 8.4 mg/dL (8.4-10.2); Carbon Dioxide 23 mmol/L (22-29); Chloride 104 mmol/L (96-108); Creatinine Clr Calc Pharmacy 88.6; Estimated Glomerular Filt Rate > 60; Glucose Random 82 mg/dL (60-115); Potassium 3.5 mmol/L (3.3-5.1); Sodium 138 mmol/L (135-145)
--- NOTE | 2022-07-24 11:17 | HO.PM.IMPN ---
Subjective Subjective Date of Service: 07/24/22 Interval History: Seen in f/u for encephalopathy interval history: no new issues, no nausea or vomitting, no sings of pain Review of Systems unable to obtained Physical Exam Vital Signs: Vital Signs: Last Vital Signs Temp 97.4 F 07/24/22 08:00 Pulse 87 07/24/22 08:00 Resp 18 07/24/22 08:00 BP 112/63 07/24/22 08:00 Pulse Ox 97 07/24/22 08:00 O2 Del Method 07/24/22 08:00 O2 Flow Rate 2 07/24/22 04:00 Oxygen Flow Rate 2 07/21/22 01:15 BMI result Body Mass Index 24.8 Const: Other: General: non verbal Resp: CTA bilateral CVS: S1,S2,RRR GI: +BS, NT, no distention Skin: No rash Neuro: motor grossly intact Psych: appropriate affect Objective Data Active Medications Acetaminophen (Acetaminophen 325 Mg Tablet) 650 mg PO Q6H PRN PRN Reason: Fever Last Admin: 07/21/22 23:45 Dose: 650 mg Documented By: NIYA Albuterol Sulfate (Albuterol Sulfate (0.083%) 2.5 Mg/3 Ml Vial.Neb) 2.5 mg INHALE Q4H PRN PRN Reason: Respiratory Distress Allopurinol (Allopurinol 100 Mg Tablet) 100 mg PO DAILY [facility] Last Admin: 07/24/22 09:53 Dose: 100 mg Documented By: ALF Atenolol (Atenolol 25 Mg Tablet) 25 mg PO DAILY [facility]; Protocol Last Admin: 07/24/22 09:53 Dose: 25 mg Documented By: ALF Clotrimazole (Clotrimazole 1 % Cream 15 Gm Tube) 1 appl TOPICAL DAILY [facility] Last Admin: 07/24/22 09:53 Dose: Not Given Documented By: ALF Non-Admin Reason: Patient Refused Docusate Sodium (Docusate Sodium 100 Mg/10 Ml Liquid) 50 mg PO DAILY PRN PRN Reason: Constipation Dextrose (D5w) 1,000 mls @ 100 mls/hr IVCONT .Q10H [facility] Last Admin: 07/24/22 04:45 Dose: 100 mls/hr Documented By: TAY Omeprazole (Omeprazole 20 Mg/10 Ml Susp.Recon) 20 mg PO DAILY@0630 [facility] Last Admin: 07/24/22 05:10 Dose: 20 mg Documented By: TAY Ondansetron HCl (Ondansetron Hcl 4 Mg/2 Ml Vial) 4 mg IVPUSH Q8H PRN PRN Reason: Nausea and Vomiting Pharmacy Consult (Consult Rx Perform Med Rec) 1 each MISCELLANE ONCE PRN PRN Reason: Consult order Sodium Chloride (0.9 % Sodium Chloride Flush 3 Ml Syringe) 3 ml IVFLUSH QSHIFT [facility] Last Admin: 07/24/22 09:53 Dose: 3 ml Documented By: ALF Spironolactone (Spironolactone 25 Mg Tablet) 25 mg PO DAILY [facility]; Protocol Last Admin: 07/24/22 09:53 Dose: 25 mg Documented By: ALF Warfarin Sodium (Warfarin Sodium 2.5 Mg Tablet) 2.5 mg PO DAILY@1800 [facility] Last Admin: 07/23/22 17:09 Dose: 2.5 mg Documented By: KILLIAN Labs CBC & Chem 7: 07/24/22 06:13 07/24/22 06:13 Labs: Laboratory Results - last 24 hr 07/24/22 07/24/22 07/24/22 06:13 06:13 06:13 MCV 84.9 MCH 28.6 MCHC 33.7 RDW 15.9 Plt Count 169 MPV 11.8 Absolute Nucleated RBC 0.000 Nucleated RBC % (auto) 0.0 PT 28.4 H INR 2.4 H Anion Gap 15 Estim Creat Clear Calc 88.6 Estimated GFR > 60 Random Glucose 82 Calcium 8.4 Assessment and Plan (1) Nausea vomiting and diarrhea: Status: Acute (2) Encephalopathy: Status: Acute Plan 72-year-old male with past medical history of advanced Alzheimer's dementia presents to the hospital after an episode of nausea vomiting, diarrhea as well as coughing found to have COVID-19 infection # encephalopathy --likely from dehydration and back to [place]ine #? covid positive assymptomatic, daughter is convinced he's not positive, she has done a home test that is negative. Will repeat by PCR to be sure..Patient had bedside home test by daughter negative and covid PCR is negative therefore initial test likely false positive. No known exposure, and no symptoms # acute dehydration/[place] d/t dehydration, resolved with IVF # nausea vomiting/diarrhea--unclear, CT suggest posssible ileus, and emphasematous bowel likely from low flow state. Seen by Dr. Hauser, not nadiaiate for intervention. NPO for now, will discuss advancing diet with dr. Hauser. He has not had any further nausea or vomitting and will start liquid #Chronic respiratory failure on home O2, no hypoxia at present, no fever, WBC is normal, no cough so no indication for an cxr # Alzheimer's dementia - continue medications #? hypothyroidism - continue levothyroxine # hypertension - stable - continue antihypertensives DVT prophylaxis: Warfarin Need for inaptient; encephalopathy, dehydration, nausea and vomitting and intestinal ischemia on IVF Quality Stroke Does the patient have a stroke diagnosis?: No VTE Prior VTE?: No VTE Risk Level:: Medical - moderate - high VTE Device Contraindication: Treatment Not Indicated VTE Drug Contraindication: N/A - Med Ordered
--- NOTE | 2022-07-24 13:55 | P.PNGS_ITS ---
Subjective Subjective Date of Service: 07/24/22 Interval history: Patient is nonverbal. Discussion with the patient is daughter at the bedside: She reports patient had no further episodes of nausea or vomiting. Physical Exam Vital Signs: Vital Signs: Last Vital Signs Temp 97.3 F 07/24/22 11:53 Pulse 85 07/24/22 11:53 Resp 18 07/24/22 11:53 BP 115/73 07/24/22 11:53 Pulse Ox 98 07/24/22 11:53 O2 Del Method 07/24/22 11:53 O2 Flow Rate 2 07/24/22 11:53 Oxygen Flow Rate 2 07/21/22 01:15 BMI result Body Mass Index 24.8 Const: General: patient obtunded Nutritional Appearance: well nourished Orientation/consciousness: patient obtunded Limitations: altered mental status Resp: Other: Breathing comfortably on room air, no respiratory distress GI: Other: Soft, nondistended, slight tympany to percussion, bowel sounds present. Skin: Other: Warm, dry. Neuro: General: patient obtunded Objective Data Active Medications Acetaminophen (Acetaminophen 325 Mg Tablet) 650 mg PO Q6H PRN PRN Reason: Fever Last Admin: 07/21/22 23:45 Dose: 650 mg Documented By: NIYA Albuterol Sulfate (Albuterol Sulfate (0.083%) 2.5 Mg/3 Ml Vial.Neb) 2.5 mg INHALE Q4H PRN PRN Reason: Respiratory Distress Allopurinol (Allopurinol 100 Mg Tablet) 100 mg PO DAILY [facility] Last Admin: 07/24/22 09:53 Dose: 100 mg Documented By: ALF Atenolol (Atenolol 25 Mg Tablet) 25 mg PO DAILY [facility]; Protocol Last Admin: 07/24/22 09:53 Dose: 25 mg Documented By: ALF Clotrimazole (Clotrimazole 1 % Cream 15 Gm Tube) 1 appl TOPICAL DAILY [facility] Last Admin: 07/24/22 09:53 Dose: Not Given Documented By: ALF Non-Admin Reason: Patient Refused Docusate Sodium (Docusate Sodium 100 Mg/10 Ml Liquid) 50 mg PO DAILY PRN PRN Reason: Constipation Dextrose (D5w) 1,000 mls @ 100 mls/hr IVCONT .Q10H [facility] Last Admin: 07/24/22 04:45 Dose: 100 mls/hr Documented By: TAY Omeprazole (Omeprazole 20 Mg/10 Ml Susp.Recon) 20 mg PO DAILY@0630 [facility] Last Admin: 07/24/22 05:10 Dose: 20 mg Documented By: TAY Ondansetron HCl (Ondansetron Hcl 4 Mg/2 Ml Vial) 4 mg IVPUSH Q8H PRN PRN Reason: Nausea and Vomiting Pharmacy Consult (Consult Rx Perform Med Rec) 1 each MISCELLANE ONCE PRN PRN Reason: Consult order Sodium Chloride (0.9 % Sodium Chloride Flush 3 Ml Syringe) 3 ml IVFLUSH QSHIFT [facility] Last Admin: 07/24/22 09:53 Dose: 3 ml Documented By: ALF Spironolactone (Spironolactone 25 Mg Tablet) 25 mg PO DAILY [facility]; Protocol Last Admin: 07/24/22 09:53 Dose: 25 mg Documented By: ALF Warfarin Sodium (Warfarin Sodium 2.5 Mg Tablet) 2.5 mg PO DAILY@1800 [facility] Last Admin: 07/23/22 17:09 Dose: 2.5 mg Documented By: KILLIAN Labs CBC & Chem 7: 07/24/22 06:13 07/24/22 06:13 Labs: Laboratory Results - last 24 hr 07/24/22 07/24/22 07/24/22 06:13 06:13 06:13 MCV 84.9 MCH 28.6 MCHC 33.7 RDW 15.9 Plt Count 169 MPV 11.8 Absolute Nucleated RBC 0.000 Nucleated RBC % (auto) 0.0 PT 28.4 H INR 2.4 H Anion Gap 15 Estim Creat Clear Calc 88.6 Estimated GFR > 60 Random Glucose 82 Calcium 8.4 Procedures Date of Service Date of Service: 07/24/22 Progress Note: A&P Assessment and plan (1) Intestinal ischemia: Status: Acute Plan 72-year-old male patient with Alzheimer's dementia and recent episode of nausea and vomiting. He has a prior history of small-bowel obstructions but the most recent CT scan revealed no small-bowel obstruction. Air in the wall of the stomach and bowel was felt to be possibly due to intestinal ischemia. Patient's lactate and WBC remained normal. Patient has no further nausea and vomiting and his abdomen is much softer. I would agree with starting clear liquids and advanced as tolerated to his baseline meal. If this is not tolerated repeat CT would be warranted. Time Spent With Patient Time: Total time spent is greater than 50% in coordination of care (as documented) at patient's floor/unit and/or counseling patient: Quality Stroke Does the patient have a stroke diagnosis?: No VTE Prior VTE?: No VTE Risk Level:: Medical - moderate - high VTE Device Contraindication: Treatment Not Indicated VTE Drug Contraindication: N/A - Med Ordered
[2022-07-24] MEDS: Warfarin Sodium 2.5 MG TABLET PO (17:13)
[2022-07-24 22:50] LABS: Glucose, Whole Blood 104 mg/dL (60-115)
[2022-07-25] VITALS (7 sets, daily range): BP systolic 93–158; BP diastolic 50–73; PULSE 89–98; RESP 15–92; TEMP 36.3–37.9; O2SAT 92–99
[2022-07-25] MEDS: Dextrose 5 % 1,000 ML 100 ML IVCONT (01:04)
[2022-07-25] MEDS: 0.9 % Sodium Chloride Flush 3 ML SYRINGE IVFLUSH ×4 (01:06→21:21)
[2022-07-25 06:55] LABS: INTERNATIONAL NORM RATIO 2.7 (0.9-1.1); Prothrombin Time 32.1 SEC (10.0-13.1)
[2022-07-25] MEDS: atenoloL 25 MG TABLET PO (08:22)
[2022-07-25] MEDS: Spironolactone 25 MG TABLET PO (08:22)
[2022-07-25] MEDS: allopurinoL 100 MG TABLET PO (08:22)
--- NOTE | 2022-07-25 10:56 | HO.PM.IMPN ---
Subjective Subjective Date of Service: 07/25/22 Interval History: Seen in f/u for encephalopathy interval history: no new issues, no nausea or vomitting, tolerating clear liquid diet Review of Systems unable to obtained Physical Exam Vital Signs: Vital Signs: Last Vital Signs Temp 100.2 F 07/25/22 07:27 Pulse 95 07/25/22 07:27 Resp 16 07/25/22 09:51 BP 158/73 H 07/25/22 07:27 Pulse Ox 97 07/25/22 09:51 O2 Del Method 07/25/22 09:51 O2 Flow Rate 2 07/25/22 07:27 Oxygen Flow Rate 2 07/21/22 01:15 BMI result Body Mass Index 24.8 Const: Other: General: non verbal Resp: CTA bilateral CVS: S1,S2,RRR GI: +BS, NT, no distention Skin: No rash Neuro: motor grossly intact Psych: appropriate affect Objective Data Active Medications Acetaminophen (Acetaminophen 325 Mg Tablet) 650 mg PO Q6H PRN PRN Reason: Fever Last Admin: 07/21/22 23:45 Dose: 650 mg Documented By: NIYA Albuterol Sulfate (Albuterol Sulfate (0.083%) 2.5 Mg/3 Ml Vial.Neb) 2.5 mg INHALE Q4H PRN PRN Reason: Respiratory Distress Allopurinol (Allopurinol 100 Mg Tablet) 100 mg PO DAILY COUNT INCLUDES THE [facility] Last Admin: 07/25/22 08:22 Dose: 100 mg Documented By: ALF Atenolol (Atenolol 25 Mg Tablet) 25 mg PO DAILY COUNT INCLUDES THE [facility]; Protocol Last Admin: 07/25/22 08:22 Dose: 25 mg Documented By: ALF Clotrimazole (Clotrimazole 1 % Cream 15 Gm Tube) 1 appl TOPICAL DAILY COUNT INCLUDES THE [facility] Last Admin: 07/25/22 08:22 Dose: Not Given Documented By: ALF Non-Admin Reason: med not needed-rash resolved Docusate Sodium (Docusate Sodium 100 Mg/10 Ml Liquid) 50 mg PO DAILY PRN PRN Reason: Constipation Omeprazole (Omeprazole 20 Mg/10 Ml Susp.Recon) 20 mg PO DAILY@0630 COUNT INCLUDES THE [facility] Last Admin: 07/25/22 05:07 Dose: 20 mg Documented By: PELON Ondansetron HCl (Ondansetron Hcl 4 Mg/2 Ml Vial) 4 mg IVPUSH Q8H PRN PRN Reason: Nausea and Vomiting Pharmacy Consult (Consult Rx Perform Med Rec) 1 each MISCELLANE ONCE PRN PRN Reason: Consult order Sodium Chloride (0.9 % Sodium Chloride Flush 3 Ml Syringe) 3 ml IVFLUSH QSHIFT COUNT INCLUDES THE [facility] Last Admin: 07/25/22 08:22 Dose: 3 ml Documented By: ALF Spironolactone (Spironolactone 25 Mg Tablet) 25 mg PO DAILY COUNT INCLUDES THE [facility]; Protocol Last Admin: 07/25/22 08:22 Dose: 25 mg Documented By: ALF Warfarin Sodium (Warfarin Sodium 2.5 Mg Tablet) 2.5 mg PO DAILY@1800 COUNT INCLUDES THE [facility] Last Admin: 07/24/22 17:13 Dose: 2.5 mg Documented By: GEOFF Labs CBC & Chem 7: 07/24/22 06:13 07/24/22 06:13 Labs: Laboratory Results - last 24 hr 07/24/22 07/24/22 07/25/22 06:13 22:46 06:40 PT 32.1 H INR 2.7 H Anion Gap 15 Estim Creat Clear Calc 88.6 Estimated GFR > 60 POC Glucose 104 Random Glucose 82 Calcium 8.4 Assessment and Plan (1) Nausea vomiting and diarrhea: Status: Acute (2) Encephalopathy: Status: Acute Plan 72-year-old male with past medical history of advanced Alzheimer's dementia presents to the hospital after an episode of nausea vomiting, diarrhea as well as coughing found to have COVID-19 infection # Encephalopathy --likely from dehydration and back to baseline #? covid positive assymptomatic, daughter is convinced he's not positive, she has done a home test that is negative. Will repeat by PCR to be sure..Patient had bedside home test by daughter negative and covid PCR is negative therefore initial test likely false positive. No known exposure, and no symptoms. Reportedly ED doctor mentioned that initial covid was likely someone else.. Will check covid PCR again and if negative isolation can be stopped # acute dehydration/[place] d/t dehydration, resolved with IVF # nausea vomiting/diarrhea--unclear, CT suggest posssible ileus, and emphasematous bowel likely from low flow state. Seen by Dr. Hauser, irma reed for intervention. NPO for now, will discuss advancing diet with dr. Hauser. He has not had any further nausea or vomitting. Started liquid diet yesterday and will advance to full liquid today #Chronic respiratory failure on home O2, no hypoxia at present, no fever, WBC is normal, no cough so no indication for an cxr. He's actually doing well on room ir # Alzheimer's dementia - continue medications #? -Daughter confirmed that there is no history of Hypothyroidism as initially stated in H and P and subsequent progress notes.. # hypertension - stable - continue antihypertensives DVT prophylaxis: Warfarin Need for inaptient; encephalopathy, dehydration, nausea and vomitting and intestinal ischemia has been on ivf and diet been advanced and will discharge over the next day or so if continues to make progress Quality Stroke Does the patient have a stroke diagnosis?: No VTE Prior VTE?: No VTE Risk Level:: Medical - moderate - high VTE Device Contraindication: Treatment Not Indicated VTE Drug Contraindication: N/A - Med Ordered
--- NOTE | 2022-07-25 11:05 | MHC.CM.PN ---
Per ROUNDS discussion, Patient is not yet medically cleared for dc, will begin advancing diet. Home with services is the goal and CM will continue to follow.
[2022-07-25 12:26] LABS: COVID-19 Test Negative (Negative); IDNOW Serial# 08D9AD1C
--- NOTE | 2022-07-25 12:44 | MHC.SL.SWA ---
Speech Pathologist Impression: Oropharyngeal dysphagia Risk of Aspiration Due to: Neurological Condition Reduced Cognition Dysphasia Diet Status: Upgrade Liquid Consistency and Strategies for Safe Swallow: Liquid Intake Recommendation: Thin Liquid Intake Strategies: Small Sips No Straws Solid Food Consistency: Dietary Recommendations: Pureed (NDD1) Additional Modifications to Solid Foods: Recommend UPGRADE to pt's reported baseline PUREED solids (NDD1) and THIN liquids (NO STRAWS), pills CRUSHED in PUREE. Pt requires total 1:1 assistance feeding. Aspiration precautions apply- pt to be in upright 90 degree position for PO intake, administer small bites, one bite at a time ensuring oral cavity is cleared before giving more bites, one sip at a time by teaspoon or cup, avoid the use of straws, minimize distractions during mealtime. Ensure pt is awake and alert for presentation of PO. Pt may benefit from smaller, more frequent meals. Sent Thornton Message to , RN, RD w/ recommendations. Oral Medication Intake: Crushed with Puree Please contact the pharmacy regarding appropriate crushable or liquid drug formulations that are available whenever modified delivery is recommended. Compensatory Strategies and Precautions to be Taken for Safe Swallow: Sitting Upright (90 deg) No Straw Liquids from Cup Liquids from Spoon Small Bites and Sips Rate of Ingestion Change Oral Check Supervision While Eating and Drinking for Safe Swallow: Total Assistance (1:1) Swallowing Recommended Treatments: Compens. Strategy Educat. Recommendation for Speech: Inpatient Speech Therapy Leadership Intern Clinican/Clinical Fellow: No Supervisory Statement: I have reviewed and agree with the student/clinical fellow's documentation: N/A Speech Language Pathologist: Ginny Wright M.A., CCC-LEAD SOLUTIONS ARCHITECT
[2022-07-25] MEDS: Warfarin Sodium 2.5 MG TABLET PO (15:57)
[2022-07-26] VITALS: RESP 18
[2022-07-26 04:00] VITALS: BP 128/79; PULSE 106; RESP 15; TEMP 36.7; O2SAT 98
[2022-07-26 06:45] LABS: INTERNATIONAL NORM RATIO 2.9 (0.9-1.1); Prothrombin Time 34.6 SEC (10.0-13.1)
[2022-07-26 08:00] VITALS: BP 135/75; PULSE 108; RESP 18; TEMP 36.1; O2SAT 97
[2022-07-26] MEDS: ondansetron HCL 4 MG/2 ML VIAL IVPUSH (08:13)
[2022-07-26] MEDS: atenoloL 25 MG TABLET PO (09:10)
[2022-07-26] MEDS: 0.9 % Sodium Chloride Flush 3 ML SYRINGE IVFLUSH (09:10)
[2022-07-26] MEDS: Spironolactone 25 MG TABLET PO (09:10)
[2022-07-26] MEDS: allopurinoL 100 MG TABLET PO (09:10)
--- NOTE | 2022-07-26 11:20 | P.DS_ITS ---
DS: Providers Provider Date of Service: 07/26/22 Date of admission: 07/21/22 06:38 Primary care physician: Stanton Clemons III, MD Consults: 07/22/22 11:26 Consult to General Surgery Routine Consulting Provider: Daniel Osei Reason for consultation: Intestinal emphesyma ? singificance Has provider been notified: No DS: Diagnosis Discharge Diagnosis (1) Nausea vomiting and diarrhea: Status: Resolved (2) Encephalopathy: Status: Resolved DS: Summary Hospital Course Hospital Course: Admission HPI Chief Complaint: N/V, weakness 72-year-old female with an extensive past medical history including DVT, Alzheimer's dementia, nonverbal at baseline, bed-bound, CKD, COPD on chronic oxygen 2 L, COVID infection in April, brought in by his daughter who is his health trimming machine operator and is very involved in her health due to cough, nausea, vomiting, episode of diarrhea that all occurred the night prior, patient's daughter is very concerned because she she feels that has increased weakness, and that he may contracted COVID from his recent admission to the hospital.? He is A&O times 0 a baseline Patient is nonverbal, is drowsy but arousable, unable to give much history or review of system.? Of note patient was recently discharged from the hospital on after being managed for UTI and atypical pneumonia On arrival to the ED patient hemodynamically stable with no significant abnormal vitals satting 96% on 2 L of oxygen baseline oxygen requirement with a respiratory rate of 26 Labs are significant for WBC count of 16.6, hemoglobin of 17.2, hematocrit foot 9.7, INR of 1.9, BUN of 23, creatinine of 1.03 with a baseline of 0.8, COVID-19 positive Hospital course: # Encephalopathy --Patient has advanced dementia yet was altered above his baseline when he came in. This was likely due to underlying acute issues of dehydration and GI issues as discussed below, there was no evidence of acute infection. He was hydration with IV fluid and appear to back to his baseline at this time. #Patient was initial labelled as having Covid and was in covid isolation but it looked like it was the wrong label. He was retested by at bed side by daughter and was negative. He was tested twice with PCR and was again negative and therefore DID NOT have Covid. # Acute dehydration/[place] d/t dehydration.. He was hydrated and this resolved. # Nausea vomiting/diarrhea- CT suggest posssible ileus, and emphasematous bowel likely from low flow state. Patientwas seen by Dr. Hauser and deemed not a good candiate for intervention (surgery). He was initially made NPO until improved then diet was advanced and is now tolerating regular diet after evaluation by Speech and Swallow. In light of his advanced dementia he is at risk for aspiration especially as the disease progress, this was discussed with the daughter who has a pretty good understanding. We discussed possible feeding tube which won't eliminate aspiration entirely and given patient's overall state will not pursuit this. #Chronic respiratory failure on home O2, to continue # Alzheimer's dementia - continue medications -It appears that patient's condition is overall progressing and will lead to further medical complication, hospitalization, in the long term hospice/comfort maybe be reasonable. This was discussed with daughter who is open to that #? Hypothyroidism--as mentioned on H and P and other notes.. Patient does not have history of Hypothyroidism and any mention of it is in error # hypertension - stable - continue antihypertensives # History of DVT--To continue coumadin as before, INR is 2.9 today Discharge plan was discussed with daughter and all questions answered Time Spent with Patient Time attestation: Total time spent providing and/or coordinating discharge services: Discharge coordination time: Greater than 30 minutes Quality: Safe Use of Opioids Does Pt have an Active Cancer Diagnosis on the Problem List?: No Quality: Stroke Does the patient have a stroke diagnosis?: No Physical Exam Vital Signs: Vital Signs: Last Vital Signs Temp 97.0 F 07/26/22 08:00 Pulse 108 H 07/26/22 08:00 Resp 18 07/26/22 08:00 BP 135/75 07/26/22 08:00 Pulse Ox 97 07/26/22 08:00 O2 Del Method 07/26/22 08:00 O2 Flow Rate 2 07/26/22 04:00 Oxygen Flow Rate 2 07/21/22 01:15 BMI result Body Mass Index 24.8 DS: Data Data Completed and Pending Completed studies during hospitalization [Text1]: Procedures Introduction of Remdesivir Anti-infective into Peripheral Vein, Percutaneous Approach, [employer] 5 (04/22/22) Labs on day of discharge: Laboratory Results - last 24 hr 07/25/22 07/26/22 11:04 06:10 PT 34.6 H INR 2.9 H COVID-19 ([facility]) Negative COVID-19 Clin Com See Note Discharge Plan Discharge Anticipated Discharge Date/Time: 07/26/22 11:12 Patient Disposition: Hospice - Home Discharge Diagnosis: Acute dehydration, ileus, Referrals: [facility] [Other] - 1 Week Stanton Clemons III, MD [Primary Care Provider] - 1 Week Discharge Medications: New Ensure High Protein Liquid 1 ea PO QID 30 Days Qty: 237 0RF docusate sodium 60 mg/15 mL syrup 100 mg PO BID Qty: 480 0RF Rx Instructions: for constipation, hold for diarrhea Continued (DME) Select Briefs Misc See Rx Instructions .ROUTE .MEDSUPPLY Label Comments: pt is requesting size XL diapers Rx Instructions: As directed- adult disposable diapers weight 162 lbs (DME) disposable gloves [Biobrane Gloves Medium] Misc See Rx Instructions .Route Qty: 200 1RF Rx Instructions: As directed warfarin 5 mg tablet 2.5 mg PO DAILY@1800 Rx Instructions: Thursday and Thursday allopurinol 100 mg Tablet 100 mg PO DAILY albuterol sulfate 2.5 mg /3 mL (0.083 %) Solution For Nebulization 2.5 mg INHALATION Q4H PRN (Reason: Respiratory Distress) warfarin 2.5 mg 2.5 mg PO DIRECTED acetaminophen [Tylenol] 325 mg Tablet 650 mg PO Q6H PRN (Reason: Fever) docusate sodium 50 mg Capsule 50 mg PO DAILY PRN (Reason: Constipation) spironolactone 25 mg tablet 25 mg PO DAILY omeprazole 20 mg capsule,delayed release(DR/EC) 20 mg PO DAILY@0630 atenolol 25 mg tablet 25 mg PO DAILY Naftin 2 % gel 1 appl topical DAILY Discharge Orders: Discharge Order (Routine); Ordered 07/26/22 Ordered By: Jenaro Todd Diet: Advance to usual diet Activity on Discharge: As tolerated Stand Alone Forms: Patient Portal Discharge page Care Plan Goals: prevent rehospitalization Health Concerns: advanced dementia ileus diarrhea Plan of Treatment: Resume prior care at home, hospice can be consider if patient condition declines, monitor for sings of aspiration (excessive cough with meals, ch ocking,) Assessment: as above Discharge Date/Time: 07/26/22 15:00
[2022-07-26 11:59] VITALS: BP 127/71; PULSE 101; RESP 20; TEMP 36.8; O2SAT 98
--- NOTE | 2022-07-26 13:16 | MHC.CM.PN ---
IMM 07/26/22 Male 72 DX Encephalopathy Alzheimer Malnutrition He is discharged to home today with Family support. His Dtr Devi is his Primary caregiver/HCP/[employer] FIELD COORDINATOR. MD had originally order VNA services. The family declined VNA and requested a Hospice informational meeting. They have received VNA services in the past and feel VNA does not meet this patient's needs. Communicated family concerns. [facility] has been sent a referral at the family's request. DP Home with Hospice referral via BLS.
== END 2022-07-26 15:00 | disposition hospice, home (50) | DRG 389 ==
LOC: HO.ED 03:48 → HO.EDOVER 06:52 → HO.IMC 19:33
PROVIDERS: Admitting Provider Internal Medicine; Emergency Provider Emergency Medicine; PCP Internal Medicine; Visit Provider Internal Medicine
DX: K56.7 Ileus, unspecified (principal); G93.49 Other encephalopathy; K55.9 Vascular disorder of intestine, unspecified; N17.9 Acute kidney failure, unspecified; J96.10 Chronic respiratory failure, unspecified whether with hypoxia or hypercapnia; I35.1 Nonrheumatic aortic (valve) insufficiency; G30.9 Alzheimer's disease, unspecified; E03.9 Hypothyroidism, unspecified; F02.80 Dementia in other diseases classified elsewhere, unspecified severity, without behavioral disturbance, psychotic disturbance, mood disturbance, and anxiety; J44.9 Chronic obstructive pulmonary disease, unspecified; E86.0 Dehydration; Z91.041 Radiographic dye allergy status; Z99.81 Dependence on supplemental oxygen; Z74.01 Bed confinement status; Z88.2 Allergy status to sulfonamides; Z88.5 Allergy status to narcotic agent; Z79.01 Long term (current) use of anticoagulants; Z79.899 Other long term (current) drug therapy
CPT/HCPCS: 0241U; 36415; 71045; 74018; 74176; 80048; 80076; 81001; 82272; 82947; 83605; 83690; 84484; 85025; 85027; 85610; 87040; 87086; 87635; 92610; 93005; 99285; J2405

== ENCOUNTER 2023-02-16 07:26 | Outpatient (REF) | payer MEDICARE, MEDICAID, SELFPAY | END 2023-02-16 07:27 | disposition home or self-care (01) | LOC: HO.LHD 07:26 | PROVIDERS: Visit Provider Internal Medicine Medical Oncology | DX: Z13.89 Encounter for screening for other disorder (principal) ==

== ENCOUNTER 2023-02-20 07:10 | Outpatient (REF) | payer MEDICARE, MEDICAID, SELFPAY ==
[2023-02-20 09:00] LABS: MANUAL DIFF FLAG NO
[2023-02-20 09:03] LABS: Basophils Percent Auto 0.3 % (0-2); Eosinophils Absolute Auto 0.2 X10*3/uL (0.0-0.4); Eosinophils Percent Auto 1.9 % (0-4); Hematocrit 45.3 % (42.0-52.0); Hemoglobin 15.6 g/dl (14.0-18.0); Imm Gran Abs Auto 0.03 X10*3/uL (0.00-0.03); Imm Gran Pct Auto 0.3 % (0.0-0.4); Lymphocytes Absolute Auto 2.1 X10*3/uL (1.2-4.9); Lymphocytes Percent Auto 23.6 % (20-40); Mean Corpuscular HGB Conc 34.4 g/dl (31.0-36.0); Mean Corpuscular Volume 87.1 fL (80.0-98.0); Mean Platelet Volume 11.7 fL (9.4-12.4); Monocytes Absolute Auto 0.5 X10*3/uL (0.1-1.2); Monocytes Percent Auto 5.4 % (2-11); Neutrophils Absolute Auto 6.1 x10*3/uL (2.0-8.3); Neutrophils Percent Auto 68.5 % (45-73); Platelet Count 169 X10*3/uL (160-400); Red Cell Distribution Width 14.3 % (11.0-16.0); White Blood Count 8.9 X10*3/uL (4.8-10.8)
[2023-02-20 09:27] LABS: Alanine Aminotransferase 33 U/L (0-40); Albumin Level 3.2 g/dL (3.5-5.0); Alkaline Phosphatase 63 U/L (39-117); Anion Gap 9 (12-20); Aspartate Amino Transferase 22 U/L (5-37); Blood Urea Nitrogen 20 mg/dL (9-16); Calcium 8.9 mg/dL (8.4-10.2); Carbon Dioxide 26 mmol/L (22-29); Chloride 109 mmol/L (96-108); Estimated Glomerular Filt Rate > 60; Glucose Random 94 mg/dL (60-115); Sodium 140 mmol/L (135-145); Total Protein 6.2 g/dL (6.5-8.0)
[2023-02-20 09:42] LABS: Ferritin 56 ng/mL (20-250)
[2023-02-20 10:22] LABS: D Dimer High Sensitivity < 150 NG/ML
== END 2023-02-20 07:11 | disposition home or self-care (01) ==
LOC: HO.LHD 07:10
PROVIDERS: Visit Provider Internal Medicine Medical Oncology
DX: I82.409 Acute embolism and thrombosis of unspecified deep veins of unspecified lower extremity (principal); Z86.2 Personal history of diseases of the blood and blood-forming organs and certain disorders involving the immune mechanism
CPT/HCPCS: 36415; 80053; 82728; 85025; 85379

== ENCOUNTER 2023-04-09 10:24 | Emergency (ER) | payer MEDICARE, MEDICAID, SELFPAY ==
--- NOTE | ~2023-04-09 | US_ITS ---
EXAMINATION: US SCROTUM CLINICAL INFORMATION: Right scrotal mass. COMPARISON: CT abdomen pelvis 07/22/2022 TECHNIQUE: A sonogram of the scrotum was performed assessing dailey-scale appearance and color Doppler flow. Spectral Doppler analysis of the arterial and venous flow were performed in the testes bilaterally. FINDINGS: RIGHT: Right testicle measures 4.2 x 1.5 x 3.2 cm, volume 10.7 mL. No focal testicular parenchymal lesions are visualized. The right testicle is slightly larger and a bit more heterogeneous than the left. Spectral Doppler analysis of the arterial and venous flow is normal in the right testis and not increased. Right epididymal head is normal in size. Cysts are present in the head of the epididymis the largest measuring 7 mm. No right hydrocele or varicocele is seen. Right epididymal Doppler flow is normal. LEFT: Left testicle measures 3.7 x 1.4 x 2.5 cm, volume 6.9 mL. No focal testicular parenchymal lesions are visualized. Spectral Doppler analysis of the arterial and venous flow is normal in the left testis. Left epididymal head is normal in size. Cysts are present in the head of the epididymis the largest measuring 1.5 cm with a septation. No left hydrocele or varicocele is seen. Left epididymal Doppler flow is normal. US/US scrotum IMPRESSION: 1. The right testicle is slightly larger than the left and slightly more heterogeneous than the left, but not hypervascular. No focal mass is seen. 2. Bilateral epididymal cysts.
--- NOTE | ~2023-04-09 | XR_ITS ---
EXAMINATION: XR SHOULDER, RIGHT CLINICAL INFORMATION: Right shoulder pain status post fall. COMPARISON: None available. TECHNIQUE: Two views of the right shoulder. FINDINGS: Minimal right shoulder degenerative joint changes are seen. There is no acute fracture or dislocation. The soft tissues are unremarkable. Osteopenia is seen. XR/XR shoulder RT min 2V IMPRESSION: Mild degenerative joint changes without overt acute abnormality. Osteopenia.
--- NOTE | ~2023-04-09 | XR_ITS ---
EXAMINATION: XR ABDOMEN KUB CLINICAL INDICATION: History of bowel obstruction COMPARISON: 07/21/2022 TECHNIQUE: AP view of the abdomen. FINDINGS: There is mild gastric dilatation with air. There is mild gaseous distention of the colon with some air seen in nondilated small bowel. Appearances are virtually identical to 07/21/2022. No definite evidence of obstruction. Appearances may represent an ileus. Again noted are surgical clips in the gallbladder fossa [employer] nonretrievable IVC filter XR/XR KUB IMPRESSION: No definitive evidence of bowel obstruction. Appearances may represent an ileus with mild gaseous distention of the colon as well as small bowel.
--- NOTE | ~2023-04-09 | CT_ITS ---
EXAMINATION: CT ABDOMEN AND PELVIS WITHOUT CONTRAST CLINICAL INFORMATION: History of SBO. COMPARISON: CT abdomen pelvis 07/22/2022 TECHNIQUE: Multidetector volumetric imaging was performed from the superior aspect of the liver through the pubic symphysis. Sagittal and coronal reformatted images were obtained on the technologist's workstation. This CT examination was performed using dose optimization techniques as appropriate, variously including the following: *Automated exposure control *Adjustment of mA and/or kV according to patient size (this includes techniques or standardized protocols for targeted exams where dose is matched to indication/reason for exam; i.e. extremities or head) *Use of iterative reconstruction technique DLP: 683 mGy-cm FINDINGS: LUNG BASES: Minimal atelectatic changes seen in lung bases. The heart size is normal. LIVER, GALLBLADDER, AND BILIARY TREE: The liver is normal in size, shape, and attenuation. There are several hypodense lesions seen in the liver the largest subcapsular right hepatic lobe lesion measures 1.3 cm on axial image 06/14 previously it measured 1.2 cm. There are additional lesions seen. These lesions has stable from 07/22/2022. The gallbladder has been surgically removed. PANCREAS: Unremarkable. SPLEEN: Unremarkable. ADRENAL GLANDS: Unremarkable. KIDNEYS AND URETERS: The kidneys are normal in size, shape, and attenuation. No hydronephrosis, hydroureter, or calculi seen. No perinephric stranding. There are bilateral renal cysts. A large exophytic left renal cyst upper midpole measures 10 cm in craniocaudad length. BLADDER: Unremarkable. GASTROINTESTINAL TRACT: There is distended stomach with air-fluid level. Some of the small bowel loops are prominent with gas but no air-fluid levels seen. There is moderate distention of transverse colon with gas. The ascending and descending colon is normal caliber. Cecum lies in the pelvis. There is no free air or free fluid. ABDOMINAL WALL: There is a left inguinal hernia containing fat. LYMPH NODES: No abnormal size pelvic lymph nodes seen. VASCULAR: There is a infrarenal IVC filter. The abdominal aorta is normal caliber.. PELVIC VISCERA: The prostate gland is significantly enlarged. OSSEOUS STRUCTURES: No aggressive lytic or sclerotic process seen. Mild degenerative disc changes L5-S1 disc level. CT/CT abdomen pelvis wo IV con IMPRESSION: Mild gaseous distention of transverse colon, stomach. Minimal gaseous prominence of small bowel loops. No specific obstruction or ileus suspected. Likely GI dysmotility or constipation. Bilateral renal cyst largest midpole left kidney. It is stable. Fleischner guidelines were followed.
--- NOTE | ~2023-04-09 | CT_ITS ---
EXAMINATION: CT CERVICAL SPINE WITHOUT CONTRAST CLINICAL INFORMATION: Neck pain status post fall. COMPARISON: None available. TECHNIQUE: Multiple axial images of the cervical spine were obtained without the demonstration of intravenous contrast. Coronal and sagittal reformatted images were obtained. This CT examination was performed using dose optimization techniques as appropriate, variously including the following: *Automated exposure control *Adjustment of mA and/or kV according to patient size (this includes techniques or standardized protocols for targeted exams where dose is matched to indication/reason for exam; i.e. extremities or head) *Use of iterative reconstruction technique DLP: 320 mGy-cm FINDINGS: There is reversal the normal cervical lordosis with normal spinal alignment. Mild to severe multilevel degenerative disc disease is seen most pronounced at C6-7. The vertebral bodies and odontoid processes are intact. Mild to moderate odontoid articulating degenerative changes are seen. The neural foramina are patent. Mild multilevel bilateral facet arthropathy is seen. The spinous processes are intact. The transverse processes are intact. The cervical soft tissues are unremarkable. There is no lymphadenopathy. The thyroid gland is unremarkable. The visualized lung apices are clear. CT/CT cervical spine wo IV con IMPRESSION: 1. Reversal the normal cervical lordosis may be secondary to positioning and/or muscle spasm. 2. Multilevel degenerative changes without acute abnormality.
--- NOTE | ~2023-04-09 | CT_ITS ---
EXAMINATION: CT HEAD WITHOUT CONTRAST CLINICAL INFORMATION: Status post fall, rule out intracranial abnormality. COMPARISON: Head CT scan dated 04/22/2022. TECHNIQUE: Contiguous axial imaging was performed from the skull base to vertex without intravenous administration of contrast. Coronal and sagittal reformatted images were obtained. This CT examination was performed using dose optimization techniques as appropriate, variously including the following: *Automated exposure control *Adjustment of mA and/or kV according to patient size (this includes techniques or standardized protocols for targeted exams where dose is matched to indication/reason for exam; i.e. extremities or head) *Use of iterative reconstruction technique DLP: 636.35 mGy-cm FINDINGS: There is mild to moderate widening of the cortical sulci and associated ventriculomegaly. Again seen is dilatation of the lateral ventricles out of proportion to the degree of atrophy, most pronounced in the anteriorly towards the frontal horns, right greater than left. The third and fourth ventricles are in their normal midline position. The basilar and prepontine cisterns are unremarkable. Minimal periventricular microvascular changes are seen. There is no acute intra or extracerebral abnormality. There is no mass effect or midline shift. Sections through the bony calvarium are unremarkable. The orbits are intact. The paranasal sinuses are clear. The mastoid air cells are clear. CT/CT head/brain wo IV con IMPRESSION: No acute intracranial pathology. Similar ventriculomegaly is nonspecific, but again appears out of proportion to the degree of cortical atrophy and can be seen with normal pressure hydrocephalus. Overall appearance is similar if not minimally increased, especially anteriorly towards the frontal horns.
[2023-04-09 10:36] VITALS: BP 126/70; BP 127/71; PULSE 80; PULSE 85; RESP 20; TEMP 37.3; O2SAT 98; O2SAT 99; BMI 21.3
[2023-04-09 10:43] VITALS: BP 127/71; PULSE 85; RESP 20; TEMP 37.3; O2SAT 99
--- NOTE | 2023-04-09 10:49 | PC.NURSE ---
pt with alzheimers, constricted and weak at baseline. daughter/HCP at bedside. pt changed over to hospital attire, vss. resting comfortably jhon, in no apparent distress. pt warm to touch, rectal temp noted to be 99.2. rr even/unlabored. wctm
[2023-04-09 11:24] LABS: MANUAL DIFF FLAG NO
[2023-04-09 11:29] LABS: Basophils Percent Auto 0.3 % (0-2); Eosinophils Absolute Auto 0.2 X10*3/uL (0.0-0.4); Eosinophils Percent Auto 1.5 % (0-4); Hematocrit 49.4 % (42.0-52.0); Hemoglobin 16.8 g/dl (14.0-18.0); Imm Gran Abs Auto 0.03 X10*3/uL (0.00-0.03); Imm Gran Pct Auto 0.3 % (0.0-0.4); Lymphocytes Absolute Auto 1.9 X10*3/uL (1.2-4.9); Lymphocytes Percent Auto 18.5 % (20-40); Mean Corpuscular Hemoglobin 29.2 pg (27.0-33.0); Mean Corpuscular Volume 85.8 fL (80.0-98.0); Mean Platelet Volume 11.2 fL (9.4-12.4); Monocytes Absolute Auto 0.5 X10*3/uL (0.1-1.2); Monocytes Percent Auto 5.2 % (2-11); Neutrophils Absolute Auto 7.6 x10*3/uL (2.0-8.3); Neutrophils Percent Auto 74.2 % (45-73); Platelet Count 193 X10*3/uL (160-400); Red Blood Count 5.76 X10*6/uL (4.60-5.80); Red Cell Distribution Width 14.2 % (11.0-16.0); White Blood Count 10.3 X10*3/uL (4.8-10.8)
[2023-04-09 11:48] LABS: Alanine Aminotransferase 47 U/L (0-40); Albumin Level 3.5 g/dL (3.5-5.0); Alkaline Phosphatase 65 U/L (39-117); Anion Gap 13 (12-20); Aspartate Amino Transferase 35 U/L (5-37); Bilirubin Direct 0.4 mg/dL (0.0-0.5); Blood Urea Nitrogen 20 mg/dL (9-16); Calcium 9.9 mg/dL (8.4-10.2); Carbon Dioxide 22 mmol/L (22-29); Chloride 108 mmol/L (96-108); Creatinine Clr Calc Pharmacy 66.6; Estimated Glomerular Filt Rate > 60; Glucose Random 97 mg/dL (60-115); Lipase 43 U/L (8-78); Magnesium 1.8 mg/dL (1.6-2.6); Potassium 4.1 mmol/L (3.3-5.1); Sodium 139 mmol/L (135-145); Total Protein 7.3 g/dL (6.5-8.0)
--- NOTE | 2023-04-09 12:20 | ED_ITS ---
HPI - Nausea/Vomiting/Diarrhea General Chief complaint: Nausea/Vomiting/Diarrhea Stated complaint: Diarrhea Time Seen by Provider: 04/09/23 10:41 Source: patient, EMS and RN notes reviewed Mode of arrival: EMS Limitations: other (Baseline Alzheimer's dementia) History of Present Illness HPI Narrative: This is a 72-year-old male, with a past medical history of Alzheimer's dementia unable to provide any medical history, CKD, COPD encephalopathy, heart valve disease, aortic regurgitation DVT on warfarin, presenting with his daughter via EMS with complaints of 5 episodes of watery, brown diarrhea. Daughter reports that yesterday patient was covered in sweat and was evaluated by [facility] services where they cris blood yesterday and was told that everything looked okay. Daughter states that patient has had 5 episodes of explosive diarrhea. No bloody or black stool. Daughter reports that patient is at his baseline. No recent antibiotic use. No documented fevers. No vomiting. Daughter states that patient has not given patient any food today given current symptoms. Daughter also reports that while patient was being transferred by the EMS staff who is actively trying to transfer patient onto the chair, the EMT personnel accidentally dropped him and patient fell onto his right side unsure whether not he had hit his head. History of bowel obstructions in the past. Daughter reports that patient has a scrotal mass which she had noticed this past month. No other complaints or concerns at this time. MD elicited complaint: diarrhea Description of diarrhea: loose Related Data Home Medications Medication Instructions Recorded Confirmed atenolol 25 mg tablet 25 mg PO DAILY 07/26/20 02/27/23 omeprazole 20 mg capsule,delayed 20 mg PO DAILY@0630 07/26/20 02/27/23 release spironolactone 25 mg tablet 25 mg PO DAILY 08/20/20 02/27/23 warfarin 5 mg tablet 2.5 mg PO DAILY@1800 05/02/21 02/27/23 naftifine 2 % topical gel (Naftin) 1 appl topical DAILY mycosis 07/02/21 albuterol sulfate 2.5 mg/3 mL 2.5 mg inhalation Q4H PRN 04/22/22 02/27/23 (0.083 %) solution for nebulization Respiratory Distress allopurinol 100 mg tablet 100 mg PO DAILY 04/22/22 02/27/23 diaper,brief,adult,disposable 05/12/22 02/27/23 (Select Briefs) acetaminophen 325 mg tablet 650 mg PO Q6H PRN Fever 05/21/22 02/27/23 (Tylenol) docusate sodium 50 mg capsule 50 mg PO DAILY PRN Constipation 05/21/22 02/27/23 warfarin 2.5 mg PO DIRECTED 06/28/22 02/27/23 Previous Rx's Medication Instructions Recorded docusate sodium 60 mg/15 mL oral 100 mg (25 mL) PO BID #480 mL 07/26/22 syrup food supplemt, lactose-reduced 1 ea PO QID 30 days #237 mL 07/26/22 (Ensure High Protein oral liquid) disposable gloves (Biobrane Gloves #100 ea 08/12/22 Medium) Allergies Allergy/AdvReac Type Severity Reaction Status Date / Time doxycycline Allergy Severe Rash Verified 02/27/23 11:00 nut - unspecified Allergy Severe GI Stomach Verified 02/27/23 11:00 Bleed oxycodone [OXYCODONE] Allergy Severe Decrease BP Verified 02/27/23 11:00 Iodinated Contrast Media Allergy Intermediate CKD PER Verified 02/27/23 11:00 [IVP DYE] DAUGHTER PT IS NOT TO HAVE DUE TO KIDNEYS Sulfa (Sulfonamide Allergy Intermediate Rash Verified 02/27/23 11:00 Antibiotics) tramadol [TRAMADOL] Allergy Intermediate PER Verified 02/27/23 11:00 DAUGHTER PT PASSED OUT, weakness Review of Systems Review of Systems: Yes Unobtainable due to mental condition (Baseline Alzheimer's dementia) Constitutional: Constitutional: Reports as per [facility] Past Medical History Medical History (Updated 04/09/23 @ 16:40 by LASHAUN Pascal) Acute deep vein thrombosis (DVT) Altered mental status Alzheimer's dementia Ascending aortic aneurysm Bleeding hemorrhoids Chronic anticoagulation CKD (chronic kidney disease) COPD (chronic obstructive pulmonary disease) Depression Encephalopathy Febrile Heart valve disease Non-rheumatic aortic regurgitation Protein-calorie malnutrition Surgical History History of inguinal hernia repair Hx of cholecystectomy Family History Family History Father History of prostate cancer Social History Social History Household Members: Children Housing: House Do you presently have visiting nurse or other home services: Yes (nurse and high school social studies tutor) Unable to assess alcohol history related to: Unable to respond Alcohol intake: never Patient Tobacco Use Status: Never used Tobacco Smoked in Last 30 Days: No Use of substances other than those prescribed or required for medical reasons: No Advance Directives: No Advance Directives Information Provided: Yes service: No Current occupational status: disabled Physical Exam Vital Signs: Vital Signs: Last Vital Signs Temp 97.9 F 04/09/23 20:10 Pulse 89 04/09/23 20:10 Resp 16 04/09/23 20:10 BP 96/66 04/09/23 20:10 Pulse Ox 99 04/09/23 20:10 O2 Del Method Room Air 04/09/23 20:10 O2 Flow Rate 2 04/09/23 10:43 Oxygen Flow Rate 2 04/09/23 10:36 BMI result Body Mass Index 21.3 Const: Other: In position, lying on left side General: alert; No acute distress Nutritional Appearance: cachectic Limitations: other limitations (Limitations secondary to baseline dementia) HEENT: Head: Yes normal to inspection, Yes normocephalic and Yes atraumatic Ears: hearing grossly normal bilaterally and other (No hemotympanum) General nose exam: Normal external nose present Face and sinus: Yes normal facial exam Mouth: Normal oral and palatal mucosa present, oropharynx normal and moist mucous membranes Throat: Yes posterior oropharynx normal Eyes: General: appearance normal, both eyes and all related structures Eyelids: Yes eyelids normal Conjunctivae: conjunctivae normal Sclerae: sclerae normal Pupils: Equal, round and reactive pupils present EOM: EOMs intact bilaterally Neck: Neck: Yes normal visual inspection, Yes full ROM and Yes no lymphadenopathy Lymphatic: no lymphadenopathy noted Chest: Chest palpation & inspection: normal inspection of the chest Resp: Effort & Inspection: normal respiratory effort and able to speak in complete sentences Auscultation: clear to auscultation bilaterally, no crackles, no rales, no rhonchi and no wheezes Cardio: Rate: regular rate Rhythm: regular rhythm Heart sounds: S1 normal heart sound present and S2 normal heart sound present GI: Inspection: Yes normal to inspection : Other: Scrotal examination for chest fromEvelyn ED tech present. Patient has a marble size mobile mass in the right scrotum, no overlying erythema or edema. No drainage Back/Spine/Pelvis: Other: No step-off or deformity to cervical or thoracic midline spine. Right shoulder without any bony abnormalities or deformities Skin: General skin exam: no rashes or lesions noted Trauma: no lacerations or abrasions Wounds: no wounds Neuro: General: moves all extremities Cranial nerves: Yes Equal, round and reactive pupils present Extrem: Other: Contracted upper and extremities General: Yes normal to inspection Right upper extremity: normal to inspection Left upper extremity: normal to inspection Right lower extremity: normal to inspection Left lower extremity: normal to inspection Course Reevaluation(s) Reevaluation #1: Labs return, no leukocytosis, H and H stable. Chemistry within normal limits, urinalysis still pending. Scrotal ultrasound revealing right testicle is slightly larger than the left and more heterogeneous than the left, not hypervascular. No focal masses seen. Bilateral epididymal cysts noted. Head CT shows no acute pathology. Degenerative disc disease seen in the cervical spine CT, no acute abnormality. Right shoulder x-ray revealing mild degenerative joint changes. Patient has no definitive bowel obstruction. Appearance is may represent an ileus with mild gaseous distention of the colon as well as small bowel. Patient has not had any episodes of diarrhea since being in the emergency department today. Patient has continued hyperactive bowel, vital signs remained stable. Patient is afebrile. Discussed workup and results with daughter. Time: 16:08 Reevaluation #2: Given limited mentation secondary to baseline dementia, will obtain CT abdomen. It would be more beneficial for patient to receive IV contrast however daughter refuses IV contrast CT abdomen. She refuses not because of an allergy but because this put him into kidney failure when he was in [place]. Discussed the risk and benefits of limited examination. Daughter understands. Given sign-out to colleague pending stool studies and CT abdomen, Prudence Mendez NP. Time: 16:54 Reevaluation #3: CT/CT abdomen pelvis wo IV con IMPRESSION: Mild gaseous distention of transverse colon, stomach. Minimal gaseous prominence of small bowel loops. No specific obstruction or ileus suspected. Likely GI dysmotility or constipation. ? Bilateral renal cyst largest midpole left kidney. It is stable. I reviewed these findings with patient's daughter. At this time feel that patient is stable for discharge, he has had no further incidences of diarrhea while in the emergency department. He continues to be at his baseline per alisson cm. Of note he is occult stool positive, and he is on warfarin. Per his daughter his INR is checked every 2 weeks at home with a machine. Last checked 03/31/2023 and it was 2.2. I did discuss with daughter that we could check his INR while in the emergency department tonight, at this time she declines stool studies remain pending. Time: 20:45 Medical Decision Making Medical Decision Making [facility] Narrative: 72-year-old male, with a past medical history of Alzheimer's dementia unable to provide any medical history, CKD, COPD encephalopathy, heart valve disease, aortic regurgitation DVT on warfarin, presenting with his daughter via EMS with complaints of 5 episodes of watery, brown diarrhea. On arrival, vital signs within normal limits, patient oxygen saturation 99% on 2 L pain. Patient unable to provide any history given baseline Alzheimer's dementia. Daughter states that patient is mentating at baseline. Patient had fall during transportation with EMS en route today and is currently on Coumadin, CT head, CT c spine was ordered ability to provide neurologic examination. Patient's abdomen is soft, nondistended with hyperactive bowel sounds present. Given history of bowel obstructions will order KUB. Daughter also reported mom noted in scrotum, over the last month. Ultrasound of scrotum obtain. Differential Diagnosis Differential Diagnoses: The differential diagnosis associated with the presentation includes ICH, small-bowel obstruction, ileus, diverticulitis, diverticulosis, gastritis, gastroenteritis, diarrhea, electrolyte abnormality, dehydration Lab Data [facility] Lab Attestation statement: I reviewed the patient's lab results. See above 04/09/23 11:20 04/09/23 11:20 Labs: Lab Results 04/09/23 04/09/23 04/09/23 Range/Units 11:20 11:20 13:13 WBC 10.3 (4.8-10.8) X10*3/uL RBC 5.76 (4.60-5.80) X10*6/uL Hgb 16.8 (14.0-18.0) g/dl Hct 49.4 (42.0-52.0) % MCV 85.8 (80.0-98.0) fL MCH 29.2 (27.0-33.0) pg MCHC 34.0 (31.0-36.0) g/dl RDW 14.2 (11.0-16.0) % Plt Count 193 (160-400) X10*3/uL MPV 11.2 (9.4-12.4) fL Immature Gran % (Auto) 0.3 (0.0-0.4) % Neut % (Auto) 74.2 H (45-73) % Lymph % (Auto) 18.5 L (20-40) % Sherman % (Auto) 5.2 (2-11) % Eos % (Auto) 1.5 (0-4) % Baso % (Auto) 0.3 (0-2) % Lymph # (Auto) 1.9 (1.2-4.9) X10*3/uL Sherman # (Auto) 0.5 (0.1-1.2) X10*3/uL Eos # (Auto) 0.2 (0.0-0.4) X10*3/uL Baso # (Auto) 0.0 (0.0-0.2) X10*3/uL Abs Immat Gran (auto) 0.03 (0.00-0.03) X10*3/uL Absolute Neuts (auto) 7.6 (2.0-8.3) x10*3/uL Absolute Nucleated RBC 0.000 (0.0-0.012) X10*3/uL Nucleated RBC % (auto) 0.0 (0.0-0.2) /100WBC Sodium 139 (135-145) mmol/L Potassium 4.1 (3.3-5.1) mmol/L Chloride 108 (96-108) mmol/L Carbon Dioxide 22 (22-29) mmol/L Anion Gap 13 (12-20) BUN 20 H (9-16) mg/dL Creatinine 0.86 (0.5-1.4) mg/dL Estim Creat Clear Calc 66.6 Estimated GFR > 60 POC Glucose 97 (60-115) mg/dL Random Glucose 97 (60-115) mg/dL Calcium 9.9 D (8.4-10.2) mg/dL Magnesium 1.8 (1.6-2.6) mg/dL Total Bilirubin 1.0 (0.0-1.0) mg/dL Direct Bilirubin 0.4 (0.0-0.5) mg/dL AST 35 (5-37) U/L ALT 47 H (0-40) U/L Alkaline Phosphatase 65 (39-117) U/L Total Protein 7.3 (6.5-8.0) g/dL Albumin 3.5 (3.5-5.0) g/dL Lipase 43 (8-78) U/L Urine Color Urine Appearance Urine pH (5.0-9.0) Ur Specific Exchange (1.005-1.025) Urine Protein (Neg-Trace) mg/dL Urine Glucose (UA) (Negative) mg/dL Urine Ketones (Negative) mg/dL Urine Blood (Negative) Urine Nitrite (Negative) Ur Leukocyte Esterase (Negative) Urine RBC (0-2) /HPF Urine WBC (0-5) /HPF Ur Squamous Epith Cells (0-2) /HPF Urine Bacteria (None Seen) Hyaline Casts (0-2) /LPF Stool Occult Blood (NEGATIVE) 04/09/23 04/09/23 Range/Units 16:00 16:27 WBC (4.8-10.8) X10*3/uL RBC (4.60-5.80) X10*6/uL Hgb (14.0-18.0) g/dl Hct (42.0-52.0) % MCV (80.0-98.0) fL MCH (27.0-33.0) pg MCHC (31.0-36.0) g/dl RDW (11.0-16.0) % Plt Count (160-400) X10*3/uL MPV (9.4-12.4) fL Immature Gran % (Auto) (0.0-0.4) % Neut % (Auto) (45-73) % Lymph % (Auto) (20-40) % Sherman % (Auto) (2-11) % Eos % (Auto) (0-4) % Baso % (Auto) (0-2) % Lymph # (Auto) (1.2-4.9) X10*3/uL Sherman # (Auto) (0.1-1.2) X10*3/uL Eos # (Auto) (0.0-0.4) X10*3/uL Baso # (Auto) (0.0-0.2) X10*3/uL Abs Immat Gran (auto) (0.00-0.03) X10*3/uL Absolute Neuts (auto) (2.0-8.3) x10*3/uL Absolute Nucleated RBC (0.0-0.012) X10*3/uL Nucleated RBC % (auto) (0.0-0.2) /100WBC Sodium (135-145) mmol/L Potassium (3.3-5.1) mmol/L Chloride (96-108) mmol/L Carbon Dioxide (22-29) mmol/L Anion Gap (12-20) BUN (9-16) mg/dL Creatinine (0.5-1.4) mg/dL Estim Creat Clear Calc Estimated GFR POC Glucose (60-115) mg/dL Random Glucose (60-115) mg/dL Calcium (8.4-10.2) mg/dL Magnesium (1.6-2.6) mg/dL Total Bilirubin (0.0-1.0) mg/dL Direct Bilirubin (0.0-0.5) mg/dL AST (5-37) U/L ALT (0-40) U/L Alkaline Phosphatase (39-117) U/L Total Protein (6.5-8.0) g/dL Albumin (3.5-5.0) g/dL Lipase (8-78) U/L Urine Color Yellow Urine Appearance Clear Urine pH 5.5 (5.0-9.0) Ur Specific Exchange 1.015 (1.005-1.025) Urine Protein Negative (Neg-Trace) mg/dL Urine Glucose (UA) Negative (Negative) mg/dL Urine Ketones Negative (Negative) mg/dL Urine Blood Negative (Negative) Urine Nitrite Negative (Negative) Ur Leukocyte Esterase Trace H (Negative) Urine RBC 0-2 (0-2) /HPF Urine WBC 0-5 (0-5) /HPF Ur Squamous Epith Cells 0-2 (0-2) /HPF Urine Bacteria None Seen (None Seen) Hyaline Casts 0-2 (0-2) /LPF Stool Occult Blood POSITIVE (NEGATIVE) Radiology Impression Discussion of test interpretation with radiology: I have reviewed the radiologist's reading. Radiologist Impression: COMPARISON: CT abdomen pelvis 07/22/2022 TECHNIQUE: A sonogram of the scrotum was performed assessing dailey-scale appearance and color Doppler flow. Spectral Doppler analysis of the arterial and venous flow were performed in the testes bilaterally. FINDINGS: RIGHT: Right testicle measures 4.2 x 1.5 x 3.2 cm, volume 10.7 mL. No focal testicular parenchymal lesions are visualized. The right testicle is slightly larger and a bit more heterogeneous than the left. Spectral Doppler analysis of the arterial and venous flow is normal in the right testis and not increased. Right epididymal head is normal in size. Cysts are present in the head of the epididymis the largest measuring 7 mm. No right hydrocele or varicocele is seen. Right epididymal Doppler flow is normal. LEFT: Left testicle measures 3.7 x 1.4 x 2.5 cm, volume 6.9 mL. No focal testicular parenchymal lesions are visualized. Spectral Doppler analysis of the arterial and venous flow is normal in the left testis. Left epididymal head is normal in size. Cysts are present in the head of the epididymis the largest measuring 1.5 cm with a septation. No left hydrocele or varicocele is seen. Left epididymal Doppler flow is normal. US/US scrotum IMPRESSION: 1.? The right testicle is slightly larger than the left and slightly more heterogeneous than the left, but not hypervascular. No focal mass is seen. 2.? Bilateral epididymal cysts. ? [place] [id number] CT Scan Report Signed Patient: Antoni Arriola MR#: [id number] : 1950 Acct:[id number] Age/Sex: 72 / M ADM Date: 04/09/23 Loc: HO.ED Attending Dr: Ordering Physician: Marie Paez Date of Service: 04/09/23 Procedure(s): CT head/brain wo IV con Accession Number(s): [id number] cc: Marie Paez~ EXAMINATION: CT HEAD WITHOUT CONTRAST CLINICAL INFORMATION: Status post fall, rule out intracranial abnormality.? COMPARISON: Head CT scan dated 04/22/2022. TECHNIQUE: Contiguous axial imaging was performed from the skull base to vertex without intravenous administration of contrast. Coronal and sagittal reformatted images were obtained. This CT examination was performed using dose optimization techniques as appropriate, variously including the following: *Automated exposure control *Adjustment of mA and/or kV according to patient size (this includes techniques or standardized protocols for targeted exams where dose is matched to indication/reason for exam; i.e. extremities or head) *Use of iterative reconstruction technique DLP: 636.35 mGy-cm FINDINGS: There is mild to moderate widening of the cortical sulci and associated ventriculomegaly. Again seen is dilatation of the lateral ventricles out of proportion to the degree of atrophy, most pronounced in the anteriorly towards the frontal horns, right greater than left. The third and fourth ventricles are in their normal midline position. The basilar and prepontine cisterns are unremarkable. Minimal periventricular microvascular changes are seen. There is no acute intra or extracerebral abnormality. There is no mass effect or midline shift. Sections through the bony calvarium are unremarkable. The orbits are intact. The paranasal sinuses are clear. The mastoid air cells are clear. CT/CT head/brain wo IV con IMPRESSION: No acute intracranial pathology. ? Similar ventriculomegaly is nonspecific, but again appears out of proportion to the degree of cortical atrophy and can be seen with normal pressure hydrocephalus. Overall appearance is similar if not minimally increased, especially anteriorly towards the frontal horns. ? EXAMINATION: CT CERVICAL SPINE WITHOUT CONTRAST CLINICAL INFORMATION: Neck pain status post fall.? COMPARISON: None available. TECHNIQUE: Multiple axial images of the cervical spine were obtained without the demonstration of intravenous contrast. Coronal and sagittal reformatted images were obtained.? This CT examination was performed using dose optimization techniques as appropriate, variously including the following: *Automated exposure control *Adjustment of mA and/or kV according to patient size (this includes techniques or standardized protocols for targeted exams where dose is matched to indication/reason for exam; i.e. extremities or head) *Use of iterative reconstruction technique DLP: 320 mGy-cm FINDINGS: There is reversal the normal cervical lordosis with normal spinal alignment. Mild to severe multilevel degenerative disc disease is seen most pronounced at C6-7. The vertebral bodies and odontoid processes are intact. Mild to moderate odontoid articulating degenerative changes are seen. The neural foramina are patent. Mild multilevel bilateral facet arthropathy is seen. The spinous processes are intact. The transverse processes are intact. The cervical soft tissues are unremarkable. There is no lymphadenopathy. The thyroid gland is unremarkable. The visualized lung apices are clear.? CT/CT cervical spine wo IV con IMPRESSION: 1.? Reversal the normal cervical lordosis may be secondary to positioning and/or muscle spasm. 2.? Multilevel degenerative changes without acute abnormality. ? ?EXAMINATION: XR SHOULDER, RIGHT CLINICAL INFORMATION: Right shoulder pain status post fall.? COMPARISON: None available.? TECHNIQUE: Two views of the right shoulder. FINDINGS: Minimal right shoulder degenerative joint changes are seen. There is no acute fracture or dislocation. The soft tissues are unremarkable. Osteopenia is seen. XR/XR shoulder RT min 2V IMPRESSION: Mild degenerative joint changes without overt acute abnormality. ? Osteopenia. Dictated By: Brice Barrientos MD Independent Historian Clinical information obtained from an independent historian. History obtained from or confirmed by: EMS and Other (Daughter) External Record Review External record reviewed: Inpatient record, Office record, Outpatient record, Prior outpatient labs, Prior outpatient radiology, Primary care record and Outside ED record Social Determinants Patient?s care significantly limited by Social Determinants of Health including: Other Social Determinant of Health Discharge Plan Discharge Clinical Impression: Diarrhea Patient Disposition: Home, Self-Care Additional Instructions: Please return back to the emergency department any new or worsening symptoms or concerns. Contact primary care provider to arrange for a follow-up visit within 1-3 days Prescriptions: No Action (DME) Select Briefs Misc See Rx Instructions .ROUTE .MEDSUPPLY Patient Comments: pt is requesting size XL diapers Rx Instructions: As directed- adult disposable diapers weight 162 lbs (DME) disposable gloves [Biobrane Gloves Medium] Misc See Rx Instructions .Route Qty: 100 12RF Rx Instructions: As directed- 4 boxes of 100 per month warfarin 5 mg tablet 2.5 mg PO DAILY@1800 Rx Instructions: Thursday and Thursday allopurinol 100 mg Tablet 100 mg PO DAILY albuterol sulfate 2.5 mg /3 mL (0.083 %) Solution For Nebulization 2.5 mg INHALATION Q4H PRN (Reason: Respiratory Distress) warfarin 2.5 mg 2.5 mg PO DIRECTED acetaminophen [Tylenol] 325 mg Tablet 650 mg PO Q6H PRN (Reason: Fever) docusate sodium 50 mg Capsule 50 mg PO DAILY PRN (Reason: Constipation) Ensure High Protein Liquid 1 ea PO QID 30 Days Qty: 237 0RF docusate sodium 60 mg/15 mL syrup 100 mg PO BID Qty: 480 0RF Rx Instructions: for constipation, hold for diarrhea spironolactone 25 mg tablet 25 mg PO DAILY omeprazole 20 mg capsule,delayed release(DR/EC) 20 mg PO DAILY@0630 atenolol 25 mg tablet 25 mg PO DAILY Naftin 2 % gel 1 appl topical DAILY
[2023-04-09 13:17] LABS: Glucose, Whole Blood 97 mg/dL (60-115)
[2023-04-09 15:14] VITALS: BP 124/77; PULSE 85; RESP 14; TEMP 37.3; O2SAT 100
[2023-04-09 16:10] LABS: Appearance Urine Clear; Color Urine Yellow; Glucose Urine UA Negative (Negative); Leukocyte Esterase Urine Trace (Negative); Nitrite Urine Negative (Negative); PH 5.5 (5.0-9.0); Specific Gravity - Urine 1.015 (1.005-1.025); UMIC TRIGGER UACC YES; Urine Blood Negative (Negative); Urine Ketones Negative (Negative); Urine Protein Negative (Neg-Trace)
[2023-04-09 16:26] VITALS: TEMP 37.6
[2023-04-09 16:30] LABS: Bacteria Urine None Seen (None Seen); Hyaline Casts Urine 0-2 /LPF (0-2); RBC Urine 0-2 /HPF (0-2); Squamous Epithelial Cell Urine 0-2 /HPF (0-2); WBC Urine 0-5 /HPF (0-5)
[2023-04-09 17:01] LABS: OBS Int Ctl Valid YES; OBS1 POSITIVE (NEGATIVE)
[2023-04-09 19:50] VITALS: BP 110/66; PULSE 89; RESP 12; O2SAT 98
[2023-04-09 20:10] VITALS: BP 96/66; PULSE 89; RESP 16; TEMP 36.6; O2SAT 99
== END 2023-04-09 21:43 | disposition home or self-care (01) ==
PROVIDERS: Physician Assistant Medical; Emergency Provider Emergency Medicine; PCP Internal Medicine
DX: R19.7 Diarrhea, unspecified (principal); R11.2 Nausea with vomiting, unspecified; R51.9 Headache, unspecified; M54.2 Cervicalgia; N50.82 Scrotal pain; R10.2 Pelvic and perineal pain; M25.511 Pain in right shoulder; Z79.899 Other long term (current) drug therapy
CPT/HCPCS: 36415; 70450; 72125; 73030; 74018; 74176; 76870; 80048; 80076; 81001; 82272; 82947; 83690; 83735; 85025; 99284

== ENCOUNTER 2023-08-12 08:06 | Outpatient (REF) | payer MEDICARE, MEDICAID, SELFPAY ==
[2023-08-12 11:40] LABS: MANUAL DIFF FLAG NO
[2023-08-12 11:48] LABS: Basophils Percent Auto 0.2 % (0-2); Eosinophils Absolute Auto 0.1 X10*3/uL (0.0-0.4); Eosinophils Percent Auto 1.6 % (0-4); Hematocrit 47.9 % (42.0-52.0); Hemoglobin 16.2 g/dl (14.0-18.0); Imm Gran Abs Auto 0.02 X10*3/uL (0.00-0.03); Imm Gran Pct Auto 0.2 % (0.0-0.4); Lymphocytes Percent Auto 23.4 % (20-40); Mean Corpuscular HGB Conc 33.8 g/dl (31.0-36.0); Mean Corpuscular Hemoglobin 28.8 pg (27.0-33.0); Mean Corpuscular Volume 85.2 fL (80.0-98.0); Mean Platelet Volume 11.3 fL (9.4-12.4); Monocytes Absolute Auto 0.5 X10*3/uL (0.1-1.2); Monocytes Percent Auto 6.1 % (2-11); Neutrophils Absolute Auto 5.9 x10*3/uL (2.0-8.3); Neutrophils Percent Auto 68.5 % (45-73); Platelet Count 179 X10*3/uL (160-400); Red Blood Count 5.62 X10*6/uL (4.60-5.80); Red Cell Distribution Width 14.6 % (11.0-16.0); White Blood Count 8.7 X10*3/uL (4.8-10.8)
[2023-08-12 11:50] LABS: D Dimer High Sensitivity < 150 NG/ML
[2023-08-12 12:04] LABS: Alanine Aminotransferase 86 U/L (0-40); Albumin Level 3.2 g/dL (3.5-5.0); Alkaline Phosphatase 61 U/L (39-117); Anion Gap 12 (12-20); Aspartate Amino Transferase 46 U/L (5-37); Bilirubin Total 0.7 mg/dL (0.0-1.0); Blood Urea Nitrogen 16 mg/dL (9-16); Calcium 9.2 mg/dL (8.4-10.2); Carbon Dioxide 23 mmol/L (22-29); Chloride 108 mmol/L (96-108); Estimated Glomerular Filt Rate > 60; Glucose Random 124 mg/dL (60-115); Sodium 139 mmol/L (135-145); Total Protein 6.9 g/dL (6.5-8.0)
[2023-08-12 12:18] LABS: Ferritin 55 ng/mL (20-250)
[2023-08-12 12:23] LABS: Prostate Specific Antigen 3.79 ng/mL (<0.05-4.0)
[2023-08-17 04:45] LABS: HBS Num1 0.14 mIU/mL (0-7.99); HBsAGNum1 0.35 S/CO (0.00-0.99); Hepatitis A Antibody IgM 0.33 Index (0-0.79); Hepatitis B Core Antibody Nonreactive (Nonreactive); Hepatitis B Surface Antigen Negative (Negative); ~HepC Num1 0.09 S/CO (0.00-0.79); ~Hepatitis A Antibody IgM Nonreactive (Nonreactive); ~Hepatitis B Surface Antibody NONREACTIVE (Nonreactive); ~Hepatitis C Antibody Nonreactive (Nonreactive)
== END 2023-08-12 08:07 | disposition home or self-care (01) ==
LOC: HO.LHD 08:06
PROVIDERS: Urology; Visit Provider Internal Medicine Medical Oncology
DX: N40.1 Benign prostatic hyperplasia with lower urinary tract symptoms (principal); N13.8 Other obstructive and reflux uropathy; I82.409 Acute embolism and thrombosis of unspecified deep veins of unspecified lower extremity; Z12.5 Encounter for screening for malignant neoplasm of prostate; Z86.2 Personal history of diseases of the blood and blood-forming organs and certain disorders involving the immune mechanism; Z11.59 Encounter for screening for other viral diseases; Z72.89 Other problems related to lifestyle
CPT/HCPCS: 36415; 80053; 82728; 84153; 85025; 85379; 86704; 86706; 86709; 86803; 87340

== ENCOUNTER 2023-08-27 10:22 | Outpatient (AMB) | payer MEDICARE, MEDICAID, SELFPAY ==
--- NOTE | 2023-08-27 10:25 | A.OFFVIS_ITS ---
Intake Intake Visit Reasons: 1Y PSA/Testicle Us(set) Intake Note: Patient is Present for Telephone Follow Up For Urology Med: Antibiotic Allergy: Doxycycline, Sulfa Blood Thinner: Warfarin Allergies doxycycline Allergy (Severe, Verified 02/27/23 11:00) Rash nut - unspecified Allergy (Severe, Verified 02/27/23 11:00) GI Stomach Bleed oxycodone [OXYCODONE] Allergy (Severe, Verified 02/27/23 11:00) Decrease BP Iodinated Contrast Media [IVP DYE] Allergy (Intermediate, Verified 02/27/23 11:00) CKD PER DAUGHTER PT IS NOT TO HAVE DUE TO KIDNEYS Sulfa (Sulfonamide Antibiotics) Allergy (Intermediate, Verified 02/27/23 11:00) Rash tramadol [TRAMADOL] Allergy (Intermediate, Verified 02/27/23 11:00) PER DAUGHTER PT PASSED OUT, weakness Medication List - Last Reconciled 08/27/23 by Myles Gomez MD acetaminophen (Tylenol) 650 mg PO Q6H PRN albuterol sulfate 2.5 mg inhalation Q4H PRN allopurinol 100 mg PO DAILY atenolol 25 mg PO DAILY diaper,brief,adult,disposable (Select Briefs) As directed- adult disposable diapers weight 162 lbs diaper,brief,adult,disposable (Select Briefs) As directed- adult disposable diapers weight 162 lbs disposable gloves (Biobrane Gloves Medium) As directed- 4 boxes of 100 per month docusate sodium 50 mg PO DAILY PRN docusate sodium 100 mg (25 mL) PO BID finasteride 5 mg PO DAILY 90 days food supplemt, lactose-reduced (Ensure High Protein oral liquid) 1 ea PO QID 30 days naftifine 2% (Naftin) 1 appl topical DAILY omeprazole 20 mg PO DAILY@0630 spironolactone 25 mg PO DAILY warfarin 2.5 mg PO DAILY@1800 [warfarin 2.5 mg PO DIRECTED] HPI HPI Comments History of Present Illness Details Antoni VIDALES is a very pleasant male. He is a patient of Dr. Clemons. He is seen for the following urologic conditions. - urinary urgency - urinary leakage Telemedicine Evaluation 15 min Consultation Doximity Nat Video attempted Discussion primarily with daughter as patient has significant dementia which is progressive Yearly follow-up No prostate meds on medication list PSA remains stable Lower urinary tract symptoms Progressive dementia with loss of bladder control ?Current treatment includes Combination therapy. ?Prostate Symptom Score 10/30 , Moderate (9-19), Bother 4. ?Symptoms include 10/30 , incomplete emptying, weak stream, nocturia (>2), and are progressing. ?Results from testing include? renal/bladder us? Yes ? date? 10/27/2018 ? PVR? 90 ? prostate size? 50 ?Prior Prostate Score unknown. ?PSA 10/30 2.6 ? 06/30 3.8, 05/01 3.3, 09/03 3.8 ?Prostate volume 30-50gm. ?Testing at next visit will include bladder scan ? continue with MTOPS?? [facility] Medical History Protein-calorie malnutrition Alzheimer's dementia Febrile Encephalopathy Altered mental status Depression Non-rheumatic aortic regurgitation Ascending aortic aneurysm CKD (chronic kidney disease) Chronic anticoagulation Bleeding hemorrhoids Heart valve disease Acute deep vein thrombosis (DVT) COPD (chronic obstructive pulmonary disease) Surgical History Hx of cholecystectomy History of inguinal hernia repair Family History Father History of prostate cancer Social History Household Members: Children Housing: House Do you presently have visiting nurse or other home services: Yes (nurse and social media project manager) Unable to assess alcohol history related to: Unable to respond Alcohol intake: never Patient Tobacco Use Status: Never used Tobacco service: No Current occupational status: disabled Review of Systems Const All systems reviewed & are unremarkable except as noted in HPI and below Reports no additional complaints Resp Reports no additional complaints GI Reports no additional complaints Reports as per HPI Musc Reports no additional complaints Physical Exam Telemedicine evaluation Appropriate responses Regular breathing rate and rhythm HEENT Head: Yes normal to inspection Ears: hearing grossly normal bilaterally Eyes General: appearance normal, both eyes and all related structures Neck Neck: Yes normal visual inspection Chest Chest palpation & inspection: normal inspection of the chest Resp Effort & Inspection: normal respiratory effort and able to speak in complete sentences Assessment & Plan Assessment & Plan (1) BPH w urinary obs/LUTS: Code(s): N40.1 - Benign prostatic hyperplasia with lower urinary tract symptoms; N13.8 - Other obstructive and reflux uropathy Plan Twelve month follow-up Orders: Orders Prostate Specific Antigen 08/12/23 N13.8 - Other obstructive and reflux urop athy, N40.1 - Benign prostatic hyperplasia with lower urinary tract symptoms Medications: New finasteride 5 mg PO DAILY 90 tabs 3RF 90 days N13.8 - Other obstructive and reflux uropathy, N40.1 - Benign prostatic hyperplasia with lower urinary tract symptoms, R33.9 - Retention of urine, unspecified Patient Instructions: Imaging studies, laboratory and physical exam results were discussed and reviewed in detail. No major barriers to patient understanding were identified. An opportunity to ask questions regarding the treatment plan was provided. All questions were answered. The patient expressed understanding and agreement with the above treatment plan. The patient is aware they should contact our office by phone for worsening of their current condition or the appearance of new urologic symptoms. Compliance is encouraged with any medications and followup testing that is ordered. It is a privilege to participate in the urologic care of your patient. If you have any questions or concerns regarding treatment for the above conditions, or other urologic issues, please do not hesitate to contact me. The office telephone contact is [phone]. This note is constructed using voice recognition software. While every effort has been made to ensure accuracy emergency medical dispatcher errors may have been included. Yours sincerely, Dr Myles Gomez MD, [facility] - Urology Providers of Expert, Compassionate Care for the Genitourinary System Telehealth Telehealth Location of provider rendering services: practice address Location of patient: address on file Patient Identification confirmed using: Name, : Yes Telehealth method: video Patient verbally consented to treatment: Yes Patient verbally consented to billing insurance company: Yes Patient informed of any privacy concerns related to visit: Yes Coding Level of Care Code Tele Est Pt Level 4 (54644) Diagnoses BPH w urinary obs/LUTS N40.1; N13.8
== END 2023-08-27 11:18 | disposition home or self-care (01) ==
LOC: HO.HUSH 10:22
PROVIDERS: PCP Internal Medicine; Visit Provider Urology
DX: N40.1 Benign prostatic hyperplasia with lower urinary tract symptoms (principal); N13.8 Other obstructive and reflux uropathy
CPT/HCPCS: 99213

== ENCOUNTER → 2023-08-27 10:22 | Outpatient (BNVA) | payer MEDICARE, MEDICAID, SELFPAY | PROVIDERS: PCP Internal Medicine; Visit Provider Urology ==

== ENCOUNTER 2024-01-05 | Outpatient (REF) | payer MEDICARE, MEDICAID, SELFPAY ==
[2024-01-06 10:39] LABS: Appearance Urine Clear; Color Urine Yellow; Glucose Urine UA Negative (Negative); Leukocyte Esterase Urine Small (1+) (Negative); Nitrite Urine Negative (Negative); UMIC TRIGGER UA YES; Urine Blood Negative (Negative); Urine Ketones Negative (Negative); Urine Protein Negative (Neg-Trace)
[2024-01-06 10:42] LABS: Bacteria Urine None Seen (None Seen); Hyaline Casts Urine 0-2 /LPF (0-2); RBC Urine 0-2 /HPF (0-2); Squamous Epithelial Cell Urine 0-2 /HPF (0-2); WBC Urine 0-5 /HPF (0-5)
== END 2024-01-05 00:01 | disposition home or self-care (01) ==
LOC: HO.LNP
PROVIDERS: Visit Provider Urology
DX: N39.0 Urinary tract infection, site not specified (principal)
CPT/HCPCS: 81001; 87086

== ENCOUNTER 2024-01-21 08:12 | Outpatient (REF) | payer MEDICARE, MEDICAID, SELFPAY ==
[2024-01-21 11:35] LABS: MANUAL DIFF FLAG NO
[2024-01-21 12:03] LABS: D Dimer High Sensitivity < 150 NG/ML
[2024-01-21 12:04] LABS: Basophils Percent Auto 0.3 % (0-2); Eosinophils Absolute Auto 0.2 X10*3/uL (0.0-0.4); Eosinophils Percent Auto 2.6 % (0-4); Hematocrit 46.6 % (42.0-52.0); Hemoglobin 15.9 g/dl (14.0-18.0); Imm Gran Abs Auto 0.02 X10*3/uL (0.00-0.03); Imm Gran Pct Auto 0.3 % (0.0-0.4); Lymphocytes Percent Auto 27.8 % (20-40); Mean Corpuscular HGB Conc 34.1 g/dl (31.0-36.0); Mean Corpuscular Hemoglobin 29.8 pg (27.0-33.0); Mean Corpuscular Volume 87.4 fL (80.0-98.0); Monocytes Absolute Auto 0.4 X10*3/uL (0.1-1.2); Neutrophils Absolute Auto 4.5 x10*3/uL (2.0-8.3); Platelet Count 143 X10*3/uL (160-400); Red Blood Count 5.33 X10*6/uL (4.60-5.80); Red Cell Distribution Width 13.8 % (11.0-16.0); White Blood Count 7.1 X10*3/uL (4.8-10.8)
[2024-01-21 12:15] LABS: Alanine Aminotransferase 69 U/L (0-40); Albumin Level 3.3 g/dL (3.5-5.0); Alkaline Phosphatase 58 U/L (39-117); Anion Gap 9 (12-20); Aspartate Amino Transferase 37 U/L (5-37); Bilirubin Total 0.7 mg/dL (0.0-1.0); Blood Urea Nitrogen 19 mg/dL (9-16); Calcium 9.2 mg/dL (8.4-10.2); Carbon Dioxide 28 mmol/L (22-29); Chloride 109 mmol/L (96-108); Estimated Glomerular Filt Rate > 60; Glucose Random 101 mg/dL (60-115); Sodium 142 mmol/L (135-145); Total Protein 7.1 g/dL (6.5-8.0)
[2024-01-21 12:29] LABS: Ferritin 47 ng/mL (20-250)
== END 2024-01-21 08:13 | disposition home or self-care (01) ==
LOC: HO.LHD 08:12
PROVIDERS: Visit Provider Internal Medicine Medical Oncology
DX: I82.409 Acute embolism and thrombosis of unspecified deep veins of unspecified lower extremity (principal)
CPT/HCPCS: 36415; 80053; 82728; 85025; 85379

== ENCOUNTER 2024-02-05 | Outpatient (REF) | payer MEDICARE, MEDICAID, SELFPAY ==
[2024-02-06 09:27] LABS: Appearance Urine Clear; Color Urine Yellow; Glucose Urine UA Negative (Negative); Leukocyte Esterase Urine Moderate (2+) (Negative); Nitrite Urine Negative (Negative); Specific Gravity - Urine 1.015 (1.005-1.025); UMIC TRIGGER UA YES; Urine Blood Negative (Negative); Urine Ketones Negative (Negative); Urine Protein Negative (Neg-Trace)
[2024-02-06 09:33] LABS: Bacteria Urine None Seen (None Seen); Hyaline Casts Urine 0-2 /LPF (0-2); RBC Urine 0-2 /HPF (0-2); Squamous Epithelial Cell Urine 0-2 /HPF (0-2)
== END 2024-02-05 00:01 | disposition home or self-care (01) ==
LOC: HO.LNP
PROVIDERS: Visit Provider Urology
DX: N39.0 Urinary tract infection, site not specified (principal)
CPT/HCPCS: 81001; 87086; 87088; 87186

== ENCOUNTER 2024-02-19 11:17 | Outpatient (REF) | payer MEDICARE, MEDICAID, SELFPAY ==
[2024-02-19 11:31] LABS: Appearance Urine Clear; Color Urine Yellow; Glucose Urine UA Negative (Negative); Leukocyte Esterase Urine Small (1+) (Negative); Nitrite Urine Negative (Negative); Specific Gravity - Urine 1.015 (1.005-1.025); UMIC TRIGGER UA YES; Urine Blood Negative (Negative); Urine Ketones Negative (Negative); Urine Protein Negative (Neg-Trace)
[2024-02-19 11:42] LABS: Bacteria Urine None Seen (None Seen); Hyaline Casts Urine 0-2 /LPF (0-2); RBC Urine 0-2 /HPF (0-2); Squamous Epithelial Cell Urine 0-2 /HPF (0-2); WBC Urine 0-5 /HPF (0-5)
== END 2024-02-19 11:18 | disposition home or self-care (01) ==
LOC: HO.LNP 11:17
PROVIDERS: Visit Provider Urology
DX: N39.0 Urinary tract infection, site not specified (principal)
CPT/HCPCS: 81001; 87086

== ENCOUNTER 2024-03-24 08:22 | Outpatient (REF) | payer MEDICARE, MEDICAID, SELFPAY ==
[2024-03-24 10:16] LABS: MANUAL DIFF FLAG NO
[2024-03-24 10:38] LABS: Basophils Percent Auto 0.3 % (0-2); Eosinophils Absolute Auto 0.4 X10*3/uL (0.0-0.4); Hematocrit 45.8 % (42.0-52.0); Hemoglobin 15.5 g/dl (14.0-18.0); Imm Gran Abs Auto 0.03 X10*3/uL (0.00-0.03); Imm Gran Pct Auto 0.3 % (0.0-0.4); Lymphocytes Absolute Auto 2.1 X10*3/uL (1.2-4.9); Lymphocytes Percent Auto 24.2 % (20-40); Mean Corpuscular HGB Conc 33.8 g/dl (31.0-36.0); Mean Corpuscular Hemoglobin 29.6 pg (27.0-33.0); Mean Corpuscular Volume 87.4 fL (80.0-98.0); Mean Platelet Volume 12.5 fL (9.4-12.4); Monocytes Absolute Auto 0.5 X10*3/uL (0.1-1.2); Monocytes Percent Auto 6.2 % (2-11); Neutrophils Absolute Auto 5.6 x10*3/uL (2.0-8.3); Platelet Count 148 X10*3/uL (160-400); Red Blood Count 5.24 X10*6/uL (4.60-5.80); Red Cell Distribution Width 14.5 % (11.0-16.0); White Blood Count 8.7 X10*3/uL (4.8-10.8)
[2024-03-24 10:47] LABS: Alanine Aminotransferase 36 U/L (0-40); Albumin Level 3.1 g/dL (3.5-5.0); Alkaline Phosphatase 59 U/L (39-117); Anion Gap 10 (12-20); Aspartate Amino Transferase 37 U/L (5-37); Bilirubin Total 0.6 mg/dL (0.0-1.0); Blood Urea Nitrogen 24 mg/dL (9-16); Calcium 9.2 mg/dL (8.4-10.2); Carbon Dioxide 25 mmol/L (22-29); Chloride 109 mmol/L (96-108); Estimated Glomerular Filt Rate > 60; Glucose Random 92 mg/dL (60-115); Potassium 4.9 mmol/L (3.3-5.1); Sodium 139 mmol/L (135-145); Total Protein 7.6 g/dL (6.5-8.0)
[2024-03-24 11:08] LABS: Prostate Specific Antigen 4.53 ng/mL (<0.05-4.0)
== END 2024-03-24 08:23 | disposition home or self-care (01) ==
LOC: HO.LHD 08:22
PROVIDERS: Visit Provider Internal Medicine Medical Oncology
DX: E46 Unspecified protein-calorie malnutrition (principal); Z12.5 Encounter for screening for malignant neoplasm of prostate; M62.40 Contracture of muscle, unspecified site; N50.89 Other specified disorders of the male genital organs; Z74.01 Bed confinement status
CPT/HCPCS: 36415; 80053; 84153; 85025

== ENCOUNTER 2024-05-02 19:54 | Emergency (ER) | payer MEDICARE, MEDICAID, SELFPAY ==
--- NOTE | ~2024-05-02 | XR_ITS ---
EXAMINATION: PORTABLE CHEST 1 VIEW CLINICAL INFORMATION: Pneumonia. COMPARISON: 07/21/2022. TECHNIQUE: Portable frontal view of the chest was obtained. FINDINGS: Lungs are hypoexpanded with chronic appearing coarsened reticular markings again seen bilaterally. No significant effusion, overt edema, or pneumothorax. Cardiac silhouette is within normal limits for size with a tortuous aorta. Chronic appearing degenerative changes in the shoulders and spine. IVC filter and right upper quadrant surgical clips partially visualized. XR/XR chest 1V IMPRESSION: Chronic appearing changes similar to the 07/21/2022 study.
--- NOTE | 2024-05-02 20:00 | ED_ITS ---
HPI - SOB/Dyspnea General Chief Complaint: General Medical Stated Complaint: SOB, hx Alzheimer's, 2L at baseline Time Seen by Provider: 05/02/24 19:58 Source: family Mode of arrival: EMS Limitations: other (Nonverbal, demented) History of Present Illness ED Provider: dhara MARTIN Narrative: Patient is 73 years old history of dementia bed-bound since 2020 with contracted posture with history of recurrent aspiration pneumonia on pureed diet and 2 L oxygen comes here as patient has been coughing for last 1 month was given Zithromax by PCP earlier change to Augmentin on family noticed patient is little more weaker and down still coughing prior to arrival noticed patient's face was red and not breathing as before with saliva in the mouth patient also had fever 100.3 yesterday no other family member sick no recent chest x-ray was done Related Data Home Medications ?Medication ?Instructions ?Recorded ?Confirmed atenolol 25 mg tablet 25 mg PO DAILY 07/26/20 01/26/24 omeprazole 20 mg capsule,delayed 20 mg PO DAILY@0630 07/26/20 01/26/24 release spironolactone 25 mg tablet 25 mg PO DAILY 08/20/20 01/26/24 warfarin 5 mg tablet 2.5 mg PO DAILY@1800 05/02/21 01/26/24 naftifine 2 % topical gel (Naftin) 1 appl topical DAILY mycosis 07/02/21 01/26/24 albuterol sulfate 2.5 mg/3 mL 2.5 mg inhalation Q4H PRN 04/22/22 01/26/24 (0.083 %) solution for nebulization Respiratory Distress allopurinol 100 mg tablet 100 mg PO DAILY 04/22/22 01/26/24 acetaminophen 325 mg tablet 650 mg PO Q6H PRN Fever 05/21/22 01/26/24 (Tylenol) docusate sodium 50 mg capsule 50 mg PO DAILY PRN Constipation 05/21/22 01/26/24 warfarin 2.5 mg PO DIRECTED 06/28/22 01/26/24 Previous Rx's ?Medication ?Instructions ?Recorded docusate sodium 60 mg/15 mL oral 100 mg (25 mL) PO BID #480 mL 07/26/22 syrup food supplemt, lactose-reduced 1 ea PO QID 30 days #237 mL 07/26/22 (Ensure High Protein oral liquid) disposable gloves (Biobrane Gloves #100 ea 08/12/22 Medium) diaper,brief,adult,disposable #8 ea 07/24/23 (Select Briefs) finasteride 5 mg tablet 5 mg PO DAILY 90 days #90 tabs 08/27/23 underpads 23 X 36 #240 ea 09/17/23 levofloxacin 500 mg tablet 500 mg PO DAILY 7 days #7 tabs 02/09/24 clotrimazole-betamethasone 1 1 appl topical BID 14 days #45 02/16/24 %-0.05 % topical cream grams guaifenesin 100 mg/5 mL oral liquid 200 mg (10 mL) PO Q4H PRN 05/02/24 congestion #473 mL Allergies Allergy/AdvReac Type Severity Reaction Status Date / Time doxycycline Allergy Severe Rash Verified 05/02/24 20:26 nut - unspecified Allergy Severe GI Stomach Verified 05/02/24 20:26 Bleed oxycodone [OXYCODONE] Allergy Severe Decrease BP Verified 05/02/24 20:26 Iodinated Contrast Media Allergy Intermediate CKD PER Verified 05/02/24 20:26 [IVP DYE] DAUGHTER PT IS NOT TO HAVE DUE TO KIDNEYS Sulfa (Sulfonamide Allergy Intermediate Rash Verified 05/02/24 20:26 Antibiotics) tramadol [TRAMADOL] Allergy Intermediate PER Verified 05/02/24 20:26 DAUGHTER PT PASSED OUT, weakness Review of Systems 2 Review of Systems: Yes all other systems are reviewed and are negative PMFSH Past Medical History Medical History Protein-calorie malnutrition Alzheimer's dementia Febrile Encephalopathy Altered mental status Depression Non-rheumatic aortic regurgitation Ascending aortic aneurysm CKD (chronic kidney disease) Chronic anticoagulation Bleeding hemorrhoids Heart valve disease Acute deep vein thrombosis (DVT) COPD (chronic obstructive pulmonary disease) Surgical History Hx of cholecystectomy History of inguinal hernia repair Family History Family History Father History of prostate cancer Social History Social History Household Members: Children Housing: House Do you presently have visiting nurse or other home services: Yes (nurse and social work msw) Unable to assess alcohol history related to: Unable to respond Alcohol intake: never Comment: family at the bedside Patient Tobacco Use Status: Never used Tobacco Smoked in Last 30 Days: No Use of substances other than those prescribed or required for medical reasons: No Advance Directives: Yes Advance Directives on File: Yes Advance Directives Date on File: 05/05/23 service: No Current occupational status: disabled Physical Exam 2 Vital Signs: Vital Signs: Last Vital Signs Temp 97.7 F 05/02/24 22:25 Pulse 85 05/02/24 22:25 Resp 16 05/02/24 22:25 BP 119/70 05/02/24 22:25 Pulse Ox 2 L 05/02/24 22:25 O2 Del Method Nasal Cannula 05/02/24 22:25 Oxygen Flow Rate 2 05/02/24 20:12 BMI result Body Mass Index 20.0 Appearance: Alert. . No acute distress. Demented in contacted posture Eyes: Pupils normal size normal reacting ENT: Pharynx normal. Oral Mucosa moist Neck: Normal inspection. Neck supple. CVS: Normal heart rate and rhythm. Pulses normal. Respiratory: No respiratory distress. Equal air entry bilateral, rales at bases Abdomen: Soft and nontender. Bowel sounds are present, no mass palpable, no CVA tenderness Skin: Skin warm and dry. Normal skin color. Normal skin turgor. Extremities: No lower extremity edema. No calf tenderness Neuro: Alert and awake nonverbal demented with contracted posture Medical Decision Making Medical Decision Making [facility] Narrative: Patient likely with aspiration pneumonia but chest x-ray negative for acute infiltrate labs are stable vitals stable will discharge patient home advised for aspiration precaution Differential Diagnosis Differential Diagnoses: The differential diagnosis associated with the presentation includes Aspiration pneumonias/pneumonia/viral bronchitis/CHF Lab Data [facility] Lab Attestation statement: I reviewed the patient's lab results. 05/02/24 20:36 05/02/24 20:36 Labs: Lab Results 05/02/24 05/02/24 Range/Units 20:35 20:36 WBC 8.5 (4.8-10.8) X10*3/uL RBC 5.32 (4.60-5.80) X10*6/uL Hgb 15.9 (14.0-18.0) g/dl Hct 46.1 (42.0-52.0) % MCV 86.7 (80.0-98.0) fL MCH 29.9 (27.0-33.0) pg MCHC 34.5 (31.0-36.0) g/dl RDW 15.0 (11.0-16.0) % Plt Count 164 (160-400) X10*3/uL MPV 10.8 (9.4-12.4) fL Immature Gran % (Auto) 0.2 (0.0-0.4) % Neut % (Auto) 65.6 (45-73) % Lymph % (Auto) 24.4 (20-40) % Mclean % (Auto) 5.8 (2-11) % Eos % (Auto) 3.8 (0-4) % Baso % (Auto) 0.2 (0-2) % Lymph # (Auto) 2.1 (1.2-4.9) X10*3/uL Mclean # (Auto) 0.5 (0.1-1.2) X10*3/uL Eos # (Auto) 0.3 (0.0-0.4) X10*3/uL Baso # (Auto) 0.0 (0.0-0.2) X10*3/uL Abs Immat Gran (auto) 0.02 (0.00-0.03) X10*3/uL Absolute Neuts (auto) 5.6 (2.0-8.3) x10*3/uL Absolute Nucleated RBC 0.000 (0.0-0.012) X10*3/uL Nucleated RBC % (auto) 0.0 (0.0-0.2) /100WBC Sodium 139 (135-145) mmol/L Potassium 3.9 D (3.3-5.1) mmol/L Chloride 108 (96-108) mmol/L Carbon Dioxide 21 L (22-29) mmol/L Anion Gap 14 (12-20) BUN 17 H (9-16) mg/dL Creatinine 0.99 (0.5-1.4) mg/dL Estim Creat Clear Calc 53.7 Estimated GFR > 60 Random Glucose 98 (60-115) mg/dL Lactic Acid 1.7 (0.5-2.0) mmol/L Calcium 8.9 (8.4-10.2) mg/dL Total Bilirubin 0.5 (0.0-1.0) mg/dL AST 43 H (5-37) U/L ALT 66 H (0-40) U/L Alkaline Phosphatase 52 (39-117) U/L Troponin I High Sens 2.8 (<3.5-35.0) ng/L B-Natriuretic Peptide 38 (<100) pg/mL Total Protein 7.0 (6.5-8.0) g/dL Albumin 3.2 L (3.5-5.0) g/dL Influenza Type A (PCR) NEGATIVE (Negative) Influenza Type B (PCR) NEGATIVE (Negative) RSV RNA Qual (PCR) NEGATIVE (Negative) SARS-CoV-2 RNA (RT-PCR) NEGATIVE (Negative) Independent Interpretation I performed an independent interpretation of an: EKG and Plain X-Ray Interpretation: Normal sinus rhythm heart rate 96 beats per minute normal interval left axis deviation LVH no acute STT wave changes Discharge Plan Discharge Clinical Impression: Chronic bronchitis with productive mucopurulent cough Patient Disposition: Home, Self-Care Instructions: Chronic Bronchitis (ED), Aspiration Precautions (ED) Additional Instructions: Continue your antibiotics as prescribed Cough syrup as prescribed Aspiration precautions as advised Prescriptions: New guaifenesin 100 mg/5 mL liquid 200 mg PO Q4H PRN (Reason: congestion) Qty: 473 0RF No Action (DME) disposable gloves [Biobrane Gloves Medium] Misc See Rx Instructions .Route Qty: 100 12RF Rx Instructions: As directed- 4 boxes of 100 per month (DME) Select Briefs Misc See Rx Instructions .ROUTE .MEDSUPPLY Qty: 8 11RF Rx Instructions: As directed- adult disposable diapers weight 162 lbs (DME) underpads 23 X 36 pad See Rx Instructions .Route Qty: 240 11RF Rx Instructions: As directed 8 per day/ 240 per month levofloxacin 500 mg tablet 500 mg PO DAILY 7 Days Qty: 7 0RF clotrimazole-betamethasone 1-0.05 % cream 1 appl topical BID 14 Days Qty: 45 0RF Rx Instructions: apply thin layer to affected area 2x daily warfarin 5 mg tablet 2.5 mg PO DAILY@1800 Rx Instructions: Thursday and Thursday allopurinol 100 mg Tablet 100 mg PO DAILY albuterol sulfate 2.5 mg /3 mL (0.083 %) Solution For Nebulization 2.5 mg INHALATION Q4H PRN (Reason: Respiratory Distress) warfarin 2.5 mg 2.5 mg PO DIRECTED acetaminophen [Tylenol] 325 mg Tablet 650 mg PO Q6H PRN (Reason: Fever) docusate sodium 50 mg Capsule 50 mg PO DAILY PRN (Reason: Constipation) Ensure High Protein Liquid 1 ea PO QID 30 Days Qty: 237 0RF docusate sodium 60 mg/15 mL syrup 100 mg PO BID Qty: 480 0RF Rx Instructions: for constipation, hold for diarrhea spironolactone 25 mg tablet 25 mg PO DAILY omeprazole 20 mg capsule,delayed release(DR/EC) 20 mg PO DAILY@0630 atenolol 25 mg tablet 25 mg PO DAILY Naftin 2 % gel 1 appl topical DAILY finasteride 5 mg tablet 5 mg PO DAILY 90 Days Qty: 90 3RF Print Language: Yoruba
[2024-05-02 20:09] VITALS: BP 122/56; PULSE 106; O2SAT 99
[2024-05-02 20:12] VITALS: BP 126/79; PULSE 98; RESP 22; TEMP 37.6; O2SAT 100
--- NOTE | 2024-05-02 20:12 | ECG_ITS ---
Test Reason : SOB Blood Pressure : / mmHG Vent. Rate : 096 BPM Atrial Rate : 096 BPM P-R Int : 160 ms QRS Dur : 084 ms QT Int : 346 ms P-R-T Axes : 038 -32 042 degrees QTc Int : 437 ms Normal sinus rhythm Left axis deviation Moderate voltage criteria for LVH, may be normal variant ( R in aVL , [place] product ) Abnormal ECG When compared with ECG of 21-JUL-2022 02:17, No significant change was found Referred By: Sudhakar Cho Electronically Signed By:ARAM REEDER
[2024-05-02 20:42] LABS: MANUAL DIFF FLAG NO
[2024-05-02 20:49] LABS: Basophils Percent Auto 0.2 % (0-2); Eosinophils Absolute Auto 0.3 X10*3/uL (0.0-0.4); Eosinophils Percent Auto 3.8 % (0-4); Hematocrit 46.1 % (42.0-52.0); Hemoglobin 15.9 g/dl (14.0-18.0); Imm Gran Abs Auto 0.02 X10*3/uL (0.00-0.03); Imm Gran Pct Auto 0.2 % (0.0-0.4); Lymphocytes Absolute Auto 2.1 X10*3/uL (1.2-4.9); Lymphocytes Percent Auto 24.4 % (20-40); Mean Corpuscular HGB Conc 34.5 g/dl (31.0-36.0); Mean Corpuscular Hemoglobin 29.9 pg (27.0-33.0); Mean Corpuscular Volume 86.7 fL (80.0-98.0); Mean Platelet Volume 10.8 fL (9.4-12.4); Monocytes Absolute Auto 0.5 X10*3/uL (0.1-1.2); Monocytes Percent Auto 5.8 % (2-11); Neutrophils Absolute Auto 5.6 x10*3/uL (2.0-8.3); Neutrophils Percent Auto 65.6 % (45-73); Platelet Count 164 X10*3/uL (160-400); Red Blood Count 5.32 X10*6/uL (4.60-5.80); White Blood Count 8.5 X10*3/uL (4.8-10.8)
[2024-05-02 20:58] LABS: Lactic Acid 1.7 mmol/L (0.5-2.0)
--- NOTE | 2024-05-02 21:00 | MHC.EDTECH ---
Patient was biba from home ,Patient was change into hospital attire ,ekg taken and was read by Provider ,blood drawn including both sets of blood culture and lactic acid all sent to lab .
[2024-05-02 21:04] LABS: Troponin-I High Sensitivity 2.8 ng/L (<3.5-35.0)
[2024-05-02 21:05] LABS: B Type Natriuretic Peptide 38 pg/mL (<100)
[2024-05-02 21:19] LABS: Alanine Aminotransferase 66 U/L (0-40); Albumin Level 3.2 g/dL (3.5-5.0); Alkaline Phosphatase 52 U/L (39-117); Anion Gap 14 (12-20); Aspartate Amino Transferase 43 U/L (5-37); Bilirubin Total 0.5 mg/dL (0.0-1.0); Blood Urea Nitrogen 17 mg/dL (9-16); Calcium 8.9 mg/dL (8.4-10.2); Carbon Dioxide 21 mmol/L (22-29); Chloride 108 mmol/L (96-108); Creatinine Clr Calc Pharmacy 53.7; Estimated Glomerular Filt Rate > 60; Glucose Random 98 mg/dL (60-115); Potassium 3.9 mmol/L (3.3-5.1); Sodium 139 mmol/L (135-145)
[2024-05-02 21:20] LABS: Influenza A PCR NEGATIVE (Negative); Influenza B PCR NEGATIVE (Negative); Resp Syncy Virus RNA Qual PCR NEGATIVE (Negative); SARS COV2 PCR INHOUSE NEGATIVE (Negative)
[2024-05-02 22:25] VITALS: BP 119/70; PULSE 85; RESP 16; TEMP 36.5; O2SAT 2
== END 2024-05-02 22:55 | disposition home or self-care (01) ==
PROVIDERS: Emergency Provider Internal Medicine; PCP Internal Medicine
DX: J40 Bronchitis, not specified as acute or chronic (principal); R06.02 Shortness of breath; G30.9 Alzheimer's disease, unspecified; R05.9 Cough, unspecified; R94.31 Abnormal electrocardiogram [ECG] [EKG]; F02.80 Dementia in other diseases classified elsewhere, unspecified severity, without behavioral disturbance, psychotic disturbance, mood disturbance, and anxiety; Z03.818 Encounter for observation for suspected exposure to other biological agents ruled out; Z99.81 Dependence on supplemental oxygen; Z79.899 Other long term (current) drug therapy
CPT/HCPCS: 0241U; 36415; 71045; 80053; 83605; 83880; 84484; 85025; 87040; 93005; 99283; 99284

== ENCOUNTER → 2024-05-02 20:12 | Outpatient (BNV) | payer MEDICARE, MEDICAID, SELFPAY | PROVIDERS: Emergency Provider Internal Medicine; PCP Internal Medicine; Visit Provider Internal Medicine | DX: R06.02 Shortness of breath (principal) | CPT/HCPCS: 93010 ==

== ENCOUNTER 2024-05-13 12:42 | Outpatient (REF) | payer MEDICARE, MEDICAID, SELFPAY ==
[2024-05-13 12:51] LABS: Appearance Urine Clear; Color Urine Yellow; Glucose Urine UA Negative (Negative); Leukocyte Esterase Urine Moderate (2+) (Negative); Nitrite Urine Negative (Negative); UMIC TRIGGER UA YES; Urine Blood Negative (Negative); Urine Ketones Negative (Negative); Urine Protein Negative (Neg-Trace)
[2024-05-13 12:53] LABS: Bacteria Urine None Seen (None Seen); Hyaline Casts Urine 0-2 /LPF (0-2); RBC Urine 0-2 /HPF (0-2); Squamous Epithelial Cell Urine 0-2 /HPF (0-2)
== END 2024-05-13 12:43 | disposition home or self-care (01) ==
LOC: HO.LNP 12:42
PROVIDERS: Visit Provider Urology
DX: N39.0 Urinary tract infection, site not specified (principal); R32 Unspecified urinary incontinence; N40.1 Benign prostatic hyperplasia with lower urinary tract symptoms; N13.8 Other obstructive and reflux uropathy
CPT/HCPCS: 81001; 87086; 87088; 87186

== ENCOUNTER 2024-05-18 13:41 | Inpatient (IN) | payer MEDICARE, MEDICAID, SELFPAY ==
--- NOTE | ~2024-05-18 | CT_ITS ---
EXAMINATION: CT HEAD WITHOUT CONTRAST CLINICAL INFORMATION: Difficulty swallowing for 3 days. COMPARISON: Baseline 04/09/2023 TECHNIQUE: Contiguous axial imaging was performed from the skull base to vertex without intravenous administration of contrast. This CT examination was performed using dose optimization techniques as appropriate, variously including the following: *Automated exposure control *Adjustment of mA and/or kV according to patient size (this includes techniques or standardized protocols for targeted exams where dose is matched to indication/reason for exam; i.e. extremities or head) *Use of iterative reconstruction technique DLP: 692 mGy-cm FINDINGS: Generalized ventricular megaly appears similar. Temporal horns do not appear to be dilated disproportionately. Notable bifrontal atrophy similar. No mass or extra-axial collection. Brainstem and cerebellum normal. No calvarial abnormality. Sinuses clear. CT/CT head/brain wo IV con IMPRESSION: No acute intracranial pathology. Stable ventriculomegaly and significant bifrontal atrophy. No new findings.
--- NOTE | ~2024-05-18 | XR_ITS ---
EXAMINATION: XR CHEST CLINICAL INFORMATION: Fever COMPARISON: May 02, 2024 TECHNIQUE: AP portable view of the chest was obtained. FINDINGS: The retrocardiac region is not well seen. A region of opacity cannot be ruled out in this location. There is some mild interstitial prominence but which appears to be improved compared to study of May 02, 2024. Heart normal size. No evidence of pulmonary edema. No pneumothorax or significant pleural effusion is appreciated. XR/XR chest 1V IMPRESSION: No definite acute parenchymal disease. Limited visualization retrocardiac region.
[2024-05-18 13:44] VITALS: BP 126/81; PULSE 108; RESP 24; TEMP 38.8; O2SAT 99; BMI 18.4
--- NOTE | 2024-05-18 13:47 | ED.WEAKNESS ---
HPI - Weakness General Chief complaint: General Medical Stated complaint: NO MED COMP CAN'T SWALLOW, Time Seen by Provider: 05/18/24 13:44 Source: patient and EMS Mode of arrival: EMS Limitations: other History of Present Illness HPI Narrative: 73 year old male PMH: Protein calorie malnutrition allergies aspiration when he UTI incontinence dementia DVTs BPH rheumatic aortic regurgitation ascending aortic aneurysm on chronic anticoagulation heart valve disease COPD who presents emergency department after some having some trouble swallowing at home. Patient has no complaints he did not fevers chills cough nausea vomiting or diarrhea denies any falls or injuries he denies chest pain shortness of breath his HPI is limited by his dementia for the daughter she is worried that a month ago he started with not using his right arm and now is having more trouble swallowing and they think that he is having a stroke Related Data Home Medications ?Medication ?Instructions ?Recorded ?Confirmed atenolol 25 mg tablet 25 mg PO DAILY 07/26/20 01/26/24 omeprazole 20 mg capsule,delayed 20 mg PO DAILY@0630 07/26/20 01/26/24 release spironolactone 25 mg tablet 25 mg PO DAILY 08/20/20 01/26/24 warfarin 5 mg tablet 2.5 mg PO DAILY@1800 05/02/21 01/26/24 naftifine 2 % topical gel (Naftin) 1 appl topical DAILY mycosis 07/02/21 01/26/24 albuterol sulfate 2.5 mg/3 mL 2.5 mg inhalation Q4H PRN 04/22/22 01/26/24 (0.083 %) solution for nebulization Respiratory Distress allopurinol 100 mg tablet 100 mg PO DAILY 04/22/22 01/26/24 acetaminophen 325 mg tablet 650 mg PO Q6H PRN Fever 05/21/22 01/26/24 (Tylenol) docusate sodium 50 mg capsule 50 mg PO DAILY PRN Constipation 05/21/22 01/26/24 warfarin 2.5 mg PO DIRECTED 06/28/22 01/26/24 Previous Rx's ?Medication ?Instructions ?Recorded docusate sodium 60 mg/15 mL oral 100 mg (25 mL) PO BID #480 mL 07/26/22 syrup food supplemt, lactose-reduced 1 ea PO QID 30 days #237 mL 07/26/22 (Ensure High Protein oral liquid) disposable gloves (Biobrane Gloves #100 ea 08/12/22 Medium) diaper,brief,adult,disposable #8 ea 07/24/23 (Select Briefs) finasteride 5 mg tablet 5 mg PO DAILY 90 days #90 tabs 08/27/23 underpads 23 X 36 #240 ea 09/17/23 clotrimazole-betamethasone 1 1 appl topical BID 14 days #45 02/16/24 %-0.05 % topical cream grams guaifenesin 100 mg/5 mL oral liquid 200 mg (10 mL) PO Q4H PRN 05/02/24 congestion #473 mL levofloxacin 500 mg tablet 500 mg PO DAILY 7 days #7 tabs 05/16/24 Allergies Allergy/AdvReac Type Severity Reaction Status Date / Time doxycycline Allergy Severe Rash Verified 05/18/24 13:47 nut - unspecified Allergy Severe GI Stomach Verified 05/18/24 13:47 Bleed oxycodone [OXYCODONE] Allergy Severe Decrease BP Verified 05/18/24 13:47 Iodinated Contrast Media Allergy Intermediate CKD PER Verified 05/18/24 13:47 [IVP DYE] DAUGHTER PT IS NOT TO HAVE DUE TO KIDNEYS Sulfa (Sulfonamide Allergy Intermediate Rash Verified 05/18/24 13:47 Antibiotics) tramadol [TRAMADOL] Allergy Intermediate PER Verified 05/18/24 13:47 DAUGHTER PT PASSED OUT, weakness meperidine [From Demerol] Allergy Redness of Verified 05/18/24 13:47 Skin Review of Systems Review of Systems: Review of systems: Unable to obtain due to dementia Yes all other systems are reviewed and are negative and Unobtainable due to mental condition PMFSH Past Medical History Medical History Protein-calorie malnutrition Alzheimer's dementia Febrile Encephalopathy Altered mental status Depression Non-rheumatic aortic regurgitation Ascending aortic aneurysm CKD (chronic kidney disease) Chronic anticoagulation Bleeding hemorrhoids Heart valve disease Acute deep vein thrombosis (DVT) COPD (chronic obstructive pulmonary disease) Surgical History Hx of cholecystectomy History of inguinal hernia repair Family History Family History Father History of prostate cancer Social History Social History Household Members: Children Housing: House Do you presently have visiting nurse or other home services: Yes (nurse and social sciences chair) Unable to assess alcohol history related to: Unable to respond Alcohol intake: never Comment: family at the bedside Patient Tobacco Use Status: Never used Tobacco Smoked in Last 30 Days: No Use of substances other than those prescribed or required for medical reasons: No Advance Directives: Yes Advance Directives on File: Yes Advance Directives Date on File: 05/05/23 service: No Current occupational status: disabled Physical Exam Vital Signs: Vital Signs: Last Vital Signs Temp 99.8 F 05/18/24 15:20 Pulse 90 05/18/24 15:20 Resp 20 05/18/24 15:20 BP 126/73 05/18/24 15:20 Pulse Ox 100 05/18/24 15:20 O2 Del Method Room Air 05/18/24 15:20 Oxygen Flow Rate 2 05/18/24 13:44 BMI result Body Mass Index 18.4 General: Well-appearing well-nourished in no signs of distress HEENT: Normocephalic atraumatic Neck: No signs of JVD, no masses no tenderness or lymphadenopathy Cardiovascular: Regular rate and rhythm Respiratory: Clear to auscultation bilaterally Abdomen: Soft nontender no masses Extremities: Normal pedal pulses no signs of edema Skin: Dry warm no rashes Back: No tenderness full ROM Course Course Course Narrative: 1510 patient is found to be approximately 2.4 L behind as he is 51 kg and his sodium is 159 I felt the patient on dextrose in water at 75 per hour think the patient benefit from admission he will continue with the CT scan and fluids. His daughter who is his medical caregiver as well as his medical decisionmaker states he has been having more trouble eating it does have some growth she has been breaking out from his some pictures this could be concerning for buildup versus thrush I will start the patient on some thrush medications. Reevaluation(s) Reevaluation #1: 1712 CT shows chronic volume loss no obvious bleed we will continue with admission to the hospitalist service Medications Administered Generic Name Dose Route Start Last Admin Trade Name Freq PRN Reason Stop Dose Admin Dextrose 1,000 mls @ 75 mls/hr 05/18/24 15:15 05/18/24 15:27 D5w IVCONT 75 mls/hr .[id number] THOMAS Administration Discontinued Medications Generic Name Dose Route Start Last Admin Trade Name Yecenia FUNG Reason Stop Dose Admin Acetaminophen 650 mg 05/18/24 14:01 05/18/24 14:25 Acetaminophen 325 Mg Tablet PO 05/18/24 14:02 Not Given ONCE ONE Acetaminophen 650 mg 05/18/24 14:24 05/18/24 14:33 Acetaminophen Supp 650 Mg Supp.Rect GA 05/18/24 14:25 650 mg ONCE ONE Administration Sodium Chloride 1,000 mls @ 999 mls/hr 05/18/24 14:15 05/18/24 15:06 Ns IV 05/18/24 15:15 Infused .Q1H1M THOMAS Infusion Fluconazole 200 mg in 100 mls @ 100 mls/hr 05/18/24 15:16 05/18/24 16:51 Diflucan IV 05/18/24 16:15 100 mls/hr ONCE ONE Administration Ceftriaxone Sodium 1 gm/ 50 mls @ 100 mls/hr 05/18/24 15:19 05/18/24 16:11 Sodium Chloride IV 05/18/24 15:48 Infused ONCE ONE Infusion Nystatin 500,000 unit 05/18/24 15:16 05/18/24 15:39 Nystatin Oral Susp 500,000 Unit/5 Ml Oral.Susp PO 05/18/24 15:17 500,000 unit ONCE ONE Administration Protocol Medical Decision Making Medical Decision Making MDM Narrative: Patient has no complaints we will do a bedside swallow and reassess. I did have a long conversation with the daughter the hospice care as well as palliative Care they have not called to establish with anybody they do understand that this is likely his advanced dementia but every time they get to about call for hospice care they decided to bring him in further evaluation as they are concerned that he needs IVs as he is unable to swallow tried to lay there fevers explain what hospitalist can provide the daughter appears reticent at this time Patient has urine sensitivities from when the patient is here 2 days ago it is pansensitive we will give the patient a dose of Rocephin while here the daughter and I agreed that the patient does not need to get a Mojica catheter as it was painful and the patient would not understand and he is on Coumadin and will likely bleed Differential Diagnosis Differential Diagnoses: The differential diagnosis associated with the presentation includes I will check labs have the nurse do a bedside swallow evaluation see if there is any signs of dehydration electrolyte abnormality Admission/Observation Consideration of admission/observation: Escalation of care including admission/observation considered Consult Healthcare Provider Management of the patient was discussed with: Hospitalist Dr. Paris who agrees to admit the patient. Lab Data MDM Lab Attestation statement: I reviewed the patient's lab results. 05/18/24 14:18 05/18/24 14:18 Labs: Lab Results 05/18/24 Range/Units 14:18 WBC 9.7 (4.8-10.8) X10*3/uL RBC 5.89 H (4.60-5.80) X10*6/uL Hgb 17.6 (14.0-18.0) g/dl Hct 55.0 H (42.0-52.0) % MCV 93.4 (80.0-98.0) fL MCH 29.9 (27.0-33.0) pg MCHC 32.0 (31.0-36.0) g/dl RDW 16.7 H (11.0-16.0) % Plt Count 189 (160-400) X10*3/uL MPV 11.8 (9.4-12.4) fL Immature Gran % (Auto) 0.2 (0.0-0.4) % Neut % (Auto) 71.6 (45-73) % Lymph % (Auto) 20.8 (20-40) % Hyde % (Auto) 6.3 (2-11) % Eos % (Auto) 0.7 (0-4) % Baso % (Auto) 0.4 (0-2) % Lymph # (Auto) 2.0 (1.2-4.9) X10*3/uL Hyde # (Auto) 0.6 (0.1-1.2) X10*3/uL Eos # (Auto) 0.1 (0.0-0.4) X10*3/uL Baso # (Auto) 0.0 (0.0-0.2) X10*3/uL Abs Immat Gran (auto) 0.02 (0.00-0.03) X10*3/uL Absolute Neuts (auto) 6.9 (2.0-8.3) x10*3/uL Absolute Nucleated RBC 0.000 (0.0-0.012) X10*3/uL Nucleated RBC % (auto) 0.0 (0.0-0.2) /100WBC PT 20.2 H (11.1-13.3) SEC INR 1.7 H (0.9-1.1) Sodium 159 H (135-145) mmol/L Potassium 4.0 (3.3-5.1) mmol/L Chloride 125 H (96-108) mmol/L Carbon Dioxide 24 (22-29) mmol/L Anion Gap 14 (12-20) BUN 42 H (9-16) mg/dL Creatinine 1.46 H (0.5-1.4) mg/dL Estim Creat Clear Calc 33.3 Estimated GFR 47 Random Glucose 117 H (60-115) mg/dL Lactic Acid 1.7 (0.5-2.0) mmol/L Calcium 9.4 (8.4-10.2) mg/dL Total Bilirubin 1.1 H (0.0-1.0) mg/dL Direct Bilirubin 0.4 (0.0-0.5) mg/dL AST 134 H (5-37) U/L ALT 195 H (0-40) U/L Alkaline Phosphatase 52 (39-117) U/L Total Protein 7.7 (6.5-8.0) g/dL Albumin 3.5 (3.5-5.0) g/dL Lipase 51 (8-78) U/L Independent Interpretation I performed an independent interpretation of an: EKG, Rhythm Strip, Plain X-Ray and CT Scan External Record Review External record reviewed: Inpatient record, Office record, Outpatient record and Prior outpatient labs Critical Care Time Critical Care Time Critical Care Time: Yes Total Critical Care Time: 40 Attestation: Patient came in for question weakness stroke or electrolyte abnormality found to have hypernatremia I did calculate a total water as well as the replenishment of dextrose discussion with hospitalist and ultimate admission the patient's DNR DNI do think he needs the ICU. Discharge Plan Discharge Clinical Impression: Acute hypernatremia, Esophageal thrush, Alzheimer's dementia, Acute dehydration, Acute UTI Patient Disposition: Admitted As Inpatient Print Language: Khmer
[2024-05-18] MEDS: 0.9 % Sodium Chloride 1,000 ML 999 ML IV (14:05)
[2024-05-18 14:24] LABS: MANUAL DIFF FLAG NO
[2024-05-18 14:26] LABS: Basophils Percent Auto 0.4 % (0-2); Eosinophils Absolute Auto 0.1 X10*3/uL (0.0-0.4); Eosinophils Percent Auto 0.7 % (0-4); Hemoglobin 17.6 g/dl (14.0-18.0); Imm Gran Abs Auto 0.02 X10*3/uL (0.00-0.03); Imm Gran Pct Auto 0.2 % (0.0-0.4); Lymphocytes Percent Auto 20.8 % (20-40); Mean Corpuscular Hemoglobin 29.9 pg (27.0-33.0); Mean Corpuscular Volume 93.4 fL (80.0-98.0); Mean Platelet Volume 11.8 fL (9.4-12.4); Monocytes Absolute Auto 0.6 X10*3/uL (0.1-1.2); Monocytes Percent Auto 6.3 % (2-11); Neutrophils Absolute Auto 6.9 x10*3/uL (2.0-8.3); Neutrophils Percent Auto 71.6 % (45-73); Platelet Count 189 X10*3/uL (160-400); Red Blood Count 5.89 X10*6/uL (4.60-5.80); Red Cell Distribution Width 16.7 % (11.0-16.0); White Blood Count 9.7 X10*3/uL (4.8-10.8)
[2024-05-18] MEDS: Acetaminophen Supp 650 MG SUPP.RECT PR ×2 (14:33→19:34)
--- NOTE | 2024-05-18 14:35 | PC.NURSE ---
pt noted to be febrile when obtaining rectal temp. pt medication w/ tylenol suppository. effectiveness pending. pt remains on 2L via NC (baseline) at this time. no sob/wob noted. respirations even/unlabored. pt positioned upright to promote patent airway. daughter bedside for support. plan of care ongoing.
[2024-05-18 14:36] LABS: INTERNATIONAL NORM RATIO 1.7 (0.9-1.1)
[2024-05-18 14:39] LABS: Lactic Acid 1.7 mmol/L (0.5-2.0)
[2024-05-18 14:50] LABS: Alanine Aminotransferase 195 U/L (0-40); Albumin Level 3.5 g/dL (3.5-5.0); Alkaline Phosphatase 52 U/L (39-117); Aspartate Amino Transferase 134 U/L (5-37); Bilirubin Direct 0.4 mg/dL (0.0-0.5); Bilirubin Total 1.1 mg/dL (0.0-1.0); Blood Urea Nitrogen 42 mg/dL (9-16); Calcium 9.4 mg/dL (8.4-10.2); Creatinine Clr Calc Pharmacy 33.3; Estimated Glomerular Filt Rate 47; Glucose Random 117 mg/dL (60-115); Lipase 51 U/L (8-78); Total Protein 7.7 g/dL (6.5-8.0)
[2024-05-18 14:58] LABS: Anion Gap 14 (12-20); Carbon Dioxide 24 mmol/L (22-29); Chloride 125 mmol/L (96-108); Sodium 159 mmol/L (135-145)
[2024-05-18 15:11] LABS: Prothrombin Time 20.2 SEC (11.1-13.3)
--- NOTE | 2024-05-18 15:13 | PC.NURSE ---
Dipti from chemistry called to notify this administrative underwriter that d/t pt's increased hematocrit level - pt/inr levels may be affected d/t hematocrit level being so elevated. Dr. Becerra notified/aware.
[2024-05-18 15:20] VITALS: BP 126/73; PULSE 90; RESP 20; TEMP 37.7; O2SAT 100
[2024-05-18] MEDS: Dextrose 5 % 1,000 ML 75 ML IVCONT (15:27)
[2024-05-18] MEDS: Nystatin Oral Susp 500,000 UNIT/5 ML ORAL.SUSP 500000 UNIT PO (15:39)
[2024-05-18] MEDS: cefTRIAXone sodium 1 GM in 0.9 % Sodium Chloride 50 ML IV (15:41)
--- NOTE | 2024-05-18 16:37 | MHC.CM.ED ---
MIQUEL received a [facility] from [facility]. Pt is active with the agency. Per [facility], family may want hospice. CM reviewed record. had long conversation with family regarding plan of care and possible hospice. Family want treatment at this time. Hesitant regarding hospice. Pt will be admitted. Provider and [facility] aware.
[2024-05-18] MEDS: Fluconazole in NaCl,Iso-Osm 200 MG/100 ML PIGGYBACK 100 MG IV (16:51)
--- NOTE | 2024-05-18 16:51 | PC.NURSE ---
delay in medication administration d/t medication not being [facility] medication now delivered/administered.
--- NOTE | 2024-05-18 17:53 | PC.NURSE ---
abx administered per provider order - per dr. seaman - blood cultures not needed at this time.
[2024-05-18 18:23] VITALS: BP 117/71; PULSE 88; RESP 20; TEMP 37.7; O2SAT 100
--- NOTE | 2024-05-18 18:25 | PHA.MEDREC ---
Addendum entered by Dinh Santiago [facility] 05/18/24 18:35: med rec verified Original Note: Pharmacy Consult ? Medication Reconciliation Pharmacy has completed the medication reconciliation. Spoke to patient daughter to confirm med list. Daughter states patient no longer takes Allopurinol 100 mg daily, Finasteride 5 mg daily, Guaifenesin 200 10 ml Q4H prn, and Clotrimazole-Betamethasone 1%cream bid. Daughter says patient takes Warfarin 2.5 mg daily per INR. Daughter states patient hasn't took Levofloxacin 500 mg daily, because the patient is having a hard time swallowing anything. daughter has Naftifine 2% topical gel with her.
--- NOTE | 2024-05-18 18:34 | PC.NURSE ---
pt noted to be diaphoretic. repeat rectal temp obtained displaying 99.9. dr. seaman notified/aware. will administer suppository tylenol when able. otherwise vss and up to date. nsr on the bus driver/monitor. pt continues to rest on 2L via NC. no sob/wob noted. respirations remain even/unlabored. family remains bedside for support. D5W continues to infuse @ 75mls/hr. pt waiting for bed assignment. plan of care ongoing. call claire placed within reach.
--- NOTE | 2024-05-18 19:51 | P.HPHOSP_ITS ---
History of Present Illness Date of Service: 05/18/24 Chief Complaint: ams 73M PMH advanced Alzheimer's dementia, nonverbal, bedbound with functional quadriplegia, history of DVT on warfarin, aortic regurgitation, COPD, hypertension, monitor protein calorie malnutrition presented with altered mental status. Patient history taken from daughter who is his primary caregiver and healthcare proxy. She reports that patient has been declining over the course of several years but more significantly over the last few days and weeks. Previously was able to vocalize nonsensically, over last few days has been not saying anything. Unable to take anything p.o., more lethargic appearing. Five days prior to presentation was diagnosed with urinary tract infection with Pseudomonas, prescribed levofloxacin but was unable to take. In ED found to have significant hypernatremia of 159, acute kidney injury with creatinine of 1.46. Fever of 101.9. Review of Systems 2 Review of Systems: Yes all other systems are reviewed and are negative [facility] Medical History Protein-calorie malnutrition Alzheimer's dementia Febrile Encephalopathy Altered mental status Depression Non-rheumatic aortic regurgitation Ascending aortic aneurysm CKD (chronic kidney disease) Chronic anticoagulation Bleeding hemorrhoids Heart valve disease Acute deep vein thrombosis (DVT) COPD (chronic obstructive pulmonary disease) Family History Father History of prostate cancer Surgical History Hx of cholecystectomy History of inguinal hernia repair Social History Household Members: Children Housing: House Do you presently have visiting nurse or other home services: Yes (nurse and adoption social worker) Unable to assess alcohol history related to: Unable to respond Alcohol intake: never Comment: family at the bedside Patient Tobacco Use Status: Never used Tobacco Smoked in Last 30 Days: No Use of substances other than those prescribed or required for medical reasons: No Advance Directives: Yes Advance Directives on File: Yes Advance Directives Date on File: 05/05/23 service: No Current occupational status: disabled Meds Allergies Allergy/AdvReac Type Severity Reaction Status Date / Time doxycycline Allergy Severe Rash Verified 05/18/24 13:47 nut - unspecified Allergy Severe GI Stomach Verified 05/18/24 13:47 Bleed oxycodone [OXYCODONE] Allergy Severe Decrease BP Verified 05/18/24 13:47 Iodinated Contrast Media Allergy Intermediate CKD PER Verified 05/18/24 13:47 [IVP DYE] DAUGHTER PT IS NOT TO HAVE DUE TO KIDNEYS Sulfa (Sulfonamide Allergy Intermediate Rash Verified 05/18/24 13:47 Antibiotics) tramadol [TRAMADOL] Allergy Intermediate PER Verified 05/18/24 13:47 DAUGHTER PT PASSED OUT, weakness meperidine [From Demerol] Allergy Redness of Verified 05/18/24 13:47 Skin Active Medications: Current Medications Enoxaparin Sodium (Enoxaparin Sodium 100 Mg/Ml Syringe) 90 mg SUBCUT Q12H THOMAS Dextrose (D5w) 1,000 mls @ 75 mls/hr IVCONT .[id number] THOMAS Last Admin: 05/18/24 15:27 Dose: 75 mls/hr Lactated Ringer's (Lr) 1,000 mls @ 100 mls/hr IVCONT .Q10H THOMAS Stop: 05/19/24 05:59 Dextrose (D5w) 1,000 mls @ 125 mls/hr IVCONT .Q8H THOMAS Meropenem 1 gm/ Sodium (Chloride) 100 mls @ 200 mls/hr IV Q12H THOMAS Home Medications ?Medication ?Instructions ?Recorded ?Confirmed ?Last Taken ?Type atenolol 25 mg tablet 25 mg PO DAILY 07/26/20 05/18/24 05/17/24 History omeprazole 20 mg capsule,delayed 20 mg PO DAILY@0630 07/26/20 05/18/24 05/17/24 History release spironolactone 25 mg tablet 25 mg PO DAILY 08/20/20 05/18/24 05/17/24 History warfarin 5 mg tablet 2.5 mg PO DAILY@1800 05/02/21 05/18/24 05/17/24 History naftifine 2 % topical gel (Naftin) 1 appl topical DAILY mycosis 07/02/21 05/18/24 05/17/24 History albuterol sulfate 2.5 mg/3 mL 2.5 mg inhalation Q4H PRN 04/22/22 05/18/24 07/20/22 History (0.083 %) solution for nebulization Respiratory Distress acetaminophen 325 mg tablet 650 mg PO Q6H PRN Fever 05/21/22 05/18/24 07/20/22 History (Tylenol) loratadine 10 mg tablet 10 mg PO DAILY 05/18/24 05/18/24 05/17/24 History Physical Exam 2 Vital Signs and Narrative: Vital Signs: Last Vital Signs Temp 99.9 F 05/18/24 18:23 Pulse 88 05/18/24 18:23 Resp 20 05/18/24 18:23 BP 117/71 05/18/24 18:23 Pulse Ox 100 05/18/24 18:23 O2 Del Method Nasal Cannula 05/18/24 18:23 O2 Flow Rate 2 05/18/24 18:23 Oxygen Flow Rate 2 05/18/24 13:44 BMI result Body Mass Index 18.4 eyes open, not tracking, non vocal, contracted, lungs bilateral rhonbchi, sacral ulcer clean appearing Results Labs 05/18/24 14:18 05/18/24 14:18 Labs: Laboratory Results - last 24 hr 05/18/24 14:18 MCV 93.4 MCH 29.9 MCHC 32.0 RDW 16.7 H Plt Count 189 MPV 11.8 Immature Gran % (Auto) 0.2 Neut % (Auto) 71.6 Lymph % (Auto) 20.8 Child[place] % (Auto) 6.3 Eos % (Auto) 0.7 Baso % (Auto) 0.4 Lymph # (Auto) 2.0 [place] # (Auto) 0.6 Eos # (Auto) 0.1 Baso # (Auto) 0.0 Abs Immat Gran (auto) 0.02 Absolute Neuts (auto) 6.9 Absolute Nucleated RBC 0.000 Nucleated RBC % (auto) 0.0 PT 20.2 H INR 1.7 H Anion Gap 14 Estim Creat Clear Calc 33.3 Estimated GFR 47 Random Glucose 117 H Lactic Acid 1.7 Calcium 9.4 Total Bilirubin 1.1 H Direct Bilirubin 0.4 AST 134 H ALT 195 H Alkaline Phosphatase 52 Total Protein 7.7 Albumin 3.5 Lipase 51 Imaging Radiologist's Impressions: Impressions Chest X-Ray 05/18/24 15:03 IMPRESSION: No definite acute parenchymal disease. Limited visualization retrocardiac region. Head CT 05/18/24 16:23 IMPRESSION: No acute intracranial pathology. Stable ventriculomegaly and significant bifrontal atrophy. No new findings. Assessment and Plan (1) Acute UTI: Status: Acute Plan 73M PMH advanced Alzheimer's dementia, nonverbal, bedbound with functional quadriplegia, history of DVT on warfarin, aortic regurgitation, COPD, hypertension, monitor protein calorie malnutrition presented with altered mental status Sepsis, not severe suspected due to Pseudomonas urinary tract infection, complicated by acute metabolic encephalopathy and acute hypernatremia and acute kidney injury due to severe dehydration IV meropenem, follow-up repeat UA and culture Volume repletion with LR and then switch to D5W, monitor BMP NPO for now, speech eval when hopefully stronger (not ordered yet) Advanced Alzheimer's dementia with functional quadriplegia Family considering hospice at home, currently wants to continue conservative hospital level care though History of DVT On warfarin, INR 1.7, while NPO we will start therapeutic Lovenox COPD Stable Hypertension On Aldactone and atenolol at home, NPO for now, monitor DVT prophylaxis with Lovenox therapeutic DNR/DNI Patient was severe hypernatremia will require at least 2 midnights to correct Quality Stroke Does the patient have a stroke diagnosis?: No VTE Prior VTE?: Yes VTE Risk Level:: Medical - moderate - high VTE Device Contraindication: Treatment Not Indicated VTE Drug Contraindication: N/A - Med Ordered
[2024-05-18 20:22] LABS: Phosphorus 4.5 mg/dL (2.7-4.5)
[2024-05-18] MEDS: Dextrose 5 % 1,000 ML 125 ML IVCONT (20:54)
[2024-05-18] MEDS: Lactated Ringers 1,000 ML 100 ML IVCONT (20:54)
[2024-05-18 21:05] LABS: Appearance Urine Clear; Color Urine Yellow; Glucose Urine UA Negative (Negative); Leukocyte Esterase Urine Small (1+) (Negative); Nitrite Urine Negative (Negative); PH 5.5 (5.0-9.0); UMIC TRIGGER UACC YES; Urine Blood Negative (Negative); Urine Ketones Negative (Negative); Urine Protein Negative (Neg-Trace)
[2024-05-18 21:20] LABS: Bacteria Urine None Seen (None Seen); RBC Urine 0-2 /HPF (0-2); Squamous Epithelial Cell Urine 0-2 /HPF (0-2); UACC Culture Trigger YES; WBC Urine 0-5 /HPF (0-5)
[2024-05-18 21:52] VITALS: BP 123/70; PULSE 78; RESP 25; TEMP 37.2; O2SAT 100
[2024-05-18 23:22] VITALS: BP 136/78; PULSE 78; RESP 18; TEMP 36.7; O2SAT 99
[2024-05-18] MEDS: Enoxaparin Sodium 60 MG/0.6 ML SYRINGE 50 MG SUBCUT (23:35)
[2024-05-18 23:51] VITALS: BMI 19.9
--- NOTE | 2024-05-19 00:06 | HO.SKINPHOTO ---
Location:coccyx Category:pressure Stage:2 Length: Width: Depth: cm Location: Category: Stage: Length: Width: Depth: cm Location: Category: Stage: Length: Width: Depth: cm Location: Category: Stage: Length: Width: Depth: cm Location: Category: Stage: Length: Width: Depth: cm Location: Category: Stage: Length: Width: Depth: cm
[2024-05-19 03:24] VITALS: BP 122/58; PULSE 67; RESP 18; TEMP 36.4; O2SAT 100
[2024-05-19] MEDS: Dextrose 5 % 1,000 ML 125 ML IVCONT (04:26)
[2024-05-19 05:43] LABS: Hemoglobin 14.8 g/dl (14.0-18.0); Mean Corpuscular Volume 92.7 fL (80.0-98.0); PLT CLUMP 1; Red Cell Distribution Width 16.1 % (11.0-16.0)
[2024-05-19 05:44] LABS: Hematocrit 45.6 % (42.0-52.0); Mean Corpuscular HGB Conc 32.5 g/dl (31.0-36.0); Mean Corpuscular Hemoglobin 30.1 pg (27.0-33.0); Mean Platelet Volume 12.1 fL (9.4-12.4); Red Blood Count 4.92 X10*6/uL (4.60-5.80)
[2024-05-19 05:46] LABS: Platelet Count 134 X10*3/uL (160-400)
[2024-05-19 05:48] LABS: INTERNATIONAL NORM RATIO 1.7 (0.9-1.1); Prothrombin Time 20.9 SEC (11.1-13.3)
[2024-05-19 05:59] LABS: Anion Gap 9 (12-20); Blood Urea Nitrogen 33 mg/dL (9-16); Calcium 8.3 mg/dL (8.4-10.2); Carbon Dioxide 24 mmol/L (22-29); Chloride 124 mmol/L (96-108); Creatinine Clr Calc Pharmacy 46.2; Estimated Glomerular Filt Rate > 60; Glucose Fasting 126 mg/dL (60-99); Magnesium 2.3 mg/dL (1.6-2.6); Potassium 3.8 mmol/L (3.3-5.1); Sodium 153 mmol/L (135-145)
[2024-05-19 07:28] VITALS: BP 112/60; PULSE 63; RESP 12; TEMP 36.2; O2SAT 100
[2024-05-19] MEDS: Enoxaparin Sodium 60 MG/0.6 ML SYRINGE 50 MG SUBCUT ×2 (07:45→19:53)
[2024-05-19 09:58] VITALS: BMI 19.9
--- NOTE | 2024-05-19 10:03 | MHC.CLN ---
RE: CONSULT PT IS MODERATELY MALNOURISHED PT WITH MILDLY DEPLETED SUBCUTANEOUS FAT AND MUSCLE MASS WITH 7% NONSIGNIFICANT WT LOSS X 1 YEAR WITH CHRONIC POOR PO INTAKE IN ADDITION, PT WITH INCREASED NUTRITION NEEDS R/T PRESSURE INJURY PT IS CURRENTLY NPO WHEN DIET TO ADVANCE, RECOMMEND ADDING ENSURE BID TO PROMOTE WOUND HEALING AND INCREASE KCALS SUPP TO PROVIDE 700KCALS, 40G PROTEIN MONITOR PO INTAKE AND ENCOURAGE SUPPLEMENTS SEE ALSO FULL CLINICAL NUTRITION ASSESSMENT
[2024-05-19 12:00] LABS: Anion Gap 7 (12-20); Blood Urea Nitrogen 27 mg/dL (9-16); Calcium 8.5 mg/dL (8.4-10.2); Carbon Dioxide 27 mmol/L (22-29); Chloride 120 mmol/L (96-108); Creatinine Clr Calc Pharmacy 51.6; Estimated Glomerular Filt Rate > 60; Glucose Random 97 mg/dL (60-115); Potassium 3.3 mmol/L (3.3-5.1); Sodium 151 mmol/L (135-145)
[2024-05-19] MEDS: Fluconazole in NaCl,Iso-Osm 100 MG in Container,Empty 0 ML 50 MG IV (12:54)
--- NOTE | 2024-05-19 13:38 | MHC.CM.PN ---
IMM DELIVERED PT LIVES WITH DAUGHTER WHO IS HCP/CAREGIVER. PT IS DEPENDENT AND BEDBOUND. PT HAS HOSPITAL BED AND IS ACTIVE WITH [facility] FOR WOUND CARE AND HAS SERVICES VIA [facility] FOR SUPPORT. +HCP ON FILE. PCP DR. SUAREZ AT [facility]. DP: PT WILL RETURN HOME WITH DAUGHTER/[facility] FOR WOUND CARE AND [facility] SERVICES FOR FAMILY SUPPORT. PT WILL NEED BLS TRANSPORT HOME. CM WILL CONTINUE TO FOLLOW FOR ANY CHANGE TO DC PLAN/NEEDS.
[2024-05-19] MEDS: Dextrose 5 % 1,000 ML 80 ML IVCONT (13:55)
--- NOTE | 2024-05-19 14:20 | P.PNIM_ITS ---
Subjective Subjective Date of Service: 05/19/24 Interval History: seen and evaluated family at bedside alert but not interactive no reported events Review of Systems Review of Systems: Yes all other systems are reviewed and are negative Physical Exam 2 Vital Signs: Vital Signs: Last Vital Signs Temp 97.1 F 05/19/24 07:28 Pulse 63 05/19/24 07:28 Resp 12 05/19/24 07:28 BP 112/60 05/19/24 07:28 Pulse Ox 100 05/19/24 07:28 O2 Del Method Nasal Cannula 05/19/24 07:28 O2 Flow Rate 2 05/19/24 07:28 Oxygen Flow Rate 2 05/18/24 13:44 BMI result Body Mass Index 19.9 Const: Other: Constitutional : alert, non-verbal, not in distress Cardiovascular : no JVP, no lower extremity edema Respiratory : bilateral chest movement, not in resp distress Gastrointestinal: soft, lax, Non tender Skin : Warm, Dry Neurological : Alert, contracted , No focal deficit Objective Data Active Medications Acetaminophen (Acetaminophen 325 Mg Tablet) 650 mg PO Q6H PRN PRN Reason: Pain, Mild (Pain Scale 1-3), fever or headache Calcium Carbonate (Calcium Carbonate 750 Mg Tab.Chew) 750 mg PO Q4H PRN PRN Reason: Heartburn Enoxaparin Sodium (Enoxaparin Sodium 60 Mg/0.6 Ml Syringe) 50 mg SUBCUT Q12H [facility] Last Admin: 05/19/24 07:45 Dose: 50 mg Documented By: KRISTAN Dextrose (D5w) 1,000 mls @ 80 mls/hr IVCONT .[id number] [facility] Last Admin: 05/19/24 13:55 Dose: 80 mls/hr Documented By: KRISTAN Meropenem 1 gm/ Sodium (Chloride) 100 mls @ 200 mls/hr IV Q12H [facility] Last Infusion: 05/19/24 09:03 Dose: Infused Documented By: KRISTAN Fluconazole 100 mg/ IV (Miscellaneous Supplies) 50 mls @ 50 mls/hr IV Q24H [facility] Last Infusion: 05/19/24 13:59 Dose: Infused Documented By: KRISTAN Magnesium Hydroxide (Milk Of Magnesia 30 Ml Oral.Susp) 30 ml PO DAILY PRN PRN Reason: Constipation Melatonin (Melatonin 3 Mg Tablet) 6 mg PO BEDTIME PRN PRN Reason: Insomnia Sodium Chloride (0.9 % Sodium Chloride Flush 3 Ml Syringe) 3 ml IVFLUSH QSHIFT [facility] Last Admin: 05/19/24 07:36 Dose: Not Given Documented By: KRISTAN Non-Admin Reason: IV Running Labs 05/19/24 05:31 05/19/24 11:36 Labs: Laboratory Results - last 24 hr 05/18/24 05/18/24 05/19/24 14:18 20:54 05:31 MCV 93.4 92.7 MCH 29.9 30.1 MCHC 32.0 32.5 RDW 16.7 H 16.1 H Plt Count 189 134 L D MPV 11.8 12.1 Immature Gran % (Auto) 0.2 Neut % (Auto) 71.6 Lymph % (Auto) 20.8 [place] % (Auto) 6.3 Eos % (Auto) 0.7 Baso % (Auto) 0.4 Lymph # (Auto) 2.0 [place] # (Auto) 0.6 Eos # (Auto) 0.1 Baso # (Auto) 0.0 Abs Immat Gran (auto) 0.02 Absolute Neuts (auto) 6.9 Absolute Nucleated RBC 0.000 0.000 Nucleated RBC % (auto) 0.0 0.0 PT 20.2 H 20.9 H INR 1.7 H 1.7 H Anion Gap 14 9 L Estim Creat Clear Calc 33.3 46.2 Estimated GFR 47 > 60 Random Glucose 117 H Fasting Glucose 126 H Lactic Acid 1.7 Calcium 9.4 8.3 L D Phosphorus 4.5 Magnesium 2.3 Total Bilirubin 1.1 H Direct Bilirubin 0.4 AST 134 H ALT 195 H Alkaline Phosphatase 52 Total Protein 7.7 Albumin 3.5 Lipase 51 Urine Color Yellow Urine Appearance Clear Urine pH 5.5 Ur Specific [place] 1.020 Urine Protein Negative Urine Glucose (UA) Negative Urine Ketones Negative Urine Blood Negative Urine Nitrite Negative Ur Leukocyte Esterase Small (1+) H Urine RBC 0-2 Urine WBC 0-5 Ur Squamous Epith Cells 0-2 Urine Bacteria None Seen Hyaline Casts 3-5 05/19/24 11:36 MCV MCH MCHC RDW Plt Count MPV Immature Gran % (Auto) Neut % (Auto) Lymph % (Auto) [place] % (Auto) Eos % (Auto) Baso % (Auto) Lymph # (Auto) [place] # (Auto) Eos # (Auto) Baso # (Auto) Abs Immat Gran (auto) Absolute Neuts (auto) Absolute Nucleated RBC Nucleated RBC % (auto) PT INR Anion Gap 7 L Estim Creat Clear Calc 51.6 Estimated GFR > 60 Random Glucose 97 Fasting Glucose Lactic Acid Calcium 8.5 Phosphorus Magnesium Total Bilirubin Direct Bilirubin AST ALT Alkaline Phosphatase Total Protein Albumin Lipase Urine Color Urine Appearance Urine pH Ur Specific [place] Urine Protein Urine Glucose (UA) Urine Ketones Urine Blood Urine Nitrite Ur Leukocyte Esterase Urine RBC Urine WBC Ur Squamous Epith Cells Urine Bacteria Hyaline Casts Microbiology Microbiology Results: Microbiology 05/18/24 Unknown Urine Culture - Preliminary Urine clean catch - Clean Catch Midstream No growth to date. 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 SPECIALIST rec to continue NPO on IVF surgery eval for PEG acute hypernatremia and acute kidney injury due to severe dehydration Continue D5W Na and Cr improving follow BMP Advanced Alzheimer's dementia with functional quadriplegia Family considering hospice at home, currently wants to continue conservative hospital level care though History of DVT On warfarin, INR 1.7, while NPO we will start therapeutic Lovenox COPD Stable Hypertension On Aldactone and atenolol at home, NPO for now, monitor DVT prophylaxis with Lovenox therapeutic DNR/DNI Patient was severe hypernatremia will require overnight hospital stay. Quality Stroke Does the patient have a stroke diagnosis?: No VTE Prior VTE?: Yes VTE Risk Level:: Medical - moderate - high VTE Device Contraindication: Treatment Not Indicated VTE Drug Contraindication: N/A - Med Ordered
[2024-05-19 15:51] VITALS: BP 112/60; PULSE 68; RESP 14; TEMP 36.3; O2SAT 93
--- NOTE | 2024-05-19 17:20 | MHC.SL.SWA ---
Speech Pathologist Impression: Risk of Aspiration Due to: Neurological Condition Poor PO Intake Reduced Cognition Dysphasia Diet Status: Liquid Consistency and Strategies for Safe Swallow: Liquid Intake Recommendation: NPO Liquid Intake Strategies: Solid Food Consistency: Dietary Recommendations: NPO Additional Modifications to Solid Foods: Oral Medication Intake: NPO Please contact the pharmacy regarding appropriate crushable or liquid drug formulations that are available whenever modified delivery is recommended. Compensatory Strategies and Precautions to be Taken for Safe Swallow: Supervision While Eating and Drinking for Safe Swallow: PO with DIRECTOR OF CARDIAC CATH LAB Foods to Avoid: Swallowing Recommended Treatments: Compens. Strategy Educat. Recommendation for Speech: Further Testing Needed Inpatient Speech Therapy Comment: Patient presents with a moderate oral pharyngeal dysphagia and significant behavioral component making him very difficult to feed. Patient pockets both liquids and solids presented for prolonged periods, accepts administration of either in small amounts for each bite or sip. Due to the slow rate, pocketing, delay of swallow, oral residual, it is recommended that patient continue NPO, with continued PO trials with DIRECTOR OF CARDIAC CATH LAB. As patient has been NPO since admission, it is recommended that alternative feeding method be provided, possibly on a temporary basis, as behavior may be associated with fever/encephalopathy. DIRECTOR OF CARDIAC CATH LAB will repeat swallow assessment 05/20. MD/RD notified of recommendation by secure text, RN in person, Daughter was advised by phone. DIRECTOR OF CARDIAC CATH LAB will continue to follow. Frequency/Duration: Date Range for Service Req: Timeline to reassess: Human Resources Benefits Specialist Clinican/Clinical Fellow: No Supervisory Statement: I have reviewed and agree with the student/clinical fellow's documentation: N/A Speech Language Pathologist: Sidra Mcclain M.A., CCC-DIRECTOR OF CARDIAC CATH LAB
[2024-05-19 19:15] VITALS: BP 105/51; PULSE 70; RESP 20; TEMP 36.4; O2SAT 100
[2024-05-19 19:20] LABS: Anion Gap 11 (12-20); Blood Urea Nitrogen 25 mg/dL (9-16); Carbon Dioxide 21 mmol/L (22-29); Chloride 121 mmol/L (96-108); Creatinine Clr Calc Pharmacy 62.7; Estimated Glomerular Filt Rate > 60; Glucose Random 99 mg/dL (60-115); Potassium 4.4 mmol/L (3.3-5.1); Sodium 149 mmol/L (135-145)
[2024-05-19] MEDS: 0.9 % Sodium Chloride Flush 3 ML SYRINGE IVFLUSH (19:54)
[2024-05-19 20:08] LABS: Glucose, Whole Blood 96 mg/dL (60-115)
[2024-05-20] MEDS: Dextrose 5 % 1,000 ML 80 ML IVCONT ×2 (01:23→13:16)
[2024-05-20 03:48] VITALS: BP 111/55; PULSE 69; RESP 20; TEMP 36.2; O2SAT 100
[2024-05-20 03:56] LABS: Glucose, Whole Blood 90 mg/dL (60-115)
[2024-05-20 06:53] LABS: Anion Gap 9 (12-20); Blood Urea Nitrogen 19 mg/dL (9-16); Calcium 8.3 mg/dL (8.4-10.2); Carbon Dioxide 24 mmol/L (22-29); Chloride 115 mmol/L (96-108); Creatinine Clr Calc Pharmacy 59.2; Estimated Glomerular Filt Rate > 60; Glucose Random 136 mg/dL (60-115); Potassium 3.5 mmol/L (3.3-5.1); Sodium 144 mmol/L (135-145)
[2024-05-20 06:55] LABS: INTERNATIONAL NORM RATIO 1.8 (0.9-1.1); Prothrombin Time 21.3 SEC (11.1-13.3)
[2024-05-20 06:58] LABS: Hematocrit 42.6 % (42.0-52.0); Hemoglobin 14.1 g/dl (14.0-18.0); Mean Corpuscular HGB Conc 33.1 g/dl (31.0-36.0); Mean Corpuscular Hemoglobin 30.5 pg (27.0-33.0); Mean Platelet Volume 11.9 fL (9.4-12.4); Platelet Count 116 X10*3/uL (160-400); Red Blood Count 4.63 X10*6/uL (4.60-5.80); Red Cell Distribution Width 15.9 % (11.0-16.0); White Blood Count 7.5 X10*3/uL (4.8-10.8)
[2024-05-20] MEDS: Enoxaparin Sodium 60 MG/0.6 ML SYRINGE 50 MG SUBCUT ×2 (07:42→19:32)
[2024-05-20 07:51] VITALS: BP 124/60; PULSE 66; RESP 12; TEMP 36.3; O2SAT 100
--- NOTE | 2024-05-20 08:39 | P.HPGS_ITS ---
History of Present Illness History of Present Illness Date of Service: 05/20/24 Chief complaint: Sepsis,ams Narrative: Antoni Kitchen is a 73 year old male with multiple medical problems including quadriplegia, advanced dementia, COPD, on anticoagulation for heart valve disease, admitted because of decline of overall health with lethargy. He was diagnosed to have a urinary tract infection I was requested to discuss the option of PEG tube placement with the family. The patient does have a history of dysphagia and aspiration He has been bed-bound for several years. The daughter is the primary caregiver and healthcare proxy. She describes significant and progressive decline in his overall health. Review of Systems Review of Systems: Yes Unobtainable due to mental condition and Unobtainable due to mental status Constitutional: Constitutional: Denies chills, Denies fever(s) and Reports weakness Neurologic: Reports weakness PMFSH Past Medical History Medical History Protein-calorie malnutrition Alzheimer's dementia Febrile Encephalopathy Altered mental status Depression Non-rheumatic aortic regurgitation Ascending aortic aneurysm CKD (chronic kidney disease) Chronic anticoagulation Bleeding hemorrhoids Heart valve disease Acute deep vein thrombosis (DVT) COPD (chronic obstructive pulmonary disease) Family History Family History Father History of prostate cancer Surgical History Surgical History Hx of cholecystectomy History of inguinal hernia repair Social History Social History Household Members: Children Housing: Apartment Do you presently have visiting nurse or other home services: Yes Unable to assess alcohol history related to: Unable to respond Alcohol intake: never Comment: family at the bedside Patient Tobacco Use Status: Never used Tobacco Advance Directives Date on File: 05/05/23 service: No Current occupational status: disabled Meds Allergies Allergy/AdvReac Type Severity Reaction Status Date / Time doxycycline Allergy Severe Rash Verified 05/18/24 13:47 nut - unspecified Allergy Severe GI Stomach Verified 05/18/24 13:47 Bleed oxycodone [OXYCODONE] Allergy Severe Decrease BP Verified 05/18/24 13:47 Iodinated Contrast Media Allergy Intermediate CKD PER Verified 05/18/24 13:47 [IVP DYE] DAUGHTER PT IS NOT TO HAVE DUE TO KIDNEYS Sulfa (Sulfonamide Allergy Intermediate Rash Verified 05/18/24 13:47 Antibiotics) tramadol [TRAMADOL] Allergy Intermediate PER Verified 05/18/24 13:47 DAUGHTER PT PASSED OUT, weakness meperidine [From Demerol] Allergy Redness of Verified 05/18/24 13:47 Skin Active Medications: Current Medications Acetaminophen (Acetaminophen 325 Mg Tablet) 650 mg PO Q6H PRN PRN Reason: Pain, Mild (Pain Scale 1-3), fever or headache Calcium Carbonate (Calcium Carbonate 750 Mg Tab.Chew) 750 mg PO Q4H PRN PRN Reason: Heartburn Enoxaparin Sodium (Enoxaparin Sodium 60 Mg/0.6 Ml Syringe) 50 mg SUBCUT Q12H [facility] Last Admin: 05/20/24 07:42 Dose: 50 mg Dextrose (D5w) 1,000 mls @ 80 mls/hr IVCONT .[id number] [facility] Last Admin: 05/20/24 01:23 Dose: 80 mls/hr Meropenem 1 gm/ Sodium (Chloride) 100 mls @ 200 mls/hr IV Q12H [facility] Last Infusion: 05/20/24 08:17 Dose: Infused Fluconazole 100 mg/ IV (Miscellaneous Supplies) 50 mls @ 50 mls/hr IV Q24H [facility] Last Infusion: 05/19/24 13:59 Dose: Infused Magnesium Hydroxide (Milk Of Magnesia 30 Ml Oral.Susp) 30 ml PO DAILY PRN PRN Reason: Constipation Melatonin (Melatonin 3 Mg Tablet) 6 mg PO BEDTIME PRN PRN Reason: Insomnia Sodium Chloride (0.9 % Sodium Chloride Flush 3 Ml Syringe) 3 ml IVFLUSH QSHIFT [facility] Last Admin: 05/20/24 07:34 Dose: Not Given Home Medications ?Medication ?Instructions ?Recorded ?Confirmed ?Last Taken ?Type atenolol 25 mg tablet 25 mg PO DAILY 07/26/20 05/18/24 05/17/24 History omeprazole 20 mg capsule,delayed 20 mg PO DAILY@0630 07/26/20 05/18/24 05/17/24 History release spironolactone 25 mg tablet 25 mg PO DAILY 08/20/20 05/18/24 05/17/24 History warfarin 5 mg tablet 2.5 mg PO DAILY@1800 05/02/21 05/18/24 05/17/24 History naftifine 2 % topical gel (Naftin) 1 appl topical DAILY mycosis 07/02/21 05/18/24 05/17/24 History albuterol sulfate 2.5 mg/3 mL 2.5 mg inhalation Q4H PRN 04/22/22 05/18/24 07/20/22 History (0.083 %) solution for nebulization Respiratory Distress acetaminophen 325 mg tablet 650 mg PO Q6H PRN Fever 05/21/22 05/18/24 07/20/22 History (Tylenol) loratadine 10 mg tablet 10 mg PO DAILY 05/18/24 05/18/24 05/17/24 History Physical Exam Vital Signs: Vital Signs: Last Vital Signs Temp 97.3 F 05/20/24 07:51 Pulse 66 05/20/24 07:51 Resp 12 05/20/24 07:51 BP 124/60 05/20/24 07:51 Pulse Ox 100 05/20/24 07:51 O2 Del Method Nasal Cannula 05/20/24 07:51 O2 Flow Rate 2 05/20/24 07:51 Oxygen Flow Rate 2 05/18/24 13:44 BMI result Body Mass Index 19.9 Const: Other: Eyes open spontaneously, not communicative, no verbal output Resp: Effort & Inspection: normal respiratory effort Cardio: Rate: regular rate GI: Other: No obvious surgical scars Palpation (GI): Soft to palpation, not firm and no guarding Results Results Labs: Short CBC 05/20/24 Range/Units 06:02 WBC 7.5 (4.8-10.8) X10*3/uL Hgb 14.1 (14.0-18.0) g/dl Hct 42.6 (42.0-52.0) % Plt Count 116 L (160-400) X10*3/uL BMP 05/19/24 05/19/24 05/20/24 11:36 18:39 06:02 Sodium 151 H 149 H 144 Potassium 3.3 4.4 D 3.5 D Chloride 120 H 121 H 115 H Carbon Dioxide 27 21 L 24 BUN 27 H 25 H 19 H Creatinine 1.02 0.84 0.89 Calcium 8.5 8.0 L 8.3 L Urine 08/07/24 Range/Units 20:54 Urine Color Yellow Urine Appearance Clear Urine pH 5.5 (5.0-9.0) Ur Specific [place] 1.020 (1.005-1.025) Urine Protein Negative (Neg-Trace) mg/dL Urine Glucose (UA) Negative (Negative) mg/dL Assessment and Plan (1) Protein-calorie malnutrition: Status: Acute The patient has multiple medical problems as described above including dementia. He has history of dysphagia as well with poor oral intake. I had a long discussion with the family about the option of proceeding with PEG tube placement. I explained the technique of this procedure. I reviewed the risks including but not limited to bleeding, infections, injury to other organs. I explained the benefits and alternatives. They do understand that the PEG tube will not completely eliminate the risk of aspiration. They understand that he does present with significant perioperative risks including respiratory failure with anesthesia They will discuss the option among the rest of the family members. The patient is apparently also supposed to have another evaluation with speech therapy today I can schedule the patient for PEG tube placement early next week if the family decides to proceed. The anticoagulation should be on hold for the procedure as well. Quality Stroke Does the patient have a stroke diagnosis?: No VTE Prior VTE?: Yes VTE Risk Level:: Medical - moderate - high VTE Device Contraindication: Treatment Not Indicated VTE Drug Contraindication: N/A - Med Ordered Procedures Date of Service Date of Service: 05/20/24
--- NOTE | 2024-05-20 11:05 | MHC.CLN ---
F/U PT WITH INCREASED NUTRITION NEEDS R/T PRESSURE INJURY. SEEN BY VIBRATORY PILE DRIVER AND CONTINUES NPO. MD DISCUSSED PEG TUBE PLACEMENT WITH FAMILY. FOLLOW FOR DIET ADVANCEMENT AND PLAN OF CARE.
--- NOTE | 2024-05-20 11:46 | MHC.CLN ---
F/U CONSULT FOR PPN. RECOMMEND START DAY 1, 05/20/24: PPN AT 40 ML PER HOUR TO PROVIDE 41 G PROTEIN, 96 G DEXTROSE, 490 KCALS. REPLETE LYTES NEEDED. DAY 2, 05/21/24: PPN AT 60 ML PER HOUR TO PROVIDE 61 G PROTEIN, 144 G DEXTROSE, 734 KCALS. REPLETE LYTES NEEDED. CHECK TRIGLYCERIDES. DAY 3, 05/22/24, ADVANCE TO MAX GOAL RATE: PPN AT 80 ML PER HOUR PLUS 70 G LIPIDS TO PROVIDE 82 G PROTEIN (1.47 G/KG), 192 G DEXTROSE, 1679 TOTAL KCALS (30.1 KCALS/KG). REPLETE LYTES NEEDED. FOLLOW FOR PO TOLERANCE, PPN TOLERANCE, LYTES.
[2024-05-20 11:51] LABS: Albumin Level 2.7 g/dL (3.5-5.0); Magnesium 2.1 mg/dL (1.6-2.6); Phosphorus 2.3 mg/dL (2.7-4.5); Triglycerides 103 mg/dL (<150)
--- NOTE | 2024-05-20 11:54 | HO.PM.IMPN ---
Subjective Subjective Date of Service: 05/20/24 Interval History: seen and evaluated family at bedside alert but not interactive , unable to tolerate diet no reported events Review of Systems Review of Systems: Yes all other systems are reviewed and are negative Physical Exam Vital Signs: Vital Signs: Last Vital Signs Temp 97.3 F 05/20/24 07:51 Pulse 66 05/20/24 07:51 Resp 12 05/20/24 07:51 BP 124/60 05/20/24 07:51 Pulse Ox 100 05/20/24 07:51 O2 Del Method Nasal Cannula 05/20/24 07:51 O2 Flow Rate 2 05/20/24 07:51 Oxygen Flow Rate 2 05/18/24 13:44 BMI result Body Mass Index 19.9 Const: Other: Constitutional : alert, non-verbal, not in distress Cardiovascular : no JVP, no lower extremity edema Respiratory : bilateral chest movement, not in resp distress Gastrointestinal: soft, lax, Non tender Skin : Warm, Dry Neurological : Alert, contracted , No focal deficit Objective Data Active Medications Acetaminophen (Acetaminophen 325 Mg Tablet) 650 mg PO Q6H PRN PRN Reason: Pain, Mild (Pain Scale 1-3), fever or headache Calcium Carbonate (Calcium Carbonate 750 Mg Tab.Chew) 750 mg PO Q4H PRN PRN Reason: Heartburn Enoxaparin Sodium (Enoxaparin Sodium 60 Mg/0.6 Ml Syringe) 50 mg SUBCUT Q12H [facility] Last Admin: 05/20/24 07:42 Dose: 50 mg Documented By: KRISTAN Dextrose (D5w) 1,000 mls @ 80 mls/hr IVCONT .[id number] [facility] Last Admin: 05/20/24 01:23 Dose: 80 mls/hr Documented By: MARGAUX Meropenem 1 gm/ Sodium (Chloride) 100 mls @ 200 mls/hr IV Q12H [facility] Last Infusion: 05/20/24 08:17 Dose: Infused Documented By: KRISTAN Fluconazole 100 mg/ IV (Miscellaneous Supplies) 50 mls @ 50 mls/hr IV Q24H [facility] Last Infusion: 05/19/24 13:59 Dose: Infused Documented By: KRISTAN Magnesium Hydroxide (Milk Of Magnesia 30 Ml Oral.Susp) 30 ml PO DAILY PRN PRN Reason: Constipation Melatonin (Melatonin 3 Mg Tablet) 6 mg PO BEDTIME PRN PRN Reason: Insomnia Pharmacy Consult (Consult Rx Parenteral Nutrition Ordering) 1 each MISCELLANE DAILY PRN PRN Reason: Consult order Sodium Chloride (0.9 % Sodium Chloride Flush 3 Ml Syringe) 3 ml IVFLUSH QSHIFT [facility] Last Admin: 05/20/24 07:34 Dose: Not Given Documented By: KRISTAN Non-Admin Reason: IV Running Labs 05/20/24 06:02 05/20/24 06:02 Labs: Laboratory Results - last 24 hr 05/19/24 05/19/24 05/19/24 11:36 18:39 20:05 MCV MCH MCHC RDW Plt Count MPV Absolute Nucleated RBC Nucleated RBC % (auto) PT INR Anion Gap 7 L 11 L Estim Creat Clear Calc 51.6 62.7 Estimated GFR > 60 > 60 POC Glucose 96 Random Glucose 97 99 Calcium 8.5 8.0 L Phosphorus Magnesium Albumin Triglycerides 05/20/24 05/20/24 03:45 06:02 MCV 92.0 MCH 30.5 MCHC 33.1 RDW 15.9 Plt Count 116 L MPV 11.9 Absolute Nucleated RBC 0.000 Nucleated RBC % (auto) 0.0 PT 21.3 H INR 1.8 H Anion Gap 9 L Estim Creat Clear Calc 59.2 Estimated GFR > 60 POC Glucose 90 Random Glucose 136 H Calcium 8.3 L Phosphorus 2.3 L Magnesium 2.1 Albumin 2.7 L Triglycerides 103 Microbiology Microbiology Results: Microbiology 05/18/24 Unknown Urine Culture - Preliminary Urine clean catch - Clean Catch Midstream No growth to date. 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 rec to continue NPO on IVF surgery eval for PEG Start PPN for now acute hypernatremia and acute kidney injury due to severe dehydration Na improved to 144, Cr back to normal DC D5W when we start PPN follow BMP Advanced Alzheimer's dementia with functional quadriplegia Family considering hospice at home, currently wants to continue conservative hospital level care though History of DVT On warfarin, INR 1.8 while NPO we will start therapeutic Lovenox COPD Stable Hypertension On Aldactone and atenolol at home, NPO for now, monitor DVT prophylaxis with Lovenox therapeutic DNR/DNI Patient was severe hypernatremia will require overnight hospital stay. Quality Stroke Does the patient have a stroke diagnosis?: No VTE Prior VTE?: Yes VTE Risk Level:: Medical - moderate - high VTE Device Contraindication: Treatment Not Indicated VTE Drug Contraindication: N/A - Med Ordered
[2024-05-20] MEDS: Fluconazole in NaCl,Iso-Osm 100 MG in Container,Empty 0 ML 50 MG IV (12:12)
--- NOTE | 2024-05-20 12:55 | MHC.CM.PN ---
MET WITH PTS DGTER AND HCP HAVE DECEIDED THEY DO NOT WANT A FEEDING TUBE MD ORDERED A HOSPICE CONSULT IMFORMATIONAL REQUESTED FROM NS
--- NOTE | 2024-05-20 13:09 | P.CDIM_ITS ---
PROVIDER RESPONSE TEXT: To clarify, the appropriate diagnosis supported by the clinical indicators: Pressure Injury coccyx Stage II QUERY TEXT: PHYSICIAN'S DOCUMENTATION REQUEST Date of Query: 05/20/2024 06:30 AM EDT Patient Name: Antoni Arriola Admit Date: 05/18/2024 Dear Maria Del Carmen Tran MD, A review of the medical record indicates additional documentation may be needed. Please review below and update the documentation accordingly. Clinical Indicators: Wound care notes: Pressure injury coccyx Stage II coccyx Dry and intact Foam dressing Based on the above, could you please provide further information regarding the ulcer/wound/injury: Pressure Injury coccyx Stage II Other, please specify Other (explain) Clinically unable to determine (explain) Thank you, Alexandria Peña, CCS, CDIS Use of terms such as suspected, likely, concern for, or probable (associated with a specific diagnosi s that is being evaluated, monitored, or treated as if it exists) are acceptable and can be coded in the inpatient se tting, when documented at the time of discharge. Please use your independent medical judgment in providing your response. THIS QUERY IS PART OF THE PERMANENT MEDICAL RECORD
--- NOTE | 2024-05-20 13:09 | P.CDIM_ITS ---
PROVIDER RESPONSE TEXT: To clarify, the appropriate diagnosis supported by the clinical indicators: Diagnosis was present on admission and is still being monitored, evaluated, or treated QUERY TEXT: PHYSICIAN'S DOCUMENTATION REQUEST Date of Query: 05/20/2024 09:00 AM EDT Patient Name: Antoni Arriola Admit Date: 05/18/2024 Dear Maria Del Carmen Tran MD, A review of the medical record indicates additional documentation may be needed. Please review below and update the documentation accordingly. Clinical Indicators: ED 05/18: Clinical impression - Esophageal Thrush Unable to swallow, trouble eating, concerning for esophageal thrush will place on some thrush medicat ions. The diagnosis of Esophageal Thrush was documented on 05/18/24 but is not consistently noted in subseque nt documentation. Please clarify the following: Diagnosis was present on admission and is now resolved Diagnosis was present on admission and is still being monitored, evaluated, or treated Diagnosis was ruled out Diagnosis is still a likely, suspected, probable diagnosis Other (explain) Clinically unable to determine (explain) Thank you, Alexandria Peña, CCS, CDIS Use of terms such as suspected, likely, concern for, or probable (associated with a specific diagnosi s that is being evaluated, monitored, or treated as if it exists) are acceptable and can be coded in the inpatient se tting, when documented at the time of discharge. Please use your independent medical judgment in providing your response. THIS QUERY IS PART OF THE PERMANENT MEDICAL RECORD
--- NOTE | 2024-05-20 13:09 | P.CDIM_ITS ---
PROVIDER RESPONSE TEXT: To clarify, the appropriate diagnosis supported by the clinical indicators: Moderate QUERY TEXT: PHYSICIAN'S DOCUMENTATION REQUEST Date of Query: 05/20/2024 06:27 AM EDT Patient Name: Antoni Arriola Admit Date: 05/18/2024 Dear Maria Del Carmen Tran MD, A review of the medical record indicates additional documentation may be needed. Please review below and update the documentation accordingly. Documentation includes the diagnosis of malnutrition. Clinical nutrition notes: Patient is moderately malnourished. Pt with mildly depleted subcutaneous fat and muscle mass with 7% nonsignificant wt loss x 1 year with chronic poor PO intake. When diet is advanced, recommend adding Ensure BID to promote wound healing. If possible, please provide additional specificity regarding the severity of the malnutrition using t he above information: Mild Moderate Severe Other (explain) Clinically unable to determine (explain) Thank you, Alexandria Peña, CCS, CDIS Use of terms such as suspected, likely, concern for, or probable (associated with a specific diagnosi s that is being evaluated, monitored, or treated as if it exists) are acceptable and can be coded in the inpatient se tting, when documented at the time of discharge. Please use your independent medical judgment in providing your response. THIS QUERY IS PART OF THE PERMANENT MEDICAL RECORD
[2024-05-20 16:00] VITALS: BP 144/68; PULSE 81; RESP 18; TEMP 36.2; O2SAT 100
--- NOTE | 2024-05-20 17:20 | MHC.SL.SWA ---
Speech Pathologist Impression: Risk of aspiration, oropharyngeal dysphagia Risk of Aspiration Due to: Neurological Condition Poor PO Intake Reduced Cognition Dysphasia Diet Status: No changes at this time Liquid Consistency and Strategies for Safe Swallow: Liquid Intake Recommendation: NPO Solid Food Consistency: Dietary Recommendations: NPO Additional Modifications to Solid Foods: Patient pocketing food and presenting with overt s/s of aspiration. Recommend CONTINUE NPO status at this time, with continued oral care for hygiene and comfort, elevate HoB. INTRANET DEVELOPER is on-call over the weekend and scheduled to return tomorrow a.m. to re-evaluate per request of Dr. Tarn and daughter. Oral Medication Intake: NPO Please contact the pharmacy regarding appropriate crushable or liquid drug formulations that are available whenever modified delivery is recommended. Supervision While Eating and Drinking for Safe Swallow: PO with INTRANET DEVELOPER Swallowing Recommended Treatments: Compens. Strategy Educat. Recommendation for Speech: Further Testing Needed Inpatient Speech Therapy Animal Daycare Provider Clinican/Clinical Fellow: No Supervisory Statement: I have reviewed and agree with the student/clinical fellow's documentation: N/A Speech Language Pathologist: Ginny Wright M.A., CCC-INTRANET DEVELOPER
[2024-05-20 19:18] VITALS: BP 136/60; PULSE 81; RESP 18; TEMP 36.6; O2SAT 100
[2024-05-20] MEDS: Parenteral Nutrition 960 ML 40 ML IV (21:24)
[2024-05-20 21:40] LABS: Glucose, Whole Blood 88 mg/dL (60-115)
[2024-05-21 01:28] LABS: Glucose, Whole Blood 100 mg/dL (60-115)
[2024-05-21 04:00] VITALS: BP 134/68; PULSE 85; RESP 16; TEMP 36.8; O2SAT 100
[2024-05-21 07:07] LABS: Hematocrit 41.9 % (42.0-52.0); Hemoglobin 13.9 g/dl (14.0-18.0); Mean Corpuscular HGB Conc 33.2 g/dl (31.0-36.0); Mean Corpuscular Hemoglobin 29.9 pg (27.0-33.0); Mean Corpuscular Volume 90.1 fL (80.0-98.0); Mean Platelet Volume 12.6 fL (9.4-12.4); Platelet Count 124 X10*3/uL (160-400); Red Blood Count 4.65 X10*6/uL (4.60-5.80); Red Cell Distribution Width 15.5 % (11.0-16.0); White Blood Count 6.1 X10*3/uL (4.8-10.8)
[2024-05-21 07:08] LABS: INTERNATIONAL NORM RATIO 1.6 (0.9-1.1); Prothrombin Time 18.9 SEC (11.1-13.3)
[2024-05-21 07:12] VITALS: BP 126/61; PULSE 86; RESP 16; TEMP 36.7; O2SAT 99
[2024-05-21 07:29] LABS: Anion Gap 11 (12-20); Blood Urea Nitrogen 14 mg/dL (9-16); Calcium 8.6 mg/dL (8.4-10.2); Carbon Dioxide 24 mmol/L (22-29); Chloride 114 mmol/L (96-108); Creatinine Clr Calc Pharmacy 67.5; Estimated Glomerular Filt Rate > 60; Glucose Random 89 mg/dL (60-115); Magnesium 2.1 mg/dL (1.6-2.6); Phosphorus 2.6 mg/dL (2.7-4.5); Potassium 3.5 mmol/L (3.3-5.1); Sodium 145 mmol/L (135-145)
[2024-05-21 07:40] LABS: Glucose, Whole Blood 109 mg/dL (60-115)
[2024-05-21] MEDS: 0.9 % Sodium Chloride Flush 3 ML SYRINGE IVFLUSH ×3 (08:18→19:49)
[2024-05-21] MEDS: Enoxaparin Sodium 60 MG/0.6 ML SYRINGE 50 MG SUBCUT ×2 (08:18→19:48)
--- NOTE | 2024-05-21 09:43 | HO.PM.IMPN ---
Subjective Subjective Date of Service: 05/21/24 Interval History: seen and evaluated family at bedside alert but not interactive , still unable to tolerate diet no reported events Review of Systems Review of Systems: Yes Unobtainable due to mental condition Physical Exam Vital Signs: Vital Signs: Last Vital Signs Temp 98.0 F 05/21/24 07:12 Pulse 86 05/21/24 07:12 Resp 16 05/21/24 07:12 BP 126/61 05/21/24 07:12 Pulse Ox 99 05/21/24 07:12 O2 Del Method Nasal Cannula 05/21/24 07:12 O2 Flow Rate 2 05/21/24 07:12 Oxygen Flow Rate 2 05/18/24 13:44 BMI result Body Mass Index 19.9 Const: Other: Constitutional : alert, non-verbal, not in distress Cardiovascular : no JVP, no lower extremity edema Respiratory : bilateral chest movement, not in resp distress Gastrointestinal: soft, lax, Non tender Skin : Warm, Dry Neurological : Alert, contracted , No focal deficit Objective Data Active Medications Acetaminophen (Acetaminophen 325 Mg Tablet) 650 mg PO Q6H PRN PRN Reason: Pain, Mild (Pain Scale 1-3), fever or headache Calcium Carbonate (Calcium Carbonate 750 Mg Tab.Chew) 750 mg PO Q4H PRN PRN Reason: Heartburn Enoxaparin Sodium (Enoxaparin Sodium 60 Mg/0.6 Ml Syringe) 50 mg SUBCUT Q12H [facility] Last Admin: 05/21/24 08:18 Dose: 50 mg Documented By: ALISA Meropenem 1 gm/ Sodium (Chloride) 100 mls @ 200 mls/hr IV Q12H [facility] Last Infusion: 05/21/24 09:06 Dose: Infused Documented By: ALISA Fluconazole 100 mg/ IV (Miscellaneous Supplies) 50 mls @ 50 mls/hr IV Q24H [facility] Last Infusion: 05/20/24 13:21 Dose: Infused Documented By: KRISTAN Nutrition (Parenteral) (Parenteral Nutrition) 960 mls @ 40 mls/hr IV .Q24H [facility]; Protocol Stop: 05/21/24 20:59 Last Admin: 05/20/24 21:24 Dose: 40 mls/hr Documented By: SACHIN Nutrition (Parenteral) (Parenteral Nutrition) 1,440 mls @ 60 mls/hr IV .Q24H [facility]; Protocol Stop: 05/22/24 20:59 Magnesium Hydroxide (Milk Of Magnesia 30 Ml Oral.Susp) 30 ml PO DAILY PRN PRN Reason: Constipation Melatonin (Melatonin 3 Mg Tablet) 6 mg PO BEDTIME PRN PRN Reason: Insomnia Pharmacy Consult (Consult Rx Parenteral Nutrition Ordering) 1 each MISCELLANE DAILY PRN PRN Reason: Consult order Sodium Chloride (0.9 % Sodium Chloride Flush 3 Ml Syringe) 3 ml IVFLUSH QSHIFT [facility] Last Admin: 05/21/24 08:18 Dose: 3 ml Documented By: ALISA Labs 05/21/24 05:32 05/21/24 05:32 Labs: Laboratory Results - last 24 hr 05/20/24 05/20/24 05/21/24 06:02 21:36 01:23 MCV MCH MCHC RDW Plt Count MPV Absolute Nucleated RBC Nucleated RBC % (auto) PT INR Anion Gap Estim Creat Clear Calc Estimated GFR POC Glucose 88 100 Random Glucose Calcium Phosphorus 2.3 L Magnesium 2.1 Albumin 2.7 L Triglycerides 103 05/21/24 05/21/24 05/21/24 05:32 05:32 05:32 MCV 90.1 MCH 29.9 MCHC 33.2 RDW 15.5 Plt Count 124 L MPV 12.6 H Absolute Nucleated RBC 0.000 Nucleated RBC % (auto) 0.0 PT 18.9 H INR 1.6 H Anion Gap Cancelled 11 L Estim Creat Clear Calc Cancelled 67.5 Estimated GFR Cancelled POC Glucose Random Glucose Calcium Phosphorus Magnesium Albumin Triglycerides 05/21/24 05/21/24 05/21/24 05:32 05:32 05:32 MCV MCH MCHC RDW Plt Count MPV Absolute Nucleated RBC Nucleated RBC % (auto) PT INR Anion Gap Estim Creat Clear Calc Estimated GFR > 60 POC Glucose Random Glucose Cancelled 89 Calcium Cancelled 8.6 Phosphorus 2.6 L Magnesium 2.1 Albumin Triglycerides 05/21/24 07:09 MCV MCH MCHC RDW Plt Count MPV Absolute Nucleated RBC Nucleated RBC % (auto) PT INR Anion Gap Estim Creat Clear Calc Estimated GFR POC Glucose 109 Random Glucose Calcium Phosphorus Magnesium Albumin Triglycerides Microbiology Microbiology Results: Microbiology 05/18/24 Unknown Urine Culture - Final Urine clean catch - Clean Catch Midstream Assessment and Plan (1) Swallowing problem: Status: Acute (2) Sepsis: Status: Acute (3) Acute UTI: Status: Acute (4) Acute dehydration: Status: Acute Plan 73M PMH advanced Alzheimer's dementia, nonverbal, bedbound with functional quadriplegia, history of DVT on warfarin, aortic regurgitation, COPD, hypertension, monitor protein calorie malnutrition presented with altered mental status Sepsis due to Pseudomonas UTI complicated by acute metabolic encephalopathy alert Negative repeat Urine culture continue IV meropenem started 05/18 Swallowing problem [employer] NURSE rec to continue NPO continue PPN for now Family decide not to place a PEG acute hypernatremia and acute kidney injury due to severe dehydration Na improved to 144, Cr back to normal follow BMP Advanced Alzheimer's dementia with functional quadriplegia Family considering hospice at home, currently wants to continue conservative hospital level care though History of DVT On warfarin, INR 1.8 while NPO we will start therapeutic Lovenox COPD Stable Hypertension On Aldactone and atenolol at home, NPO for now, monitor DVT prophylaxis with Lovenox therapeutic DNR/DNI Dispo: Discussed goals of care with his daughter and HCP who is thinking of hospice approach. Has a meeting with hospice team tomorrow. will continue current management until we make final decision about it. She opted not to place a G-tube as it will only prolong his suffering. will require overnight hospital stay. Quality Stroke Does the patient have a stroke diagnosis?: No VTE Prior VTE?: Yes VTE Risk Level:: Medical - moderate - high VTE Device Contraindication: Treatment Not Indicated VTE Drug Contraindication: N/A - Med Ordered
--- NOTE | 2024-05-21 11:06 | MHC.SL.SWA ---
Speech Pathologist Impression: Risk of Aspiration Due to: Neurological Condition Poor PO Intake Reduced Cognition Dysphasia Diet Status: Recommend START diet of PUREE (NDD1) with THIN liquids, pills crushed in puree (patient's baseline). Patient requires a 1-1 feed, family is very involved with care. Alternate liquids and solids, NO STRAW, liquids by controlled cup sip or tsp. Liquid Consistency and Strategies for Safe Swallow: Liquid Intake Recommendation: Thin Liquid Intake Strategies: Small Sips No Straws Solid Food Consistency: Dietary Recommendations: Pureed (NDD1) Additional Modifications to Solid Foods: Patient requires a 1-1 feed, family is very involved with care. Alternate liquids and solids, NO STRAW, liquids by controlled cup sip or tsp. Blend sauces/gravies into purees well. Oral Medication Intake: NPO Please contact the pharmacy regarding appropriate crushable or liquid drug formulations that are available whenever modified delivery is recommended. Compensatory Strategies and Precautions to be Taken for Safe Swallow: Sitting Upright (90 deg) No Straw Liquids from Cup Liquids from Spoon Small Bites and Sips Alternate Liquids/Solids Rate of Ingestion Change Oral Check Supervision While Eating and Drinking for Safe Swallow: Total Assistance (1:1) Foods to Avoid: Patient dislikes Chocolate flavor; sticky, congealed or textured purees (e.g. farina). Swallowing Recommended Treatments: Compens. Strategy Educat. Recommendation for Speech: Further Testing Needed Inpatient Speech Therapy Comment: MEDICAL RECORDS TECHNICIAN called in to repeat swallow evaluation with patient this morning. Daughters and were present in room with Danielle, daughter who is primary caregiver, very attentive and informative throughout. Patient was awake and alert, repositioned by daughters so that he could sit comfortably with head of bed at 90 Degrees. Patient was given water first by tsp then by controlled cup sip. Patient noted to propel liquid well this morning and produced a timely swallow, particularly when given cup sip. No clinical signs of aspiration. Patient during course of visit consumed 1 cup and a half of water. Patient given banana puree then apple sauce as trials, with patient appropriately opening mouth and stripping food from spoon, producing variably timed oral phase: on banana noted to chew consistency for mildly prolonged period, then propelled to swallow; on apple sauce, tongue pumping and occasional brief holding noted prior to propelling for swallow, with mild delay initiating swallow noted. However, patient did not evidence any pocketing or prolonged holding as had been noticed previously. Patient was able to consume full cup of apple sauce in timely way during this assessment. As MEDICAL RECORDS TECHNICIAN was readying to depart, family noted signs patient was still hungry, supplied family with another cup of apple sauce. Daughter noted Patient normally has ENSURE supplements and requested this, specifying Vanilla is the only flavor he likes. Recommend START diet of PUREE (NDD1) with THIN liquids, pills crushed in puree (patient's baseline). MD/RD notified of recommendations by secure text, RN in person, white board annotated with diet recommendations in room. MEDICAL RECORDS TECHNICIAN will continue to follow. Frequency/Duration: Date Range for Service Req: Timeline to reassess: Vice President Safety Clinican/Clinical Fellow: No Supervisory Statement: I have reviewed and agree with the student/clinical fellow's documentation: N/A Speech Language Pathologist: Sidra Mcclain M.A., [facility]-MEDICAL RECORDS TECHNICIAN
[2024-05-21 11:33] LABS: Glucose, Whole Blood 107 mg/dL (60-115)
[2024-05-21] MEDS: Fluconazole in NaCl,Iso-Osm 100 MG in Container,Empty 0 ML 50 MG IV (11:59)
[2024-05-21 15:26] VITALS: BP 122/66; PULSE 93; RESP 18; TEMP 36.6; O2SAT 98
[2024-05-21 16:31] LABS: Glucose, Whole Blood 117 mg/dL (60-115)
[2024-05-21 19:03] VITALS: BP 128/64; PULSE 100; RESP 16; TEMP 36.3; O2SAT 100
[2024-05-21 20:14] LABS: Glucose, Whole Blood 102 mg/dL (60-115)
[2024-05-21] MEDS: Parenteral Nutrition 1,440 ML 60 ML IV (20:21)
[2024-05-22 03:12] LABS: Glucose, Whole Blood 116 mg/dL (60-115)
[2024-05-22 03:43] VITALS: BP 136/63; PULSE 101; RESP 18; TEMP 36.7; O2SAT 99
--- NOTE | 2024-05-22 04:04 | MHC.PIE ---
p; pt family in room reports pt looks sweaty/fever? family in room demanding vs and poc now i; vs and poc completed. t 98.1, p 101, bp 136/63, o2 99. poc 116. no distress noted on pt at this time. e; this advertising copy writer and other staff offered to help clean pt, family in room refused any help, only requested for clean chio. will cont to monitor
[2024-05-22 07:03] LABS: Hematocrit 41.2 % (42.0-52.0); Hemoglobin 14.1 g/dl (14.0-18.0); Mean Corpuscular HGB Conc 34.2 g/dl (31.0-36.0); Mean Corpuscular Hemoglobin 30.5 pg (27.0-33.0); Mean Platelet Volume 12.5 fL (9.4-12.4); Platelet Count 126 X10*3/uL (160-400); Red Blood Count 4.63 X10*6/uL (4.60-5.80); Red Cell Distribution Width 15.7 % (11.0-16.0); White Blood Count 6.3 X10*3/uL (4.8-10.8)
[2024-05-22 07:06] LABS: INTERNATIONAL NORM RATIO 1.2 (0.9-1.1); Prothrombin Time 14.2 SEC (11.1-13.3)
[2024-05-22 07:19] LABS: Anion Gap 9 (12-20); Blood Urea Nitrogen 17 mg/dL (9-16); Calcium 9.1 mg/dL (8.4-10.2); Carbon Dioxide 28 mmol/L (22-29); Chloride 109 mmol/L (96-108); Creatinine Clr Calc Pharmacy 66.7; Estimated Glomerular Filt Rate > 60; Glucose Random 112 mg/dL (60-115); Magnesium 2.2 mg/dL (1.6-2.6); Phosphorus 3.1 mg/dL (2.7-4.5); Sodium 142 mmol/L (135-145)
[2024-05-22 07:48] VITALS: BP 147/74; PULSE 92; RESP 16; TEMP 36.2; O2SAT 100
[2024-05-22] MEDS: 0.9 % Sodium Chloride Flush 3 ML SYRINGE IVFLUSH ×2 (08:02→15:08)
[2024-05-22] MEDS: Enoxaparin Sodium 60 MG/0.6 ML SYRINGE 50 MG SUBCUT ×2 (08:02→19:59)
[2024-05-22] MEDS: Acetaminophen 325 MG TABLET 650 MG PO (08:38)
[2024-05-22] MEDS: Fluconazole in NaCl,Iso-Osm 100 MG in Container,Empty 0 ML 50 MG IV (12:19)
--- NOTE | 2024-05-22 12:59 | HO.PM.IMPN ---
Subjective Subjective Date of Service: 05/22/24 Interval History: seen and evaluated family at bedside alert but not interactive , looks comfortable able to tolerate diet overnight no reported events Physical Exam Vital Signs: Vital Signs: Last Vital Signs Temp 97.1 F 05/22/24 07:48 Pulse 92 05/22/24 07:48 Resp 16 05/22/24 07:48 BP 147/74 H 05/22/24 07:48 Pulse Ox 100 05/22/24 07:48 O2 Del Method Room Air 05/22/24 07:48 O2 Flow Rate 2 05/21/24 19:03 Oxygen Flow Rate 2 05/18/24 13:44 BMI result Body Mass Index 19.9 Const: Other: Constitutional : alert, non-verbal, not in distress Cardiovascular : no JVP, no lower extremity edema Respiratory : bilateral chest movement, not in resp distress Gastrointestinal: soft, lax, Non tender Skin : Warm, Dry Neurological : Alert, contracted , No focal deficit Objective Data Active Medications Acetaminophen (Acetaminophen 325 Mg Tablet) 650 mg PO Q6H PRN PRN Reason: Pain, Mild (Pain Scale 1-3), fever or headache Last Admin: 05/22/24 08:38 Dose: 650 mg Documented By: ALISA Calcium Carbonate (Calcium Carbonate 750 Mg Tab.Chew) 750 mg PO Q4H PRN PRN Reason: Heartburn Enoxaparin Sodium (Enoxaparin Sodium 60 Mg/0.6 Ml Syringe) 50 mg SUBCUT Q12H [facility] Last Admin: 05/22/24 08:02 Dose: 50 mg Documented By: ALISA Meropenem 1 gm/ Sodium (Chloride) 100 mls @ 200 mls/hr IV Q12H [facility] Last Infusion: 05/22/24 08:32 Dose: Infused Documented By: ALISA Fluconazole 100 mg/ IV (Miscellaneous Supplies) 50 mls @ 50 mls/hr IV Q24H [facility] Last Admin: 05/22/24 12:19 Dose: 50 mls/hr Documented By: ALISA Nutrition (Parenteral) (Parenteral Nutrition) 1,440 mls @ 60 mls/hr IV .Q24H [facility]; Protocol Stop: 05/22/24 20:59 Last Admin: 05/21/24 20:21 Dose: 60 mls/hr Documented By: CANDICE Nutrition (Parenteral) (Parenteral Nutrition) 1,920 mls @ 80 mls/hr IV .Q24H [facility]; Protocol Stop: 05/23/24 20:59 Magnesium Hydroxide (Milk Of Magnesia 30 Ml Oral.Susp) 30 ml PO DAILY PRN PRN Reason: Constipation Melatonin (Melatonin 3 Mg Tablet) 6 mg PO BEDTIME PRN PRN Reason: Insomnia Pharmacy Consult (Consult Rx Parenteral Nutrition Ordering) 1 each MISCELLANE DAILY PRN PRN Reason: Consult order Sodium Chloride (0.9 % Sodium Chloride Flush 3 Ml Syringe) 3 ml IVFLUSH QSHIFT [facility] Last Admin: 05/22/24 08:02 Dose: 3 ml Documented By: ALISA Labs 05/22/24 05:50 05/22/24 05:50 Labs: Laboratory Results - last 24 hr 05/21/24 05/21/24 05/22/24 16:27 19:52 02:47 MCV MCH MCHC RDW Plt Count MPV Absolute Nucleated RBC Nucleated RBC % (auto) PT INR Anion Gap Estim Creat Clear Calc Estimated GFR POC Glucose 117 H 102 116 H Random Glucose Calcium Phosphorus Magnesium 05/22/24 05/22/24 05/22/24 05:50 05:50 05:50 MCV 89.0 MCH 30.5 MCHC 34.2 RDW 15.7 Plt Count 126 L MPV 12.5 H Absolute Nucleated RBC 0.000 Nucleated RBC % (auto) 0.0 PT 14.2 H D INR 1.2 H Anion Gap Cancelled 9 L Estim Creat Clear Calc Cancelled 66.7 Estimated GFR Cancelled POC Glucose Random Glucose Calcium Phosphorus Magnesium 05/22/24 05/22/24 05/22/24 05:50 05:50 05:50 MCV MCH MCHC RDW Plt Count MPV Absolute Nucleated RBC Nucleated RBC % (auto) PT INR Anion Gap Estim Creat Clear Calc Estimated GFR > 60 POC Glucose Random Glucose Cancelled 112 Calcium Cancelled 9.1 Phosphorus 3.1 Magnesium 2.2 Assessment and Plan (1) Swallowing problem: Status: Acute (2) Sepsis: Status: Acute (3) Acute UTI: Status: Acute (4) Acute dehydration: Status: Acute Plan 73M PMH advanced Alzheimer's dementia, nonverbal, bedbound with functional quadriplegia, history of DVT on warfarin, aortic regurgitation, COPD, hypertension, monitor protein calorie malnutrition presented with altered mental status Sepsis due to Pseudomonas UTI complicated by acute metabolic encephalopathy sepsis resolved, mentation improved back to baseline Negative repeat Urine culture continue IV meropenem started 05/18 , Day 5 Abx Swallowing problem 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, he is tolerating well Discontinue PPN for now Family decide not to place a PEG acute hypernatremia and acute kidney injury due to severe dehydration Na improved to 144, Cr back to normal follow BMP Advanced Alzheimer's dementia with functional quadriplegia Family considering hospice at home, currently wants to continue conservative hospital level care though History of DVT Hold warfarin, INR 1.2 on therapeutic Lovenox COPD Stable Hypertension On Aldactone and atenolol at home, NPO for now, monitor DVT prophylaxis with Lovenox therapeutic DNR/DNI Dispo: Discussed goals of care with his daughter and HCP who is thinking of hospice approach. Has a meeting with hospice team. will continue current management until we make final decision about it. She opted not to place a G-tube as it will only prolong his suffering. will require overnight hospital stay. Quality Stroke Does the patient have a stroke diagnosis?: No VTE Prior VTE?: Yes VTE Risk Level:: Medical - moderate - high VTE Device Contraindication: Treatment Not Indicated VTE Drug Contraindication: N/A - Med Ordered
[2024-05-22 15:21] VITALS: BP 132/68; PULSE 89; RESP 16; TEMP 36.4; O2SAT 99
[2024-05-22 16:09] LABS: Glucose, Whole Blood 130 mg/dL (60-115)
[2024-05-22] MEDS: Warfarin Sodium 2.5 MG TABLET PO (19:18)
[2024-05-22] MEDS: atenoloL 25 MG TABLET PO (19:19)
[2024-05-22 19:33] VITALS: BP 143/68; PULSE 106; RESP 20; TEMP 36.6; O2SAT 99
[2024-05-23 04:00] VITALS: BP 126/56; PULSE 79; RESP 20; TEMP 36.3; O2SAT 99
[2024-05-23] MEDS: 0.9 % Sodium Chloride Flush 3 ML SYRINGE IVFLUSH (07:03)
[2024-05-23] MEDS: Enoxaparin Sodium 60 MG/0.6 ML SYRINGE 50 MG SUBCUT (07:05)
[2024-05-23 07:15] LABS: INTERNATIONAL NORM RATIO 1.1 (0.9-1.1); Prothrombin Time 12.8 SEC (11.1-13.3)
[2024-05-23 07:29] LABS: Anion Gap 11 (12-20); Blood Urea Nitrogen 21 mg/dL (9-16); Calcium 9.3 mg/dL (8.4-10.2); Carbon Dioxide 28 mmol/L (22-29); Chloride 109 mmol/L (96-108); Creatinine Clr Calc Pharmacy 67.5; Estimated Glomerular Filt Rate > 60; Glucose Random 97 mg/dL (60-115); Magnesium 2.3 mg/dL (1.6-2.6); Phosphorus 3.1 mg/dL (2.7-4.5); Potassium 4.5 mmol/L (3.3-5.1); Sodium 143 mmol/L (135-145)
[2024-05-23 08:00] VITALS: BP 118/64; PULSE 82; RESP 24; TEMP 36.4; O2SAT 98
[2024-05-23] MEDS: atenoloL 25 MG TABLET PO (08:18)
--- NOTE | 2024-05-23 09:18 | MHC.CLN ---
F/U DIET STARTED 05/21=PUREE WITH ENSURE TID. RECEIVED PPN 05/20 AND DISCONTINUED 05/22. PEG PLACEMENT DECLINED BY FAMILY. PT WITH INCREASED NUTRITION NEEDS R/T PRESSURE INJURY, STAGE II COCCYX. PATIENT REQUIRES 1:1 FEEDING. LIKES VANILLA ENSURE. PO 25-50%. FOLLOW FOR PO INTAKE, WOUND HEALING AND PLAN OF CARE.
--- NOTE | 2024-05-23 10:31 | PM.DS ---
DS: Providers Provider Date of Service: 05/23/24 Date of admission: 05/18/24 19:50 Date of discharge: 05/23/24 Primary care physician: Stanton Clemons III, MD Consults: 05/18/24 19:47 Consult to Wound Care Routine Reason for consultation: sacral ulcer 05/18/24 23:50 Consult to Wound Care Routine Reason for consultation: pressure injury to coccyx Has provider been notified: No 05/19/24 11:04 Consult to General Surgery Routine Consulting Provider: Daniel Osei Reason for consultation: Evaluation the need for PEG tube. DS: Diagnosis Discharge Diagnosis (1) Swallowing problem: Status: Acute (2) Sepsis: Status: Acute (3) Acute UTI: Status: Acute (4) Acute dehydration: Status: Acute (5) Acute hypernatremia: Status: Acute (6) Protein-calorie malnutrition: Status: Acute (7) Oral thrush: Status: Acute (8) Pressure injury of coccygeal region, stage 2: Status: Acute DS: Summary Hospital Course Hospital Course: Admission note HPI 73M PMH advanced Alzheimer's dementia, nonverbal, bedbound with functional quadriplegia, history of DVT on warfarin, aortic regurgitation, COPD, hypertension, monitor protein calorie malnutrition presented with altered mental status. Patient history taken from daughter who is his primary caregiver and healthcare proxy. She reports that patient has been declining over the course of several years but more significantly over the last few days and weeks. Previously was able to vocalize nonsensically, over last few days has been not saying anything. Unable to take anything p.o., more lethargic appearing. Five days prior to presentation was diagnosed with urinary tract infection with Pseudomonas, prescribed levofloxacin but was unable to take. In ED found to have significant hypernatremia of 159, acute kidney injury with creatinine of 1.46. Fever of 101.9. Hospital course - Sepsis due to Pseudomonas UTI complicated by acute metabolic encephalopathy The patient was admitted for treatment with IV antibiotics as it was partially treated as outpatient. Started On Meropenem with good response as mentation improved back to baseline and Negative repeated Urine culture though he finished >5 days of IV Meropenem. No need for further antibiotics upon discharge. - Swallowing problem The patient was kept NPO upon admission. Started on IV fluids and PPN. Evaluated by [employer]ER AND POLISHER team as his mentation improved. recommended starting diet which he tolerated well. Discussed with surgical team the need for placement of PEG tube. Family decide not to place a PEG. Will continue with Pureed diet and thin liquids per [employer] recommendations. - acute hypernatremia and acute kidney injury due to severe dehydration On presentation. Improved Sodium and creatinine levels back to normal as he was treated with IV fluids. encourage free water intake at home and discontinue Spironolactone on discharge. - Advanced Alzheimer's dementia with functional quadriplegia Family considered hospice at home but they would like to continue conservative care at this point and not to go with hospice care at this time. - History of DVT Was placed on therapeutic Lovenox during hospital stay. restarted on Warfarin while inpatient. to discharge home to continue Warfarin and follow INR by [facility], next time 05/25. Discharge plan Continue modified diet, take aspiration precautions Discontinue Levofloxacin Discontinue Spironolactone to avoid dehydration Start MOM as needed for heartburn and constipation Suction machine and nebulizer were prescribed Visitinig nurses to follow with you at home Oral care to avoid fungal infection Time Attestation Discharge Coordination Time (in mins): 39 Quality: Safe Use of Opioids Does Pt have an Active Cancer Diagnosis on the Problem List?: No Quality: Stroke Does the patient have a stroke diagnosis?: No Physical Exam Vital Signs: Vital Signs: Last Vital Signs Temp 97.5 F 05/23/24 08:00 Pulse 82 05/23/24 08:00 Resp 24 H 05/23/24 08:00 BP 118/64 05/23/24 08:00 Pulse Ox 98 05/23/24 08:00 O2 Del Method Nasal Cannula 05/23/24 08:00 O2 Flow Rate 2 05/23/24 08:00 Oxygen Flow Rate 2 05/18/24 13:44 BMI result Body Mass Index 19.9 Const: Other: Constitutional : alert, non-verbal, not in distress Cardiovascular : no JVP, no lower extremity edema Respiratory : bilateral chest movement, not in resp distress Gastrointestinal: soft, lax, Non tender Skin : Warm, Dry, stage II sacral pressure wound Neurological : Alert, contracted , No focal deficit DS: Data Data Completed and Pending Completed studies during hospitalization [Text1]: Procedures Introduction of Remdesivir Anti-infective into Peripheral Vein, Percutaneous Approach, [employer] 5 (04/22/22) Labs on day of discharge: Laboratory Results - last 24 hr 05/22/24 05/23/24 15:44 05:53 Hold Purple Top SEE NOTE PT 12.8 INR 1.1 Sodium 143 Potassium 4.5 Chloride 109 H Carbon Dioxide 28 Anion Gap 11 L BUN 21 H Creatinine 0.78 Estim Creat Clear Calc 67.5 Estimated GFR > 60 POC Glucose 130 H Random Glucose 97 Calcium 9.3 Phosphorus 3.1 Magnesium 2.3 Imaging Chest x-ray: Radiologist's impression: ITS Impressions Chest X-Ray 05/18/24 15:03 IMPRESSION: No definite acute parenchymal disease. Limited visualization retrocardiac region. Head CT 05/18/24 16:23 IMPRESSION: No acute intracranial pathology. Stable ventriculomegaly and significant bifrontal atrophy. No new findings. Discharge Plan Discharge Anticipated Discharge Date/Time: 05/23/24 10:21 Patient Disposition: Home Health Service Discharge Diagnosis: Urine infection Dehydration swallowing problem Referrals: Stanton Clemons III, MD [Primary Care Provider] - 1 Week Discharge Medications: New (DME) Suction machine w/tubing, canister and filter Kit See Rx Instructions .Route Qty: 1 0RF Rx Instructions: As directed (DME) nebulizers [facility] See Rx Instructions .Route Qty: 1 0RF Rx Instructions: As directed magnesium hydroxide [Milk of Magnesia] 400 mg/5 mL Suspension 15 ml PO DAILY PRN (Reason: Constipation\Heartburn) Qty: 355 2RF Continued (DME) disposable gloves [Biobrane Gloves Medium] Misc See Rx Instructions .Route Qty: 100 12RF Rx Instructions: As directed- 4 boxes of 100 per month (DME) Select Briefs Misc See Rx Instructions .ROUTE .MEDSUPPLY Qty: 8 11RF Rx Instructions: As directed- adult disposable diapers weight 162 lbs (DME) underpads 23 X 36 pad See Rx Instructions .Route Qty: 240 11RF Rx Instructions: As directed 8 per day/ 240 per month warfarin 5 mg tablet 2.5 mg PO DAILY@1800 Rx Instructions: Thursday and Thursday albuterol sulfate 2.5 mg /3 mL (0.083 %) Solution For Nebulization 2.5 mg INHALATION Q4H PRN (Reason: Respiratory Distress) acetaminophen [Tylenol] 325 mg Tablet 650 mg PO Q6H PRN (Reason: Fever) Ensure High Protein Liquid 1 ea PO QID 30 Days Qty: 237 0RF docusate sodium 60 mg/15 mL syrup 100 mg PO BID Qty: 480 0RF Rx Instructions: for constipation, hold for diarrhea loratadine 10 mg tablet 10 mg PO DAILY omeprazole 20 mg capsule,delayed release(DR/EC) 20 mg PO DAILY@0630 atenolol 25 mg tablet 25 mg PO DAILY Naftin 2 % gel 1 appl topical DAILY Discontinued levofloxacin 500 mg tablet 500 mg PO DAILY 7 Days Qty: 7 0RF Rx Instructions: END DATE 8-12 spironolactone 25 mg tablet 25 mg PO DAILY Discharge Orders: Discharge Order (Routine); Ordered 05/23/24 Ordered By: Maria Del Carmen Tran Diet: Pureed with thin liquids Activity on Discharge: As tolerated Stand Alone Forms: Patient Portal Discharge page Print Language: Thai Care Plan Goals: Finished 5 days of IV antibiotics with fair response as he is able to tolerate modified diet. Continue modified diet, take aspiration precautions Discontinue Levofloxacin Discontinue Spironolactone to avoid dehydration Start MOM as needed for heartburn and constipation Suction machine and nebulizer were prescribed Visitinig nurses to follow with you at home Daily oral care to avoid fungal infection Health Concerns: Read below Plan of Treatment: Read below Assessment: Read below Discharge Date/Time: 05/23/24 13:27
--- NOTE | 2024-05-23 11:58 | HO.WOUND ---
Wound Consult: Initial 73yr old?Male admitted to [facility] on 05/18/24 - See progress notes and H&P for detailed history.? Wound consult placed for Coccyx wound POA.? Arrival to bedside - patient was awake but nonverbal or interactive to his environment in my presence. His daughter was there and provided a great deal of information. Two days ago while inpatient she reported he was due for his dressing change to the sacrum. She reports the patient has [facility] at home and she provides his care. She reports the wound is healing as the wound was large and tunneled in the past. She reports she is currently using Puracol - Collagen layer to the base of the wound followed by a Mepilex foam bordered dressing per direction from [facility]NA. She requests I not assess the wound at this time as it is not due for dressing change. She reports the Puracol is to stay in place for 7 days and she and [facility]NA will change on the appropriate date. Patient is scheduled for d/c to home today with VNA services in place. Photo from chart review from admission. Location - Sacrum Resurfacing full thickness pressure injury - suspect stage 4 given the description by the patients daughter. No new topical recommendations needed at this time - patient will continue to follow with [facility] for care and assessments.
== END 2024-05-23 13:27 | disposition home health service (06) | DRG 871 ==
LOC: HO.ED 16:51 → HO.EDOVER 19:57 → HO.S3 21:42
PROVIDERS: Admitting Provider Internal Medicine; Emergency Provider Student in an Organized Health Care Education/Training Program; PCP Internal Medicine; Visit Provider Student in an Organized Health Care Education/Training Program
DX: A41.9 Sepsis, unspecified organism (principal); G93.41 Metabolic encephalopathy; R53.2 Functional quadriplegia; N39.0 Urinary tract infection, site not specified; E87.0 Hyperosmolality and hypernatremia; N17.9 Acute kidney failure, unspecified; E44.0 Moderate protein-calorie malnutrition; Z68.1 Body mass index [BMI] 19.9 or less, adult; B37.81 Candidal esophagitis; J44.9 Chronic obstructive pulmonary disease, unspecified; I10 Essential (primary) hypertension; B96.5 Pseudomonas (aeruginosa) (mallei) (pseudomallei) as the cause of diseases classified elsewhere; R13.10 Dysphagia, unspecified; Z66 Do not resuscitate; E86.0 Dehydration; I35.1 Nonrheumatic aortic (valve) insufficiency; L89.152 Pressure ulcer of sacral region, stage 2; T36.8X6A Underdosing of other systemic antibiotics, initial encounter; G30.9 Alzheimer's disease, unspecified; F02.80 Dementia in other diseases classified elsewhere, unspecified severity, without behavioral disturbance, psychotic disturbance, mood disturbance, and anxiety; Z74.01 Bed confinement status; Z86.718 Personal history of other venous thrombosis and embolism; Z91.041 Radiographic dye allergy status; Z79.01 Long term (current) use of anticoagulants; Z79.899 Other long term (current) drug therapy
CPT/HCPCS: 36415; 70450; 71045; 80048; 80076; 81001; 82040; 82947; 83605; 83690; 83735; 84100; 84478; 85025; 85027; 85610; 87086; 92526; 92610; 99285; J0696; J1450; J1650; J2185; J7120

== ENCOUNTER → 2024-05-18 19:50 | Outpatient (BNV) | payer MEDICARE, MEDICAID, SELFPAY | PROVIDERS: Admitting Provider Internal Medicine; Emergency Provider Student in an Organized Health Care Education/Training Program; PCP Internal Medicine; Visit Provider Internal Medicine | DX: R13.10 Dysphagia, unspecified (principal); N39.0 Urinary tract infection, site not specified; A41.9 Sepsis, unspecified organism; E86.0 Dehydration; E87.0 Hyperosmolality and hypernatremia; E46 Unspecified protein-calorie malnutrition; B37.0 Candidal stomatitis; L89.152 Pressure ulcer of sacral region, stage 2 | CPT/HCPCS: 99223; 99232; 99233; 99239 ==

== ENCOUNTER → 2024-05-18 19:50 | Outpatient (BNV) | payer MEDICARE, MEDICAID, SELFPAY | PROVIDERS: Admitting Provider Internal Medicine; Emergency Provider Student in an Organized Health Care Education/Training Program; PCP Internal Medicine; Visit Provider Surgery | DX: E46 Unspecified protein-calorie malnutrition (principal) | CPT/HCPCS: 99222 ==

== ENCOUNTER 2024-06-03 09:22 | Outpatient (REF) | payer MEDICARE, MEDICAID, SELFPAY ==
[2024-06-03 09:31] LABS: Appearance Urine Clear; Color Urine Yellow; Glucose Urine UA Negative (Negative); Leukocyte Esterase Urine Moderate (2+) (Negative); Nitrite Urine Negative (Negative); Specific Gravity - Urine 1.015 (1.005-1.025); UMIC TRIGGER UA YES; Urine Blood Negative (Negative); Urine Ketones Negative (Negative); Urine Protein Negative (Neg-Trace)
[2024-06-03 09:38] LABS: Bacteria Urine None Seen (None Seen); Hyaline Casts Urine 0-2 /LPF (0-2); RBC Urine 0-2 /HPF (0-2); Squamous Epithelial Cell Urine 0-2 /HPF (0-2); WBC Urine 0-5 /HPF (0-5)
== END 2024-06-03 09:23 | disposition home or self-care (01) ==
LOC: HO.LNP 09:22
PROVIDERS: Visit Provider Urology
DX: N39.0 Urinary tract infection, site not specified (principal); N40.1 Benign prostatic hyperplasia with lower urinary tract symptoms; N13.8 Other obstructive and reflux uropathy
CPT/HCPCS: 81001; 87086; 87088; 87186

== ENCOUNTER 2024-06-17 08:25 | Outpatient (REF) | payer MEDICARE, MEDICAID, SELFPAY ==
[2024-06-17 08:51] LABS: Appearance Urine Clear; Color Urine Yellow; Glucose Urine UA Negative (Negative); Leukocyte Esterase Urine Small (1+) (Negative); Nitrite Urine Negative (Negative); Specific Gravity - Urine 1.015 (1.005-1.025); UMIC TRIGGER UA YES; Urine Blood Negative (Negative); Urine Ketones Negative (Negative); Urine Protein Negative (Neg-Trace)
[2024-06-17 09:08] LABS: Bacteria Urine None Seen (None Seen); Hyaline Casts Urine 0-2 /LPF (0-2); RBC Urine 0-2 /HPF (0-2); Squamous Epithelial Cell Urine 0-2 /HPF (0-2); WBC Urine 0-5 /HPF (0-5)
== END 2024-06-17 08:26 | disposition home or self-care (01) ==
LOC: HO.LNP 08:25
PROVIDERS: Visit Provider Urology
DX: N39.0 Urinary tract infection, site not specified (principal)
CPT/HCPCS: 81001; 87086

== ENCOUNTER 2024-07-06 08:43 | Outpatient (REF) | payer MEDICARE, MEDICAID, SELFPAY ==
[2024-07-06 11:48] LABS: MANUAL DIFF FLAG NO
[2024-07-06 11:53] LABS: Basophils Percent Auto 0.4 % (0-2); Eosinophils Absolute Auto 0.4 X10*3/uL (0.0-0.4); Eosinophils Percent Auto 5.3 % (0-4); Hematocrit 46.1 % (42.0-52.0); Hemoglobin 15.4 g/dl (14.0-18.0); Imm Gran Abs Auto 0.01 X10*3/uL (0.00-0.03); Imm Gran Pct Auto 0.1 % (0.0-0.4); Lymphocytes Percent Auto 29.2 % (20-40); Mean Corpuscular HGB Conc 33.4 g/dl (31.0-36.0); Mean Corpuscular Hemoglobin 29.1 pg (27.0-33.0); Mean Corpuscular Volume 87.1 fL (80.0-98.0); Monocytes Absolute Auto 0.4 X10*3/uL (0.1-1.2); Monocytes Percent Auto 5.9 % (2-11); Neutrophils Percent Auto 59.1 % (45-73); Platelet Count 149 X10*3/uL (160-400); Red Blood Count 5.29 X10*6/uL (4.60-5.80); Red Cell Distribution Width 14.7 % (11.0-16.0); White Blood Count 6.7 X10*3/uL (4.8-10.8)
[2024-07-06 12:15] LABS: Alanine Aminotransferase 28 U/L (0-40); Albumin Level 3.4 g/dL (3.5-5.0); Alkaline Phosphatase 50 U/L (39-117); Anion Gap 12 (12-20); Aspartate Amino Transferase 28 U/L (5-37); Bilirubin Total 0.7 mg/dL (0.0-1.0); Blood Urea Nitrogen 20 mg/dL (9-16); Calcium 9.4 mg/dL (8.4-10.2); Carbon Dioxide 28 mmol/L (22-29); Chloride 113 mmol/L (96-108); Estimated Glomerular Filt Rate > 60; Glucose Random 90 mg/dL (60-115); Sodium 149 mmol/L (135-145); Total Protein 7.2 g/dL (6.5-8.0)
[2024-07-06 12:26] LABS: Prostate Specific Antigen 4.49 ng/mL (<0.05-4.0)
== END 2024-07-06 08:44 | disposition home or self-care (01) ==
LOC: HO.LHD 08:43
PROVIDERS: Visit Provider Internal Medicine Medical Oncology
DX: G30.9 Alzheimer's disease, unspecified (principal); I10 Essential (primary) hypertension; J44.9 Chronic obstructive pulmonary disease, unspecified; Z74.01 Bed confinement status; Z12.5 Encounter for screening for malignant neoplasm of prostate; Z86.718 Personal history of other venous thrombosis and embolism
CPT/HCPCS: 36415; 80053; 84153; 85025

== ENCOUNTER 2024-08-26 08:44 | Outpatient (AMB) | payer MEDICARE, MEDICAID, SELFPAY ==
--- NOTE | 2024-08-26 08:44 | A.OFFVIS_ITS ---
Intake Visit Reasons: 1Y PSA(set) Intake Note: Patient is Present for Telephone PSA Follow Up Urology Med: None Antibiotic Allergy: Sulfa Antibiotics Blood Thinner: Warfarin PSA: 07/06/24- 4.49 Spring Upholsterer Required: No Civil Transportation Engineer: Civil Transportation Engineer Present Accompanied by: Daughter Allergies doxycycline Allergy (Severe, Verified 08/26/24 08:45) Rash nut - unspecified Allergy (Severe, Verified 08/26/24 08:45) GI Stomach Bleed oxycodone [OXYCODONE] Allergy (Severe, Verified 08/26/24 08:45) Decrease BP Iodinated Contrast Media [IVP DYE] Allergy (Intermediate, Verified 08/26/24 08:45) CKD PER DAUGHTER PT IS NOT TO HAVE DUE TO KIDNEYS Sulfa (Sulfonamide Antibiotics) Allergy (Intermediate, Verified 08/26/24 08:45) Rash tramadol [TRAMADOL] Allergy (Intermediate, Verified 08/26/24 08:45) PER DAUGHTER PT PASSED OUT, weakness meperidine [From Demerol] Allergy (Verified 08/26/24 08:45) Redness of Skin HPI Comments Details: Antoni VIDALES is a very pleasant male. He is a patient of Dr. Clemons. He is seen for the following urologic conditions. - urinary urgency - urinary leakage - UTI Telemedicine Evaluation 15 min Consultation VidAngel Nat Video attempted Discussion primarily with daughter as patient has significant dementia which is progressive Start finasteride to empty bladder Max Vit C to 1000mg daily Has levaquin Urinary Tract Infection Levaquin sensitive Lower urinary tract symptoms Progressive dementia with loss of bladder control ?Current treatment includes Combination therapy. ?Prostate Symptom Score 10/30 , Moderate (9-19), Bother 4. ?Symptoms include 10/30 , incomplete emptying, weak stream, nocturia (>2), and are progressing. ?Results from testing include? renal/bladder us? Yes ? date? 10/27/2018 ? PVR? 90 ? prostate size? 50 ?Prior Prostate Score unknown. ?PSA 10/30 2.6 ? 06/30 3.8, 05/01 3.3, 09/03 3.8, 07/05 4.5 ?Prostate volume 30-50gm. ?Testing at next visit will include bladder scan ? continue with MTOPS?? PFSH Medical History Swallowing problem Alzheimer's dementia Protein-calorie malnutrition Alzheimer's dementia Febrile Encephalopathy Altered mental status Depression Non-rheumatic aortic regurgitation Ascending aortic aneurysm CKD (chronic kidney disease) Chronic anticoagulation Bleeding hemorrhoids Heart valve disease Acute deep vein thrombosis (DVT) COPD (chronic obstructive pulmonary disease) Surgical History Hx of cholecystectomy History of inguinal hernia repair Family History Father History of prostate cancer Social History Household Members: Children Housing: Apartment Do you presently have visiting nurse or other home services: Yes Unable to assess alcohol history related to: Unable to respond Alcohol intake: never Comment: family constantly at bedside Patient Tobacco Use Status: Never used Tobacco Advance Directives Date on File: 05/05/23 service: No Current occupational status: disabled Review of Systems Const All systems reviewed & are unremarkable except as noted in HPI and below Reports no additional complaints Resp Reports no additional complaints GI Reports no additional complaints Reports as per HPI Musc Reports no additional complaints Physical Exam Telemedicine evaluation Appropriate responses Regular breathing rate and rhythm HEENT Head: Yes normal to inspection Ears: hearing grossly normal bilaterally Eyes General: appearance normal, both eyes and all related structures Neck Neck: Yes normal visual inspection Chest Chest palpation & inspection: normal inspection of the chest Resp Effort & Inspection: normal respiratory effort and able to speak in complete sentences Telehealth Telehealth Telehealth Platform: [facility] Location of provider rendering services: practice address Location of patient: address on file Patient Identification confirmed using: Name, : Yes Telehealth method: video Patient verbally consented to treatment: Yes Patient verbally consented to billing insurance company: Yes Patient informed of any privacy concerns related to visit: Yes Minutes spent on Phone/Video with Pt.: 15 Assessment & Plan Assessment & Plan (1) BPH w urinary obs/LUTS: Code(s): N40.1 - Benign prostatic hyperplasia with lower urinary tract symptoms; N13.8 - Other obstructive and reflux uropathy Category: Medical (2) UTI (urinary tract infection): Code(s): N39.0 - Urinary tract infection, site not specified Category: Medical Plan 6m f/u tele Medications: New finasteride 5 mg PO DAILY 90 days 90 tabs 1RF N13.8 - Other obstructive and reflux uropathy, N40.1 - Benign prostatic hyperplasia with lower urinary tract symptoms, R33.9 - Retention of urine, unspecified Refilled levofloxacin 500 mg PO DAILY 7 days 7 tabs 1RF N13.8 - Other obstructive and reflux uropathy, N40.1 - Benign prostatic hyperplasia with lower urinary tract symptoms Patient Instructions: Imaging studies, laboratory and physical exam results were discussed and reviewed in detail. No major barriers to patient understanding were identified. An opportunity to ask questions regarding the treatment plan was provided. All questions were answered. The patient expressed understanding and agreement with the above treatment plan. The patient is aware they should contact our office by phone for worsening of their current condition or the appearance of new urologic symptoms. Compliance is encouraged with any medications and followup testing that is ordered. It is a privilege to participate in the urologic care of your patient. If you have any questions or concerns regarding treatment for the above conditions, or other urologic issues, please do not hesitate to contact me. The office telephone contact is [phone]. This note is constructed using voice recognition software. While every effort has been made to ensure accuracy manager supply errors may have been included. Yours sincerely, Dr Myles Gomez MD, EMILIANO [facility] - Urology Providers of Expert, Compassionate Care for the Genitourinary System Coding Level of Care Code Tele Est Pt Level 4 (78211) Diagnoses BPH w urinary obs/LUTS N40.1; N13.8 UTI (urinary tract infection) N39.0
--- OUTSIDE RECORDS SUMMARY | 2024-09-02 11:52 | XMS_ITS | Continuity of Care Document ---
Author Organization [facility] Address [address] [place] [id number]- Care Team Providers Care Hydraulic Miner Name Role Phone Stanton Clemons III, MD Primary Care Physician [place] [facility] [place] 10/27/19 - 11/03/19 [facility] [address] [place] [id number]- [facility] Attending Physician: Ranjeet Oswald MD Referring Physician: Stanton Clemons III, MD Allergies, Adverse Reactions, Alerts Substance Reaction Severity Status Contrast Dye Active Nuts Active traMADol 1 Active oxyCODONE Active 1low bp and dizziness Medications albuterol 90 mcg/inh inhalation aerosol See Instructions, Use as needed and as directed, 0 Refills, Maintenance Start Date: 10/27/19 Status: Ordered allopurinol 100 mg oral tablet TAKE 1 TABLET BY MOUTH EVERY DAY Start Date: 11/17/18 Status: Ordered Aricept 10 mg oral tablet 10 mg, 1, tablet, By Mouth, Daily at bedtime, Refills 0, Maintenance, 10/27/19 13:41:00 EST Start Date: 10/27/19 Status: Ordered atenolol 25 mg oral tablet TAKE 1 TABLET BY MOUTH EVERY DAY Start Date: 11/17/18 Status: Ordered Betamethasone Valerate 0.1% Ointment APPLY TO FEET, Topically, 2 times a day, 0 Refills, Maintenance, 10/27/19 13:41:00 EST Start Date: 10/27/19 Status: Ordered buPROPion 300 mg/24 hours oral extended release tablet 1 tablet = 300 mg, By Mouth, Every 24 hours, 0 Refills, Maintenance Start Date: 07/19/13 Status: Ordered clonazepam 0.5 mg oral tablet 1 tablet = 0.5 mg, By Mouth, 3 times a day, 0 Refills, Maintenance Start Date: 07/19/13 Status: Ordered Compression Stockings See Instructions, # 3 pair, Refills 3, Tot. Refills 3, Maintenance, surgical, knee length 20-30 mm Hg, 07/19/13 14:11:59, Compound Start Date: 07/19/13 Status: Ordered Compression Stockings See Instructions, # 2 pair, Refills 3, Tot. Refills 3, Maintenance, surgical, knee length 20-30 mm Hg Severe post phlebitic syndrome left leg, right leg venous insufficiency, 11/06/16 14:58:50, Compound Start Date: 11/06/16 Status: Ordered diclofenac 1% topical gel = 2 Gm, Topically, 4 times a day, PRN Pain , Moderate, 0 Refills, Maintenance, 10/27/19 13:41:00 EST Start Date: 10/27/19 Status: Ordered erythromycin 2% topical gel 1 applicator, Topically, 2 times a day, 0 Refills, Maintenance, 10/14/16 13:32:54 Start Date: 10/14/16 Status: Ordered finasteride 5 mg oral tablet 1 tablet = 5 mg, By Mouth, Daily, 0 Refills, Maintenance, 10/27/19 13:41:00 EST Start Date: 10/27/19 Status: Ordered hydrocortisone 2.5% topical cream Apply as directed, Topically, 2 times a day, 0 Refills, Maintenance, 10/27/19 13:40:00 EST Start Date: 10/27/19 Status: Ordered meclizine 12.5 mg oral tablet 1 tablet = 12.5 mg, By Mouth, 2 times a day, PRN for dizziness, # 30 tablet, 0 Refills, Maintenance, 10/14/16 13:32:01, Tablet Start Date: 10/14/16 Status: Ordered memantine 21 mg oral capsule, extended release 1 capsule = 21 mg, By Mouth, Daily, # 30 capsule, 0 Refills, Maintenance, 10/14/16 13:32:26, CR Capsule Start Date: 10/14/16 Status: Ordered naftifine 2% topical gel Apply 2 drops, Topically, Daily, 0 Refills, Maintenance, 10/27/19 13:42:00 EST Start Date: 10/27/19 Status: Ordered [place]-3 1000 mg oral capsule 1 capsule = 1,000 mg, By Mouth, 2 times a day, 0 Refills, Maintenance, 10/27/19 13:39:00 EST Start Date: 10/27/19 Status: Ordered omeprazole 20 mg oral enteric coated capsule 1 capsule = 20 mg, By Mouth, Daily, 0 Refills, Maintenance Start Date: 07/19/13 Status: Ordered QUEtiapine 50 mg oral tablet 1 tablet = 50 mg, By Mouth, 2 times a day, 0 Refills, Maintenance, 10/27/19 13:40:00 EST Start Date: 10/27/19 Status: Ordered raNITIdine 150 mg oral tablet 1 tablet = 150 mg, By Mouth, 2 times a day, 0 Refills, Maintenance, 10/27/19 13:40:00 EST Start Date: 10/27/19 Status: Ordered sertraline 25 mg oral tablet 1 tablet = 25 mg, By Mouth, Daily, 0 Refills, Maintenance, 10/27/19 13:40:00 EST Start Date: 10/27/19 Status: Ordered spironolactone 25 mg oral tablet TAKE 1 TABLET BY MOUTH EVERY DAY Start Date: 11/17/18 Status: Ordered Uroxatral 10 mg oral tablet, extended release 1 tablet = 10 mg, By Mouth, Daily, 0 Refills, Maintenance, 10/27/19 13:41:00 EST Start Date: 10/27/19 Status: Ordered warfarin 5 mg oral tablet 1 tablet = 5 mg, By Mouth, Daily, DIRECTED, 0 Refills, Maintenance, 10/27/19 13:41:00 EST Start Date: 10/27/19 Status: Ordered Problem List Condition Effective Dates Status Health Status Inform ant Dilated aortic root(Confirmed) Active Aortic regurgitation(Confirmed) Active Hip arthritis(Confirmed) Active CKD (chronic kidney disease)(Confirmed) Active Right leg DVT(Confirmed) Active Dementia(Confirmed) Active HTN (hypertension)(Confirmed) Active Vital Signs Most recent to oldest [Reference Range]: 1 Height 167 cm (10/27/19 1:34 PM) Pulse Rate [55-90 bpm] 92 bpm *H* (10/27/19 1:34 PM) Blood Pressure [90-138/55-84 mm Hg] 112/ 70mm Hg (10/27/19 1:34 PM) Respiratory Rate [16-30 br/min] 18 br/mi n (10/27/19 1:34 PM) Blood pressure sites Arm, right (10/27/19 1:34 PM) Social History Social History Type Response Smoking Status Never smoker entered on: 11/06/16 Sex
--- OUTSIDE RECORDS SUMMARY | 2024-09-02 11:52 | XMS_ITS | Continuity of Care Document ---
Author Organization [facility] Address [address] [place] [id number]- Care Team Providers Care Unarmed Security Officer Name Role Phone Deonte ADAMES MD, Stanton Garcia Primary Care Physician Encounter [facility] [place] Date(s): 01/26/20 - 07/26/[address] [address]- [facility] Attending Physician: Gaby Denis NP Admitting Physician: Gaby Denis NP Referring Physician: Gaby Denis NP Allergies, Adverse Reactions, Alerts Substance Reaction Severity [...] 13:42:00 EST Start Date: 10/27/19 Status: Ordered [place]-3 1000 mg oral capsule 1 capsule = [...] DVT(Confirmed) Active Dementia(Confirmed) Active HTN (hypertension)(Confirmed) Active Social History Social History Type Response Smoking Status Never smoker entered on: 11/06/16 Sex
--- OUTSIDE RECORDS SUMMARY | 2024-09-02 11:52 | XMS_ITS | Continuity of Care Document ---
Author Organization [facility] Address [address] [id number]- Care Team Providers Care Job Trainer Name Role Phone Stanton Clemons III, MD Primary Care Physician [place] [facility] [place] [id number] Date(s): 10/27/19 - 11/06/19 [facility] [address] [address]- [facility] Attending Physician: Juice Hughes Admitting Physician: AdmtrJuice Referring Physician: Admtr, Ar8 Allergies, Adverse Reactions, Alerts Substance Reaction Severity [...] 13:42:00 EST Start Date: 10/27/19 Status: Ordered [place]-3 1000 mg oral capsule 1 capsule = [...]
== END 2024-08-26 09:38 | disposition home or self-care (01) ==
LOC: HO.HUSH 08:44
PROVIDERS: PCP Internal Medicine; Visit Provider Urology
DX: N40.1 Benign prostatic hyperplasia with lower urinary tract symptoms (principal); N13.8 Other obstructive and reflux uropathy; N39.0 Urinary tract infection, site not specified
CPT/HCPCS: 99214

== ENCOUNTER → 2024-08-26 08:44 | Outpatient (BNVA) | payer MEDICARE, MEDICAID, SELFPAY | PROVIDERS: PCP Internal Medicine; Visit Provider Urology ==

== ENCOUNTER 2024-09-21 02:14 | Inpatient (IN) | payer MEDICARE, MEDICAID, SELFPAY ==
[2024-09-21] VITALS (27 sets, daily range): BP systolic 81–122; BP diastolic 50–80; PULSE 104–144; RESP 17–42; TEMP 38.2–39.9; O2SAT 92–98; BMI 19.2; BMI 21.2
--- NOTE | 2024-09-21 | ECG_ITS ---
Test Reason : GI BLEED Blood Pressure : / mmHG Vent. Rate : 120 BPM Atrial Rate : 120 BPM P-R Int : 144 ms QRS Dur : 080 ms QT Int : 312 ms P-R-T Axes : 031 -37 081 degrees QTc Int : 440 ms Sinus tachycardia Left axis deviation Moderate voltage criteria for LVH, may be normal variant ( R in aVL , Cal product ) Abnormal ECG When compared with ECG of 02-MAY-2024 20:28, No significant change was found Referred By: Generic ED Physician Electronically Signed By:JENNY PERRY MD
--- NOTE | ~2024-09-21 | XR_ITS ---
EXAMINATION: XR CHEST CLINICAL INFORMATION: aspiration COMPARISON: Chest radiograph 05/18/2024 TECHNIQUE: Frontal view of the chest was obtained. FINDINGS: Low lung lines are present with the fifth anterior rib segments remain projection with the lung bases. Left base focal airspace opacification is present with obscuration of the left hemidiaphragmatic margin. No pneumothoraces or pleural effusions visualized. Diffuse osteopenia. Partial visualization of an inferior vena cava filter. XR/XR chest 1V IMPRESSION: Low lung volumes with moderate left lower lobe atelectasis and/or consolidation. Electronically signed by: Rashad Aguirre MD 09/21/2024 04:45 [place] [facility] [place]
--- NOTE | ~2024-09-21 | CT_ITS ---
EXAMINATION: CT ABDOMEN AND PELVIS WITHOUT CONTRAST CLINICAL INFORMATION: Distention, vomiting. History of ileus/SBO. Elevated creatinine. COMPARISON: CT abdomen and pelvis 04/09/2023. TECHNIQUE: Multidetector volumetric imaging was performed from the superior aspect of the liver through the pubic symphysis. Sagittal and coronal reformatted images were obtained on the technologist's workstation. This CT examination was performed using dose optimization techniques as appropriate, variously including the following: *Automated exposure control *Adjustment of mA and/or kV according to patient size (this includes techniques or standardized protocols for targeted exams where dose is matched to indication/reason for exam; i.e. extremities or head) *Use of iterative reconstruction technique DLP: 786 mGy-cm FINDINGS: LUNG BASES: Mild bibasilar posterior dependent atelectasis of the lungs. Within the entire visualized left lung base, peribronchial airspace opacities are noted and are suspicious for mild-moderate aspiration pneumonitis. LIVER, GALLBLADDER, AND BILIARY TREE: The liver is normal in size, shape, and attenuation. No focal hepatic lesion or biliary ductal dilatation is present. Cholecystectomy clips noted. PANCREAS: Unremarkable. SPLEEN: Unremarkable. ADRENAL GLANDS: Unremarkable. KIDNEYS AND URETERS: Multiple bilateral rounded low-density benign-appearing simple cysts of the kidneys are noted occluding a 7 cm focus associated with the left kidney. These findings warrant additional imaging follow-up. No hydronephrosis. No perinephric inflammatory changes. BLADDER: Unremarkable. GASTROINTESTINAL TRACT: Multiple dilated small bowel segments measuring up to 4.5 cm in diameter present. A transition between dilated and nondilated small bowel is noted in the distal ileum within the right upper abdominal quadrant (series 7 image 34, series 3 image 41). No free intraperitoneal fluid or gas collections noted. Marked gas-fluid distention of the stomach is present. No focal inflammatory changes of the small bowel mesentery identified. ABDOMINAL WALL: A fat-containing left inguinal hernia is noted. LYMPH NODES: Normal. VASCULAR: Moderate diffuse calcific atherosclerosis PELVIC VISCERA: The prostate measures 4.5 cm in AP dimension. OSSEOUS STRUCTURES: No suspicious skeletal lesions. L5-S1 marked intervertebral disc space narrowing partially visualized moderate posterior broad-based disc-osteophyte complex. CT/CT abdomen pelvis wo IV con IMPRESSION: *High-grade small bowel obstruction. A transition between dilated and nondilated small bowel is noted in the distal ileum within the right upper abdominal quadrant. Focal twisting of the small bowel mesentery is present in the same region. Findings are suspicious for obstruction related to otherwise occult adhesions or possible internal hernia. A discrete internal hernia is not visualized. Findings are inferred based on focal angulation of the small bowel mesentery adjacent to the transition between dilated and nondilated small bowel. (series 7 image 34, series 3 image 41- 43). *Within the incidentally visualized left lower pulmonary lobe. Mild-moderate peribronchial inflammatory changes are present and may represent mild-moderate aspiration pneumonitis. *Diffuse prostatic enlargement. The prostate measures 4.5 cm in AP dimension. *Status post cholecystectomy. Electronically signed by: Rashad Aguirre MD 09/21/2024 04:54 AM [facility]
[2024-09-21] MEDS: Pantoprazole Sodium 40 MG/10 ML VIAL IVPUSH (02:50)
[2024-09-21 02:53] LABS: MANUAL DIFF FLAG NO
--- NOTE | 2024-09-21 02:54 | ED_ITS ---
HPI - Nausea/Vomiting/Diarrhea General Chief complaint: GI Bleed Stated complaint: GI BLEED/SEPSIS Time Seen by Provider: 09/21/24 02:22 Source: family, EMS and old records reviewed Mode of arrival: EMS Limitations: altered mental status History of Present Illness ED Provider: MILENA HPI Narrative: 74 yo male bedbound, nonverbal, dementia, COPD on 2L NC, DVT on coumadin and has IVC filter in place, UTI, aortic aneurysm who is coming from home with daughter - she notes yesterday he seemed more weak and off. 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 She notes last time this happened he had an ileus. She notes he did have a BM in the last couple of day. No known fevers. It is hard to tell if the patient has pain on arrival to the room. 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) Description of vomiting: coffee grounds Associated nausea: Yes Associated abdominal pain: No Severity: moderate Quality: other Exacerbating factors: none Relieving factors: none Context: other (daughter worried about ileus) Associated symptoms: denies other symptoms Treatment prior to arrival: other (IV zofran by EMS) Related Data Home Medications ?Medication ?Instructions ?Recorded ?Confirmed atenolol 25 mg tablet 25 mg PO DAILY 07/26/20 07/08/24 omeprazole 20 mg capsule,delayed 20 mg PO DAILY@0630 07/26/20 07/08/24 release warfarin 5 mg tablet 2.5 mg PO DAILY@1800 05/02/21 07/08/24 naftifine 2 % topical gel (Naftin) 1 appl topical DAILY mycosis 07/02/21 07/08/24 albuterol sulfate 2.5 mg/3 mL 2.5 mg inhalation Q4H PRN 04/22/22 07/08/24 (0.083 %) solution for nebulization Respiratory Distress acetaminophen 325 mg tablet 650 mg PO Q6H PRN Fever 05/21/22 07/08/24 (Tylenol) loratadine 10 mg tablet 10 mg PO DAILY 05/18/24 07/08/24 Previous Rx's ?Medication ?Instructions ?Recorded docusate sodium 60 mg/15 mL oral 100 mg (25 mL) PO BID #480 mL 07/26/22 syrup food supplemt, lactose-reduced 1 ea PO QID 30 days #237 mL 07/26/22 (Ensure High Protein oral liquid) disposable gloves (Biobrane Gloves #100 ea 08/12/22 Medium) diaper,brief,adult,disposable #8 ea 07/24/23 (Select Briefs) underpads 23 X 36 #240 ea 09/17/23 Portable Suction Machine #1 ea 05/23/24 w/tubing,canister&filter (Suction machine w/tubing, canister and filter) magnesium hydroxide 400 mg/5 mL 15 ml PO DAILY PRN 05/23/24 oral suspension (Milk of Magnesia) Constipation\Heartburn #355 mL nebulizers #1 ea 05/23/24 finasteride 5 mg tablet 5 mg PO DAILY 90 days #90 tabs 08/26/24 levofloxacin 500 mg tablet 500 mg PO DAILY 7 days #7 tabs 08/26/24 Allergies Allergy/AdvReac Type Severity Reaction Status Date / Time doxycycline Allergy Severe Rash Verified 09/21/24 02:57 nut - unspecified Allergy Severe GI Stomach Verified 09/21/24 02:57 Bleed oxycodone [OXYCODONE] Allergy Severe Decrease BP Verified 09/21/24 02:57 Iodinated Contrast Media Allergy Intermediate CKD PER Verified 09/21/24 02:57 [IVP DYE] DAUGHTER PT IS NOT TO HAVE DUE TO KIDNEYS Sulfa (Sulfonamide Allergy Intermediate Rash Verified 09/21/24 02:57 Antibiotics) tramadol [TRAMADOL] Allergy Intermediate PER Verified 09/21/24 02:57 DAUGHTER PT PASSED OUT, weakness meperidine [From Demerol] Allergy Redness of Verified 09/21/24 02:57 Skin Review of Systems 2 Review of Systems: ROS unable to be obtained due to altered mental status Gastrointestinal: Gastrointestinal: Reports nausea PMFSH Past Medical History Attestation statement: The following information was validated with the patient. Source: old records reviewed Medical History Swallowing problem Alzheimer's dementia Protein-calorie malnutrition Alzheimer's dementia Febrile Encephalopathy Altered mental status Depression Non-rheumatic aortic regurgitation Ascending aortic aneurysm CKD (chronic kidney disease) Chronic anticoagulation Bleeding hemorrhoids Heart valve disease Acute deep vein thrombosis (DVT) COPD (chronic obstructive pulmonary disease) Surgical History Hx of cholecystectomy History of inguinal hernia repair Family History Family History Father History of prostate cancer Social History Social History Household Members: Children Housing: Apartment Do you presently have visiting nurse or other home services: Yes Unable to assess alcohol history related to: Unable to respond Alcohol intake: never Comment: family constantly at bedside Patient Tobacco Use Status: Never used Tobacco Smoked in Last 30 Days: No Use of substances other than those prescribed or required for medical reasons: No Advance Directives: Yes Advance Directives on File: Yes Advance Directives Date on File: 05/05/23 service: No Current occupational status: disabled Physical Exam 2 Vital Signs: Vital Signs: Last Vital Signs Temp 100.9 F H 09/21/24 08:24 Pulse 116 H 09/21/24 08:24 Resp 38 H 09/21/24 08:24 BP 115/78 09/21/24 08:24 Pulse Ox 94 09/21/24 08:24 O2 Del Method Room Air 09/21/24 08:24 O2 Flow Rate 3 09/21/24 07:32 Oxygen Flow Rate 3 09/21/24 02:54 BMI result Body Mass Index 19.2 Appearance: Alert. at his baseline. Mild acute distress. Eyes: Pupils equal, round and reactive to light. ENT: Pharynx coffee ground emesis on shirt Neck: Normal inspection. Neck supple. CVS: tachycardic heart rate and rhythm. Pulses normal. Respiratory: No respiratory distress. Breath sounds diminished in bases. Abdomen: Soft but mild distention Skin: Skin warm and dry. Normal skin color. Normal skin turgor. Extremities: No lower extremity edema. No calf ttp Neuro: bedbound nonverbal at his baseline Course Course Course Narrative: focused exam for sepsis performed at 546am Reevaluation(s) Reevaluation #1: spoke to Devi his daughter and HCP who is aware he is severely ill and at risk of , she also agrees he is not a surgery candidate he is DNR/DNI 828am Medications Administered Generic Name Dose Route Start Last Admin Trade Name Freq PRN Reason Stop Dose Admin Lactated Ringer's 1,000 mls @ 100 mls/hr 09/21/24 05:30 09/21/24 06:03 Lr IVCONT 100 mls/hr .Q10H THOMAS Administration Discontinued Medications Generic Name Dose Route Start Last Admin Trade Name Yecenia PRN Reason Stop Dose Admin Acetaminophen 1,000 mg in 100 mls @ 400 mls/hr 09/21/24 03:05 09/21/24 04:12 Ofirmev IV 09/21/24 03:19 Infused ONCE ONE Infusion Piperacillin Sod/Tazobactam 50 mls @ 100 mls/hr 09/21/24 03:07 09/21/24 04:12 Sod 3.375 gm/ Sodium Chloride IV 09/21/24 03:36 Infused ONCE ONE Infusion Vancomycin HCl 1,250 mg/ 250 mls @ 166.667 mls/hr 09/21/24 03:07 09/21/24 05:58 Sodium Chloride IV 09/21/24 04:36 Infused ONCE ONE Infusion Lactated Ringer's 1,623 mls @ 1,623 mls/hr 09/21/24 03:17 09/21/24 05:38 Lr 30 ml/kg infuse over 1 hr (1623 ml) 09/21/24 04:16 Infused IV Infusion .Q1H ONE Pantoprazole Sodium 40 mg 09/21/24 02:23 09/21/24 02:50 Pantoprazole Sodium 40 Mg/10 Ml Vial IVPUSH 09/21/24 02:24 40 mg ONCE ONE Administration Medical Decision Making Medical Decision Making MDM Narrative: 74 yo male bedbound, nonverbal, dementia, COPD on 2L NC, DVT on coumadin and has IVC filter in place, UTI, aortic aneurysm here with coffee ground emesis, hot to touch. He is hard to get a full history from - at this time basic labs, EKG, cultures, lactic acid, IV protonix, CXR for aspiration, CT scan for ileus. He is on coumadin will reverse for any worse bleeding. Empiric abx Differential Diagnosis Differential Diagnoses: The differential diagnosis associated with the presentation includes ileus, UTI, pneumonia, GIB Admission/Observation Consideration of admission/observation: Escalation of care including admission/observation considered admit given clinical picture and fevers Consult Healthcare Provider Management of the patient was discussed with: Hospitalist (will admit) and Transfer Iron Operator (Dr. Pizarro aware will follow ) Lab Data [facility] Lab Attestation statement: I reviewed the patient's lab results. 09/21/24 02:44 09/21/24 02:44 Labs: Lab Results 09/21/24 09/21/24 09/21/24 Range/Units 02:38 02:44 02:45 WBC 15.3 H (4.8-10.8) X10*3/uL RBC 6.15 H (4.60-5.80) X10*6/uL Hgb 17.8 (14.0-18.0) g/dl Hct 53.8 H (42.0-52.0) % MCV 87.5 (80.0-98.0) fL MCH 28.9 (27.0-33.0) pg MCHC 33.1 (31.0-36.0) g/dl RDW 16.7 H (11.0-16.0) % Plt Count 209 D (160-400) X10*3/uL MPV 11.7 (9.4-12.4) fL Immature Gran % (Auto) 0.3 (0.0-0.4) % Neut % (Auto) 89.2 H (45-73) % Lymph % (Auto) 6.9 L (20-40) % Ross % (Auto) 3.5 (2-11) % Eos % (Auto) 0.0 (0-4) % Baso % (Auto) 0.1 (0-2) % Lymph # (Auto) 1.1 L (1.2-4.9) X10*3/uL Ross # (Auto) 0.5 (0.1-1.2) X10*3/uL Eos # (Auto) 0.0 (0.0-0.4) X10*3/uL Baso # (Auto) 0.0 (0.0-0.2) X10*3/uL Abs Immat Gran (auto) 0.05 H (0.00-0.03) X10*3/uL Absolute Neuts (auto) 13.6 H (2.0-8.3) x10*3/uL Absolute Nucleated RBC 0.000 (0.0-0.012) X10*3/uL Nucleated RBC % (auto) 0.0 (0.0-0.2) /100WBC PT 26.5 H (10.9-12.4) SEC INR 2.3 H (0.9-1.1) APTT 36.6 (26.0-36.8) SEC Sodium 147 H (135-145) mmol/L Potassium 5.2 H D (3.3-5.1) mmol/L Chloride 110 H (96-108) mmol/L Carbon Dioxide 19 L (22-29) mmol/L Anion Gap 23 H (12-20) BUN 38 H (9-16) mg/dL Creatinine 2.20 H (0.5-1.4) mg/dL Estim Creat Clear Calc 22.8 Estimated GFR 29 POC Glucose 157 H (60-115) mg/dL Random Glucose 155 H (60-115) mg/dL Lactic Acid 5.9 H* (0.5-2.0) mmol/L Lactic Acid F/U @ 2Hr (0.5-2.0) mmol/L Lactic Acid F/U @ 4Hr (0.5-2.0) mmol/L Calcium 9.5 (8.4-10.2) mg/dL Magnesium 2.4 (1.6-2.6) mg/dL Total Bilirubin 1.1 H (0.0-1.0) mg/dL Direct Bilirubin 0.3 (0.0-0.5) mg/dL AST 40 H (5-37) U/L ALT 49 H (0-40) U/L Alkaline Phosphatase 61 (39-117) U/L Troponin I High Sens 7.3 D (<3.5-35.0) ng/L Total Protein 7.9 (6.5-8.0) g/dL Albumin 3.6 (3.5-5.0) g/dL Lipase 36 (8-78) U/L Urine Color Urine Appearance Urine pH (5.0-9.0) Ur Specific [address] (1.005-1.025) Urine Protein (Neg-Trace) mg/dL Urine Glucose (UA) (Negative) mg/dL Urine Ketones (Negative) mg/dL Urine Blood (Negative) Urine Nitrite (Negative) Ur Leukocyte Esterase (Negative) Urine RBC (0-2) /HPF Urine WBC (0-5) /HPF Ur Squamous Epith Cells (0-2) /HPF Urine Bacteria (None Seen) Hyaline Casts (0-2) /LPF Influenza Type A (PCR) NEGATIVE (Negative) Influenza Type B (PCR) NEGATIVE (Negative) RSV RNA Qual (PCR) NEGATIVE (Negative) SARS-CoV-2 RNA (RT-PCR) POSITIVE A (Negative) Blood Type Antibody Screen 09/21/24 09/21/24 09/21/24 Range/Units 03:13 04:57 07:28 WBC (4.8-10.8) X10*3/uL RBC (4.60-5.80) X10*6/uL Hgb (14.0-18.0) g/dl Hct (42.0-52.0) % MCV (80.0-98.0) fL MCH (27.0-33.0) pg MCHC (31.0-36.0) g/dl RDW (11.0-16.0) % Plt Count (160-400) X10*3/uL MPV (9.4-12.4) fL Immature Gran % (Auto) (0.0-0.4) % Neut % (Auto) (45-73) % Lymph % (Auto) (20-40) % Ross % (Auto) (2-11) % Eos % (Auto) (0-4) % Baso % (Auto) (0-2) % Lymph # (Auto) (1.2-4.9) X10*3/uL Ross # (Auto) (0.1-1.2) X10*3/uL Eos # (Auto) (0.0-0.4) X10*3/uL Baso # (Auto) (0.0-0.2) X10*3/uL Abs Immat Gran (auto) (0.00-0.03) X10*3/uL Absolute Neuts (auto) (2.0-8.3) x10*3/uL Absolute Nucleated RBC (0.0-0.012) X10*3/uL Nucleated RBC % (auto) (0.0-0.2) /100WBC PT (10.9-12.4) SEC INR (0.9-1.1) APTT (26.0-36.8) SEC Sodium (135-145) mmol/L Potassium (3.3-5.1) mmol/L Chloride (96-108) mmol/L Carbon Dioxide (22-29) mmol/L Anion Gap (12-20) BUN (9-16) mg/dL Creatinine (0.5-1.4) mg/dL Estim Creat Clear Calc Estimated GFR POC Glucose (60-115) mg/dL Random Glucose (60-115) mg/dL Lactic Acid (0.5-2.0) mmol/L Lactic Acid F/U @ 2Hr 5.3 H* (0.5-2.0) mmol/L Lactic Acid F/U @ 4Hr (0.5-2.0) mmol/L Calcium (8.4-10.2) mg/dL Magnesium (1.6-2.6) mg/dL Total Bilirubin (0.0-1.0) mg/dL Direct Bilirubin (0.0-0.5) mg/dL AST (5-37) U/L ALT (0-40) U/L Alkaline Phosphatase (39-117) U/L Troponin I High Sens (<3.5-35.0) ng/L Total Protein (6.5-8.0) g/dL Albumin (3.5-5.0) g/dL Lipase (8-78) U/L Urine Color Dark Yellow Urine Appearance Clear Urine pH 5.0 (5.0-9.0) Ur Specific [address] 1.020 (1.005-1.025) Urine Protein Trace (Neg-Trace) mg/dL Urine Glucose (UA) Negative (Negative) mg/dL Urine Ketones Negative (Negative) mg/dL Urine Blood Negative (Negative) Urine Nitrite Negative (Negative) Ur Leukocyte Esterase Small (1+) H (Negative) Urine RBC 0-2 (0-2) /HPF Urine WBC 0-5 (0-5) /HPF Ur Squamous Epith Cells 0-2 (0-2) /HPF Urine Bacteria None Seen (None Seen) Hyaline Casts 3-5 (0-2) /LPF Influenza Type A (PCR) (Negative) Influenza Type B (PCR) (Negative) RSV RNA Qual (PCR) (Negative) SARS-CoV-2 RNA (RT-PCR) (Negative) Blood Type A Positive Antibody Screen NEGATIVE 09/21/24 Range/Units 07:29 WBC (4.8-10.8) X10*3/uL RBC (4.60-5.80) X10*6/uL Hgb (14.0-18.0) g/dl Hct (42.0-52.0) % MCV (80.0-98.0) fL MCH (27.0-33.0) pg MCHC (31.0-36.0) g/dl RDW (11.0-16.0) % Plt Count (160-400) X10*3/uL MPV (9.4-12.4) fL Immature Gran % (Auto) (0.0-0.4) % Neut % (Auto) (45-73) % Lymph % (Auto) (20-40) % Ross % (Auto) (2-11) % Eos % (Auto) (0-4) % Baso % (Auto) (0-2) % Lymph # (Auto) (1.2-4.9) X10*3/uL Ross # (Auto) (0.1-1.2) X10*3/uL Eos # (Auto) (0.0-0.4) X10*3/uL Baso # (Auto) (0.0-0.2) X10*3/uL Abs Immat Gran (auto) (0.00-0.03) X10*3/uL Absolute Neuts (auto) (2.0-8.3) x10*3/uL Absolute Nucleated RBC (0.0-0.012) X10*3/uL Nucleated RBC % (auto) (0.0-0.2) /100WBC PT (10.9-12.4) SEC INR (0.9-1.1) APTT (26.0-36.8) SEC Sodium (135-145) mmol/L Potassium (3.3-5.1) mmol/L Chloride (96-108) mmol/L Carbon Dioxide (22-29) mmol/L Anion Gap (12-20) BUN (9-16) mg/dL Creatinine (0.5-1.4) mg/dL Estim Creat Clear Calc Estimated GFR POC Glucose (60-115) mg/dL Random Glucose (60-115) mg/dL Lactic Acid (0.5-2.0) mmol/L Lactic Acid F/U @ 2Hr (0.5-2.0) mmol/L Lactic Acid F/U @ 4Hr 3.2 H* (0.5-2.0) mmol/L Calcium (8.4-10.2) mg/dL Magnesium (1.6-2.6) mg/dL Total Bilirubin (0.0-1.0) mg/dL Direct Bilirubin (0.0-0.5) mg/dL AST (5-37) U/L ALT (0-40) U/L Alkaline Phosphatase (39-117) U/L Troponin I High Sens (<3.5-35.0) ng/L Total Protein (6.5-8.0) g/dL Albumin (3.5-5.0) g/dL Lipase (8-78) U/L Urine Color Urine Appearance Urine pH (5.0-9.0) Ur Specific [address] (1.005-1.025) Urine Protein (Neg-Trace) mg/dL Urine Glucose (UA) (Negative) mg/dL Urine Ketones (Negative) mg/dL Urine Blood (Negative) Urine Nitrite (Negative) Ur Leukocyte Esterase (Negative) Urine RBC (0-2) /HPF Urine WBC (0-5) /HPF Ur Squamous Epith Cells (0-2) /HPF Urine Bacteria (None Seen) Hyaline Casts (0-2) /LPF Influenza Type A (PCR) (Negative) Influenza Type B (PCR) (Negative) RSV RNA Qual (PCR) (Negative) SARS-CoV-2 RNA (RT-PCR) (Negative) Blood Type Antibody Screen Independent Interpretation I performed an independent interpretation of an: EKG, Plain X-Ray (LL opacity) and CT Scan (SBO) Interpretation: Rate: 120 Rhythm: sinus tach [place]: left Normal P waves. Normal ARMANI. Normal QRS complex. ST T wave : no FREDIS, flat t waves I and aVL qTC: 440 prior studies: no acute ischemia The study has been interpreted contemporaneously by me. . Radiology Impression Discussion of test interpretation with radiology: I have reviewed the radiologist's reading. Independent Historian Clinical information obtained from an independent historian. History obtained from or confirmed by: EMS and Other External Record Review External record reviewed: Inpatient record and Outpatient record Critical Care Time Critical Care Time Critical Care Time: Yes Total Critical Care Time: 60 Attestation: sepsis protocol, repeat labs, consults, fam discussion I attest to this time spent taking care of the patient Discharge Plan Discharge Clinical Impression: SBO (small bowel obstruction), Acidosis, lactic, COVID-19, [place] (acute kidney injury), Coffee ground emesis Elevated WBC count Qualifiers: Leukocytosis type: unspecified Qualified Code(s): D72.829 - Elevated white blood cell count, unspecified Fever Qualifiers: Fever type: unspecified Qualified Code(s): R50.9 - Fever, unspecified Aspiration pneumonia Qualifiers: Aspiration pneumonia type: unspecified Laterality: left Lung location: lower lobe of lung Qualified Code(s): J69.0 - Pneumonitis due to inhalation of food and vomit Patient Disposition: Admitted As Inpatient Print Language: Angolan
[2024-09-21 02:55] LABS: Basophils Percent Auto 0.1 % (0-2); Hematocrit 53.8 % (42.0-52.0); Hemoglobin 17.8 g/dl (14.0-18.0); Imm Gran Abs Auto 0.05 X10*3/uL (0.00-0.03); Imm Gran Pct Auto 0.3 % (0.0-0.4); Lymphocytes Absolute Auto 1.1 X10*3/uL (1.2-4.9); Lymphocytes Percent Auto 6.9 % (20-40); Mean Corpuscular HGB Conc 33.1 g/dl (31.0-36.0); Mean Corpuscular Hemoglobin 28.9 pg (27.0-33.0); Mean Corpuscular Volume 87.5 fL (80.0-98.0); Mean Platelet Volume 11.7 fL (9.4-12.4); Monocytes Absolute Auto 0.5 X10*3/uL (0.1-1.2); Monocytes Percent Auto 3.5 % (2-11); Neutrophils Absolute Auto 13.6 x10*3/uL (2.0-8.3); Neutrophils Percent Auto 89.2 % (45-73); Platelet Count 209 X10*3/uL (160-400); Red Blood Count 6.15 X10*6/uL (4.60-5.80); Red Cell Distribution Width 16.7 % (11.0-16.0); White Blood Count 15.3 X10*3/uL (4.8-10.8)
[2024-09-21 03:04] LABS: INTERNATIONAL NORM RATIO 2.3 (0.9-1.1); Prothrombin Time 26.5 SEC (10.9-12.4)
[2024-09-21 03:07] LABS: Partial Thromboplastin Time 36.6 SEC (26.0-36.8)
[2024-09-21 03:17] LABS: Lactic Acid 5.9 mmol/L (0.5-2.0)
[2024-09-21] MEDS: Piperacillin Sodium/Tazobactam 3.375 GM in 0.9 % Sodium Chloride 50 ML IV ×4 (03:18→21:16)
[2024-09-21] MEDS: Acetaminophen 1,000 MG/100 ML PIGGYBACK 400 MG IV ×3 (03:18→16:58)
[2024-09-21 03:20] LABS: Glucose, Whole Blood 157 mg/dL (60-115)
[2024-09-21 03:22] LABS: Albumin Level 3.6 g/dL (3.5-5.0); Anion Gap 23 (12-20); Aspartate Amino Transferase 40 U/L (5-37); Bilirubin Direct 0.3 mg/dL (0.0-0.5); Bilirubin Total 1.1 mg/dL (0.0-1.0); Blood Urea Nitrogen 38 mg/dL (9-16); Calcium 9.5 mg/dL (8.4-10.2); Carbon Dioxide 19 mmol/L (22-29); Chloride 110 mmol/L (96-108); Creatinine Clr Calc Pharmacy 22.8; Estimated Glomerular Filt Rate 29; Glucose Random 155 mg/dL (60-115); Lipase 36 U/L (8-78); Magnesium 2.4 mg/dL (1.6-2.6); Potassium 5.2 mmol/L (3.3-5.1); Sodium 147 mmol/L (135-145); Total Protein 7.9 g/dL (6.5-8.0)
[2024-09-21 03:23] LABS: Troponin-I High Sensitivity 7.3 ng/L (<3.5-35.0)
[2024-09-21 03:32] LABS: Influenza A PCR NEGATIVE (Negative); Influenza B PCR NEGATIVE (Negative); Resp Syncy Virus RNA Qual PCR NEGATIVE (Negative); SARS COV2 PCR INHOUSE POSITIVE (Negative)
[2024-09-21 03:32] LABS: Alanine Aminotransferase 49 U/L (0-40); Alkaline Phosphatase 61 U/L (39-117)
[2024-09-21] MEDS: LACTATED RINGERS 1623 ML IV (03:34)
[2024-09-21] MEDS: vancomycin HCL 1,250 MG in 0.9 % Sodium Chloride 250 ML 166.67 MG IV (04:12)
[2024-09-21 04:51] LABS: Reflex Lactate? Lactic Acid Added
[2024-09-21 05:22] LABS: ~Lactic Acid-LAB USE ONLY 5.3 mmol/L (0.5-2.0)
[2024-09-21] MEDS: Lactated Ringers 1,000 ML 100 ML IVCONT ×2 (06:03→14:47)
[2024-09-21 07:02] LABS: Reflex Lactate? 2 Y
--- NOTE | 2024-09-21 07:43 | PC.NURSE ---
Pt able to urinate using urinal with help of family member, approx 200 mL of output
[2024-09-21 07:46] LABS: Appearance Urine Clear; Color Urine Dark Yellow; Glucose Urine UA Negative (Negative); Leukocyte Esterase Urine Small (1+) (Negative); Nitrite Urine Negative (Negative); UMIC TRIGGER UACC YES; Urine Blood Negative (Negative); Urine Ketones Negative (Negative); Urine Protein Trace mg/dL (Neg-Trace)
[2024-09-21 07:56] LABS: ~Lactic Acid-LAB USE ONLY 3.2 mmol/L (0.5-2.0)
[2024-09-21 08:00] LABS: Bacteria Urine None Seen (None Seen); RBC Urine 0-2 /HPF (0-2); Squamous Epithelial Cell Urine 0-2 /HPF (0-2); UACC Culture Trigger YES; WBC Urine 0-5 /HPF (0-5)
--- NOTE | 2024-09-21 08:33 | P.CONGS_ITS ---
History of Present Illness Consult details Consult date: 09/21/24 Narrative: Antoni Kitchen is a 73 year old male with multiple medical problems including quadriplegia, advanced dementia, COPD, on anticoagulation for heart valve disease, brought to the ER by his daughter because of coffee-ground emesis. She says that she has been steadily declining as well and has been been very weak. She says that the patient has had bowel movements. He is not communicative. He has been bed-bound for several years. The daughter is the primary caregiver and healthcare proxy. She describes significant and progressive decline in his overall health over the years. Review of Systems 2 Cardiovascular: Cardiovascular: Reports dyspnea Respiratory: Respiratory: Reports dyspnea Gastrointestinal: Gastrointestinal: Reports hematemesis Musculoskeletal: Comments: Bed-bound for years Neurologic: Comments: Not communicative PMF Past Medical History Medical History Swallowing problem Alzheimer's dementia Protein-calorie malnutrition Alzheimer's dementia Febrile Encephalopathy Altered mental status Depression Non-rheumatic aortic regurgitation Ascending aortic aneurysm CKD (chronic kidney disease) Chronic anticoagulation Bleeding hemorrhoids Heart valve disease Acute deep vein thrombosis (DVT) COPD (chronic obstructive pulmonary disease) Family History Family History Father History of prostate cancer Surgical History Surgical History Hx of cholecystectomy History of inguinal hernia repair Social History Social History Household Members: Children Housing: Apartment Do you presently have visiting nurse or other home services: Yes Unable to assess alcohol history related to: Unable to respond Alcohol intake: never Comment: family constantly at bedside Patient Tobacco Use Status: Never used Tobacco Smoked in Last 30 Days: No Use of substances other than those prescribed or required for medical reasons: No Advance Directives: Yes Advance Directives on File: Yes Advance Directives Date on File: 05/05/23 service: No Current occupational status: disabled Meds Allergies Allergy/AdvReac Type Severity Reaction Status Date / Time doxycycline Allergy Severe Rash Verified 09/21/24 02:57 nut - unspecified Allergy Severe GI Stomach Verified 09/21/24 02:57 Bleed oxycodone [OXYCODONE] Allergy Severe Decrease BP Verified 09/21/24 02:57 Iodinated Contrast Media Allergy Intermediate CKD PER Verified 09/21/24 02:57 [IVP DYE] DAUGHTER PT IS NOT TO HAVE DUE TO KIDNEYS Sulfa (Sulfonamide Allergy Intermediate Rash Verified 09/21/24 02:57 Antibiotics) tramadol [TRAMADOL] Allergy Intermediate PER Verified 09/21/24 02:57 DAUGHTER PT PASSED OUT, weakness meperidine [From Demerol] Allergy Redness of Verified 09/21/24 02:57 Skin Active Medications: Current Medications Lactated Ringer's (Lr) 1,000 mls @ 100 mls/hr IVCONT .Q10H [facility] Last Admin: 09/21/24 06:03 Dose: 100 mls/hr Home Medications ?Medication ?Instructions ?Recorded ?Confirmed ?Last Taken ?Type atenolol 25 mg tablet 25 mg PO DAILY 07/26/20 09/21/24 09/20/24 History omeprazole 20 mg capsule,delayed 20 mg PO DAILY@0630 07/26/20 09/21/24 09/20/24 History release warfarin 5 mg tablet 2.5 mg PO SUTUWETHSA 05/02/21 09/21/24 09/20/24 History naftifine 2 % topical gel (Naftin) 1 appl topical DAILY mycosis 07/02/21 09/21/24 09/20/24 History albuterol sulfate 2.5 mg/3 mL 2.5 mg inhalation Q4H PRN 04/22/22 09/21/24 07/20/22 History (0.083 %) solution for nebulization Respiratory Distress acetaminophen 325 mg tablet 650 mg PO Q6H PRN Fever 05/21/22 09/21/24 07/20/22 History (Tylenol) loratadine 10 mg tablet 10 mg PO DAILY 05/18/24 09/21/24 09/20/24 History docusate sodium 60 mg/15 mL oral 100 mg PO DAILY PRN Constipation 09/21/24 09/21/24 Unknown History syrup warfarin 5 mg tablet 5 mg PO MOFR 09/21/24 09/21/24 09/19/24 History Physical Exam 2 Vital Signs: Vital Signs: Last Vital Signs Temp 100.9 F H 09/21/24 08:24 Pulse 116 H 09/21/24 08:24 Resp 38 H 09/21/24 08:24 BP 115/78 09/21/24 08:24 Pulse Ox 94 09/21/24 08:24 O2 Del Method Room Air 09/21/24 08:24 O2 Flow Rate 3 09/21/24 07:32 Oxygen Flow Rate 3 09/21/24 02:54 BMI result Body Mass Index 19.2 Const: Other: Appears short of breath, not communicative, not alert Resp: Other: Short of breath Cardio: Rate: tachycardic GI: Other: Distended, soft Results Labs 09/21/24 02:44 09/21/24 02:44 Labs: Abnormal lab results 09/21/24 09/21/24 09/21/24 Range/Units 02:38 02:44 02:45 WBC 15.3 H (4.8-10.8) X10*3/uL RBC 6.15 H (4.60-5.80) X10*6/uL Hct 53.8 H (42.0-52.0) % RDW 16.7 H (11.0-16.0) % Neut % (Auto) 89.2 H (45-73) % Lymph % (Auto) 6.9 L (20-40) % Lymph # (Auto) 1.1 L (1.2-4.9) X10*3/uL Abs Immat Gran (auto) 0.05 H (0.00-0.03) X10*3/uL Absolute Neuts (auto) 13.6 H (2.0-8.3) x10*3/uL PT 26.5 H (10.9-12.4) SEC INR 2.3 H (0.9-1.1) Sodium 147 H (135-145) mmol/L Potassium 5.2 H D (3.3-5.1) mmol/L Chloride 110 H (96-108) mmol/L Carbon Dioxide 19 L (22-29) mmol/L Anion Gap 23 H (12-20) BUN 38 H (9-16) mg/dL Creatinine 2.20 H (0.5-1.4) mg/dL POC Glucose 157 H (60-115) mg/dL Random Glucose 155 H (60-115) mg/dL Lactic Acid 5.9 H* (0.5-2.0) mmol/L Lactic Acid F/U @ 2Hr (0.5-2.0) mmol/L Lactic Acid F/U @ 4Hr (0.5-2.0) mmol/L Total Bilirubin 1.1 H (0.0-1.0) mg/dL AST 40 H (5-37) U/L ALT 49 H (0-40) U/L Ur Leukocyte Esterase (Negative) SARS-CoV-2 RNA (RT-PCR) POSITIVE A (Negative) 09/21/24 09/21/24 09/21/24 Range/Units 04:57 07:28 07:29 WBC (4.8-10.8) X10*3/uL RBC (4.60-5.80) X10*6/uL Hct (42.0-52.0) % RDW (11.0-16.0) % Neut % (Auto) (45-73) % Lymph % (Auto) (20-40) % Lymph # (Auto) (1.2-4.9) X10*3/uL Abs Immat Gran (auto) (0.00-0.03) X10*3/uL Absolute Neuts (auto) (2.0-8.3) x10*3/uL PT (10.9-12.4) SEC INR (0.9-1.1) Sodium (135-145) mmol/L Potassium (3.3-5.1) mmol/L Chloride (96-108) mmol/L Carbon Dioxide (22-29) mmol/L Anion Gap (12-20) BUN (9-16) mg/dL Creatinine (0.5-1.4) mg/dL POC Glucose (60-115) mg/dL Random Glucose (60-115) mg/dL Lactic Acid (0.5-2.0) mmol/L Lactic Acid F/U @ 2Hr 5.3 H* (0.5-2.0) mmol/L Lactic Acid F/U @ 4Hr 3.2 H* (0.5-2.0) mmol/L Total Bilirubin (0.0-1.0) mg/dL AST (5-37) U/L ALT (0-40) U/L Ur Leukocyte Esterase Small (1+) H (Negative) SARS-CoV-2 RNA (RT-PCR) (Negative) Short CBC 09/21/24 Range/Units 02:44 WBC 15.3 H (4.8-10.8) X10*3/uL Hgb 17.8 (14.0-18.0) g/dl Hct 53.8 H (42.0-52.0) % Plt Count 209 D (160-400) X10*3/uL BMP 09/21/24 02:44 Sodium 147 H Potassium 5.2 H D Chloride 110 H Carbon Dioxide 19 L BUN 38 H Creatinine 2.20 H Calcium 9.5 Liver Function 09/21/24 Range/Units 02:44 Total Bilirubin 1.1 H (0.0-1.0) mg/dL Direct Bilirubin 0.3 (0.0-0.5) mg/dL AST 40 H (5-37) U/L ALT 49 H (0-40) U/L Alkaline Phosphatase 61 (39-117) U/L Albumin 3.6 (3.5-5.0) g/dL Urine 09/21/24 Range/Units 07:28 Urine Color Dark Yellow Urine Appearance Clear Urine pH 5.0 (5.0-9.0) Ur Specific [place] 1.020 (1.005-1.025) Urine Protein Trace (Neg-Trace) mg/dL Urine Glucose (UA) Negative (Negative) mg/dL All other labs normal. Assessment and Plan (1) SBO (small bowel obstruction): Status: Acute 74-year-old male brought to the ER for coffee-ground emesis with a CAT scan showing focal twisting of the small bowel mesentery patient was for small bowel obstruction with internal hernia. The patient has multiple medical problems including advanced dementia, poor level of function, COPD, also with a pneumonia now along with the acute kidney injury. I had a long discussion with the daughter Danielle Cruz at bedside. I reviewed with her the above going issues. I explained to the CT scan findings are suspicious for an internal hernia and treatment for this would be surgical. She had stated that the patient has a DNR issue and in fact in she does not want any further invasive measures. There were considering comfort measures only for the patient as he has had chronic progressive health issues with significant continued decline in health. She does understand the there is indeed an internal hernia, there may be subsequent ischemia of this involved small bowel loop leading to gangrene and eventual . No surgical intervention is therefore being planned. Procedures Date of Service Date of Service: 09/21/24
--- NOTE | 2024-09-21 08:49 | P.HPHOSP_ITS ---
History of Present Illness Date of Service: 09/21/24 Chief Complaint: changes in mental status The patient is a 74-year-old male with a past medical history of advanced Alzheimer's dementia, nonverbal and bed-bound at baseline with functional quadriplegia who is dependent on all care, history of DVT on Coumadin, aortic regurg, COPD, hypertension and moderate protein calorie malnutrition who presents to the ED with changes in mental status. Due to the patient's baseline condition, history is obtained from the ED provider as well as the patient's daughter and healthcare proxy Devi Cruz who is bedside. Apparently over the last 24 hours, the patient has had significant decline in his mental status. Although nonverbal at baseline largely, the patient has become increasingly lethargic. + sick contact with [facility]. She reports that in addition to the mental status changes, he has had some vomitus. Last bowel movement was the day prior. In the ED, the patient was found to have high-grade stenosis on CT scan. His blood work and vital signs are indicative of severe sepsis due to aspiration. Case has been thoroughly discussed by the ED provider and general surgeon with the daughter. She has deferred surgery given his high-risk baseline status and for the time being would like to continue with medical management. If he deteriorates further, she likely would change to comfort care. Review of Systems 2 Review of Systems: unable to review due to mental status PMFSH Medical History Swallowing problem Alzheimer's dementia Protein-calorie malnutrition Alzheimer's dementia Febrile Encephalopathy Altered mental status Depression Non-rheumatic aortic regurgitation Ascending aortic aneurysm CKD (chronic kidney disease) Chronic anticoagulation Bleeding hemorrhoids Heart valve disease Acute deep vein thrombosis (DVT) COPD (chronic obstructive pulmonary disease) Family History Father History of prostate cancer Surgical History Hx of cholecystectomy History of inguinal hernia repair Social History Household Members: Children Housing: Apartment Do you presently have visiting nurse or other home services: Yes Unable to assess alcohol history related to: Unable to respond Alcohol intake: never Comment: family constantly at bedside Patient Tobacco Use Status: Never used Tobacco Smoked in Last 30 Days: No Use of substances other than those prescribed or required for medical reasons: No Advance Directives: Yes Advance Directives on File: Yes Advance Directives Date on File: 05/05/23 service: No Current occupational status: disabled Meds Allergies Allergy/AdvReac Type Severity Reaction Status Date / Time doxycycline Allergy Severe Rash Verified 09/21/24 02:57 nut - unspecified Allergy Severe GI Stomach Verified 09/21/24 02:57 Bleed oxycodone [OXYCODONE] Allergy Severe Decrease BP Verified 09/21/24 02:57 Iodinated Contrast Media Allergy Intermediate CKD PER Verified 09/21/24 02:57 [IVP DYE] DAUGHTER PT IS NOT TO HAVE DUE TO KIDNEYS Sulfa (Sulfonamide Allergy Intermediate Rash Verified 09/21/24 02:57 Antibiotics) tramadol [TRAMADOL] Allergy Intermediate PER Verified 09/21/24 02:57 DAUGHTER PT PASSED OUT, weakness meperidine [From Demerol] Allergy Redness of Verified 09/21/24 02:57 Skin Active Medications: Current Medications Lactated Ringer's (Lr) 1,000 mls @ 100 mls/hr IVCONT .Q10H [facility] Last Admin: 09/21/24 06:03 Dose: 100 mls/hr Ondansetron HCl (Ondansetron Hcl 4 Mg/2 Ml Vial) 4 mg IVPUSH Q8H PRN PRN Reason: Nausea and Vomiting Sodium Chloride (0.9 % Sodium Chloride Flush 3 Ml Syringe) 3 ml IVFLUSH QSHIFT [facility] Home Medications ?Medication ?Instructions ?Recorded ?Confirmed ?Last Taken ?Type atenolol 25 mg tablet 25 mg PO DAILY 07/26/20 07/08/24 05/17/24 History omeprazole 20 mg capsule,delayed 20 mg PO DAILY@0630 07/26/20 07/08/24 05/17/24 History release warfarin 5 mg tablet 2.5 mg PO DAILY@1800 05/02/21 07/08/24 05/17/24 History naftifine 2 % topical gel (Naftin) 1 appl topical DAILY mycosis 07/02/21 07/08/24 05/17/24 History albuterol sulfate 2.5 mg/3 mL 2.5 mg inhalation Q4H PRN 04/22/22 07/08/24 07/20/22 History (0.083 %) solution for nebulization Respiratory Distress acetaminophen 325 mg tablet 650 mg PO Q6H PRN Fever 05/21/22 07/08/24 07/20/22 History (Tylenol) loratadine 10 mg tablet 10 mg PO DAILY 05/18/24 07/08/24 05/17/24 History Physical Exam 2 Vital Signs and Narrative: Vital Signs: Last Vital Signs Temp 100.9 F H 09/21/24 08:24 Pulse 116 H 09/21/24 08:24 Resp 38 H 09/21/24 08:24 BP 115/78 09/21/24 08:24 Pulse Ox 94 09/21/24 08:24 O2 Del Method Room Air 09/21/24 08:24 O2 Flow Rate 3 09/21/24 07:32 Oxygen Flow Rate 3 09/21/24 02:54 BMI result Body Mass Index 19.2 Const: Other: Constitutional - initially asleep, but opens eyes eventually; appears acutely and chronically ill Eyes - EOMI Cardiovascular - tachycardic with rates in the 110s Respiratory - tachypenic with shallow breaths; coarse sounds Gastrointestinal - mildly distended but soft without tenderness - No CVA tenderness Extremities - no calf tenderness bilaterally, no swelling Musculoskeletal - contracted Skin - appears flushed Neurological - eyes open, does not communicate otherwise Results Labs 09/21/24 02:44 09/21/24 02:44 Labs: Laboratory Results - last 24 hr 09/21/24 09/21/24 09/21/24 02:38 02:44 02:45 MCV 87.5 MCH 28.9 MCHC 33.1 RDW 16.7 H Plt Count 209 D MPV 11.7 Immature Gran % (Auto) 0.3 Neut % (Auto) 89.2 H Lymph % (Auto) 6.9 L [place] % (Auto) 3.5 Eos % (Auto) 0.0 Baso % (Auto) 0.1 Lymph # (Auto) 1.1 L [place] # (Auto) 0.5 Eos # (Auto) 0.0 Baso # (Auto) 0.0 Abs Immat Gran (auto) 0.05 H Absolute Neuts (auto) 13.6 H Absolute Nucleated RBC 0.000 Nucleated RBC % (auto) 0.0 PT 26.5 H INR 2.3 H APTT 36.6 Anion Gap 23 H Estim Creat Clear Calc 22.8 Estimated GFR 29 POC Glucose 157 H Random Glucose 155 H Lactic Acid 5.9 H* Lactic Acid F/U @ 2Hr Lactic Acid F/U @ 4Hr Calcium 9.5 Magnesium 2.4 Total Bilirubin 1.1 H Direct Bilirubin 0.3 AST 40 H ALT 49 H Alkaline Phosphatase 61 Troponin I High Sens 7.3 D Total Protein 7.9 Albumin 3.6 Lipase 36 Urine Color Urine Appearance Urine pH Ur Specific [place] Urine Protein Urine Glucose (UA) Urine Ketones Urine Blood Urine Nitrite Ur Leukocyte Esterase Urine RBC Urine WBC Ur Squamous Epith Cells Urine Bacteria Hyaline Casts Influenza Type A (PCR) NEGATIVE Influenza Type B (PCR) NEGATIVE RSV RNA Qual (PCR) NEGATIVE SARS-CoV-2 RNA (RT-PCR) POSITIVE A Blood Type Antibody Screen 09/21/24 09/21/24 09/21/24 03:13 04:57 07:28 MCV MCH MCHC RDW Plt Count MPV Immature Gran % (Auto) Neut % (Auto) Lymph % (Auto) [place] % (Auto) Eos % (Auto) Baso % (Auto) Lymph # (Auto) [place] # (Auto) Eos # (Auto) Baso # (Auto) Abs Immat Gran (auto) Absolute Neuts (auto) Absolute Nucleated RBC Nucleated RBC % (auto) PT INR APTT Anion Gap Estim Creat Clear Calc Estimated GFR POC Glucose Random Glucose Lactic Acid Lactic Acid F/U @ 2Hr 5.3 H* Lactic Acid F/U @ 4Hr Calcium Magnesium Total Bilirubin Direct Bilirubin AST ALT Alkaline Phosphatase Troponin I High Sens Total Protein Albumin Lipase Urine Color Dark Yellow Urine Appearance Clear Urine pH 5.0 Ur Specific [place] 1.020 Urine Protein Trace Urine Glucose (UA) Negative Urine Ketones Negative Urine Blood Negative Urine Nitrite Negative Ur Leukocyte Esterase Small (1+) H Urine RBC 0-2 Urine WBC 0-5 Ur Squamous Epith Cells 0-2 Urine Bacteria None Seen Hyaline Casts 3-5 Influenza Type A (PCR) Influenza Type B (PCR) RSV RNA Qual (PCR) SARS-CoV-2 RNA (RT-PCR) Blood Type A Positive Antibody Screen NEGATIVE 09/21/24 07:29 MCV MCH MCHC RDW Plt Count MPV Immature Gran % (Auto) Neut % (Auto) Lymph % (Auto) [place] % (Auto) Eos % (Auto) Baso % (Auto) Lymph # (Auto) [place] # (Auto) Eos # (Auto) Baso # (Auto) Abs Immat Gran (auto) Absolute Neuts (auto) Absolute Nucleated RBC Nucleated RBC % (auto) PT INR APTT Anion Gap Estim Creat Clear Calc Estimated GFR POC Glucose Random Glucose Lactic Acid Lactic Acid F/U @ 2Hr Lactic Acid F/U @ 4Hr 3.2 H* Calcium Magnesium Total Bilirubin Direct Bilirubin AST ALT Alkaline Phosphatase Troponin I High Sens Total Protein Albumin Lipase Urine Color Urine Appearance Urine pH Ur Specific [place] Urine Protein Urine Glucose (UA) Urine Ketones Urine Blood Urine Nitrite Ur Leukocyte Esterase Urine RBC Urine WBC Ur Squamous Epith Cells Urine Bacteria Hyaline Casts Influenza Type A (PCR) Influenza Type B (PCR) RSV RNA Qual (PCR) SARS-CoV-2 RNA (RT-PCR) Blood Type Antibody Screen Imaging Radiologist's Impressions: Impressions Chest X-Ray 09/21/24 03:50 IMPRESSION: Low lung volumes with moderate left lower lobe atelectasis and/or consolidation. Electronically signed by: Rashad Aguirre MD 09/21/2024 04:45 AM EST RP Abdomen/Pelvis CT 09/21/24 04:00 IMPRESSION: *High-grade small bowel obstruction. A transition between dilated and nondilated small bowel is noted in the distal ileum within the right upper abdominal quadrant. Focal twisting of the small bowel mesentery is present in the same region. Findings are suspicious for obstruction related to otherwise occult adhesions or possible internal hernia. A discrete internal hernia is not visualized. Findings are inferred based on focal angulation of the small bowel mesentery adjacent to the transition between dilated and nondilated small bowel. (series 7 image 34, series 3 image [id number]). *Within the incidentally visualized left lower pulmonary lobe. Mild-moderate peribronchial inflammatory changes are present and may represent mild-moderate aspiration pneumonitis. *Diffuse prostatic enlargement. The prostate measures 4.5 cm in AP dimension. *Status post cholecystectomy. Electronically signed by: Rashad Aguirre MD 09/21/2024 04:54 AM EST RP Assessment and Plan (1) SBO (small bowel obstruction): Status: Acute Plan 74 yo M with multiple medical issues presenting with changes in mental status and found to have SBO with high grade obstruction, acute resp. failure with hypxoia due to aspiration pneumonia + covid leading to sepsis, [place]. 1. Severe sepsis and acute resp failure with hypoxia due to aspration pneumonia +/- COVID Continue IV abx, follow cultures If continues to decline, likely change goals of care. Daughter reports she does not want her father to suffer. IV fluids 2. High-grade SBO Seen by general surgery with recommendations for surgical repair, however given patient's ongoing sepsis and baseline status this has been deferred by the family NPO for now IV fluids 3. Acute kidney injury, anion gap metabolic acidosis, hyperkalemia, hypernatremia Prerenal versus ATN Will treat with fluids and monitor renal function closely next 4. Acute metabolic encephalopathy Although patient at baseline is nonverbal he is typically alert. Currently patient is largely sedated, suspect likely due to 1. 5. History of DVT On Coumadin at baseline, INR 2.3 We will hold off on anticoagulation and re-evaluate tomorrow 6. History of COPD Continue baseline inhalers as tolerated We will hold oral medications for the time being DNR/DNI per MOLST form on the chart and reaffirmed with the patient's daughter and healthcare proxy DVT prophylaxis, mechanical for the time being Patient with severe sepsis, high-grade small-bowel obstruction, respiratory failure, acute kidney injury who is critically ill and therefore expected to require at a minimum 2 midnights in the hospital for treatment. Hence, the patient will be admitted as inpatient. Quality Stroke Does the patient have a stroke diagnosis?: No VTE Prior VTE?: No VTE Risk Level:: Medical - moderate - high VTE Device Contraindication: N/A - Device Ordered VTE Drug Contraindication: Treatment Not Tolerated
--- NOTE | 2024-09-21 09:08 | PHA.PROG ---
Admission Date/Time: Indication: Sepsis Weight in k.1 kg Adjusted body weight in Kg: Winside body weight in Kg: Obesity Dosing Indication % IBW: Serum Creatinine - Last 168 Hours 09/21/24 02:44 Creatinine 2.20 H Estimated CrCl and GFR - Last 168 Hours 09/21/24 02:44 Estim Creat Clear Calc 22.8 Estimated GFR 29 Vancomycin Loading Dose: 1250mg Current Vancomycin Dosing Regimen: 750mg q24h Vancomycin Monitoring using AUC goal of 400 - 600 range with trough as surrogate marker: 545 mg/L Date and Time for next Vancomycin Level to be drawn: 09/23 @0600 Pharmacist Comments on Vancomycin Plan:projected trough = 18.4 mg/L Vancomycin dosing will take advantage of Email Data Source as a clinical decision support tool that uses Bayesian modeling to calculate individual patient's pharmacokinetic parameters and forecast the patient's drug concentration time course with the target goal AUC 24 range of 400 - 600 mg/L/hr.
--- NOTE | 2024-09-21 09:19 | PHA.MEDREC ---
Pharmacy Consult ? Medication Reconciliation Pharmacy has completed the medication reconciliation. Spoke to patient's daughter Devi at bedside and confirmed medication list. Daughter said pt only takes docusate once a day prn diarrhea. Dose of warfarin is 5 mg on thursday and thursday, 2.5 mg for the rest of the week. Last dose of warfarin was 2.5 mg yesterday (09/20/24). Patient no longer takes finasteride, levofloxacin, milk of magnesia, spironolactone and tylenol #3. Last dose of medications was yesterday 09/20/24.
[2024-09-21] MEDS: Morphine Sulfate 2 MG/ML CARTRIDGE IVPUSH ×3 (11:39→23:56)
--- NOTE | 2024-09-21 11:44 | PC.NURSE ---
Provider aware of vitals. per family, pt uncomfortable, medicated per MAR for pain.
--- NOTE | 2024-09-21 17:00 | PC.NURSE ---
Provider aware of ongoing vitals and status
[2024-09-21] MEDS: 0.9 % Sodium Chloride 1,000 ML 999 ML IVCONT (17:46)
[2024-09-21] MEDS: Albumin Human 25 % 100 ML IV ×2 (18:02→18:45)
--- NOTE | 2024-09-21 20:32 | PC.NURSE ---
Pt completed 2nd bag of albumin and 1L NS. Pt is hypotensive at 95/66, HR 121, RR 41. [place] text sent to Dr. Salazar who held 1L NS scheduled for 1845.
[2024-09-22] VITALS: BP 92/65; PULSE 120; RESP 32; TEMP 36.8; O2SAT 98
[2024-09-22] MEDS: LORazepam 2 MG/ML VIAL 0.5 MG IVPUSH ×2 (00:05→03:52)
[2024-09-22 01:15] VITALS: RESP 30
[2024-09-22] MEDS: Morphine Sulfate 2 MG/ML CARTRIDGE IVPUSH (01:15)
[2024-09-22 02:28] VITALS: RESP 44
[2024-09-22] MEDS: Morphine Sulfate 4 MG/ML CARTRIDGE IVPUSH ×3 (02:28→05:38)
[2024-09-22] MEDS: Piperacillin Sodium/Tazobactam 3.375 GM in 0.9 % Sodium Chloride 50 ML IV (03:51)
[2024-09-22 03:52] VITALS: RESP 40
[2024-09-22 05:38] VITALS: RESP 44
--- NOTE | 2024-09-22 06:49 | PM.EVENT ---
Event Note Date of Service: 09/22/24 Event Note: note I was contacted to patient's bedside to pronounce that the patient has . Patient is DNI and DNI and has been comfort measures only. No spontaneous movement were present. There was no respond to verbal or tactile stimuli. Pupils were mid dilated and fixed. No breath sounds were appreciated over either lung field. No carotid pulses were palpable. No heart sounds were auscultated over entire pericardium. Patient was pronounced at 09/22/2024 -06:08 The family declined autopsy. Our condolences to the family. Time Spent With Patient Time: Total time managing care of this patient today ____ minutes.
--- NOTE | 2024-09-22 06:58 | PC.NURSE ---
Pt passed at 0608 this morning. Pt and daughter at the bedside. Dr Salazar notified and at bedside to pronounce. Per family, they will be using [facility] for burial services. Post mortem care to be completed after family completes their visit. [facility] was called within one hour of , pt was declined. This RN spoke with Arlet at [facility], Ref # [id number].
--- NOTE | 2024-09-22 07:00 | PC.NURSE ---
Assumed care of patient at this time. Patient . Family allowed to grieve at bedside. Post mortem care completed. Patient transported to [facility] [place].
--- NOTE | 2024-09-22 07:30 | PM.DDS ---
Discharge Sum: Prov Provider Primary care physician: Sara Joel MD Admitting clinician: Tan Abel Attending physician on admission: Tan Abel Consults: 09/21/24 08:47 Consult to General Surgery Routine Consulting Provider[place] [facility] Reason for consultation: bowel obstruction Pronouncing clinician: Amara Murillo Discharge Sum: Diag PCOD Cause of : Severe sepsis Contributing Factors (1) SBO (small bowel obstruction): Contributing factors: 1. Aspiration pneumonia 2. High-grade small-bowel obstruction 3. Acute kidney injury can not rule out ATN 4. Acute respiratory failure with hypoxia 5. Acute metabolic encephalopathy 6. History of DVT on anticoagulation 7. History of COPD 8. Alzheimer's dementia Discharge Sum: Summary Date and Time Date of admission: 09/21/24 08:45 Date of : 09/22/24 Time of : 06:08 Summary Details: HPI from the admission H&P: The patient is a 74-year-old male with a past medical history of advanced Alzheimer's dementia, nonverbal and bed-bound at baseline with functional quadriplegia who is dependent on all care, history of DVT on Coumadin, aortic regurg, COPD, hypertension and moderate protein calorie malnutrition who presents to the ED with changes in mental status. Due to the patient's baseline condition, history is obtained from the ED provider as well as the patient's daughter and healthcare proxy Devi Cruz who is bedside. Apparently over the last 24 hours, the patient has had significant decline in his mental status. Although nonverbal at baseline largely, the patient has become increasingly lethargic. + sick contact with COVID. She reports that in addition to the mental status changes, he has had some vomitus. Last bowel movement was the day prior. In the ED, the patient was found to have high-grade stenosis on CT scan. His blood work and vital signs are indicative of severe sepsis due to aspiration. Case has been thoroughly discussed by the ED provider and general surgeon with the daughter. She has deferred surgery given his high-risk baseline status and for the time being would like to continue with medical management. If he deteriorates further, she likely would change to comfort care. Hospital Course: The patient was seen in consultation by General surgery for his high-grade small-bowel obstruction and due to his ongoing sepsis and underlying chronic multiple medical issues operative repair was deferred by the family. Patient was admitted under the medical services and was continued on IV fluids, IV antibiotics, supplemental oxygen. Over the course of his 1st day in the hospital, his condition continued to deteriorate. He became increasingly tachycardic and hypotensive and persistently febrile. Multiple discussions were held with the patient's daughter and healthcare proxy regarding goals of care. She had elected against escalation of care including intubation and transfer to the intensive care unit. Ultimately the patient was made comfort measures only and on 09/22/2024 at 06:08. Additional Data Attending physician: Tan Abel MD
--- NOTE | 2024-09-22 09:25 | MHC.CM.PN ---
PT PASSED VAWAY PRIOR TO CM ASSESSMENT
== END 2024-09-22 09:05 | disposition expired | DRG 871 ==
LOC: HO.ED 05:44 → HO.EDOVER 09:29 → HO.IMC 20:01
PROVIDERS: Admitting Provider Family Medicine; Emergency Provider Emergency Medicine; PCP Internal Medicine; Visit Provider Family Medicine
DX: A41.9 Sepsis, unspecified organism (principal); G93.41 Metabolic encephalopathy; J69.0 Pneumonitis due to inhalation of food and vomit; R53.2 Functional quadriplegia; N17.0 Acute kidney failure with tubular necrosis; J96.01 Acute respiratory failure with hypoxia; K46.0 Unspecified abdominal hernia with obstruction, without gangrene; J44.9 Chronic obstructive pulmonary disease, unspecified; Z51.5 Encounter for palliative care; R65.20 Severe sepsis without septic shock; G30.9 Alzheimer's disease, unspecified; F02.80 Dementia in other diseases classified elsewhere, unspecified severity, without behavioral disturbance, psychotic disturbance, mood disturbance, and anxiety; Z20.822 Contact with and (suspected) exposure to COVID-19; Z74.01 Bed confinement status; Z99.81 Dependence on supplemental oxygen; Z86.718 Personal history of other venous thrombosis and embolism; Z79.01 Long term (current) use of anticoagulants; Z79.899 Other long term (current) drug therapy
CPT/HCPCS: 0241U; 36415; 71045; 74176; 80048; 80076; 81001; 82947; 83605; 83690; 83735; 84484; 85025; 85610; 85730; 86850; 86900; 86901; 87040; 87086; 87147; 87205; 93005; 99285; J0131; J2060; J2270; J2470; J2543; J3371; J7120; P9047

== ENCOUNTER → 2024-09-21 02:44 | Outpatient (BNV) | payer MEDICARE, MEDICAID, SELFPAY | PROVIDERS: Admitting Provider Family Medicine; Emergency Provider Emergency Medicine; PCP Internal Medicine; Visit Provider Internal Medicine Cardiovascular Disease | DX: R00.0 Tachycardia, unspecified (principal) | CPT/HCPCS: 93010 ==

== ENCOUNTER → 2024-09-21 04:23 | Outpatient (BNV) | payer MEDICARE, MEDICAID, SELFPAY | PROVIDERS: Emergency Provider Emergency Medicine; Visit Provider Family Medicine | DX: K56.609 Unspecified intestinal obstruction, unspecified as to partial versus complete obstruction (principal); A41.9 Sepsis, unspecified organism; J69.0 Pneumonitis due to inhalation of food and vomit; J96.01 Acute respiratory failure with hypoxia | CPT/HCPCS: 99223 ==

== ENCOUNTER → 2024-09-21 08:45 | Outpatient (BNV) | payer MEDICARE, MEDICAID, SELFPAY | PROVIDERS: Admitting Provider Family Medicine; Emergency Provider Emergency Medicine; PCP Internal Medicine; Visit Provider Surgery | DX: K56.609 Unspecified intestinal obstruction, unspecified as to partial versus complete obstruction (principal) | CPT/HCPCS: 99284 ==